=== PATIENT | male | born 1940 | race Hispanic/Latino ===

== ENCOUNTER 2017-09-08 22:05 | Observation (INO) | payer MEDICARE, MEDICAID ==
[2017-09-08 22:40] VITALS: BMI 33.6
--- NOTE | 2017-09-08 22:43 | ED PDOC ---
Arrival/HPI - General Time Seen by Provider: 09/08/17 22:06 Historian: Patient - History of Present Illness Narrative History of Present Illness (Text): 09/08/17 22:33 Octavio Caal is a 77 year old male, whose past medical history includes aortic abdominal aneurysm and cholelithiasis, complaining of right upper abdominal discomfort after eating a few hours ago. Patient describes his discomfort as sharp pain. At present, Patient's symptoms are currently relieved. Patient denies any associated nausea, vomiting, back pain, chest pain , shortness of breath, or any other complaints at this time. Time/Duration: 4-6 hours Symptom Onset: Gradual Symptom Course: Improving Severity Level: Mild Activities at Onset: Light Context: Home Past Medical History - Provider Review Nursing Documentation Reviewed: Yes - Infectious Disease Hx of Infectious Diseases: None - Tetanus Immunization Tetanus Immunization: Unknown - Pulmonary Hx Asthma: Yes Hx Chronic Obstructive Pulmonary Disease (COPD): Yes - Musculoskeletal/Rheumatological Hx Arthritis: Yes - Genitourinary/Gynecological Hx Prostate Problems: Yes - Psychiatric Hx Depression: No Hx Emotional Abuse: No Hx Physical Abuse: No Hx Substance Use: No - Past Surgical History Past Surgical History: No Previous - Anesthesia Hx Anesthesia: No - Suicidal Assessment Feels Threatened In Home Enviroment: No Family/Social History - Physician Review Nursing Documentation Reviewed: Yes Family/Social History: No Known Family HX Smoking Status: Light Smoker < 10 Cigarettes Daily Hx Alcohol Use: No Hx Substance Use: No Hx Substance Use Treatment: No Allergies/Home Meds Allergies/Adverse Reactions: Allergies No Known Allergies Allergy (Verified 11/25/16 15:50) Home Medications: Home Meds Medication Instructions Recorded Confirmed Celecoxib [Celebrex] 0 mg PO 04/01/14 04/01/14 Review of Systems - Physician Review All systems were reviewed & negative as marked: Yes - Review of Systems Constitutional: absent: Fevers Eyes: absent: Vision Changes ENT: absent: Hearing Changes Respiratory: absent: SOB Cardiovascular: absent: Chest Pain (right-sided upper abdominal pain) Gastrointestinal: Abdominal Pain Genitourinary Male: absent: Dysuria, Frequency Musculoskeletal: absent: Arthralgias, Back Pain Skin: absent: Rash, Pruritis Neurological: absent: Headache, Dizziness Endocrine: absent: Diaphoresis Physical Exam Vital Signs Temp Pulse Resp BP Pulse Ox 09/09/17 01:00 84 20 133/71 96 09/08/17 23:24 97.8 F 88 17 110/77 95 09/08/17 22:39 98.6 F 103 H 23 130/74 95 - Systems Exam Head: Present: Atraumatic, Normocephalic Pupils: Present: PERRL Extroacular Muscles: Present: EOMI Conjunctiva: Present: Normal Mouth: Present: Moist Mucous Membranes Neck: Present: Normal Range of Motion Respiratory/Chest: Present: Clear to Auscultation, Good Air Exchange. No: Respiratory Distress, Accessory Muscle Use Cardiovascular: Present: Regular Rate and Rhythm, Normal S1, S2. No: Murmurs Abdomen: Present: Normal Bowel Sounds. No: Tenderness, Distention, Peritoneal Signs Back: Present: Normal Inspection Upper Extremity: Present: Normal Inspection. No: Cyanosis, Edema Lower Extremity: Present: Normal Inspection. No: Edema Neurological: Present: GCS=15, CN II-XII Intact, Speech Normal Skin: Present: Warm, Dry, Normal Color. No: Rashes Psychiatric: Present: Alert, Oriented x 3, Normal Insight, Normal Concentration Medical Decision Making ED Course and Treatment: 09/08/17 22:47 Impression: 77 year old male complaining of right upper abdominal pain after eating a few hours ago. Differential Diagnosis included but are not limited to: Plan: -- EKG -- Chest X-ray -- Abdomen and Pelvis CT w/o contrast -- Abdomen Ultrasound -- Labs -- Reassess and disposition Prior Visits: Notes and results from previous visits were reviewed. Patient last seen in the ED on 11/25/16 for left shoulder pain status post injury. Patient was discharged home. Progress Notes: 09/09/17 00:44 CT Abdomen and Pelvis Without Intravenous Contrast Creator : FRIDA MG FINDINGS: Lower thorax: The bilateral lung bases are clear. ABDOMEN: Liver: No acute findings Gallbladder and bile ducts: The gallbladder is decompressed, with a single dependent with calcified stone. No intra-extrahepatic biliary ductal dilation. Pancreas: Limited evaluation secondary to the lack of intravenous contrast. Spleen: No acute findings. Adrenals: No acute findings. Kidneys and ureters: No obstructing stones. No hydronephrosis. Multiple areas of decreased attenuation are identified within the left kidney, statistically representing benign cysts, unchanged from prior study. PELVIS: Bladder: No acute findings. Reproductive: The prostate gland is enlarged, and demonstrates multiple bulky calcifications. Appendix: The appendix is of normal-caliber (series 2, image 129). ABDOMEN and PELVIS: Stomach and bowel: No acute findings. Peritoneum: No acute findings. Lymph nodes: Limited evaluation without intravenous contrast. Vasculature: Infrarenal abdominal aortic aneurysm measuring 4.5 cm in anteroposterior dimension, unchanged from previous study. Calcified atherosclerotic disease. Bones: No acute fracture. IMPRESSION: Cholelithiasis. Stable infrarenal abdominal aortic aneurysm. Left renal (most likely) benign cysts. 09/09/17 01:00 US Abdomen Complete: Creator : FRIDA MG FINDINGS: Liver: Increased in echogenicity and size measuring 19 cm in longitudinal dimension. No intrahepatic bile duct dilation. Gallbladder: No acute findings. The gallbladder is decompressed, and contains stones and sludge. Decreased echogenicity is identified surrounding the decompressed gallbladder the, possibly representing trace pericholecystic fluid. No gallbladder wall thickening is detected. Common bile duct: No stones. No dilation, measuring 4.4 mm. Pancreas: Visualization of the pancreas is limited by overlying bowel gas. Right kidney: Unremarkable echogenicity and size measuring 12 x 6 x 6 cm . No hydronephrosis. Left Kidney: Unremarkable in size measuring 11.5 x 5.6 x 5.9 cm. Simple cyst within the left kidney are noted. The largest within the mid to lower pole measuring 6 cm in greatest dimension. No hydronephrosis. Spleen: Unremarkable in echogenicity and size measuring 8.1 x 4.6 x 4.5 cm. Aorta: Unremarkable. Inferior vena cava: patent. IMPRESSION: Stones and sludge within the decompressed gallbladder with additional findings suggesting trace pericholecystic fluid. Fatty infiltration of an enlarged liver. Simple cysts within the left kidney. Limited evaluation of the pancreas, secondary to overlying bowel gas. Otherwise, unremarkable sonographic evaluation of the abdomen, as detailed above. 09/09/17 01:[address] Machuca, who accepts patient admission to his service. Dr. Brooke on consult. - Lab Interpretations Lab Results: 09/08/17 22:40 09/08/17 22:40 Lab Results 09/09/17 00:30: Urine Color Yellow, Urine Appearance Sl cloudy, Urine pH 5.5, Ur Specific [place] >= 1.030, Urine Protein Negative, Urine Glucose (UA) Negative, Urine Ketones Trace H, Urine Blood Small H, Urine Nitrate Negative, Urine Bilirubin Negative, Urine Urobilinogen 0.2, Ur Leukocyte Esterase Small H , Urine RBC 0 - 2, Urine WBC 10 - 15, Ur Epithelial Cells 1 - 3, Urine Bacteria Few 09/08/17 22:40: WBC 10.0, RBC 4.90, Hgb 14.9, Hct 44.2, MCV 90.2, MCH 30.4, MCHC 33.7, RDW 14.6 H, Plt Count 193, MPV 10.8 09/08/17 22:40: Sodium 144, Potassium 3.8, Chloride 108 H, Carbon Dioxide 27, Anion Gap 13, BUN 21, Creatinine 1.0, Est GFR ( Amer) > 60, Est GFR (Non- Af Amer) > 60, Random Glucose 148 H, Calcium 10.6 H, Total Bilirubin 0.4, AST 26 , ALT 29, Alkaline Phosphatase 71, Total Protein 6.8, Albumin 4.2, Globulin 2.6 , Albumin/Globulin Ratio 1.6, Lipase 74 09/08/17 22:40: PT 10.8, INR 0.99, APTT 31.0 I have reviewed the lab results: Yes - RAD Interpretation Narrative RAD Interpretations (Text): 09/08/17 23:45 CXR- No acute process Radiology Orders: 09/08/17 22:39 CHEST ONE VIEW [RAD] Stat ABDOMEN COMPLETE [US] Stat 09/08/17 22:43 ABD & PELVIS W/O PO OR IV CONT [CT] Stat Marine Mechanic: ED Physician - Scribe Statement The provider has reviewed the documentation as recorded by the Walker Painter Provider Scribe Attestation: All medical record entries made by the Walker were at my direction and personally dictated by me. I have reviewed the chart and agree that the record accurately reflects my personal performance of the history, physical exam, medical decision making, and the department course for this patient. I have also personally directed, reviewed, and agree with the discharge instructions and disposition. Disposition/Present on Arrival - Present on Arrival Any Indicators Present on Arrival: No History of DVT/PE: No History of Uncontrolled Diabetes: No Urinary Catheter: No History Surgical Site Infection Following: None - Disposition Have Diagnosis and Disposition been Completed?: Yes Diagnosis: Biliary colic, Cholelithiasis Disposition: HOSPITALIZED Disposition Time: :13 Patient Plan: Observation Patient Problems: Current Active Problems Problem Status Onset Biliary colic Acute Cholelithiasis Acute Condition: STABLE Referrals: Nick Gallegos MD [Primary Care Provider] - Follow up with primary
[2017-09-08 22:54] LABS: HEMATOCRIT 44.2 % (42.0-52.0); MEAN CELL VOLUME 90.2 fl (80.0-105.0); MEAN CORPUSCULAR HEMOGLOBIN 30.4 pg (25.0-35.0); MEAN CORPUSCULAR HGB CONC 33.7 g/dl (31.0-37.0); MEAN PLATELET VOLUME 10.8 fl (7.0-11.0); RED CELL DISTRIBUTION WIDTH 14.6 % (11.5-14.5)
[2017-09-08 23:02] LABS: ALB/GLOB RATIO 1.6 (1.1-1.8); ALKALINE PHOSPHATASE 71 U/L (38-126); ALT/SGPT 29 U/L (7-56); AST/SGOT 26 U/L (17-59); BILIRUBIN,TOTAL 0.4 mg/dL (0.2-1.3); BLOOD UREA NITROGEN 21 mg/dL (7-21); CALCIUM 10.6 mg/dL (8.4-10.5); CARBON DIOXIDE 27 mmol/L (21-33); CHLORIDE 108 mmol/L (98-107); GFR AFRICAN-AMERICAN > 60; GLUCOSE,RANDOM 148 mg/dL (70-110); LIPASE 74 U/L (23-300); POTASSIUM 3.8 mmol/L (3.6-5.0); SODIUM 144 mmol/L (132-148); TOTAL PROTEIN 6.8 g/dL (5.8-8.3)
[2017-09-08 23:09] LABS: INR 0.99 (0.93-1.08)
--- NOTE | 2017-09-09 00:13 | CT ---
EXAM: CT Abdomen and Pelvis Without Intravenous Contrast CLINICAL HISTORY: 77 years old, male; Pain; Abdominal pain; Additional info: Transient abdominal pain TECHNIQUE: Axial computed tomography images of the abdomen and pelvis without intravenous contrast. All CT scans at this facility use one or more dose reduction techniques, viz.: automated exposure control; ma/kV adjustment per patient size (including targeted exams where dose is matched to indication; i.e. head); or iterative reconstruction technique. Coronal and sagittal reformatted images were created and reviewed. COMPARISON: CT - ABD PELVIS W/O PO OR IV CONT 2017-03-12 08:48 FINDINGS: Lower thorax: The bilateral lung bases are clear. ABDOMEN: Liver: No acute findings Gallbladder and bile ducts: The gallbladder is decompressed, with a single dependent with calcified stone. No intra-extrahepatic biliary ductal dilation. Pancreas: Limited evaluation secondary to the lack of intravenous contrast. Spleen: No acute findings. Adrenals: No acute findings. Kidneys and ureters: No obstructing stones. No hydronephrosis. Multiple areas of decreased attenuation are identified within the left kidney, statistically representing benign cysts, unchanged from prior study. PELVIS: Bladder: No acute findings. Reproductive: The prostate gland is enlarged, and demonstrates multiple bulky calcifications. Appendix: The appendix is of normal-caliber (series 2, image 129). ABDOMEN and PELVIS: Stomach and bowel: No acute findings. Peritoneum: No acute findings. Lymph nodes: Limited evaluation without intravenous contrast. Vasculature: Infrarenal abdominal aortic aneurysm measuring 4.5 cm in anteroposterior dimension, unchanged from previous study. Calcified atherosclerotic disease. Bones: No acute fracture. IMPRESSION: Cholelithiasis. Stable infrarenal abdominal aortic aneurysm. Left renal (most likely) benign cysts.
[2017-09-09 00:43] LABS: PH,URINE 5.5 (4.7-8.0); URINE BILIRUBIN NEGATIVE (NEGATIVE); URINE BLOOD SMALL (NEGATIVE); URINE GLUCOSE (UA) NEGATIVE (NEGATIVE); URINE KETONE TRACE mg/dL (NEGATIVE); URINE LEUKOCYTE ESTERASE SMALL Leu/uL (NEGATIVE); URINE PROTEIN NEGATIVE mg/dL (<30 mg/dL); URINE UROBILINOGEN 0.2 E.U./dL (<1 E.U./dL)
[2017-09-09 00:44] LABS: URINE APPEARANCE SL CLOUDY (CLEAR); URINE COLOR YELLOW (YELLOW)
--- NOTE | 2017-09-09 00:46 | US ---
EXAM: US Abdomen Complete CLINICAL HISTORY: 77 years old, male; Pain; Abdominal pain; Epigastric; Additional info: Right upper abdominal pain TECHNIQUE: Real-time ultrasound of the abdomen (complete) with image documentation. COMPARISON: CT - ABD PELVIS W/O PO OR IV CONT 2017-09-08 22:56 FINDINGS: Liver: Increased in echogenicity and size measuring 19 cm in longitudinal dimension. No intrahepatic bile duct dilation. Gallbladder: No acute findings. The gallbladder is decompressed, and contains stones and sludge. Decreased echogenicity is identified surrounding the decompressed gallbladder the, possibly representing trace pericholecystic fluid. No gallbladder wall thickening is detected. Common bile duct: No stones. No dilation, measuring 4.4 mm. Pancreas: Visualization of the pancreas is limited by overlying bowel gas. Right kidney: Unremarkable echogenicity and size measuring 12 x 6 x 6 cm . No hydronephrosis. Left Kidney: Unremarkable in size measuring 11.5 x 5.6 x 5.9 cm. Simple cyst within the left kidney are noted. The largest within the mid to lower pole measuring 6 cm in greatest dimension. No hydronephrosis. Spleen: Unremarkable in echogenicity and size measuring 8.1 x 4.6 x 4.5 cm. Aorta: Unremarkable. Inferior vena cava: patent. IMPRESSION: Stones and sludge within the decompressed gallbladder with additional findings suggesting trace pericholecystic fluid. Fatty infiltration of an enlarged liver. Simple cysts within the left kidney. Limited evaluation of the pancreas, secondary to overlying bowel gas. Otherwise, unremarkable sonographic evaluation of the abdomen, as detailed above.
[2017-09-09 01:02] LABS: URINE BACTERIA FEW (NEG); URINE RBC 0 - 2 /hpf (0-2)
--- NOTE | 2017-09-09 06:54 | CP.PCM.CON ---
History of Present Illness - History of Present Illness History of Present Illness: General Surgery: Dr Brooke Patient is a 77M w/ PMH of only Abdominal Aortic Aneurysm. Pt presents with ~1 hour of RUQ abdominal pain following a fatty meal. Pt states after his dinner he developed intense RUQ pain (10/10) and nausea. States the pain radiated to his back. Pt presented to the ED and states after one dose of pain medication his pain has resolved and not returned. Currently his pain is 0/10. He denies any further nausea, vomiting, fevers, chills. Workup included US /CT showed cholelithiasis, no evidence of cholecystitis, and stable abdominal aneurysm. Review of Systems - Review of Systems All systems: reviewed and no additional remarkable complaints except (as per hpi ) Past Patient History - Infectious Disease Hx of Infectious Diseases: None - Tetanus Immunizations Tetanus Immunization: Unknown - Past Social History Smoking Status: Former Smoker - PULMONARY Hx Asthma: Yes Hx Chronic Obstructive Pulmonary Disease (COPD): Yes - MUSCULOSKELETAL/RHEUMATOLOGICAL Hx Arthritis: Yes Hx Falls: No - GENITOURINARY/GYNECOLOGICAL Hx Prostate Problems: Yes - PSYCHIATRIC Hx Depression: No Hx Emotional Abuse: No Hx Physical Abuse: No - SURGICAL HISTORY Hx Surgeries: No - ANESTHESIA Hx Anesthesia: No Meds Allergies/Adverse Reactions: Allergies Allergy/AdvReac Type Severity Reaction Status Date / Time No Known Allergies Allergy Verified 11/25/16 15:50 Physical Exam - Constitutional Appears: Non-toxic, No Acute Distress - ENT Exam ENT Exam: Mucous Membranes Moist - Respiratory Exam Respiratory Exam: absent: Accessory Muscle Use, Respiratory Distress - Cardiovascular Exam Cardiovascular Exam: REGULAR RHYTHM. absent: Tachycardia - GI/Abdominal Exam GI & Abdominal Exam: Soft. absent: Distended, Firm, Guarding, Tenderness - Neurological Exam Neurological exam: Alert, Oriented x3 - Psychiatric Exam Psychiatric exam: Normal Affect, Normal Mood - Skin Skin Exam: Normal Color, Warm Results - Vital Signs Recent Vital Signs: Last Vital Signs Temp 98.1 F 09/09/17 02:58 Pulse 80 09/09/17 02:58 Resp 15 09/09/17 02:58 BP 133/81 09/09/17 02:58 Pulse Ox 96 09/09/17 01:00 - Labs Result Diagrams: 09/08/17 22:40 09/08/17 22:40 Assessment & Plan - Assessment and Plan (Free Text) Assessment: 77M with single episode of biliary colic Plan: pt currently asymptomatic, no evidence of cholecystitis or infection OK to advance diet and subsequently discharge if tolerates no antibiotics needed pt can follow up in office with Dr Brooke for elective cholecystectomy will d/w Dr Edwardo Frazier, PGY3
[2017-09-09 08:17] VITALS: BP 136/76; PULSE 83; RESP 21; TEMP 98.2; O2SAT 94
--- NOTE | 2017-09-09 08:55 | RAD ---
PROCEDURE: CHEST RADIOGRAPH, 1 VIEW HISTORY: abdominal pain COMPARISON: 08/17/2013. FINDINGS: LUNGS: The lungs are well inflated. There is mild pulmonary venous congestion. No focal consolidation. PLEURA: No pneumothorax or pleural fluid seen. CARDIOVASCULAR: Normal. OSSEOUS STRUCTURES: No significant abnormalities. VISUALIZED UPPER ABDOMEN: Normal. OTHER FINDINGS: None. IMPRESSION: Mild pulmonary venous congestion. No lobar pneumonia.
--- NOTE | 2017-09-09 10:22 | CARD ---
APPROVED REPORT EKG Measurement Heart [id number] <Conclusion> Normal sinus rhythm Left axis deviation Incomplete right bundle branch block Abnormal ECG
--- NOTE | 2017-09-10 08:49 | HP ---
CHIEF COMPLAINT AND HISTORY OF PRESENT ILLNESS: This is a 77-year-old male who is coming to the hospital with complaints of abdominal pain. The patient states that he started having abdominal pain yesterday, it lasted about an hour. He has no nausea. He says that the pain was in his abdominal area. He does have a history of an abdominal aortic aneurysm and cholelithiasis. The patient says it was mostly in the right upper quadrant. It was sharp. It is nonradiating. Initially, he was complaining of 10/10 pain. REVIEW OF SYMPTOMS: All other review of symptoms are within normal limits, except I was mentioned. ALLERGIES: NO KNOWN DRUG ALLERGIES. HOME MEDICATIONS: Celebrex. SOCIAL HISTORY: He smokes less than 10 cigarettes a day. He denies alcohol or substance abuse. PAST MEDICAL HISTORY: As above. FAMILY HISTORY: Noncontributory. PHYSICAL EXAMINATION: VITAL SIGNS: Temperature is 98.6, pulse of 103, blood pressure 130/74, respirations are 23, O2 saturation 95%, height is 5 feet 4 inches, weight is 190 pounds, and BMI is 32.6. GENERAL: The patient lying in bed, uncomfortable, and in no acute distress. HEENT: Atraumatic and normocephalic. Anicteric sclerae. Moist mucosa. [place] conjunctivae. No oral lesions. NECK: No JVD, anterior and posterior adenopathy, thyromegaly, or bruits. CARDIOVASCULAR: S1 and S2 regular. No murmur, rubs, or gallop. LUNGS: Clear to auscultation bilaterally. No wheezes, rales, or rhonchi. ABDOMEN: Bowel sounds are positive. Soft, nontender and nondistended. No hepatosplenomegaly. No rebound and no guarding EXTREMITIES: No cyanosis, clubbing, or edema. NEUROLOGIC: No facial asymmetry. Tongue is midline. No uvula deviation. Power is 5/5 upper extremity and lower extremity. Sensation intact in upper extremity and lower extremity. PSYCHIATRIC: He is awake, alert and oriented x3. No anxiety or depression. She has normal affect. GENITOURINARY: No CVA tenderness. VASCULAR: 2+ pulses in the carotid pulses and pedal pulses. SKIN: No erythema or nodules SPINE: Shows normal curvature. EXTREMITIES: No Cyanosis and clubbing, no edema. LABORATORY DATA: White count is 10, hemoglobin is 14.9, platelet count is 193. INR is 0.99. Sodium is 144, creatinine is 1, alkaline phosphatase is 71, lipase is 74. Urine, shows bilirubin is negative and nitrites are negative. CT of the abdomen and pelvis shows cholelithiasis. There is a stable infrarenal abdominal aortic aneurysm. Chest x-ray shows no infiltrates. EKG done shows sinus rhythm at 88, no ST-T changes. ASSESSMENT: 1. Abdominal pain secondary to cholelithiasis. 2. Infrarenal abdominal aortic aneurysm 4.5 cm. 3. Obese with a body mass index of 32. PLAN: The patient is going to be admitted to the hospital. The patient is comfortable. He will have his diet advanced. Surgery had to assess and evaluate the patient. He can come to outpatient followup to be reevaluated for possible cholecystectomy. He is asking to be discharged home. He is going to follow up with his primary care doctor, Dr. Jasso. CONDITION: Stable. ACTIVITIES: Increase as tolerated. Gary Machuca MD
== END 2017-09-09 10:54 | disposition home or self-care (01) ==
LOC: ED 22:05 → ERH 09-09 01:15 → 3RNO 09-09 02:41
PROVIDERS: ADMIT Internal Medicine Nephrology; ATTEND Internal Medicine Nephrology
DX: K80.20 Calculus of gallbladder without cholecystitis without obstruction (principal); I71.4 Abdominal aortic aneurysm, without rupture; J44.9 Chronic obstructive pulmonary disease, unspecified; N28.1 Cyst of kidney, acquired; K76.0 Fatty (change of) liver, not elsewhere classified; F17.210 Nicotine dependence, cigarettes, uncomplicated; Z68.32 Body mass index [BMI] 32.0-32.9, adult; E66.9 Obesity, unspecified
CPT/HCPCS: 71010; 74176; 76700; 80053; 81001; 83690; 85027; 85610; 85730; 87086; 93005; 99285; G0378

== ENCOUNTER 2017-11-11 10:56 | Emergency (ER) | payer MEDICARE, MEDICAID ==
[2017-11-11 10:59] VITALS: BMI 32.4
[2017-11-11 11:15] VITALS: TEMP 98.7
[2017-11-11] MEDS ORDERED: Albuterol-Ipratrop 3 mg / 0.5 (3 ml) UD IH STA (11:15)
--- NOTE | 2017-11-11 11:20 | ED PDOC ---
Arrival/HPI - General Chief Complaint: Shortness Of Breath Time Seen by Provider: 11/11/17 11:09 Historian: Patient - History of Present Illness Narrative History of Present Illness (Text): 11/11/17 11:10 Wilfred Caal is a 77 year old male, whose past medical history includes aortic abdominal aneurysm, cholelithiasis, and COPD, who presents to the emergency department complaining of coughing, difficulty breathing, and lower back pain for the past 3 days. Patient's family states that his symptoms are worse than usual. Patient denies any fever, chills, chest pain, nausea, vomiting , diarrhea, urinary symptoms, neck pain, headache, dizziness, or any other complaints. Time/Duration: < week Symptom Onset: Gradual Symptom Course: Unchanged Activities at Onset: Light Context: Home Past Medical History - Provider Review Nursing Documentation Reviewed: Yes - Infectious Disease Hx of Infectious Diseases: None - Tetanus Immunization Tetanus Immunization: Unknown - Cardiac Hx Cardiac Disorders: No - Pulmonary Hx Respiratory Disorders: Yes Hx Asthma: Yes Hx Chronic Obstructive Pulmonary Disease (COPD): Yes - HEENT Hx HEENT Disorder: Yes ([place]) - Musculoskeletal/Rheumatological Hx Arthritis: Yes Hx Falls: No - Genitourinary/Gynecological Hx Prostate Problems: Yes - Psychiatric Hx Depression: No Hx Emotional Abuse: No Hx Physical Abuse: No Hx Substance Use: No - Past Surgical History Past Surgical History: No Previous - Anesthesia Hx Anesthesia: No - Suicidal Assessment Feels Threatened In Home Enviroment: No Family/Social History - Physician Review Nursing Documentation Reviewed: Yes Family/Social History: No Known Family HX Smoking Status: Former Smoker Hx Alcohol Use: No Hx Substance Use: No Hx Substance Use Treatment: No Allergies/Home Meds Allergies/Adverse Reactions: Allergies No Known Allergies Allergy (Verified 11/11/17 11:22) Home Medications: Home Meds Medication Instructions Recorded Confirmed Albuterol/Ipratropium [Duoneb 3 3 ml IH Q6 PRN 11/11/17 11/11/17 MG/3 Ml-0.5 MG/3 Ml 3 Ml] Tamsulosin [Flomax] 0.4 mg PO DAILY 11/11/17 11/11/17 Review of Systems - Physician Review All systems were reviewed & negative as marked: Yes - Review of Systems Constitutional: absent: Night Sweats Eyes: absent: Vision Changes ENT: absent: Hearing Changes Respiratory: SOB, Cough Cardiovascular: absent: Chest Pain Gastrointestinal: absent: Abdominal Pain Genitourinary Male: absent: Dysuria, Frequency Musculoskeletal: Back Pain. absent: Arthralgias Skin: absent: Rash, Pruritis Neurological: absent: Headache, Dizziness Endocrine: absent: Diaphoresis Hemo/Lymphatic: absent: Adenopathy Psychiatric: absent: Anxiety, Depression Physical Exam Vital Signs Reviewed: Yes Vital Signs Temp Pulse Resp BP Pulse Ox 11/11/17 13:03 99 H 17 125/73 99 11/11/17 11:14 20 95 11/11/17 11:03 98.7 F 114 H 22 136/84 93 L Temperature: Afebrile Blood Pressure: Normal Pulse: Tachycardic Respiratory Rate: Normal Appearance: Positive for: Other (mild shortness of breath at rest) Pain Distress: None Mental Status: Positive for: Alert and Oriented X 3 - Systems Exam Head: Present: Atraumatic, Normocephalic Pupils: Present: PERRL Extroacular Muscles: Present: EOMI Conjunctiva: Present: Normal Neck: Present: Normal Range of Motion Respiratory/Chest: Present: Wheezes (scattered expiratory wheezes) Cardiovascular: Present: Regular Rate and Rhythm, Normal S1, S2. No: Murmurs Abdomen: Present: Normal Bowel Sounds. No: Tenderness, Distention, Peritoneal Signs Back: Present: Normal Inspection Upper Extremity: Present: Normal Inspection. No: Cyanosis, Edema Lower Extremity: Present: Edema (mild peripheral edema) Neurological: Present: GCS=15, CN II-XII Intact, Speech Normal Skin: Present: Warm, Dry, Normal Color. No: Rashes Psychiatric: Present: Alert, Oriented x 3, Normal Insight, Normal Concentration Medical Decision Making ED Course and Treatment: 11/11/17 11:24 Impression: 77 year old male complaining of persistent coughs, difficulty breathing, and lower back pain for the past 3 days. Differential Diagnosis included but are not limited to: Plan: -- EKG -- Chest X-ray -- VBG -- Labs -- Reassess and disposition Prior Visits: Notes and results from previous visits were reviewed. Patient was last seen in the emergency department on 09/08/17 for right upper abdominal discomfort after eating. Patient was discharged home. Progress Notes: 11/11/17 12:16 Chest X-ray: Creator : Issac Hui MD FINDINGS: LUNGS:No active pulmonary disease. PLEURA:No significant pleural effusion identified, no pneumothorax apparent. CARDIOVASCULAR:Cardiomegaly. No evidence of acute, significant cardiovascular disease. OSSEOUS STRUCTURES:No significant abnormalities. VISUALIZED UPPER ABDOMEN:Normal. OTHER FINDINGS:None. IMPRESSION: No active disease. No significant interval change compared to the prior examination(s). - Lab Interpretations Lab Results: 11/11/17 11:00 11/11/17 11:00 Lab Results 11/11/17 11:00: Sodium 142, Chloride 105, Potassium 4.4, Carbon Dioxide 24, Anion Gap 17, BUN 16, Creatinine 1.0, Est GFR ( Amer) > 60, Est GFR (Non- Af Amer) > 60, Random Glucose 117 H, Calcium 10.7 H, Total Bilirubin 0.7, AST 24 , ALT 34, Alkaline Phosphatase 56, Total Protein 7.5, Albumin 4.5, Globulin 3.0 , Albumin/Globulin Ratio 1.5 11/11/17 11:00: pO2 65 H, VBG pH 7.44 H, VBG pCO2 40.0, VBG HCO3 27.2, VBG Total CO2 28.4 H, VBG O2 Sat (Calc) 96.5 H, VBG Base Excess 2.8 H, VBG Potassium 4.3, Sodium 139.0, Chloride 105.0, Glucose 123 H, Lactate 1.0, FiO2 21.0, Venous Blood Potassium 4.3 11/11/17 11:00: WBC 9.0, RBC 5.23, Hgb 16.1, Hct 47.9, MCV 91.6, MCH 30.8, MCHC 33.6, RDW 14.7 H, Plt Count 170, MPV 11.3 H, Gran % 71.9 H, Lymph % (Auto) 13.4 L, [place] % (Auto) 13.3 H, Eos % (Auto) 0.8 L, Baso % (Auto) 0.6, Gran # 6.46, Lymph # 1.2, [place] # 1.2 H, Eos # 0.1, Baso # 0.05 I have reviewed the lab results: Yes - RAD Interpretation Radiology Orders: 11/11/17 11:16 CHEST PORTABLE [RAD] Stat - Medication Orders Current Medication Orders: Discontinued Medications Albuterol Sulfate (Albuterol 0.083% Inhal Jazmyn (2.5 Mg/3 Ml) Ud) 2.5 mg INH STAT STA Stop: 11/11/17 12:16 Last Admin: 11/11/17 12:38 Dose: 2.5 mg Albuterol/Ipratropium (Duoneb 3 Mg/0.5 Mg (3 Ml) Ud) 3 ml IH STAT STA Stop: 11/11/17 11:16 Last Admin: 11/11/17 11:26 Dose: 3 ml Methylprednisolone (Solu-Medrol) 125 mg IVP STAT STA Stop: 11/11/17 11:16 Last Admin: 11/11/17 11:26 Dose: 125 mg IVP Administration Document 11/11/17 11:26 LM (Rec: 11/11/17 11:26 [facility] [id number]) Charges for Administration # of IVP Administrations 1 - Scribe Statement The provider has reviewed the documentation as recorded by the Tariqibdeneen Painter Provider Scribe Attestation: All medical record entries made by the Scribe were at my direction and personally dictated by me. I have reviewed the chart and agree that the record accurately reflects my personal performance of the history, physical exam, medical decision making, and the department course for this patient. I have also personally directed, reviewed, and agree with the discharge instructions and disposition. Disposition/Present on Arrival - Present on Arrival Any Indicators Present on Arrival: No History of DVT/PE: No History of Uncontrolled Diabetes: No Urinary Catheter: No History of Decub. Ulcer: No History Surgical Site Infection Following: None - Disposition Have Diagnosis and Disposition been Completed?: Yes Diagnosis: Bronchitis, Back pain Disposition: HOME/ ROUTINE Disposition Time: 12:30 Condition: STABLE Prescriptions: Hydrocodone/Chlorphen P-Stirex [Tussicaps 8 mg-10 mg] 1 cap PO BID PRN #14 cap PRN Reason: Cough Naproxen [Naprosyn] 500 mg PO BID PRN #14 tablet PRN Reason: Pain, Moderate (4-7) predniSONE [Prednisone] 40 mg PO DAILY #10 tab Forms: [employer] ([place])
[2017-11-11 11:38] LABS: BASO # 0.05 K/mm3 (0.0-2.0); BASO % 0.6 % (0.0-3.0); EOS # 0.1 (0.0-0.7); EOS % 0.8 % (1.5-5.0); GRAN # 6.46 (1.4-6.5); GRAN % 71.9 % (50.0-68.0); HEMOGLOBIN 16.1 g/dL (14.0-18.0); LYMPH # 1.2 (1.2-3.4); LYMPH % 13.4 % (22.0-35.0); MEAN CELL VOLUME 91.6 fl (80.0-105.0); MEAN CORPUSCULAR HEMOGLOBIN 30.8 pg (25.0-35.0); MEAN CORPUSCULAR HGB CONC 33.6 g/dl (31.0-37.0); MEAN PLATELET VOLUME 11.3 fl (7.0-11.0); MONO # 1.2 (0.1-0.6); MONO % 13.3 % (1.0-6.0); RBC 5.23 10^6/uL (3.5-6.1); RED CELL DISTRIBUTION WIDTH 14.7 % (11.5-14.5)
[2017-11-11 11:39] LABS: VENOUS BLOOD GAS BASE EXCESS 2.8 mmol/L (0.0-2.0); VENOUS BLOOD GAS PO2 65 mm/Hg (30-55); VENOUS BLOOD PH 7.44 (7.32-7.43)
[2017-11-11 11:43] LABS: ALB/GLOB RATIO 1.5 (1.1-1.8); ALBUMIN 4.5 g/dL (3.0-4.8); CALCIUM 10.7 mg/dL (8.4-10.5); GFR AFRICAN-AMERICAN > 60; GFR NON-AFRICAN AMERICAN > 60
[2017-11-11 11:48] LABS: ALT/SGPT 34 U/L (7-56); AST/SGOT 24 U/L (17-59); BLOOD UREA NITROGEN 16 mg/dL (7-21)
--- NOTE | 2017-11-11 11:49 | RAD ---
HISTORY: Cough. Portable study 11:27. COMPARISON: 09/08/2017 FINDINGS: LUNGS: No active pulmonary disease. PLEURA: No significant pleural effusion identified, no pneumothorax apparent. CARDIOVASCULAR: Cardiomegaly. No evidence of acute, significant cardiovascular disease. OSSEOUS STRUCTURES: No significant abnormalities. VISUALIZED UPPER ABDOMEN: Normal. OTHER FINDINGS: None. IMPRESSION: No active disease. No significant interval change compared to the prior examination(s).
[2017-11-11] MEDS ORDERED: Albuterol 0.083% Inhal Sol (2.5 mg/3 mL) UD INH STA (12:15)
[2017-11-11 13:04] VITALS: BP 125/73; PULSE 99; RESP 17; O2SAT 99
--- NOTE | 2017-11-12 17:31 | CARD ---
APPROVED REPORT EKG Measurement Heart [id number] <Conclusion> Sinus tachycardia Low voltage QRS Incomplete right bundle branch block Borderline ECG
== END 2017-11-11 13:04 | disposition home or self-care (01) ==
LOC: ED 10:56
DX: M54.9 Dorsalgia, unspecified (principal); J40 Bronchitis, not specified as acute or chronic; Z87.891 Personal history of nicotine dependence
CPT/HCPCS: 71010; 80053; 82803; 85025; 93005; 94640; 96374; 99283; J2930

== ENCOUNTER 2018-01-21 20:34 | Observation (INO) | payer MEDICARE, MEDICAID ==
[2018-01-21 20:34] VITALS: BMI 32.4
[2018-01-21] MEDS ORDERED: Sodium Chloride 0.9% 1,000 ML IV STA (21:08)
--- NOTE | 2018-01-21 21:12 | ED PDOC ---
Arrival/HPI - General Chief Complaint: Chest Pain Time Seen by Provider: 01/21/18 20:34 Historian: Patient - History of Present Illness Narrative History of Present Illness (Text): 01/21/18 21:08 A 77 year old male, whose past medical history includes COPD, abdominal aneurysm and cholelithiasis, presents to the emergency department complaining of right sided abdominal pain that began 2 hours prior to arrival. Patient notes radiating pain towards his epigastric region. He states his symptoms began shortly after eating. Patient denies any fever, chills, nausea, vomiting, diarrhea, constipation, urinary symptoms, hematochezia, chest pain, shortness of breath or any other complaints. PMD: Dr. Gallegos and Dr. 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) Symptom Course: Unchanged Quality: Other Context: Home Past Medical History - Provider Review Nursing Documentation Reviewed: Yes - Infectious Disease Hx of Infectious Diseases: None - Tetanus Immunization Tetanus Immunization: Unknown - Cardiac Hx Cardiac Disorders: No - Pulmonary Hx Respiratory Disorders: Yes Hx Asthma: Yes Hx Chronic Obstructive Pulmonary Disease (COPD): Yes - HEENT Hx HEENT Disorder: Yes ([id number]) - Musculoskeletal/Rheumatological Hx Arthritis: Yes Hx Back Pain: Yes Hx Falls: No - Genitourinary/Gynecological Hx Prostate Problems: Yes - Psychiatric Hx Depression: No Hx Emotional Abuse: No Hx Physical Abuse: No Hx Substance Use: No - Past Surgical History Past Surgical History: No Previous - Surgical History Other/Comment: gall stone - Anesthesia Hx Anesthesia: No - Suicidal Assessment Feels Threatened In Home Enviroment: No Family/Social History - Physician Review Nursing Documentation Reviewed: Yes Family/Social History: No Known Family HX Smoking Status: Former Smoker Hx Alcohol Use: No Hx Substance Use: No Hx Substance Use Treatment: No Allergies/Home Meds Allergies/Adverse Reactions: Allergies No Known Allergies Allergy (Verified 01/21/18 20:55) Home Medications: Home Meds Medication Instructions Recorded Confirmed Tamsulosin [Flomax] 0.4 mg PO DAILY 11/11/17 01/21/18 Review of Systems - Physician Review All systems were reviewed & negative as marked: Yes - Review of Systems Constitutional: absent: Fevers, Night Sweats Respiratory: absent: SOB Cardiovascular: absent: Chest Pain Gastrointestinal: Abdominal Pain (right sided abdominal pain radiating to epigastric region). absent: Constipation, Diarrhea, Nausea, Vomiting, Hematochezia Genitourinary Male: absent: Dysuria, Frequency, Hematuria, Urinary Output Changes Physical Exam Vital Signs Reviewed: Yes Vital Signs Temp Pulse Resp BP Pulse Ox 01/21/18 20:50 99 F 98 H 18 147/97 H 99 Temperature: Afebrile Blood Pressure: Hypertensive Pulse: Tachycardic Respiratory Rate: Normal Appearance: Positive for: Well-Appearing, Non-Toxic, Comfortable Pain Distress: None Mental Status: Positive for: Alert and Oriented X 3 - Systems Exam Head: Present: Atraumatic, Normocephalic Pupils: Present: PERRL Extroacular Muscles: Present: EOMI Conjunctiva: Present: Normal Mouth: Present: Moist Mucous Membranes Neck: Present: Normal Range of Motion Respiratory/Chest: Present: Clear to Auscultation, Good Air Exchange. No: Respiratory Distress, Accessory Muscle Use Cardiovascular: Present: Regular Rate and Rhythm, Normal S1, S2. No: Murmurs Abdomen: Present: Tenderness (RUQ and epigastric tenderness to palpation), Normal Bowel Sounds, McBurney's Point Tender. No: Distention, Peritoneal Signs , Rebound, Guarding Back: Present: Normal Inspection Upper Extremity: Present: Normal Inspection. No: Cyanosis, Edema Lower Extremity: Present: Normal Inspection. No: Edema Neurological: Present: GCS=15, CN II-XII Intact, Speech Normal Skin: Present: Warm, Dry, Normal Color. No: Rashes Psychiatric: Present: Alert, Oriented x 3, Normal Insight, Normal Concentration Medical Decision Making ED Course and Treatment: 01/21/18 21:07 Impression: A 77 year old male with right sided abdominal pain radiating to epigastric region Differential Diagnosis included but are not limited to: Cholecystitis vs. Biliary colic Plan: -- Abdomen ultrasound -- Labs -- Pepcid, Toradol and IV fluids -- Reassess and disposition Progress Notes: EKG shows NSR at 81 BPM with incomplete RBBB. Interpreted by me. 01/21/18 22:32 Case signed out to Dr. Dumont to f/u CXR, Ultrasound, reevaluate and disposition. - Lab Interpretations Lab Results: 01/21/18 21:10 01/21/18 21:10 Lab Results 01/21/18 21:10: Sodium 139, Potassium 4.6, Chloride 105, Carbon Dioxide 24, Anion Gap 14, BUN 23 H, Creatinine 1.0, Est GFR ( Amer) > 60, Est GFR ( Non-Af Amer) > 60, Random Glucose 123 H, Calcium 11.3 H, Total Bilirubin 0.5, AST 27, ALT 29, Alkaline Phosphatase 57, Total Protein 6.9, Albumin 4.0, Globulin 2.8, Albumin/Globulin Ratio 1.4, Lipase 74 01/21/18 21:10: PT 10.4, INR 0.91 L, APTT 31.9 01/21/18 21:10: WBC 9.0, RBC 4.98, Hgb 15.3, Hct 45.2, MCV 90.8, MCH 30.7, MCHC 33.8, RDW 15.0 H, Plt Count 176, MPV 11.3 H, Gran % 53.1, Lymph % (Auto) 32.7, [place] % (Auto) 8.9 H, Eos % (Auto) 4.5, Baso % (Auto) 0.8, Gran # 4.80, Lymph # ( Auto) 3.0, [place] # (Auto) 0.8 H, Eos # (Auto) 0.4, Baso # (Auto) 0.07 I have reviewed the lab results: Yes - RAD Interpretation Radiology Orders: 01/21/18 21:08 ABDOMEN COMPLETE [US] Stat 01/21/18 21:16 CXR [CHEST PORTABLE] [RAD] Stat - Medication Orders Current Medication Orders: Sodium Chloride (Sodium Chloride 0.9%) 1,000 mls @ 100 mls/hr IV .Q10H STA Stop: 01/22/18 07:07 Last Admin: 01/21/18 21:29 Dose: 100 mls/hr eMAR Start Stop Document 01/21/18 21:29 AD (Rec: 01/21/18 21:29 AD [id number]) Intravenous Solution Start Date 01/21/18 Start Time 21:29 Discontinued Medications Famotidine (Pepcid) 20 mg IVP STAT STA Stop: 01/21/18 21:09 Last Admin: 01/21/18 21:30 Dose: 20 mg IVP Administration Document 01/21/18 21:30 AD (Rec: 01/21/18 21:31 AD [id number]) Charges for Administration # of IVP Administrations 1 Ketorolac Tromethamine (Toradol) 30 mg IVP STAT STA Stop: 01/21/18 21:09 Last Admin: 01/21/18 21:29 Dose: 30 mg MAR Pain Assessment Document 01/21/18 21:29 AD (Rec: 01/21/18 21:29 AD [id number]) Pain Reassessment Is this a pain reassessment? No Presence of Pain Presence of Pain Yes Pain Scale Used Pain Scale Used Numeric Description Intensity of Pain at present 10 IVP Administration Document 01/21/18 21:29 AD (Rec: 01/21/18 21:29 AD [id number]) Charges for Administration # of IVP Administrations 1 - Scribe Statement The provider has reviewed the documentation as recorded by the Scribdeneen Milian Provider Scribe Attestation: All medical record entries made by the Scribe were at my direction and personally dictated by me. I have reviewed the chart and agree that the record accurately reflects my personal performance of the history, physical exam, medical decision making, and the department course for this patient. I have also personally directed, reviewed, and agree with the discharge instructions and disposition. Disposition/Present on Arrival - Present on Arrival Any Indicators Present on Arrival: No History of DVT/PE: No History of Uncontrolled Diabetes: No Urinary Catheter: No History of Decub. Ulcer: No History Surgical Site Infection Following: None - Disposition Have Diagnosis and Disposition been Completed?: No Diagnosis: Biliary colic Disposition Time: 22:33 Condition: FAIR Forms: [employer] (Citizen Of [place])
[2018-01-21 21:30] LABS: BASO # 0.07 K/mm3 (0.0-2.0); BASO % 0.8 % (0.0-3.0); EOS # 0.4 (0.0-0.7); EOS % 4.5 % (1.5-5.0); GRAN # 4.8 (1.4-6.5); GRAN % 53.1 % (50.0-68.0); HEMOGLOBIN 15.3 g/dL (14.0-18.0); LYMPH % 32.7 % (22.0-35.0); MEAN CELL VOLUME 90.8 fl (80.0-105.0); MEAN CORPUSCULAR HEMOGLOBIN 30.7 pg (25.0-35.0); MEAN CORPUSCULAR HGB CONC 33.8 g/dl (31.0-37.0); MEAN PLATELET VOLUME 11.3 fl (7.0-11.0); MONO # 0.8 (0.1-0.6); MONO % 8.9 % (1.0-6.0); RBC 4.98 10^6/uL (3.5-6.1)
[2018-01-21 21:35] LABS: INR 0.91 (0.93-1.08); PARTIAL THROMBOPLASTIN TIME 31.9 Seconds (25.1-36.5); PROTHROMBIN TIME 10.4 SECONDS (9.4-12.5)
[2018-01-21 21:36] LABS: ALB/GLOB RATIO 1.4 (1.1-1.8); CALCIUM 11.3 mg/dL (8.4-10.5); GFR AFRICAN-AMERICAN > 60; GFR NON-AFRICAN AMERICAN > 60; LIPASE 74 U/L (23-300)
[2018-01-21 21:38] LABS: ALT/SGPT 29 U/L (7-56); AST/SGOT 27 U/L (17-59); BLOOD UREA NITROGEN 23 mg/dL (7-21)
--- NOTE | 2018-01-21 23:35 | ED PDOC ---
Physical Exam Vital Signs Reviewed: Yes Vital Signs Temp Pulse Resp BP Pulse Ox 01/21/18 20:50 99 F 98 H 18 147/97 H 99 Temperature: Afebrile Blood Pressure: Hypertensive Pulse: Regular Respiratory Rate: Normal Appearance: Positive for: Well-Appearing, Non-Toxic, Comfortable Pain Distress: None Mental Status: Positive for: Alert and Oriented X 3 Medical Decision Making ED Course and Treatment: 01/21/18 23:00 Case endorsed to me by Dr. Ferrell, pending US, re-evaluation, and disposition. Pt, whose past medical history includes COPD, abdominal aneurysm and cholelithiasis, presented to the emergency department complaining of right sided abdominal pain radiating to epigastric region after eating tonight. 01/22/18 00:33 US Abdomen shows: Liver: There is increased echogenicity to the liver. Texture is heterogeneous.There is hepatopedal flow in the main portal vein. Gallbladder: Gallbladder is partially distended. There are multiple stones. There is minimal sludge. There is no wall thickening.There is pericholecystic fluid/edema. Common bile duct: Common bile duct measures 6 mm in diameter. Pancreas: Pancreas is almost completely obscured by bowel gas. Kidneys: Right kidney is unremarkable. There is an exophytic left lower pole renal cyst.Left kidney and ureter are otherwise unremarkable. Spleen: Spleen is unremarkable. Aorta: Aorta is obscured by bowel gas Inferior vena cava: Inferior vena cava is poorly visualized due to bowel gas and body habitus IMPRESSION: Distended gallbladder with multiple stones and minimal pericholecystic fluid/edema; enlarged fatty liver; left renal cyst Patient was not tender over the gallbladder 01/22/18 01:[address] Machuca, who is aware and agrees with plan. Accepts pt in to his service. Pt will go to [facility] observation for cholelithiasis and biliary colic. Pt requested Dr. Medina for surgery. - Lab Interpretations Lab Results: 01/21/18 21:10 01/21/18 21:10 Lab Results 01/21/18 21:10: Sodium 139, Potassium 4.6, Chloride 105, Carbon Dioxide 24, Anion Gap 14, BUN 23 H, Creatinine 1.0, Est GFR ( Amer) > 60, Est GFR ( Non-Af Amer) > 60, Random Glucose 123 H, Calcium 11.3 H, Total Bilirubin 0.5, AST 27, ALT 29, Alkaline Phosphatase 57, Total Protein 6.9, Albumin 4.0, Globulin 2.8, Albumin/Globulin Ratio 1.4, Lipase 74 01/21/18 21:10: PT 10.4, INR 0.91 L, APTT 31.9 01/21/18 21:10: WBC 9.0, RBC 4.98, Hgb 15.3, Hct 45.2, MCV 90.8, MCH 30.7, MCHC 33.8, RDW 15.0 H, Plt Count 176, MPV 11.3 H, Gran % 53.1, Lymph % (Auto) 32.7, [place] % (Auto) 8.9 H, Eos % (Auto) 4.5, Baso % (Auto) 0.8, Gran # 4.80, Lymph # ( Auto) 3.0, [place] # (Auto) 0.8 H, Eos # (Auto) 0.4, Baso # (Auto) 0.07 I have reviewed the lab results: Yes - RAD Interpretation Radiology Orders: 01/21/18 21:08 ABDOMEN COMPLETE [US] Stat 01/21/18 21:16 CXR [CHEST PORTABLE] [RAD] Stat Printing Sales Representative: Radiologist - Medication Orders Current Medication Orders: Sodium Chloride (Sodium Chloride 0.9%) 1,000 mls @ 100 mls/hr IV .Q10H STA Stop: 01/22/18 07:07 Last Admin: 01/21/18 21:29 Dose: 100 mls/hr eMAR Start Stop Document 01/21/18 21:29 AD (Rec: 01/21/18 21:29 AD [id number]) Intravenous Solution Start Date 01/21/18 Start Time 21:29 Sodium Chloride (Sodium Chloride 0.9%) 1,000 mls @ 100 mls/hr IV .Q10H STA Stop: 01/22/18 11:44 Discontinued Medications Famotidine (Pepcid) 20 mg IVP STAT STA Stop: 01/21/18 21:09 Last Admin: 01/21/18 21:30 Dose: 20 mg IVP Administration Document 01/21/18 21:30 AD (Rec: 01/21/18 21:31 AD [id number]) Charges for Administration # of IVP Administrations 1 Ketorolac Tromethamine (Toradol) 30 mg IVP STAT STA Stop: 01/21/18 21:09 Last Admin: 01/21/18 21:29 Dose: 30 mg MAR Pain Assessment Document 01/21/18 21:29 AD (Rec: 01/21/18 21:29 AD [id number]) Pain Reassessment Is this a pain reassessment? No Presence of Pain Presence of Pain Yes Pain Scale Used Pain Scale Used Numeric Description Intensity of Pain at present 10 IVP Administration Document 01/21/18 21:29 AD (Rec: 01/21/18 21:29 AD [id number]) Charges for Administration # of IVP Administrations 1 Disposition/Present on Arrival - Present on Arrival Any Indicators Present on Arrival: No History of DVT/PE: No History of Uncontrolled Diabetes: No Urinary Catheter: No History of Decub. Ulcer: No History Surgical Site Infection Following: None - Disposition Have Diagnosis and Disposition been Completed?: Yes Diagnosis: Biliary colic, Cholelithiasis Disposition: HOSPITALIZED Disposition Time: 01:44 Patient Plan: Observation Patient Problems: Current Active Problems Problem Status Onset Biliary colic Acute Cholelithiasis Acute Condition: FAIR
--- NOTE | 2018-01-22 00:32 | US ---
EXAM: US Abdomen Complete EXAM DATE/TIME: 01/21/2018 9:08 PM CLINICAL HISTORY: 77 years old, male; Pain; Abdominal pain; Generalized; Additional info: Ruq abd pain R/O cholecystitis TECHNIQUE: Real-time ultrasound of the abdomen (complete) with image documentation. COMPARISON: US - ABDOMEN COMPLETE 2017-09-09 00:05 FINDINGS: Liver: There is increased echogenicity to the liver. Texture is heterogeneous.There is hepatopedal flow in the main portal vein. Gallbladder: Gallbladder is partially distended. There are multiple stones. There is minimal sludge. There is no wall thickening.There is pericholecystic fluid/edema. Common bile duct: Common bile duct measures 6 mm in diameter. Pancreas: Pancreas is almost completely obscured by bowel gas. Kidneys: Right kidney is unremarkable. There is an exophytic left lower pole renal cyst.Left kidney and ureter are otherwise unremarkable. Spleen: Spleen is unremarkable. Aorta: Aorta is obscured by bowel gas Inferior vena cava: Inferior vena cava is poorly visualized due to bowel gas and body habitus IMPRESSION: Distended gallbladder with multiple stones and minimal pericholecystic fluid/edema; enlarged fatty liver; left renal cyst Patient was not tender over the gallbladder
[2018-01-22] MEDS ORDERED: Sodium Chloride 0.9% 1,000 ML IV STA (01:45)
[2018-01-22] MEDS ORDERED: Morphine 4 mg/ml ISec IVP PRN (03:17)
[2018-01-22] MEDS ORDERED: Oxycodone/Acetaminophen 5/325 mg Tab PO PRN (03:17)
[2018-01-22] MEDS ORDERED: Lactated Ringer's 1,000 ML IV SCH ×2 (03:30→07:57)
--- NOTE | 2018-01-22 03:58 | CP.PCM.CON ---
History of Present Illness - History of Present Illness History of Present Illness: General surgery consult for Dr. Medina Consulted for: symptomatic cholelithiasis vs cholecystitis Patient is a 77M with RUQ and epigastric abdominal pain since 6PM yesterday. Patient states that he ate soup with oil and pain started shortly afterwards. Patient came to [facility] in October for similar symptoms and had gallstones and was told that he could elect to have his gall bladder removed or wait to see if it was symptomatic again. Patient denies nausea, vomiting, diarrhea, constipation, fevers, chills, back pain, dysuria, heart burn, chest pain. Patient does admit to chronic SOB for which he has breathing treatments at home. Patient states that after medication administration in ER his pain is greatly improved and is uncertain if he wants surgery at this time. Pmh: COPD, HLD, arthritis, BPH PSH: denies ALL: NKDA Soc: former smoker--quit 5 months ago, denies alcohol or illicit drugs Review of Systems - Review of Systems All systems: reviewed and no additional remarkable complaints except (as per hpi ) Past Patient History - Infectious Disease Hx of Infectious Diseases: None - Tetanus Immunizations Tetanus Immunization: Unknown - Past Social History Smoking Status: Former Smoker Alcohol: None Drugs: Denies - CARDIAC Hx Cardiac Disorders: No Hx Hypercholesterolemia: Yes - PULMONARY Hx Respiratory Disorders: Yes Hx Asthma: Yes Hx Chronic Obstructive Pulmonary Disease (COPD): Yes - NEUROLOGICAL Hx Neurological Disorder: No - HEENT Hx HEENT Problems: Yes ([place]) - RENAL Hx Chronic Kidney Disease: No - ENDOCRINE/METABOLIC Hx Endocrine Disorders: No - HEMATOLOGICAL/ONCOLOGICAL Hx Blood Disorders: No - INTEGUMENTARY Hx Dermatological Problems: No - MUSCULOSKELETAL/RHEUMATOLOGICAL Hx Arthritis: Yes Hx Back Pain: Yes Hx Falls: No - GASTROINTESTINAL Hx Gall Bladder Disease: Yes - GENITOURINARY/GYNECOLOGICAL Hx Genitourinary Disorders: Yes Hx Prostate Problems: Yes - PSYCHIATRIC Hx Depression: No Hx Emotional Abuse: No Hx Physical Abuse: No Hx Substance Use: No - SURGICAL HISTORY Hx Surgeries: No Other/Comment: gall stone - ANESTHESIA Hx Anesthesia: No Meds Allergies/Adverse Reactions: Allergies Allergy/AdvReac Type Severity Reaction Status Date / Time No Known Allergies Allergy Verified 01/21/18 20:55 - Medications Medications: Current Medications Docusate Sodium (Colace) 100 mg PO DAILY EFFIE Sodium Chloride (Sodium Chloride 0.9%) 1,000 mls @ 100 mls/hr IV .Q10H STA Stop: 01/22/18 07:07 Last Admin: 01/21/18 21:29 Dose: 100 mls/hr Ciprofloxacin (Cipro 400mg/200ml Dsw) 400 mg in 200 mls @ 133.3 mls/hr IVPB Q12 EFFIE PRN Reason: Protocol Stop: 01/22/18 23:31 Metronidazole (Flagyl) 500 mg in 100 mls @ 100 mls/hr IVPB Q8 EFFIE PRN Reason: Protocol Lactated Ringer's (Lactated Ringer's) 1,000 mls @ 125 mls/hr IV .Q8H EFFIE Morphine Sulfate (Morphine) 4 mg IVP Q6H PRN PRN Reason: Pain, severe (8-10) Ondansetron HCl (Zofran Inj) 4 mg IVP Q6H PRN PRN Reason: Nausea/Vomiting Oxycodone/Acetaminophen (Percocet 5/325 Mg Tab) 1 tab PO Q4H PRN PRN Reason: Pain, moderate (4-7) Stop: 01/25/18 03:18 Physical Exam - Constitutional Appears: Well, Non-toxic, No Acute Distress - Head Exam Head Exam: ATRAUMATIC, NORMOCEPHALIC - Eye Exam Eye Exam: Normal appearance. absent: Conjunctival injection, Scleral icterus - ENT Exam ENT Exam: Mucous Membranes Moist, Normal Oropharynx - Respiratory Exam Respiratory Exam: Wheezes, NORMAL BREATHING PATTERN. absent: Accessory Muscle Use - Cardiovascular Exam Cardiovascular Exam: RRR - GI/Abdominal Exam GI & Abdominal Exam: Soft. absent: Distended, Rebound, Tenderness - Extremities Exam Extremities exam: Positive for: pedal pulses present. Negative for: calf tenderness, pedal edema - Back Exam Back exam: NORMAL INSPECTION. absent: CVA tenderness (L), CVA tenderness (R), rash noted - Neurological Exam Neurological exam: Alert, Oriented x3 Additional comments: decreased hearing in right ear - Psychiatric Exam Psychiatric exam: Normal Affect, Normal Mood - Skin Skin Exam: Dry, Intact, Normal Color, Warm Results - Vital Signs Recent Vital Signs: Last Vital Signs Temp 99 F 01/21/18 20:50 Pulse 82 01/22/18 02:07 Resp 20 01/22/18 03:12 BP 131/72 01/22/18 02:07 Pulse Ox 95 01/22/18 02:07 - Labs Result Diagrams: 01/21/18 21:10 01/21/18 21:10 - Imaging and Cardiology US - abdomen Status: Image reviewed by me, Report reviewed by me Assessment & Plan - Assessment and Plan (Free Text) Assessment: 77M with cholelithiasis and possible acute cholecystitis Plan: -NPO except meds -PRN pain and nausea medication -HIDA scan -CBC/CMP daily -IVF -No emergent surgical intervention indicated at this time--patient currently hemodynamically stable with no WBC elevation. Will continue to discuss possible surgical intervention with patient as clinical course progresses and lab/ imaging results come in -Patient will need cardiac and pulmonary risk assessment prior to procedure Will discuss with Dr. Medina, further recs per him Angella Mackay, PGY2 [phone]
[2018-01-22] MEDS: metroNIDAZOLE IV 500 mg/100 ml 500 MG/100 ML BAG IVPB SCH ×2 (05:18→14:50)
[2018-01-22 08:16] VITALS: O2SAT 96
[2018-01-22] MEDS: Albuterol-Ipratrop 3 mg / 0.5 (3 ml) UD IH SCH ×2 (08:30→13:34)
--- NOTE | 2018-01-22 08:48 | RAD ---
HISTORY: Abdominal pain, chest pain. COMPARISON: No prior. FINDINGS: LUNGS: No active pulmonary disease. PLEURA: No significant pleural effusion identified, no pneumothorax apparent. CARDIOVASCULAR: Cardiomegaly. No evidence of acute, significant cardiovascular disease. OSSEOUS STRUCTURES: No significant abnormalities. VISUALIZED UPPER ABDOMEN: Normal. OTHER FINDINGS: None. IMPRESSION: No active disease. No significant interval change compared to the prior examination(s).
[2018-01-22] MEDS ORDERED: Ciprofloxacin 400mg/200ml D5W 400 MG/200 ML BAG IVPB SCH (10:00)
--- NOTE | 2018-01-22 11:26 | NM ---
PROCEDURE: Nuclear Medicine Hepatobiliary Scan HISTORY: gallstones, wall thickening, pericholecystic fluid COMPARISON: January 21, 2018. Abdominal ultrasound. Summary of findings on the comparison examination: Distended gallbladder with multiple stones and minimal pericholecystic fluid/edema TECHNIQUE: 6.3 mCi of technetium 99m Mebrofenin was administered intravenously. Planar images of the abdomen were obtained at 5 min intervals to 60 mins. Delayed images were also obtained. FINDINGS: LIVER: Timely and homogenous uptake. COMMON BILE DUCT: identified at 15 mins. GALLBLADDER: identified at 15 mins. SMALL BOWEL: Identified at 30 mins. IMPRESSION: Normal Hepatobiliary Scan. The cystic duct is patent.
--- NOTE | 2018-01-22 12:28 | CP.PCM.PN ---
<Shaun Sliva - Last Filed: 01/22/18 12:35> Subjective - Date & Time of Evaluation Date of Evaluation: 01/22/18 Time of Evaluation: 12:25 - Subjective Subjective: General Surgery progress note: Dr. Medina Patient seen and examined at bedside. Patient still complaining of pain but is otherwise feeling well. Objective - Vital Signs/Intake and Output Vital Signs (last 24 hours): Temp Pulse Resp BP Pulse Ox 98.8 F 73 22 146/91 H 96 01/22/18 08:36 01/22/18 08:36 01/22/18 08:36 01/22/18 08:36 01/22/18 08:36 Intake and Output: 01/22/18 01/22/18 06:59 18:59 Output Total 150 Balance -150 - Medications Medications: Current Medications Albuterol/Ipratropium (Duoneb 3 Mg/0.5 Mg (3 Ml) Ud) 3 ml IH BIDRESP [facility] Last Admin: 01/22/18 08:30 Dose: Not Given Docusate Sodium (Colace) 100 mg PO DAILY [facility] Last Admin: 01/22/18 10:48 Dose: 100 mg Ciprofloxacin (Cipro 400mg/200ml Dsw) 400 mg in 200 mls @ 133.3 mls/hr IVPB Q12 EFFIE PRN Reason: Protocol Stop: 01/22/18 23:31 Last Admin: 01/22/18 10:48 Dose: 133.3 mls/hr Metronidazole (Flagyl) 500 mg in 100 mls @ 100 mls/hr IVPB Q8 EFFIE PRN Reason: Protocol Last Admin: 01/22/18 05:18 Dose: 100 mls/hr Lactated Ringer's (Lactated Ringer's) 1,000 mls @ 50 mls/hr IV .Q20H [facility] Last Admin: 01/22/18 08:05 Dose: 50 mls/hr Morphine Sulfate (Morphine) 4 mg IVP Q6H PRN PRN Reason: Pain, severe (8-10) Ondansetron HCl (Zofran Inj) 4 mg IVP Q6H PRN PRN Reason: Nausea/Vomiting Oxycodone/Acetaminophen (Percocet 5/325 Mg Tab) 1 tab PO Q4H PRN PRN Reason: Pain, moderate (4-7) Stop: 01/25/18 03:18 - Labs Labs: PT 10.4 SECONDS (9.4-12.5) 01/21/18 21:10 INR 0.91 (0.93-1.08) L 01/21/18 21:10 APTT 31.9 Seconds (25.1-36.5) 01/21/18 21:10 - Constitutional Appears: Well - Head Exam Head Exam: ATRAUMATIC, NORMAL INSPECTION, NORMOCEPHALIC - Eye Exam Eye Exam: EOMI, Normal appearance, PERRL Pupil Exam: NORMAL ACCOMODATION, PERRL - ENT Exam ENT Exam: Mucous Membranes Moist, Normal Exam - Neck Exam Neck Exam: Full ROM, Normal Inspection. absent: Lymphadenopathy - Respiratory Exam Respiratory Exam: Clear to Ausculation Bilateral, NORMAL BREATHING PATTERN - Cardiovascular Exam Cardiovascular Exam: REGULAR RHYTHM, +S1, +S2. absent: Murmur - GI/Abdominal Exam GI & Abdominal Exam: Soft, Normal Bowel Sounds. absent: Tenderness - Extremities Exam Extremities Exam: Full ROM, Normal Capillary Refill, Normal Inspection. absent : Joint Swelling, Pedal Edema - Back Exam Back Exam: NORMAL INSPECTION - Neurological Exam Neurological Exam: Alert, Awake, CN II-XII Intact, Normal Gait, Oriented x3 Additional comments: decreased hearing in right ear - Psychiatric Exam Psychiatric exam: Normal Affect, Normal Mood - Skin Skin Exam: Dry, Intact, Normal Color, Warm Assessment and Plan - Assessment and Plan (Free Text) Assessment: 77M with cholelithiasis and possible acute cholecystitis Plan: -NPO except meds -PRN pain and nausea medication -HIDA scan -CBC/CMP daily -IVF -No emergent surgical intervention indicated at this time--patient currently hemodynamically stable with no WBC elevation. Will continue to discuss possible surgical intervention with patient as clinical course progresses and lab/ imaging results come in -Patient will need cardiac and pulmonary risk assessment prior to procedure <Ross Medina - Last Filed: 01/24/18 11:45> Objective - Vital Signs/Intake and Output Vital Signs (last 24 hours): Temp Pulse Resp BP Pulse Ox 97.8 F 77 20 127/82 96 01/22/18 14:00 01/22/18 14:00 01/22/18 14:00 01/22/18 14:00 01/22/18 14:00 - Labs Labs: PT 10.4 SECONDS (9.4-12.5) 01/21/18 21:10 INR 0.91 (0.93-1.08) L 01/21/18 21:10 APTT 31.9 Seconds (25.1-36.5) 01/21/18 21:10 Assessment and Plan - Assessment and Plan (Free Text) Assessment: pT AGREEABLE TO SURGERY AFTER eASTER tHIS CONSULT DONE UNDER MY DIRECT SUPERvision Iesha Medina MD FACS
--- NOTE | 2018-01-22 14:25 | HP ---
CHIEF COMPLAINT AND HISTORY OF PRESENT ILLNESS: This is a 77-year-old male who is coming to the hospital complaining of epigastric and right-sided abdominal pain. He had a past medical history of COPD, AAA, and cholelithiasis. He had similar symptoms in 08/2017. The patient had seen Dr. Medina in the past. The patient has no nausea. He states he has no vomiting. He said the pain is better today after he received treatment in the ER. He has no complaints of any chest pain or shortness of breath. No nausea. No dysuria or frequency. No weakness in the arms or in the legs. No dysarthria. He has no back pain. He said initially the pain was about 7-8/10, mostly in the epigastric area. REVIEW OF SYSTEMS: All other review of symptoms within normal limits except what was mentioned. ALLERGIES: NO KNOWN DRUG ALLERGIES. HOME MEDICATIONS: Flomax. PAST MEDICAL HISTORY: 1. Cholelithiasis. 2. Infrarenal abdominal aortic aneurysm 4.5 cm. 3. Obese with a BMI of 33. SOCIAL HISTORY: He smokes about 10 cigarettes a day. He denies alcohol or substance abuse. FAMILY HISTORY: Noncontributory. PHYSICAL EXAMINATION: VITAL SIGNS: Temperature is 99, pulse of 82, blood pressure 131/72, respirations 18, O2 saturation 95%. Height is 5 feet 5 inches, weight is 200 pounds, BMI is 33. GENERAL: The patient lying in bed, uncomfortable, and in no acute distress. HEENT: Atraumatic and normocephalic. Anicteric sclerae. Moist mucosa. [place] conjunctivae. No oral lesions. NECK: No JVD, anterior and posterior adenopathy, thyromegaly, or bruits. CARDIOVASCULAR: S1 and S2 regular. No murmur, rubs, or gallop. LUNGS: Clear to auscultation bilaterally. No wheezes, rales, or rhonchi. ABDOMEN: Bowel sounds are positive. Soft, nontender and nondistended. No hepatosplenomegaly. No rebound and no guarding. EXTREMITIES: No cyanosis, clubbing, or edema. NEUROLOGIC: No facial asymmetry. Tongue is midline. No uvula deviation. Power is 5/5 upper extremity and lower extremity. Sensation intact in upper extremity and lower extremity. PSYCHIATRIC: He is awake, alert and oriented x3. No anxiety or depression. He has normal affect. GENITOURINARY: No CVA tenderness. VASCULAR: 2+ pulses in the carotid pulses and pedal pulses. SKIN: No erythema or nodules. SPINE: Shows normal curvature. Abdominal ultrasound done shows distended gallbladder with multiple stones and minimal pericholecystic fluid. Chest x-ray done shows possible left lung infiltrate and we will await for the final official x-ray results. ASSESSMENT: 1. Abdominal pain. 2. Cholelithiasis. 3. Infrarenal abdominal aortic aneurysm 4.5 cm. 4. Obesity with body mass index of 33. 5. Benign prostatic hypertrophy. PLAN: The patient is currently comfortable. He is admitted to the hospital. He is on Colace for constipation. The patient is on Lactated Ringer's. I will decrease his Lactated Ringer's. The patient is going to be on morphine for pain. He is on Percocet for pain as well. The patient did receive 1 L of fluid in the ER and Zofran as needed. We will continue to follow closely. We will await for further inputs from Dr. Medina. Patient has a HIDA scan that is ordered as well. He is n.p.o. Gary Machuca MD
[2018-01-22 14:55] VITALS: BP 127/82; PULSE 77; RESP 20; TEMP 97.8
--- NOTE | 2018-01-22 17:16 | CARD ---
APPROVED REPORT EKG Measurement Heart [id number] <Conclusion> Normal sinus rhythm Low voltage QRS Incomplete right bundle branch block Cannot rule out Anterior infarct, age undetermined Abnormal ECG
== END 2018-01-22 16:17 | disposition home or self-care (01) ==
LOC: ED 20:34 → ERH 01-22 01:42 → 5RSO 01-22 02:37
PROVIDERS: ADMIT Internal Medicine Nephrology; ATTEND Internal Medicine Nephrology
DX: K80.20 Calculus of gallbladder without cholecystitis without obstruction (principal); I71.4 Abdominal aortic aneurysm, without rupture; R10.13 Epigastric pain; J44.9 Chronic obstructive pulmonary disease, unspecified; E66.9 Obesity, unspecified; Z68.33 Body mass index [BMI] 33.0-33.9, adult; N40.0 Benign prostatic hyperplasia without lower urinary tract symptoms; E78.00 Pure hypercholesterolemia, unspecified; F17.210 Nicotine dependence, cigarettes, uncomplicated
CPT/HCPCS: 71045; 76700; 78227; 80053; 83690; 85025; 85610; 85730; 93005; 94640; 96374; 96375; 96376; 99285; A9537; G0378; J0744; J1885; J7040; J7120

== ENCOUNTER 2018-02-06 03:18 | Observation (INO) | payer MEDICARE, MEDICAID ==
[2018-02-06 03:29] VITALS: BMI 33.3
[2018-02-06] MEDS ORDERED: HYDROmorphone 0.5 mg/0.5 ml ISec IVP STA ×3 (03:36→05:50)
--- NOTE | 2018-02-06 03:36 | ED PDOC ---
Arrival/HPI - General Chief Complaint: Abdominal Pain Time Seen by Provider: 02/06/18 03:21 Historian: Patient - History of Present Illness Narrative History of Present Illness (Text): 02/06/18 03:36 Octavio Caal is a 77 year old male, whose past medical history includes aortic abdominal aneurysm and cholelithiasis, complaining of upper abdominal pain tonight. Patient reports associated nausea and multiple episodes of vomiting. Patient was seen in the Emergency department on 01/21/2018 and admitted to the hospital for further evaluation. Patient was scheduled for a cholecystectomy in February. Patient denies any fever, chills, chest pain, shortness of breath, diarrhea, urinary symptoms, neck pain, headache, dizziness , or any other complaints. Symptom Onset: Gradual Symptom Course: Unchanged Activities at Onset: Light Context: Home Past Medical History - Provider Review Nursing Documentation Reviewed: Yes - Infectious Disease Hx of Infectious Diseases: None - Tetanus Immunization Tetanus Immunization: Unknown - Cardiac Hx Cardiac Disorders: No - Pulmonary Hx Respiratory Disorders: Yes Hx Asthma: Yes Hx Chronic Obstructive Pulmonary Disease (COPD): Yes - Neurological Hx Neurological Disorder: No - HEENT Hx HEENT Disorder: Yes ([place]) Hx Deafness: Yes (rt ear) - Renal Hx Renal Disorder: No - Endocrine/Metabolic Hx Endocrine Disorders: No - Hematological/Oncological Hx Blood Disorders: No - Integumentary Hx Dermatological Disorder: No - Musculoskeletal/Rheumatological Hx Arthritis: Yes Hx Back Pain: Yes Hx Falls: No - Gastrointestinal Hx Gall Bladder Disease: Yes - Genitourinary/Gynecological Hx Genitourinary Disorders: Yes Hx Prostate Problems: Yes - Psychiatric Hx Psychophysiologic Disorder: No Hx Depression: No Hx Emotional Abuse: No Hx Physical Abuse: No Hx Substance Use: No - Past Surgical History Past Surgical History: No Previous - Surgical History Other/Comment: gall stone - Anesthesia Hx Anesthesia: No - Suicidal Assessment Feels Threatened In Home Enviroment: No Family/Social History - Physician Review Nursing Documentation Reviewed: Yes Family/Social History: Unknown Family HX Smoking Status: Former Smoker Hx Alcohol Use: No Hx Substance Use: No Hx Substance Use Treatment: No Allergies/Home Meds Allergies/Adverse Reactions: Allergies No Known Allergies Allergy (Verified 02/06/18 03:32) Home Medications: Home Meds Medication Instructions Recorded Confirmed Tamsulosin [Flomax] 0.4 mg PO DAILY 11/11/17 02/06/18 Albuterol/Ipratropium [Duoneb 3 1 ea IH QAM 02/06/18 02/06/18 MG/3 Ml-0.5 MG/3 Ml 3 Ml] Fluticasone/Salmeterol 100/50 1 dsk [id number] 02/06/18 02/06/18 [Advair Diskus 100/50] Review of Systems - Physician Review All systems were reviewed & negative as marked: Yes - Review of Systems Constitutional: Normal. absent: Fevers Eyes: Normal ENT: Normal Respiratory: Normal Cardiovascular: Normal Gastrointestinal: Abdominal Pain, Nausea, Vomiting. absent: Diarrhea Genitourinary Male: Normal. absent: Dysuria, Frequency, Hematuria, Urinary Output Changes Musculoskeletal: Normal. absent: Back Pain, Neck Pain Skin: Normal. absent: Rash Neurological: Normal. absent: Headache, Dizziness Endocrine: Normal Hemo/Lymphatic: Normal Psychiatric: Normal Physical Exam Vital Signs Reviewed: Yes Vital Signs Temp Pulse Resp BP Pulse Ox 02/06/18 04:53 81 18 92 L 02/06/18 03:29 98.1 F 88 20 165/113 H 96 Temperature: Afebrile Blood Pressure: Hypertensive Pulse: Regular Respiratory Rate: Normal Appearance: Positive for: Well-Appearing, Non-Toxic, Comfortable Pain Distress: None Mental Status: Positive for: Alert and Oriented X 3 - Systems Exam Head: Present: Atraumatic, Normocephalic Pupils: Present: PERRL Extroacular Muscles: Present: EOMI Conjunctiva: Present: Normal Mouth: Present: Moist Mucous Membranes Neck: Present: Normal Range of Motion. No: Meningeal Signs, MIDLINE TENDERNESS , Paraspinal Tenderness Respiratory/Chest: Present: Clear to Auscultation, Good Air Exchange. No: Respiratory Distress, Accessory Muscle Use Cardiovascular: Present: Regular Rate and Rhythm, Normal S1, S2. No: Murmurs Abdomen: Present: Tenderness (Upper abdominal tenderness), Normal Bowel Sounds. No: Distention, Peritoneal Signs Back: Present: Normal Inspection Upper Extremity: Present: Normal Inspection. No: Cyanosis, Edema Lower Extremity: Present: Normal Inspection. No: Edema Neurological: Present: GCS=15, CN II-XII Intact, Speech Normal Skin: Present: Warm, Dry, Normal Color. No: Rashes Psychiatric: Present: Alert, Oriented x 3, Normal Insight, Normal Concentration Medical Decision Making ED Course and Treatment: 02/06/18 03:36 Impression: 77 year old male complaining of upper abdominal pain with nausea and vomiting tonight. Plan: -- US Gallbladder and Pancreas -- EKG -- Chest X-ray -- Labs, cardiac enzymes, lipase -- IV fluids -- Pepcid -- Zofran -- Dilaudid -- Reassess and disposition Prior Visits: Notes and results from previous visits were reviewed. Progress Notes: Reviewed EKG, NSR at [address] PAC. Non-specific ST/T wave changes. 02/06/18 05:13 Chest X-ray reviewed, shows no acute processes. 02/06/18 05:21 US Gallbladder and Pancreas shows: Limitations: The study is limited by the patient's large body habitus. Liver: The liver is enlarged measuring 21 cm demonstrating increased echogenicity suggesting fatty infiltration. No mass. No intrahepatic bile duct dilation. Gallbladder: Multiple calcified gallstones are present. Comment tail sign identified suggesting adenomyomatosis. There is lobulated, echogenic mass in the gallbladder measuring 2.9 x 4.5 x 3.5 cm cm demonstrating vascularity with color Doppler raising suspicion for neoplasia. The gallbladder wall is top normal measuring 3 mm in thickness. Positive sonographic Donahue sign. Possible trace pericholecystic fluid. Common bile duct: Unremarkable as visualized measuring 5 mm. No stones. No dilation. Pancreas: The pancreas is poorly-visualized due to overlying bowel gas. Right kidney: Unremarkable measuring 11.3 cm. No stones. No solid mass. No hydronephrosis. IMPRESSION: Gallbladder mass suspicious for neoplasia. Positive Donahue's sign and possible trace pericholecystic fluid. Adenomyomatosis. Nonspecific hepatomegaly and fatty infiltration. 02/06/18 05:[address] Machuca, who is aware and agrees with plan. Accepts pt in to his service. Pt will be admitted to [facility] for cholecystitis, biliary colic, and galllbladder mass. Dr. Espinal, pt's surgeon, will consult. - Lab Interpretations Lab Results: 02/06/18 03:40 02/06/18 03:40 Lab Results 02/06/18 03:40: WBC 11.2 H D, RBC 5.33, Hgb 15.9, Hct 48.3, MCV 90.6, MCH 29.8, MCHC 32.9, RDW 15.2 H, Plt Count 212, MPV 11.1 H 02/06/18 03:40: Sodium 145, Potassium 4.1, Chloride 109 H, Carbon Dioxide 25, Anion Gap 15, BUN 23 H, Creatinine 1.1, Est GFR ( Amer) > 60, Est GFR ( Non-Af Amer) > 60, Random Glucose 123 H, Calcium 11.5 H, Total Bilirubin 0.4, AST 29, ALT 28, Alkaline Phosphatase 73, Lactate Dehydrogenase 437, Total Creatine Kinase 72, Troponin I < 0.01, Total Protein 7.6, Albumin 4.4, Globulin 3.2, Albumin/Globulin Ratio 1.4, Lipase 112 02/06/18 03:40: PT 10.6, INR 0.93, APTT 30.1 I have reviewed the lab results: Yes - RAD Interpretation Radiology Orders: 02/06/18 03:37 CHEST PORTABLE [RAD] Stat 02/06/18 03:38 GALLBLADDER & PANCREAS [US] Stat Loading Dock Hand: ED Physician - EKG Interpretation Interpreted by ED Physician: Yes Type: 12 lead EKG - Medication Orders Current Medication Orders: Sodium Chloride (Sodium Chloride 0.9%) 1,000 mls @ 100 mls/hr IV .Q10H EFFIE Last Admin: 02/06/18 03:43 Dose: 100 mls/hr eMAR Start Stop Document 02/06/18 03:43 IT (Rec: 02/06/18 03:43 IT [facility] [id number]) Intravenous Solution Start Date 02/06/18 Start Time 03:43 Discontinued Medications Famotidine (Pepcid) 20 mg IVP STAT STA Stop: 02/06/18 03:37 Last Admin: 02/06/18 03:43 Dose: 20 mg IVP Administration Document 02/06/18 03:43 IT (Rec: 02/06/18 03:43 IT [facility] [id number]) Charges for Administration # of IVP Administrations 1 Hydromorphone HCl (Dilaudid) 1 mg IVP STAT STA Stop: 02/06/18 03:37 Last Admin: 02/06/18 03:43 Dose: 1 mg MAR Pain Assessment Document 02/06/18 03:43 IT (Rec: 02/06/18 03:43 IT [facility] [id number]) Pain Reassessment Is this a pain reassessment? No Sleep Is patient sleeping during reassessment? No Presence of Pain Presence of Pain Yes Pain Scale Used Pain Scale Used Numeric Location Left, Right or Bilateral Bilateral IVP Administration Document 02/06/18 03:43 IT (Rec: 02/06/18 03:43 IT [facility] [id number]) Charges for Administration # of IVP Administrations 1 Hydromorphone HCl (Dilaudid) 1 mg IVP STAT STA Stop: 02/06/18 04:39 Last Admin: 02/06/18 04:46 Dose: 1 mg MAR Pain Assessment Document 02/06/18 04:46 IT (Rec: 02/06/18 04:46 IT [facility] [id number]) Pain Reassessment Is this a pain reassessment? No Sleep Is patient sleeping during reassessment? No Presence of Pain Presence of Pain Yes Pain Scale Used Pain Scale Used Numeric Location Left, Right or Bilateral Bilateral Pain Location Body Site Abdomen IVP Administration Document 02/06/18 04:46 IT (Rec: 02/06/18 04:46 IT [facility] [id number]) Charges for Administration # of IVP Administrations 1 Ceftriaxone Sodium (Rocephin 1 Gram Ivpb) 1 gm in 100 mls @ 200 mls/hr IV ONCE STA PRN Reason: Protocol Stop: 02/06/18 05:04 Last Admin: 02/06/18 04:46 Dose: 200 mls/hr eMAR Start Stop Document 02/06/18 04:46 IT (Rec: 02/06/18 04:46 IT [facility] [id number]) Intravenous Solution Start Date 02/06/18 Start Time 04:46 Metronidazole (Flagyl) 500 mg in 100 mls @ 100 mls/hr IVPB STAT STA PRN Reason: Protocol Stop: 02/06/18 05:36 Ondansetron HCl (Zofran Inj) 4 mg IVP ONCE ONE Stop: 02/06/18 03:37 Last Admin: 02/06/18 03:43 Dose: 4 mg IVP Administration Document 02/06/18 03:43 IT (Rec: 02/06/18 03:43 IT [facility] [id number]) Charges for Administration # of IVP Administrations 1 Ondansetron HCl (Zofran Inj) 4 mg IVP ONCE ONE Stop: 02/06/18 04:36 Last Admin: 02/06/18 04:39 Dose: 4 mg IVP Administration Document 02/06/18 04:39 RD (Rec: 02/06/18 04:39 RD [id number]) Charges for Administration # of IVP Administrations 1 - Scribe Statement The provider has reviewed the documentation as recorded by the Scribe Ingrid Clifton All medical record entries made by the Scribe were at my direction and personally dictated by me. I have reviewed the chart and agree that the record accurately reflects my personal performance of the history, physical exam, medical decision making, and the department course for this patient. I have also personally directed, reviewed, and agree with the discharge instructions and disposition. Disposition/Present on Arrival - Present on Arrival Any Indicators Present on Arrival: No History of DVT/PE: No History of Uncontrolled Diabetes: No Urinary Catheter: No History of Decub. Ulcer: No History Surgical Site Infection Following: None - Disposition Have Diagnosis and Disposition been Completed?: Yes Diagnosis: Biliary colic, Cholelithiasis, Cholecystitis, Gallbladder mass Disposition: HOSPITALIZED Disposition Time: 05:39 Patient Plan: Admission Patient Problems: Current Active Problems Problem Status Onset Biliary colic Acute Cholecystitis Acute Cholelithiasis Acute Gallbladder mass Acute Condition: STABLE Referrals: Gary Machuca MD [Primary Care Provider] - Follow up with primary Forms: [employer] ([place])
[2018-02-06] MEDS ORDERED: Sodium Chloride 0.9% 1,000 ML IV SCH (03:45)
[2018-02-06 04:15] LABS: HEMOGLOBIN 15.9 g/dL (14.0-18.0); MEAN CELL VOLUME 90.6 fl (80.0-105.0); MEAN CORPUSCULAR HEMOGLOBIN 29.8 pg (25.0-35.0); MEAN CORPUSCULAR HGB CONC 32.9 g/dl (31.0-37.0); MEAN PLATELET VOLUME 11.1 fl (7.0-11.0); RBC 5.33 10^6/uL (3.5-6.1); RED CELL DISTRIBUTION WIDTH 15.2 % (11.5-14.5); WHITE BLOOD COUNT 11.2 10^3/ul (4.5-11.0)
[2018-02-06 04:19] LABS: ALB/GLOB RATIO 1.4 (1.1-1.8); ALBUMIN 4.4 g/dL (3.0-4.8); ALT/SGPT 28 U/L (7-56); AST/SGOT 29 U/L (17-59); BLOOD UREA NITROGEN 23 mg/dL (7-21); CALCIUM 11.5 mg/dL (8.4-10.5); GFR AFRICAN-AMERICAN > 60; GFR NON-AFRICAN AMERICAN > 60; LIPASE 112 U/L (23-300)
[2018-02-06 04:21] LABS: INR 0.93 (0.93-1.08); PARTIAL THROMBOPLASTIN TIME 30.1 Seconds (25.1-36.5); PROTHROMBIN TIME 10.6 SECONDS (9.4-12.5)
[2018-02-06 04:27] LABS: TROPONIN I < 0.01 ng/mL
[2018-02-06] MEDS ORDERED: cefTRIAXone 1 gm 1 GM/100 ML BAG IV STA (04:35)
[2018-02-06] MEDS ORDERED: metroNIDAZOLE IV 500 mg/100 ml 500 MG/100 ML BAG IVPB STA (04:37)
--- NOTE | 2018-02-06 05:20 | US ---
EXAM: US Abdomen Limited, Right Upper Quadrant CLINICAL HISTORY: 77 years old, male; Pain; Abdominal pain; Epigastric; Additional info: Epigastric pain/hx. Gallstones/vomiting TECHNIQUE: Real-time ultrasound of the right upper quadrant with image documentation. COMPARISON: US - ABDOMEN COMPLETE 2018-01-21 22:46 FINDINGS: Limitations: The study is limited by the patient's large body habitus. Liver: The liver is enlarged measuring 21 cm demonstrating increased echogenicity suggesting fatty infiltration. No mass. No intrahepatic bile duct dilation. Gallbladder: Multiple calcified gallstones are present. Comment tail sign identified suggesting adenomyomatosis. There is lobulated, echogenic mass in the gallbladder measuring 2.9 x 4.5 x 3.5 cm cm demonstrating vascularity with color Doppler raising suspicion for neoplasia. The gallbladder wall is top normal measuring 3 mm in thickness. Positive sonographic Donahue sign. Possible trace pericholecystic fluid. Common bile duct: Unremarkable as visualized measuring 5 mm. No stones. No dilation. Pancreas: The pancreas is poorly-visualized due to overlying bowel gas. Right kidney: Unremarkable measuring 11.3 cm. No stones. No solid mass. No hydronephrosis. IMPRESSION: Gallbladder mass suspicious for neoplasia. Positive Donahue's sign and possible trace pericholecystic fluid. Adenomyomatosis. Nonspecific hepatomegaly and fatty infiltration.
[2018-02-06 07:07] VITALS: TEMP 98.2
--- NOTE | 2018-02-06 07:37 | CP.PCM.CON ---
History of Present Illness - History of Present Illness History of Present Illness: Surgery: Dr. Medina CC: Abd pain HPI: 77M w. pmh of COPD, BPH, and gallstones presents to ED w. Epigastric abd pain which radiates to the back. Pain occurred after eating dinner. Pain is constant. No alleviating aggravating factors. Pt reports nausea and several episodes of vomiting. He denies diarrhea. He denies F/C, but states that he feels warm. This is pts 3rd visit to ED since October for biliary colic. He states that he was scheduled for elective pascale w. Dr. Medina in February, but would like to get it done sooner. PMH: see above PSH: none NKDA Meds: MAR reviewed Social: Former smoker, no ETOH/drugs Fhx: Non-contributory Review of Systems - Review of Systems All systems: reviewed and no additional remarkable complaints except (HPI) Past Patient History - Infectious Disease Hx of Infectious Diseases: None - Tetanus Immunizations Tetanus Immunization: Unknown - Past Social History Smoking Status: Former Smoker - CARDIAC Hx Cardiac Disorders: No - PULMONARY Hx Respiratory Disorders: Yes Hx Asthma: Yes Hx Chronic Obstructive Pulmonary Disease (COPD): Yes - NEUROLOGICAL Hx Neurological Disorder: No - HEENT Hx HEENT Problems: Yes ([place]) Hx Deafness: Yes (rt ear) - RENAL Hx Chronic Kidney Disease: No - ENDOCRINE/METABOLIC Hx Endocrine Disorders: No - HEMATOLOGICAL/ONCOLOGICAL Hx Blood Disorders: No - INTEGUMENTARY Hx Dermatological Problems: No - MUSCULOSKELETAL/RHEUMATOLOGICAL Hx Arthritis: Yes Hx Back Pain: Yes Hx Falls: No - GASTROINTESTINAL Hx Gall Bladder Disease: Yes - GENITOURINARY/GYNECOLOGICAL Hx Genitourinary Disorders: Yes Hx Prostate Problems: Yes - PSYCHIATRIC Hx Psychophysiologic Disorder: No Hx Depression: No Hx Emotional Abuse: No Hx Physical Abuse: No Hx Substance Use: No - SURGICAL HISTORY Other/Comment: gall stone - ANESTHESIA Hx Anesthesia: No Meds Allergies/Adverse Reactions: Allergies Allergy/AdvReac Type Severity Reaction Status Date / Time No Known Allergies Allergy Verified 02/06/18 03:32 - Medications Medications: Current Medications Sodium Chloride (Sodium Chloride 0.9%) 1,000 mls @ 100 mls/hr IV .Q10H EFFIE Last Admin: 02/06/18 03:43 Dose: 100 mls/hr Ondansetron HCl (Zofran Inj) 4 mg IVP Q4H PRN PRN Reason: Nausea/Vomiting Stop: 02/06/18 12:00 Physical Exam - Constitutional Appears: Non-toxic, No Acute Distress - Head Exam Head Exam: ATRAUMATIC, NORMOCEPHALIC - Eye Exam Eye Exam: EOMI. absent: Scleral icterus - ENT Exam ENT Exam: Mucous Membranes Moist, Normal External Ear Exam - Neck Exam Neck exam: Positive for: Full Rom - Respiratory Exam Respiratory Exam: NORMAL BREATHING PATTERN. absent: Accessory Muscle Use, Respiratory Distress - GI/Abdominal Exam GI & Abdominal Exam: Soft, Tenderness (epigastric). absent: Distended, Firm, Guarding, Hernia, Rebound, Rigid - Extremities Exam Extremities exam: Negative for: calf tenderness, pedal edema - Neurological Exam Neurological exam: Alert, Oriented x3 - Psychiatric Exam Psychiatric exam: Normal Affect, Normal Mood - Skin Skin Exam: Dry, Normal Color, Warm Results - Vital Signs Recent Vital Signs: Last Vital Signs Temp 98.2 F 02/06/18 07:05 Pulse 83 02/06/18 07:05 Resp 18 02/06/18 07:05 BP 175/92 H 02/06/18 07:05 Pulse Ox 95 02/06/18 07:05 - Labs Result Diagrams: 02/06/18 03:40 02/06/18 03:40 - Imaging and Cardiology US - abdomen Status: Image reviewed by me, Report reviewed by me Assessment & Plan - Assessment and Plan (Free Text) Assessment: 77M w. biliary colic -NPO -IVF -pain management -zofran -will need OR -will d/w Dr. Medina regarding timing [employer] PGY3
[2018-02-06] MEDS ORDERED: HYDROmorphone 0.5 mg/0.5 ml ISec IVP PRN (07:41)
[2018-02-06] MEDS ORDERED: Budesonide 0.25 mg/2 ml Inhal Susp UD IH SCH (08:00)
[2018-02-06] MEDS ORDERED: Arformoterol 15 mcg/2 ml Inh Sol IH SCH (08:00)
--- NOTE | 2018-02-06 08:16 | RAD ---
HISTORY: pain COMPARISON: 01/21/2018 FINDINGS: LUNGS: No active pulmonary disease. PLEURA: No significant pleural effusion identified, no pneumothorax apparent. CARDIOVASCULAR: Moderate cardiomegaly OSSEOUS STRUCTURES: No significant abnormalities. VISUALIZED UPPER ABDOMEN: Normal. OTHER FINDINGS: None. IMPRESSION: No active disease.
[2018-02-06] MEDS: Albuterol-Ipratrop 3 mg / 0.5 (3 ml) UD IH SCH ×2 (08:31→11:29)
[2018-02-06 09:54] VITALS: BP 157/97; PULSE 85; O2SAT 98
[2018-02-06] MEDS ORDERED: Albuterol-Ipratrop 3 mg / 0.5 (3 ml) UD IH SCH (10:00)
--- NOTE | 2018-02-06 10:34 | CARD ---
APPROVED REPORT EKG Measurement Heart [id number] <Conclusion> Sinus rhythm with premature atrial complexes Low voltage QRS Cannot rule out Anterior infarct, age undetermined Abnormal ECG
[2018-02-06 13:52] VITALS: RESP 18
[2018-02-06] MEDS ORDERED: Fluticasone-Salmeterol 100-50mcg Diskus IH SCH (18:00)
--- NOTE | 2018-02-08 01:56 | HP ---
HISTORY OF PRESENT ILLNESS: Mr. Caal is a 77-year-old male, admitted to the hospital with abdominal pain, nausea, vomiting. Ultrasound of the abdomen showed gallbladder mass suspicious for neoplasia, positive Donahue sign and trace pericholecystic fluid. Nonspecific hepatomegaly and fatty infiltration. PAST MEDICAL HISTORY: Asthma, COPD, deafness, arthritis, BPH. PAST SURGICAL HISTORY: None. PERSONAL HISTORY: Former smoker. SOCIAL HISTORY: Lives with girlfriend at home. FAMILY HISTORY: Not contributory. ALLERGIES: NO KNOWN DRUG ALLERGIES. HOME MEDICATIONS: Flomax, albuterol, DuoNeb, fluticasone and salmeterol. REVIEW OF SYSTEMS: As per HPI. Rest of 12-point review of systems reviewed negative. PHYSICAL EXAMINATION: GENERAL: Comfortable in bed, in no acute distress. VITAL SIGNS: Temperature 98.1, heart rate is 81 per minute, respiratory rate 18 per minute, blood pressure 165/113, pulse ox is 96% on room air. HEENT: Normal. NECK: No lymphadenopathy. CHEST: Air entry present and equal bilateral. No added sounds. CARDIOVASCULAR: S1, S2 normal. No murmur. No gallop. ABDOMEN: Obese. Mild tenderness, right upper abdomen. SKIN: No petechiae. No rash. 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 No focal sensorimotor deficits. LABORATORY DATA: White count 11.2, hemoglobin 15.9, hematocrit 48.3, platelet count 212. Sodium 145, potassium 4.1, BUN 23, creatinine 1.1. ASSESSMENT AND PLAN: 1. Acute cholecystitis. 2. Leukocytosis. 3. Morbid obesity. 4. Gallbladder mass. Admitted to the hospital. N.p.o. IV fluids at 80 mL an hour. Protonix 40 mg IV daily. Surgical consultation, Dr. Medina requested. Pain control with Dilaudid 1 mg every 6 hours p.r.n. Pulmicort inhalation. Brovana inhalation. Radha Mejias MD
--- NOTE | 2018-02-08 02:09 | DS ---
DATE OF DISCHARGE: 02/06/2018 DISCHARGE DIAGNOSES: 1. Acute cholecystitis. 2. Gallbladder mass. HOSPITAL COURSE: Patient was admitted in the night with abdominal pain, nausea and vomiting. He was evaluated by surgery, was found to have acute cholecystitis. He was started on oral liquids. The patient is insisting that he wants to go home because surgery is planned for next week. Dr. Medina consulted. He agreed with the patient's wishes of going home and readmitting on Saturday for surgery. PHYSICAL EXAMINATION: On discharge, GENERAL: Comfortable in bed, in no acute distress. VITAL SIGNS: Temperature 98.7, heart rate 80 per minute, blood pressure 110/70, respiratory rate 18 per minute. HEENT: Normal. CHEST: Air entry present equal bilaterally. No added sounds. CARDIOVASCULAR: S1 and S2 normal. No murmur. No gallop. ABDOMEN: Soft, nontender, nondistended. EXTREMITIES: No edema. DISPOSITION: Discharged home. CONDITION ON DISCHARGE: Stable. PLAN: He was advised to get admitted under Dr. Medina on Saturday for possible cholecystectomy. Instruction given to the patient. Dr. Medina spoke to the patient directly. Staff nurse informed about the discharge. Radha Mejias MD
== END 2018-02-06 15:55 | disposition home or self-care (01) ==
LOC: ED 03:18 → ERH 05:39 → INTOOBSV 05:39 → ERH 06:21 → 3RNO 07:07
PROVIDERS: ADMIT Internal Medicine Nephrology; ATTEND Internal Medicine Nephrology
DX: K81.0 Acute cholecystitis (principal); E66.01 Morbid (severe) obesity due to excess calories; K82.9 Disease of gallbladder, unspecified; J44.9 Chronic obstructive pulmonary disease, unspecified; N40.0 Benign prostatic hyperplasia without lower urinary tract symptoms; Z87.891 Personal history of nicotine dependence
CPT/HCPCS: 71045; 76705; 80053; 82550; 83615; 83690; 84484; 85027; 85610; 85730; 87040; 93005; 94640; 94760; 96365; 96375; 96376; 99282; G0378; J0696; J1170; J1885; J2405; J7040

== ENCOUNTER 2018-02-08 09:39 | Inpatient (IN) | payer MEDICARE, MEDICAID ==
[2018-02-08 09:40] VITALS: BMI 33.3
[2018-02-08 10:46] LABS: BASO # 0.03 K/mm3 (0.0-2.0); BASO % 0.1 % (0.0-3.0); EOS # 0.1 (0.0-0.7); EOS % 0.7 % (1.5-5.0); GRAN # 15.76 (1.4-6.5); GRAN % 77.4 % (50.0-68.0); HEMOGLOBIN 16.4 g/dL (14.0-18.0); LYMPH # 2.5 (1.2-3.4); LYMPH % 12.4 % (22.0-35.0); MEAN CELL VOLUME 89.3 fl (80.0-105.0); MEAN CORPUSCULAR HEMOGLOBIN 30.7 pg (25.0-35.0); MEAN CORPUSCULAR HGB CONC 34.4 g/dl (31.0-37.0); MEAN PLATELET VOLUME 11.2 fl (7.0-11.0); MONO # 1.9 (0.1-0.6); MONO % 9.4 % (1.0-6.0); PH,URINE 5.5 (4.7-8.0); RBC 5.34 10^6/uL (3.5-6.1); URINE BILIRUBIN MODERATE (NEGATIVE); URINE BLOOD NEGATIVE (NEGATIVE); URINE GLUCOSE (UA) 100 mg/dL (NEGATIVE); URINE LEUKOCYTE ESTERASE TRACE Leu/uL (NEGATIVE); URINE PROTEIN 100 mg/dL (<30 mg/dL); WHITE BLOOD COUNT 20.4 10^3/ul (4.5-11.0)
[2018-02-08 10:52] LABS: URINE APPEARANCE SL CLOUDY (CLEAR); URINE COLOR LIGHT BROWN (YELLOW)
[2018-02-08 10:54] LABS: URINE RBC 0 - 2 /hpf (0-2)
[2018-02-08 10:55] LABS: URINE BACTERIA MANY (NEG); URINE EPITHELIAL CELLS 0 - 2 /hpf (0-5)
[2018-02-08 10:56] LABS: URINE AMORPHOUS SEDIMENT SMALL; URINE COARSE GRANULAR CAST SMALL /hpf (0-2)
[2018-02-08 11:03] LABS: INR 1.2 (0.93-1.08); PROTHROMBIN TIME 13.9 SECONDS (9.4-12.5)
[2018-02-08 11:04] LABS: PARTIAL THROMBOPLASTIN TIME 29.8 Seconds (25.1-36.5)
[2018-02-08 11:05] LABS: ALB/GLOB RATIO 1.2 (1.1-1.8); ALT/SGPT 50 U/L (7-56); AST/SGOT 38 U/L (17-59); BLOOD UREA NITROGEN 28 mg/dL (7-21); CALCIUM 10.6 mg/dL (8.4-10.5); GFR AFRICAN-AMERICAN > 60; GFR NON-AFRICAN AMERICAN 53; LIPASE 22 U/L (23-300)
[2018-02-08] MEDS ORDERED: Morphine 4 mg/ml ISec IVP STA (11:09)
[2018-02-08] MEDS ORDERED: Piperacillin/Tazobact 3.375 gm 100 ML IVPB STA (11:18)
[2018-02-08] MEDS ORDERED: metroNIDAZOLE IV 500 mg/100 ml 500 MG/100 ML BAG IVPB STA (11:19)
--- NOTE | 2018-02-08 13:17 | ED PDOC ---
Arrival/HPI - General Chief Complaint: Abdominal Pain Time Seen by Provider: 02/08/18 10:07 Historian: Patient - History of Present Illness Narrative History of Present Illness (Text): 02/08/18 13:14 Octavio Caal is a 77 year old female, whose past medical history includes AAA and cholelithiasis, who presents to the Emergency department complaining of RUQ pain. Patient was seen in the Emergency department a couple days ago and was diagnosed with Cholecystitis. Pt didn't want to stay since the surgery wasn' t for a few days. Patient denies any fevers, chills, chest pain, shortness of breath, nausea, vomiting, diarrhea, back pain, neck pain, headache, dizziness, or any other complaint. Time/Duration: < week Symptom Onset: Gradual Symptom Course: Unchanged Activities at Onset: Light Past Medical History - Provider Review Nursing Documentation Reviewed: Yes - Infectious Disease Hx of Infectious Diseases: None - Tetanus Immunization Tetanus Immunization: Unknown - Cardiac Hx Cardiac Disorders: No - Pulmonary Hx Respiratory Disorders: Yes Hx Asthma: Yes Hx Chronic Obstructive Pulmonary Disease (COPD): Yes - Neurological Hx Neurological Disorder: No - HEENT Hx HEENT Disorder: Yes ([place]) Hx Deafness: Yes (rt ear) - Renal Hx Renal Disorder: No - Endocrine/Metabolic Hx Endocrine Disorders: No - Hematological/Oncological Hx Blood Disorders: No - Integumentary Hx Dermatological Disorder: No - Musculoskeletal/Rheumatological Hx Arthritis: Yes Hx Back Pain: Yes Hx Falls: No - Gastrointestinal Hx Gastrointestinal Disorders: Yes (CHOLILITHIASIS) Hx Gall Bladder Disease: Yes - Genitourinary/Gynecological Hx Genitourinary Disorders: Yes Hx Prostate Problems: Yes - Psychiatric Hx Psychophysiologic Disorder: No Hx Depression: No Hx Emotional Abuse: No Hx Physical Abuse: No Hx Substance Use: No - Past Surgical History Past Surgical History: No Previous - Surgical History Other/Comment: gall stone - Anesthesia Hx Anesthesia: No - Suicidal Assessment Feels Threatened In Home Enviroment: No Family/Social History - Physician Review Nursing Documentation Reviewed: Yes Family/Social History: Unknown Family HX Smoking Status: Current Some Days Smoker Hx Alcohol Use: Yes (OCCATIONAL) Hx Substance Use: No Hx Substance Use Treatment: No Allergies/Home Meds Allergies/Adverse Reactions: Allergies No Known Allergies Allergy (Verified 02/08/18 10:00) Home Medications: Home Meds Medication Instructions Recorded Confirmed Tamsulosin [Flomax] 0.4 mg PO DAILY 11/11/17 02/08/18 Albuterol/Ipratropium [Duoneb 3 1 dose NEB BID 02/06/18 02/08/18 mg/0.5 mg (3 ml) UD] Fluticasone/Salmeterol 100/50 1 dsk IH Q12H 02/06/18 02/08/18 [Advair Diskus 100/50] Albuterol HFA [Ventolin HFA 90 1 puff IH DAILY PRN 02/07/18 02/08/18 mcg/actuation (8 g)] Review of Systems - Physician Review All systems were reviewed & negative as marked: Yes - Review of Systems Constitutional: Normal Eyes: Normal ENT: Normal Respiratory: Normal. absent: SOB, Cough Cardiovascular: Normal. absent: Chest Pain Gastrointestinal: Abdominal Pain (RUQ pain), Nausea. absent: Diarrhea, Vomiting Genitourinary Male: Other (Questionable Urine) Musculoskeletal: Normal. absent: Back Pain, Neck Pain Skin: Normal. absent: Rash Neurological: Normal. absent: Headache, Dizziness Endocrine: Normal Hemo/Lymphatic: Other (Questionable Blood) Psychiatric: Normal Physical Exam Vital Signs Reviewed: Yes Vital Signs Temp Pulse Resp BP Pulse Ox 02/08/18 12:00 101 H 18 117/76 96 02/08/18 10:00 97.9 F 109 H 20 112/65 95 Temperature: Afebrile Blood Pressure: Normal Pulse: Tachycardic Respiratory Rate: Normal Appearance: Positive for: Well-Appearing, Non-Toxic, Comfortable Pain Distress: None Mental Status: Positive for: Alert and Oriented X 3 - Systems Exam Head: Present: Atraumatic, Normocephalic Pupils: Present: PERRL Extroacular Muscles: Present: EOMI Conjunctiva: Present: Normal Mouth: Present: Moist Mucous Membranes Neck: Present: Normal Range of Motion Respiratory/Chest: Present: Clear to Auscultation, Good Air Exchange. No: Respiratory Distress, Accessory Muscle Use Cardiovascular: Present: Regular Rate and Rhythm, Normal S1, S2. No: Murmurs Abdomen: Present: Normal Bowel Sounds, Other (positive Murmphy's sign). No: Tenderness, Distention, Peritoneal Signs Back: Present: Normal Inspection Upper Extremity: Present: Normal Inspection. No: Cyanosis, Edema Lower Extremity: Present: Normal Inspection. No: Edema Neurological: Present: GCS=15, CN II-XII Intact, Speech Normal Skin: Present: Warm, Dry, Normal Color. No: Rashes Psychiatric: Present: Alert, Oriented x 3, Normal Insight, Normal Concentration Medical Decision Making ED Course and Treatment: 02/08/18 13:22 Impression: 77 year old male who presents to the Emergency department complaining of RUQ pain. Plan: -- metroNIZADONE -- Morphine -- Piperacillin/Tazobact -- Reassess and disposition Prior Visits: Notes and results from previous visits were reviewed. Patient was last seen in the emergency department on and was diagnosed with Cholecystitis. Patient left the Emergency department due to surgery being in a couple days. Progress Notes: Case discussed with Dr. Medina and Dr. Mohr Patient admitted for surgery by Dr. Medina. - Lab Interpretations Lab Results: 02/08/18 10:20 02/08/18 10:20 Lab Results 02/08/18 11:00: Blood Type Confirm O POSITIVE 02/08/18 10:20: Urine Color Light brown, Urine Appearance Sl cloudy, Urine pH 5.5, Ur Specific [place] >= 1.030, Urine Protein 100 H, Urine Glucose (UA) 100 H , Urine Ketones Trace H, Urine Blood Negative, Urine Nitrate Positive H, Urine Bilirubin Moderate H, Urine Urobilinogen 2.0 H, Ur Leukocyte Esterase Trace H, Urine RBC 0 - 2, Urine WBC 5 - 10, Ur Epithelial Cells 0 - 2, Amorphous Sediment Small, Urine Bacteria Many, Coarse Granular Casts Small H, Urine Other Uyeast 02/08/18 10:20: Blood Type O POSITIVE, Antibody Screen Negative, BBK History Checked No verified bt 02/08/18 10:20: Sodium 140, Potassium 3.5 L, Chloride 105, Carbon Dioxide 27, Anion Gap 12, BUN 28 H, Creatinine 1.3, Est GFR ( Amer) > 60, Est GFR ( Non-Af Amer) 53, Random Glucose 153 H, Calcium 10.6 H, Total Bilirubin 1.4 H, AST 38, ALT 50, Alkaline Phosphatase 67, Total Protein 7.3, Albumin 4.0, Globulin 3.3, Albumin/Globulin Ratio 1.2, Lipase 22 L 02/08/18 10:20: PT 13.9 H, INR 1.20 H, APTT 29.8 02/08/18 10:20: WBC 20.4 H D, RBC 5.34, Hgb 16.4, Hct 47.7, MCV 89.3, MCH 30.7, MCHC 34.4, RDW 15.0 H, Plt Count 180, MPV 11.2 H, Gran % 77.4 H, Lymph % (Auto) 12.4 L, Hendry % (Auto) 9.4 H, Eos % (Auto) 0.7 L, Baso % (Auto) 0.1, Gran # 15.76 H, Lymph # (Auto) 2.5, Hendry # (Auto) 1.9 H, Eos # (Auto) 0.1, Baso # (Auto ) 0.03 - Medication Orders Current Medication Orders: Dextrose/Sodium Chloride (Dextrose 5%/0.45% Ns 1000 Ml) 1,000 mls @ 200 mls/hr IV .Q5H EFFIE Last Admin: 02/08/18 14:56 Dose: 200 mls/hr eMAR Start Stop Document 02/08/18 14:56 (Rec: 02/08/18 14:56 [id number] Intravenous Solution Start Date 02/08/18 Start Time 14:56 Metronidazole (Flagyl) 500 mg in 100 mls @ 100 mls/hr IV Q8 EFFIE PRN Reason: Protocol Stop: 02/13/18 23:59 Last Admin: 02/08/18 14:56 Dose: 100 mls/hr eMAR Start Stop Document 02/08/18 14:56 (Rec: 02/08/18 14:56 [id number] Intravenous Solution Start Date 02/08/18 Start Time 14:56 Piperacillin Sod/Tazobactam Sod (Zosyn 3.375 In Ns 100ml) 100 mls @ 200 mls/hr IVPB Q6 EFFIE PRN Reason: Protocol Stop: 02/10/18 12:29 Last Admin: 02/08/18 17:14 Dose: 200 mls/hr eMAR Start Stop Document 02/08/18 17:14 GERMAN (Rec: 02/08/18 17:14 [id number] Intravenous Solution Start Date 02/08/18 Start Time 17:14 Morphine Sulfate (Morphine) 4 mg SC Q4H PRN PRN Reason: Pain, moderate (4-7) Last Admin: 02/08/18 17:14 Dose: 4 mg MAR Pain Assessment Document 02/08/18 17:14 GERMAN (Rec: 02/08/18 17:15 [id number] Pain Reassessment Is this a pain reassessment? Yes Sleep Is patient sleeping during reassessment? No Presence of Pain Presence of Pain Yes Pain Scale Used Pain Scale Used Numeric Location Left, Right or Bilateral Right Upper or Lower Lower Pain Location Body Site Back Description Description Intermittent Intensity of Pain at present 5 Pain Behavior Moaning Alleviating Factors/Management Medication Techniques Massage Subcutaneous Administrations Document 02/08/18 17:14 GERMAN (Rec: 02/08/18 17:15 [id number] Injection Site MAR Injection Site Right Arm Charges for Administration # of Subcutaneous Administrations 1 Discontinued Medications Metronidazole (Flagyl) 500 mg in 100 mls @ 100 mls/hr IVPB STAT STA PRN Reason: Protocol Stop: 02/08/18 12:18 Last Admin: 02/08/18 11:57 Dose: 100 mls/hr eMAR Start Stop Document 02/08/18 11:57 EWO (Rec: 02/08/18 11:57 EWO [id number]) Intravenous Solution Start Date 02/08/18 Start Time 11:57 End Date 02/08/18 End time 12:57 Total Infusion Time 60 Piperacillin Sod/Tazobactam Sod (Zosyn 3.375 In Ns 100ml) 100 mls @ 200 mls/hr IVPB STAT STA PRN Reason: Protocol Stop: 02/08/18 11:47 Last Admin: 02/08/18 11:36 Dose: 200 mls/hr eMAR Start Stop Document 02/08/18 11:36 EWO (Rec: 02/08/18 11:36 EWO [id number]) Intravenous Solution Start Date 02/08/18 Start Time 11:36 End Date 02/08/18 End time 12:06 Total Infusion Time 30 Morphine Sulfate (Morphine) 4 mg IVP STAT STA Stop: 02/08/18 11:10 Last Admin: 02/08/18 11:15 Dose: 4 mg MAR Pain Assessment Document 02/08/18 11:15 EWO (Rec: 02/08/18 11:15 EWO [id number]) Pain Reassessment Is this a pain reassessment? No Sleep Is patient sleeping during reassessment? Yes Pain Scale Used Pain Scale Used Numeric Location Pain Location Body Site Abdomen Description Description Constant Intensity of Pain at present 8 Pain Behavior Moaning Guarding Irritability IVP Administration Document 02/08/18 11:15 YARITZA (Rec: 02/08/18 11:15 YARITZA [id number]) Charges for Administration # of IVP Administrations 1 Pneumococcal Polyvalent Vaccine (Pneumovax 23 Vaccine) 0.5 ml IM .ONCE ONE Stop: 02/08/18 14:32 - Scribe Statement The provider has reviewed the documentation as recorded by the Scribdeneen Muhammad All medical record entries made by the Scribe were at my direction and personally dictated by me. I have reviewed the chart and agree that the record accurately reflects my personal performance of the history, physical exam, medical decision making, and the department course for this patient. I have also personally directed, reviewed, and agree with the discharge instructions and disposition. Disposition/Present on Arrival - Present on Arrival Any Indicators Present on Arrival: No History of DVT/PE: No History of Uncontrolled Diabetes: No Urinary Catheter: No History of Decub. Ulcer: No History Surgical Site Infection Following: None - Disposition Have Diagnosis and Disposition been Completed?: Yes Diagnosis: Cholecystitis, Gallbladder mass, Biliary colic Disposition: HOSPITALIZED Disposition Time: 10:50 Condition: STABLE
[2018-02-08] MEDS ORDERED: Pneumococcal 23-Valent Vaccine IM ONE (14:31)
[2018-02-08] MEDS ORDERED: Influenza Vaccine 60 mcg/0.5 mL SYR (4YR UP) IM ONE (14:31)
--- NOTE | 2018-02-08 14:52 | CP.PCM.PCO ---
Physician Communication Note - Physician Communication Note Physician Communication Note: Acute Cholecystitis-Needs IV/Ab/OR in am
[2018-02-08] MEDS: Dextrose 5%/0.45% NS 1,000 ML IV SCH (14:56)
[2018-02-08] MEDS: metroNIDAZOLE IV 500 mg/100 ml 500 MG/100 ML BAG IV SCH ×2 (14:56→21:00)
[2018-02-08] MEDS: Morphine 4 mg/ml ISec SC PRN ×2 (17:14→21:00)
[2018-02-08] MEDS: Piperacillin/Tazobact 3.375 gm 100 ML IVPB SCH ×2 (17:14→23:15)
--- NOTE | 2018-02-08 20:17 | CP.PCM.CON ---
History of Present Illness - History of Present Illness History of Present Illness: General surgery consult for Dr. Medina Consulted for:cholecystitis Patient is a 77M with RUQ,epigastric abdominal and R back pain since yesterday. Patient states that he ate ice cream and pain started shortly afterwards. Patient came to [facility] multiple times since October for similar symptoms and had gallstones and was told that he could elect to have his gall bladder removed or wait to see if it was symptomatic again. Pt was scheduled to have elective surgery this coming Saturday. Pain radiates to R back. Reports mild hematuria and dysuria. Patient denies nausea, vomiting, diarrhea, constipation, fevers, chills , back pain, heart burn, chest pain. Patient does admit to chronic SOB for which he has breathing treatments at home. Patient states that after medication administration in ER his pain is improved. Pt refused surgery in the past. Ultrasound showed large gallstone in the neck of the gallbladder. WBC is elevated and UA shows leukesterase and nitrate. Pmh: COPD, HLD, arthritis, BPH PSH: denies ALL: NKDA Soc: former smoker--quit 5 months ago, denies alcohol or illicit drugs Review of Systems - Review of Systems Review of Systems: See HPI Past Patient History - Infectious Disease Hx of Infectious Diseases: None - Tetanus Immunizations Tetanus Immunization: Unknown - Past Social History Smoking Status: Current Some Days Smoker - CARDIAC Hx Cardiac Disorders: No - PULMONARY Hx Respiratory Disorders: Yes Hx Asthma: Yes Hx Chronic Obstructive Pulmonary Disease (COPD): Yes - NEUROLOGICAL Hx Neurological Disorder: No - HEENT Hx HEENT Problems: Yes ([place]) Hx Deafness: Yes (rt ear) - RENAL Hx Chronic Kidney Disease: No - ENDOCRINE/METABOLIC Hx Endocrine Disorders: No - HEMATOLOGICAL/ONCOLOGICAL Hx Blood Disorders: No - INTEGUMENTARY Hx Dermatological Problems: No - MUSCULOSKELETAL/RHEUMATOLOGICAL Hx Arthritis: Yes Hx Back Pain: Yes Hx Falls: No - GASTROINTESTINAL Hx Gastrointestinal Disorders: Yes (CHOLILITHIASIS) Hx Gall Bladder Disease: Yes - GENITOURINARY/GYNECOLOGICAL Hx Genitourinary Disorders: Yes Hx Prostate Problems: Yes - PSYCHIATRIC Hx Psychophysiologic Disorder: No Hx Depression: No Hx Emotional Abuse: No Hx Physical Abuse: No Hx Substance Use: No - SURGICAL HISTORY Other/Comment: gall stone - ANESTHESIA Hx Anesthesia: No Meds Allergies/Adverse Reactions: Allergies Allergy/AdvReac Type Severity Reaction Status Date / Time No Known Allergies Allergy Verified 02/08/18 10:00 - Medications Medications: Current Medications Dextrose/Sodium Chloride (Dextrose 5%/0.45% Ns 1000 Ml) 1,000 mls @ 200 mls/hr IV .Q5H EFFIE Stop: 02/09/18 14:31 Last Admin: 02/08/18 14:56 Dose: 200 mls/hr Metronidazole (Flagyl) 500 mg in 100 mls @ 100 mls/hr IV Q8 EFFIE PRN Reason: Protocol Stop: 02/13/18 23:59 Last Admin: 02/08/18 14:56 Dose: 100 mls/hr Piperacillin Sod/Tazobactam Sod (Zosyn 3.375 In Ns 100ml) 100 mls @ 200 mls/hr IVPB Q6 EFFIE PRN Reason: Protocol Stop: 02/10/18 12:29 Last Admin: 02/08/18 17:14 Dose: 200 mls/hr Morphine Sulfate (Morphine) 4 mg SC Q4H PRN PRN Reason: Pain, moderate (4-7) Last Admin: 02/08/18 17:14 Dose: 4 mg Physical Exam - Constitutional Appears: In Acute Distress - Head Exam Head Exam: ATRAUMATIC, NORMAL INSPECTION, NORMOCEPHALIC - Eye Exam Eye Exam: EOMI, Normal appearance, PERRL Pupil Exam: NORMAL ACCOMODATION, PERRL - ENT Exam ENT Exam: Mucous Membranes Moist, Normal Exam - Neck Exam Neck exam: Positive for: Normal Inspection - Respiratory Exam Respiratory Exam: Clear to Auscultation Bilateral, NORMAL BREATHING PATTERN - Cardiovascular Exam Cardiovascular Exam: REGULAR RHYTHM - GI/Abdominal Exam GI & Abdominal Exam: Distended, Guarding, Normal Bowel Sounds, Soft, Tenderness. absent: Firm, Hernia, Mass, Pulsatile Mass, Rigid Additional comments: RUQ , R back TTP - Extremities Exam Extremities exam: Positive for: full ROM - Back Exam Back exam: NORMAL INSPECTION, tenderness - Neurological Exam Neurological exam: Alert, CN II-XII Intact, Normal Gait, Oriented x3, Reflexes Normal - Psychiatric Exam Psychiatric exam: Normal Affect, Normal Mood - Skin Skin Exam: Dry, Intact, Normal Color, Warm Results - Vital Signs Recent Vital Signs: Last Vital Signs Temp 98.7 F 02/08/18 14:12 Pulse 105 H 02/08/18 14:12 Resp 20 02/08/18 14:12 BP 133/74 02/08/18 14:12 Pulse Ox 100 02/08/18 14:00 - Labs Result Diagrams: 02/08/18 10:20 02/08/18 10:20 Assessment & Plan - Assessment and Plan (Free Text) Assessment: Cholecystitis -ABX -OR Sun 10AM -NPO -IVF -Pain/nausea control MAGALI Medina
[2018-02-08] MEDS ORDERED: Albuterol-Ipratrop 3 mg / 0.5 (3 ml) UD IH PRN (20:39)
[2018-02-09] MEDS: Morphine 4 mg/ml ISec SC PRN ×2 (00:39→05:04)
[2018-02-09] MEDS: Dextrose 5%/0.45% NS 1,000 ML IV SCH (01:00)
[2018-02-09] MEDS: Albuterol-Ipratrop 3 mg / 0.5 (3 ml) UD IH SCH ×4 (01:42→19:22)
[2018-02-09] MEDS: Piperacillin/Tazobact 3.375 gm 100 ML IVPB SCH ×4 (05:04→23:38)
--- NOTE | 2018-02-09 05:58 | HP ---
HISTORY OF PRESENT ILLNESS: The patient is 77 years old, who was just admitted on 02/07/2018 for abdominal discomfort. He was found to have cholelithiasis with acute cholecystitis. The patient was given IV antibiotics, but he wanted to go home and he was scheduled to have surgery done on Saturday by Dr. Medina. But when he was discharged, according to girlfriend, his pain got worse. The patient states that he has pain in the right upper quadrant area, radiating towards right mid back. The patient does admit to eating some ice cream when he was discharged yesterday; after that the pain started. The patient also complained of having blood in urine. He complained of feeling little nauseous, but no vomiting, no diarrhea, no constipation, did have chills, no fever, does complain of epigastric discomfort. PAST MEDICAL HISTORY: Significant for, 1. COPD. 2. Generalized osteoarthritis. 3. BPH. ALLERGIES: HE IS NOT ALLERGIC TO ANY MEDICATIONS. SOCIAL HISTORY: He lives with girlfriend. History of smoking, but he quit 5 months ago. No alcohol use, only socially drinks. MEDICATIONS: At home, he uses Flomax 0.4 daily, albuterol nebulizer treatment, and he also uses fluticasone-salmeterol. REVIEW OF SYSTEMS: Significant for right upper quadrant pain radiating towards back. PHYSICAL EXAMINATION: GENERAL: He looks in pain. VITAL SIGNS: He is afebrile, pulse 105, respirations 20, blood pressure 133/74. LUNGS: Bilateral fair airflow, diffusely decreased breath sounds. HEART: S1 and S2 audible. ABDOMEN: Soft, obese, right upper quadrant palpable discomfort with guarding. NEUROLOGIC: He is awake, alert, oriented, communicative. LABORATORY DATA: WBC is 20.4, hemoglobin 16.4, hematocrit 47.7, platelets of 180. PT 13.9, INR 1.20. Chemistry: Sodium 140, potassium 3.5, chloride 105, CO2 of 27, BUN 28, creatinine 1.3, blood sugar of 153, calcium 10.6, total bilirubin 1.4. Urinalysis shows moderate bilirubin, small coarse granular cast. He had a gallbladder ultrasound that shows gallbladder mass, suspicious for neoplasia, positive Donahue's sign and possible pericholecystic fluid with adenomyomatosis. No specific hepatomegaly and fatty infiltration of the liver. ASSESSMENT: 1. Acute cholecystitis. 2. Leukocytosis. 3. Chronic obstructive pulmonary disease. 4. Hypertension. 5. Hypokalemia. PLAN: The patient will be admitted on Med/Surg floor. We will start him on IV fluid, has been started on IV metronidazole. We will give him analgesic. He has been started on Zosyn. Surgical consult by Dr. Medina. Luther as needed. We will follow up CBC and CMP in a.m. Jose Luis Mohr MD
[2018-02-09] MEDS: metroNIDAZOLE IV 500 mg/100 ml 500 MG/100 ML BAG IV SCH ×3 (06:10→20:59)
[2018-02-09] MEDS ORDERED: Morphine 4 mg/ml ISec IVP PRN (07:10)
[2018-02-09 07:34] LABS: BASO # 0.02 K/mm3 (0.0-2.0); BASO % 0.1 % (0.0-3.0); EOS # 0.2 (0.0-0.7); EOS % 1.3 % (1.5-5.0); GRAN # 13.29 (1.4-6.5); GRAN % 79.3 % (50.0-68.0); HEMOGLOBIN 14.9 g/dL (14.0-18.0); LYMPH # 1.5 (1.2-3.4); LYMPH % 8.9 % (22.0-35.0); MEAN CELL VOLUME 89.8 fl (80.0-105.0); MEAN CORPUSCULAR HEMOGLOBIN 30.3 pg (25.0-35.0); MEAN CORPUSCULAR HGB CONC 33.7 g/dl (31.0-37.0); MEAN PLATELET VOLUME 11.5 fl (7.0-11.0); MONO # 1.7 (0.1-0.6); MONO % 10.4 % (1.0-6.0); RBC 4.92 10^6/uL (3.5-6.1); RED CELL DISTRIBUTION WIDTH 14.9 % (11.5-14.5); WHITE BLOOD COUNT 16.8 10^3/ul (4.5-11.0)
[2018-02-09 07:54] LABS: ALB/GLOB RATIO 1.1 (1.1-1.8); ALBUMIN 3.5 g/dL (3.0-4.8); ALT/SGPT 201 U/L (7-56); AST/SGOT 135 U/L (17-59); BLOOD UREA NITROGEN 25 mg/dL (7-21); CALCIUM 10.3 mg/dL (8.4-10.5); GFR AFRICAN-AMERICAN > 60; GFR NON-AFRICAN AMERICAN > 60
--- NOTE | 2018-02-09 09:07 | CP.PCM.PCO ---
Physician Communication Note - Physician Communication Note Physician Communication Note: LFT/WBC elevated/Very symptomatic?Needs Urgent OR Today(?GB Tumor)
[2018-02-09] MEDS ORDERED: Potassium Chloride 30 MEQ in Dextrose 5%/0.45% NS 1,000 ML IV SCH (09:15)
[2018-02-09] MEDS ORDERED: Aztreonam 1 Gm in NS 100mL 100 ML IVPB SCH (09:30)
[2018-02-09] MEDS ORDERED: ePHEDrine 50 mg/ml Inj ONE (12:01)
[2018-02-09] MEDS ORDERED: Phenylephrine 10 mg/ml Inj ONE (12:01)
[2018-02-09] MEDS ORDERED: Propofol 10 mg/ml Inj (20 ML) ONE ×2 (12:01→14:59)
[2018-02-09] MEDS ORDERED: Succinylcholine 200 mg/10 ml Inj IV ONE (12:02)
[2018-02-09] MEDS ORDERED: Rocuronium 10 mg/ml (5 ml) ONE ×2 (12:02→13:11)
[2018-02-09] MEDS ORDERED: Etomidate 20 mg/10ml Inj IV ONE (12:02)
[2018-02-09] MEDS ORDERED: Bupivacaine 0.5% Inj(30mL) ONE (12:06)
[2018-02-09] MEDS ORDERED: Iohexol 240 (50 ml) ONE (12:06)
[2018-02-09] MEDS ORDERED: Lidocaine 1% Inj (20ml) ONE (12:22)
[2018-02-09] MEDS ORDERED: Neostigmine Methylsulfate 3mg/3ml Syringe IV ONE (14:26)
[2018-02-09] MEDS ORDERED: Absorbable Gelatin Sponge Size 100 ONE (14:48)
[2018-02-09] MEDS ORDERED: Liquid Adhesive TOP ONE (15:14)
--- NOTE | 2018-02-09 15:50 | PCM.SURG1 ---
Surgeon's Initial Post Op Note - Surgeon's Notes Surgeon: Adam Meteorology Faculty Member: Valarie PGY3 Type of Anesthesia: General Endo, Local Anesthesia Administered By: Liliana Pre-Operative Diagnosis: Cholecysitis Operative Findings: Acute on chronic gangrenous cholecystitis Post-Operative Diagnosis: same Operation Performed: laparoscopic cholecystectomy w. IOC Specimen/Specimens Removed: gallbladder Estimated Blood Loss: EBL {In ML}: 150 Blood Products Given: N/A Drains Used: Fermin Post-Op Condition: Good Date of Surgery/Procedure: 02/09/18 Time of Surgery/Procedure: 15:50
[2018-02-09] MEDS ORDERED: Piperacillin/Tazobact 3.375 gm 100 ML IVPB STA (15:55)
[2018-02-09] MEDS ORDERED: HYDROmorphone 0.5 mg/0.5 ml ISec IVP PRN (15:57)
[2018-02-09] MEDS ORDERED: Lactated Ringer's 1,000 ML IV SCH ×3 (16:00→18:15)
[2018-02-09] MEDS ORDERED: HYDROmorphone 0.5 mg/0.5 ml ISec IVP ONE ×2 (16:04→16:25)
[2018-02-09] MEDS ORDERED: HYDROmorphone 0.5 mg/0.5 ml ISec ONE (16:20)
[2018-02-09 16:43] LABS: HEMOGLOBIN 14.1 g/dL (14.0-18.0); MEAN CELL VOLUME 90.3 fl (80.0-105.0); MEAN CORPUSCULAR HEMOGLOBIN 30.5 pg (25.0-35.0); MEAN CORPUSCULAR HGB CONC 33.7 g/dl (31.0-37.0); MEAN PLATELET VOLUME 11.2 fl (7.0-11.0); RBC 4.63 10^6/uL (3.5-6.1); RED CELL DISTRIBUTION WIDTH 14.9 % (11.5-14.5); WHITE BLOOD COUNT 15.1 10^3/ul (4.5-11.0)
--- NOTE | 2018-02-09 16:45 | PN ---
DATE: SUBJECTIVE: The patient is 77 years old seen and examined, lying in bed, complains of right upper quadrant pain and back pain. No nausea or vomiting. Patient is n.p.o. for cholecystectomy around 01:00 today. PHYSICAL EXAMINATION: VITAL SIGNS: He is afebrile, pulse 92, respirations 20, blood pressure 131/76. LUNGS: Bilateral good airflow. No rhonchi or crackles. HEART: S1, S2 audible. ABDOMEN: Soft, obese, nontender. No rebound, no guarding. NEUROLOGIC: Patient is awake and alert, able to communicate. LABORATORY DATA: WBC 16.8, hemoglobin 14.9, hematocrit 44.2, platelet 169. Chemistry: Sodium 140, potassium 3.3, chloride 105, CO2 of 28, BUN is 25, creatinine 1, blood sugar of 131, total bili 3.5, AST 135, ALT 201, alk phos is 165. Blood cultures are negative. ASSESSMENT: 1. Acute cholecystitis. 2. Acute cholelithiasis. 3. Gallbladder mass. 4. Morbid obesity. 5. Chronic obstructive pulmonary disease. PLAN: Cholecystectomy today, keep him n.p.o. We will continue on antibiotics, that is Azactam 1 g every 8 hours, he is on 150 mL IV fluid, he is on nebulizer treatment. Patient is on metronidazole and Zosyn. We will follow up CBC and CMP in a.m. Jose Luis Mohr MD
[2018-02-09] MEDS: oxyCODONE 5 mg Immediate Release Tab PO PRN ×2 (17:49→22:50)
[2018-02-09] MEDS: HYDROmorphone 0.5 mg/0.5 ml ISec IVP PRN (20:59)
[2018-02-09] MEDS: Aztreonam 1 Gm in NS 100mL 100 ML IVPB SCH (22:05)
[2018-02-10] MEDS: Albuterol-Ipratrop 3 mg / 0.5 (3 ml) UD IH SCH ×4 (01:19→20:25)
[2018-02-10] MEDS: HYDROmorphone 0.5 mg/0.5 ml ISec IVP PRN ×3 (03:19→22:03)
[2018-02-10] MEDS: Piperacillin/Tazobact 3.375 gm 100 ML IVPB SCH ×3 (05:14→23:22)
[2018-02-10] MEDS: metroNIDAZOLE IV 500 mg/100 ml 500 MG/100 ML BAG IV SCH ×3 (06:22→21:48)
[2018-02-10 07:09] LABS: BASO # 0.01 K/mm3 (0.0-2.0); BASO % 0.1 % (0.0-3.0); EOS # 0.1 (0.0-0.7); GRAN # 7.84 (1.4-6.5); GRAN % 71.8 % (50.0-68.0); HEMOGLOBIN 12.5 g/dL (14.0-18.0); LYMPH # 1.7 (1.2-3.4); LYMPH % 15.7 % (22.0-35.0); MEAN CELL VOLUME 90.8 fl (80.0-105.0); MEAN CORPUSCULAR HEMOGLOBIN 29.6 pg (25.0-35.0); MEAN CORPUSCULAR HGB CONC 32.6 g/dl (31.0-37.0); MEAN PLATELET VOLUME 11.3 fl (7.0-11.0); MONO # 1.3 (0.1-0.6); MONO % 11.4 % (1.0-6.0); RBC 4.22 10^6/uL (3.5-6.1); RED CELL DISTRIBUTION WIDTH 15.1 % (11.5-14.5); WHITE BLOOD COUNT 10.9 10^3/ul (4.5-11.0)
[2018-02-10 07:19] LABS: ALB/GLOB RATIO 1.1 (1.1-1.8); ALT/SGPT 130 U/L (7-56); AST/SGOT 59 U/L (17-59); BLOOD UREA NITROGEN 18 mg/dL (7-21); CALCIUM 9.8 mg/dL (8.4-10.5); GFR AFRICAN-AMERICAN > 60; GFR NON-AFRICAN AMERICAN > 60
[2018-02-10] MEDS: Aztreonam 1 Gm in NS 100mL 100 ML IVPB SCH (08:23)
[2018-02-10] MEDS ORDERED: Enoxaparin 40 mg Syringe SC SCH (10:00)
--- NOTE | 2018-02-10 10:05 | CP.PCM.PN ---
Subjective - Date & Time of Evaluation Date of Evaluation: 02/10/18 Time of Evaluation: 07:00 - Subjective Subjective: Patient seen and examined. No acute events over night. Tolerating liquid diet. 78cc/24hrs serosanguinous drainage from deanna drain. Objective - Vital Signs/Intake and Output Vital Signs (last 24 hours): Temp Pulse Resp BP Pulse Ox 98.1 F 90 20 119/77 97 02/10/18 07:30 02/10/18 07:30 02/10/18 07:30 02/10/18 07:30 02/10/18 07:30 Intake and Output: 02/10/18 02/10/18 06:59 18:59 Intake Total 480 Output Total 578 Balance -98 - Medications Medications: Current Medications Albuterol/Ipratropium (Duoneb 3 Mg/0.5 Mg (3 Ml) Ud) 3 ml IH [id number] Last Admin: 02/10/18 07:34 Dose: 3 ml Albuterol/Ipratropium (Duoneb 3 Mg/0.5 Mg (3 Ml) Ud) 3 ml IH Q2H PRN PRN Reason: Shortness of Breath Hydromorphone HCl (Dilaudid) 0.5 mg IVP Q4H PRN PRN Reason: Pain, severe (8-10) Last Admin: 02/10/18 08:48 Dose: 0.5 mg Metronidazole (Flagyl) 500 mg in 100 mls @ 100 mls/hr IV Q8 EFFIE PRN Reason: Protocol Stop: 02/13/18 23:59 Last Admin: 02/10/18 06:22 Dose: 100 mls/hr Piperacillin Sod/Tazobactam Sod (Zosyn 3.375 In Ns 100ml) 100 mls @ 200 mls/hr IVPB Q6 EFFIE PRN Reason: Protocol Stop: 02/10/18 12:29 Last Admin: 02/10/18 05:14 Dose: 200 mls/hr Ondansetron HCl (Zofran Inj) 4 mg IVP Q6H PRN PRN Reason: Nausea/Vomiting Oxycodone HCl (Oxycodone Immediate Release Tab) 5 mg PO Q4H PRN PRN Reason: Pain, moderate (4-7) Last Admin: 02/09/18 22:50 Dose: 5 mg - Labs Labs: 02/10/18 06:20 02/10/18 06:20 PT 13.9 SECONDS (9.4-12.5) H 02/08/18 10:20 INR 1.20 (0.93-1.08) H 02/08/18 10:20 APTT 29.8 Seconds (25.1-36.5) 02/08/18 10:20 - Constitutional Appears: No Acute Distress - Head Exam Head Exam: NORMOCEPHALIC - Eye Exam Eye Exam: Normal appearance - ENT Exam ENT Exam: Mucous Membranes Moist - Respiratory Exam Respiratory Exam: NORMAL BREATHING PATTERN - Cardiovascular Exam Cardiovascular Exam: +S1, +S2 - GI/Abdominal Exam GI & Abdominal Exam: Distended, Soft. absent: Firm, Guarding, Rigid Additional comments: mild distention - Neurological Exam Neurological Exam: Alert, Awake, Oriented x3 - Psychiatric Exam Psychiatric exam: Normal Mood - Skin Skin Exam: Dry, Intact, Warm Assessment and Plan - Assessment and Plan (Free Text) Assessment: 77M s/p laparoscopic cholecystectomy w. [facility] POD1 Plan: -C/w abx -Advance diet as tolerated -Monitor I&O's -Analgesic/Anti-emetics -Encourage IS use -OOB to chair -PT -DVT ppx -Further recs per Dr. Adam Randall PGY2
--- NOTE | 2018-02-10 10:40 | PN ---
DATE: 02/10/2018 SUBJECTIVE: The patient has no complaints of any chest pain. No shortness of breath. No headaches or dizziness. PHYSICAL EXAMINATION VITAL SIGNS: Temperature is 98.1, pulse of 88, blood pressure 115/68, respirations 20. GENERAL: The patient is lying in bed, flat, comfortable. HEENT: No oral lesion. Anicteric sclerae. Moist mucosa. NECK: No JVD, adenopathy, or thyromegaly. CARDIOVASCULAR: S1 and S2, regular. No murmurs, rubs, or gallops. LUNGS: Clear to auscultation bilaterally. No wheeze, rales, or rhonchi. ABDOMEN: Bowel sounds are positive, soft, nontender and nondistended. EXTREMITIES: No cyanosis, clubbing or edema. LABORATORY DATA: White count of 15.1, potassium was 3.3. ASSESSMENT: 1. Cholecystitis, status post laparoscopic cholecystectomy, postop day #1. 2. Chronic obstructive pulmonary disease. 3. Obesity with body mass index of 33.3. 4. Gallbladder mass, pathology pending. PLAN: The patient is currently comfortable. He is receiving antibiotics. The patient's blood cultures and urine cultures have been negative. The patient is on Dilaudid for pain. He was on Lactated Ringer's. The patient is on Zofran as needed. He is on a liquid diet. Gary Machuca MD
--- NOTE | 2018-02-10 13:14 | RAD ---
PROCEDURE: Operative cholangiogram HISTORY: ? CBD OBST COMPARISON: TECHNIQUE: Fluoroscopy was provided in the operating room. 26 seconds of fluoro time were used. 3 images were submitted FINDINGS: Contrast flows into the duodenum without obstruction. There are no filling defects. There is some reflux of contrast into the pancreatic duct IMPRESSION: As above
[2018-02-10] MEDS ORDERED: Alum-Mag Hydrox-Simethicone Susp (30 mL) PO ONE (13:20)
[2018-02-10] MEDS: oxyCODONE 5 mg Immediate Release Tab PO PRN (17:32)
[2018-02-10] MEDS ORDERED: HYDROmorphone 1 mg/ml ISec IVP PRN (17:41)
[2018-02-10] MEDS ORDERED: HYDROmorphone 0.5 mg/0.5 ml ISec IVP STA (17:47)
--- NOTE | 2018-02-10 20:04 | CP.PCM.PCO ---
Physician Communication Note - Physician Communication Note Physician Communication Note: PO1:Impr LFT/Rx Diet/NO GB TUMOR
[2018-02-10] MEDS ORDERED: cefTRIAXone 1 gm 1 GM/100 ML BAG IVPB SCH (20:11)
[2018-02-11] MEDS ORDERED: Magnesium Hydroxide Susp 30 ml UD PO STA (02:32)
--- NOTE | 2018-02-11 02:32 | CP.PCM.PN ---
Subjective - Date & Time of Evaluation Date of Evaluation: 02/11/18 Time of Evaluation: 02:31 - Subjective Subjective: Patient was seen at bedside. He is sitting in the bed. Requests something for bowel movement. States that he had no bowel movement for 2 days. When MOM was offered he refused and requested medication in the pill form. Has no other complaints. Medical record was reviewed. He is S/P laparoscopic cholecystectomy. This 77 year old male was admitted with abdominal discomfort, right upper quadrant , cholelithiasis, acute cholecystitis. Has PMH of COPD, osteoarthritis, BPH, obesity. 134/90,102/min,98*F. Objective - Vital Signs/Intake and Output Vital Signs (last 24 hours): Temp Pulse Resp BP Pulse Ox 98.1 F 102 H 20 134/90 92 L 02/10/18 14:00 02/10/18 14:00 02/10/18 14:00 02/10/18 14:00 02/10/18 14:00 Intake and Output: 02/10/18 02/11/18 18:59 06:59 Intake Total 360 480 Output Total 400 20 Balance -40 460 - Medications Medications: Current Medications Albuterol/Ipratropium (Duoneb 3 Mg/0.5 Mg (3 Ml) Ud) 3 ml IH [id number] EFFIE Last Admin: 02/10/18 20:25 Dose: 3 ml Albuterol/Ipratropium (Duoneb 3 Mg/0.5 Mg (3 Ml) Ud) 3 ml IH Q2H PRN PRN Reason: Shortness of Breath Heparin Sodium (Porcine) (Heparin) 5,000 units SC Q12 EFFIE PRN Reason: Protocol Last Admin: 02/10/18 21:49 Dose: 5,000 units Hydromorphone HCl (Dilaudid) 1 mg IVP Q4H PRN PRN Reason: Pain, severe (8-10) Last Admin: 02/10/18 22:03 Dose: 1 mg Metronidazole (Flagyl) 500 mg in 100 mls @ 100 mls/hr IV Q8 EFFIE PRN Reason: Protocol Stop: 02/13/18 23:59 Last Admin: 02/10/18 21:48 Dose: 100 mls/hr Piperacillin Sod/Tazobactam Sod (Zosyn 3.375 In Ns 100ml) 100 mls @ 200 mls/hr IVPB Q6 EFFIE PRN Reason: Protocol Stop: 02/16/18 00:01 Last Admin: 02/10/18 23:22 Dose: 200 mls/hr Ondansetron HCl (Zofran Inj) 4 mg IVP Q6H PRN PRN Reason: Nausea/Vomiting Oxycodone HCl (Oxycodone Immediate Release Tab) 5 mg PO Q4H PRN PRN Reason: Pain, moderate (4-7) Last Admin: 02/10/18 17:32 Dose: 5 mg - Labs Labs: 02/10/18 06:20 02/10/18 06:20 PT 13.9 SECONDS (9.4-12.5) H 02/08/18 10:20 INR 1.20 (0.93-1.08) H 02/08/18 10:20 APTT 29.8 Seconds (25.1-36.5) 02/08/18 10:20 Micro Results 02/10/18 08:40 Other: Please Indicate Gram Stain - Final 02/08/18 11:00 Blood Blood Culture - Preliminary NO GROWTH AFTER 48 HOURS 02/08/18 10:20 Blood Blood Culture - Preliminary NO GROWTH AFTER 48 HOURS 02/08/18 10:20 Urine Urine Culture - Final No Growth (<1,000 CFU/ML) Most Recent Lab Values WBC 10.9 10^3/ul (4.5-11.0) D 02/10/18 06:20 RBC 4.22 10^6/uL (3.5-6.1) 02/10/18 06:20 Hgb 12.5 g/dL (14.0-18.0) L 02/10/18 06:20 Hct 38.3 % (42.0-52.0) L 02/10/18 06:20 MCV 90.8 fl (80.0-105.0) 02/10/18 06:20 MCH 29.6 pg (25.0-35.0) 02/10/18 06:20 MCHC 32.6 g/dl (31.0-37.0) 02/10/18 06:20 RDW 15.1 % (11.5-14.5) H 02/10/18 06:20 Plt Count 176 10^3/uL (120.0-450.0) 02/10/18 06:20 MPV 11.3 fl (7.0-11.0) H 02/10/18 06:20 Gran % 71.8 % (50.0-68.0) H 02/10/18 06:20 Lymph % (Auto) 15.7 % (22.0-35.0) L 02/10/18 06:20 Medina % (Auto) 11.4 % (1.0-6.0) H 02/10/18 06:20 Eos % (Auto) 1.0 % (1.5-5.0) L 02/10/18 06:20 Baso % (Auto) 0.1 % (0.0-3.0) 02/10/18 06:20 Gran # 7.84 (1.4-6.5) H 02/10/18 06:20 Lymph # (Auto) 1.7 (1.2-3.4) 02/10/18 06:20 Medina # (Auto) 1.3 (0.1-0.6) H 02/10/18 06:20 Eos # (Auto) 0.1 (0.0-0.7) 02/10/18 06:20 Baso # (Auto) 0.01 K/mm3 (0.0-2.0) 02/10/18 06:20 PT 13.9 SECONDS (9.4-12.5) H 02/08/18 10:20 INR 1.20 (0.93-1.08) H 02/08/18 10:20 APTT 29.8 Seconds (25.1-36.5) 02/08/18 10:20 Sodium 143 mmol/L (132-148) 02/10/18 06:20 Potassium 3.7 mmol/L (3.6-5.0) 02/10/18 06:20 Chloride 106 mmol/L (98-107) 02/10/18 06:20 Carbon Dioxide 28 mmol/L (21-33) 02/10/18 06:20 Anion Gap 13 (10-20) 02/10/18 06:20 BUN 18 mg/dL (7-21) 02/10/18 06:20 Creatinine 0.9 mg/dl (0.8-1.5) 02/10/18 06:20 Est GFR ( Amer) > 60 02/10/18 06:20 Est GFR (Non-Af Amer) > 60 02/10/18 06:20 POC Glucose (mg/dL) 121 mg/dL (65-110) H 02/10/18 06:23 Random Glucose 113 mg/dL (70-110) H 02/10/18 06:20 Calcium 9.8 mg/dL (8.4-10.5) 02/10/18 06:20 Total Bilirubin 1.3 mg/dL (0.2-1.3) 02/10/18 06:20 AST 59 U/L (17-59) D 02/10/18 06:20 ALT 130 U/L (7-56) H 02/10/18 06:20 Alkaline Phosphatase 110 U/L (38-126) 02/10/18 06:20 Total Protein 5.8 g/dL (5.8-8.3) 02/10/18 06:20 Albumin 3.0 g/dL (3.0-4.8) 02/10/18 06:20 Globulin 2.8 gm/dL 02/10/18 06:20 Albumin/Globulin Ratio 1.1 (1.1-1.8) 02/10/18 06:20 Lipase 22 U/L (23-300) L 02/08/18 10:20 Urine Color Light brown (YELLOW) 02/08/18 10:20 Urine Appearance Sl cloudy (CLEAR) 02/08/18 10:20 Urine pH 5.5 (4.7-8.0) 02/08/18 10:20 Ur Specific [place] >= 1.030 (1.005-1.035) 02/08/18 10:20 Urine Protein 100 mg/dL (<30 mg/dL) H 02/08/18 10:20 Urine Glucose (UA) 100 mg/dL (NEGATIVE) H 02/08/18 10:20 Urine Ketones Trace mg/dL (NEGATIVE) H 02/08/18 10:20 Urine Blood Negative (NEGATIVE) 02/08/18 10:20 Urine Nitrate Positive (NEGATIVE) H 02/08/18 10:20 Urine Bilirubin Moderate (NEGATIVE) H 02/08/18 10:20 Urine Urobilinogen 2.0 E.U./dL (<1 E.U./dL) H 02/08/18 10:20 Ur Leukocyte Esterase Trace Jim/uL (NEGATIVE) H 02/08/18 10:20 Urine RBC 0 - 2 /hpf (0-2) 02/08/18 10:20 Urine WBC 5 - 10 /hpf (0-6) 02/08/18 10:20 Ur Epithelial Cells 0 - 2 /hpf (0-5) 02/08/18 10:20 Amorphous Sediment Small 02/08/18 10:20 Urine Bacteria Many (NEG) 02/08/18 10:20 Coarse Granular Casts Small /hpf (0-2) H 02/08/18 10:20 Urine Other Uyeast 02/08/18 10:20 Blood Type O POSITIVE 02/09/18 06:30 Blood Type Confirm O POSITIVE 02/08/18 11:00 Antibody Screen Negative 02/09/18 06:30 Crossmatch See Detail 02/09/18 06:30 BBK History Checked Patient has bt 02/09/18 06:30 - Constitutional Appears: Well, No Acute Distress - Head Exam Head Exam: ATRAUMATIC, NORMAL INSPECTION, NORMOCEPHALIC - Eye Exam Eye Exam: Normal appearance - ENT Exam ENT Exam: Normal External Ear Exam - Neck Exam Neck Exam: Normal Inspection - Respiratory Exam Respiratory Exam: NORMAL BREATHING PATTERN - Cardiovascular Exam Cardiovascular Exam: absent: JVD - GI/Abdominal Exam GI & Abdominal Exam: absent: Distended - Rectal Exam Rectal Exam: Deferred - Exam Additional comments: Deferred. - Extremities Exam Extremities Exam: Normal Inspection - Back Exam Back Exam: NORMAL INSPECTION - Neurological Exam Neurological Exam: Alert, Awake, Oriented x3 - Psychiatric Exam Psychiatric exam: Normal Affect, Normal Mood - Skin Skin Exam: Normal Color Assessment and Plan - Assessment and Plan (Free Text) Assessment: Constipation. S/P laparoscopic cholecystectomy. COPD. Obesity. OA. BPH. Plan: Colace 200 mg PO x 1. Continue present management.
[2018-02-11] MEDS: Albuterol-Ipratrop 3 mg / 0.5 (3 ml) UD IH SCH ×4 (02:47→22:31)
[2018-02-11] MEDS: Piperacillin/Tazobact 3.375 gm 100 ML IVPB SCH ×3 (05:06→17:29)
[2018-02-11] MEDS: metroNIDAZOLE IV 500 mg/100 ml 500 MG/100 ML BAG IV SCH ×3 (06:21→21:06)
[2018-02-11] MEDS: HYDROmorphone 0.5 mg/0.5 ml ISec IVP PRN (06:23)
[2018-02-11 08:12] LABS: BASO # 0.03 K/mm3 (0.0-2.0); BASO % 0.3 % (0.0-3.0); EOS # 0.1 (0.0-0.7); GRAN # 7.8 (1.4-6.5); GRAN % 74.3 % (50.0-68.0); HEMOGLOBIN 13.6 g/dL (14.0-18.0); LYMPH # 1.6 (1.2-3.4); LYMPH % 15.4 % (22.0-35.0); MEAN CELL VOLUME 90.4 fl (80.0-105.0); MEAN CORPUSCULAR HEMOGLOBIN 29.8 pg (25.0-35.0); MEAN CORPUSCULAR HGB CONC 32.9 g/dl (31.0-37.0); MEAN PLATELET VOLUME 11.6 fl (7.0-11.0); MONO # 0.9 (0.1-0.6); RBC 4.57 10^6/uL (3.5-6.1); RED CELL DISTRIBUTION WIDTH 14.8 % (11.5-14.5); WHITE BLOOD COUNT 10.5 10^3/ul (4.5-11.0)
--- NOTE | 2018-02-11 08:21 | OP ---
PROCEDURE DATE: 02/09/2018 LOCATION: Room 562, bed 2. SURGEON: Ross Medina MD. LENS GRINDER APPRENTICE: Etienne Sheppard DO, PGY-3. ENDOCRINOLOGY SPECIALIST: Jordon Ford MD ANESTHESIA: General endotracheal, Marcaine 0.5, 25 mL. PREOPERATIVE DIAGNOSES: Cholecystitis - cholelithiasis - possible cholangitis - possible gallbladder tumor. POSTOPERATIVE DIAGNOSES: 1. Acute gangrenous cholecystitis (no evidence of gallbladder tumor). 2. Cholelithiasis. PROCEDURE: Emergency laparoscopic cholecystectomy with intraoperative cholangiogram. OPERATIVE INDICATIONS: Patient is a 77-year-old male who has had recurrent biliary attacks for a number of years, several times in the past 12 months, he has been admitted, but had refused surgery. On his last admission just before this weekend, he agreed to come back on 02/10/2018 for elective surgery and will be taking clear liquids and antibiotic. Unfortunately on the night before his admission, he became somewhat febrile with shaking chills and started passing urine with a pinkish color that may have been bile or blood. He was admitted via the emergency room, seen again by this physician and recommended for extensive hydration and antibiotic loading. He was hydrated at 200 mL per hour for the 11 to 12 hours preoperatively and brought on an urgent basis on 02/09/2018, to the operating room. Risks, benefits and alternatives with their anticipated outcomes were discussed with the patient, his significant common-law and daughter, and extensive discussion explaining the need to remove the gallbladder as it is rotted and infected and cannot be saved. The thought that there might be a tumor in the gallbladder was raised by the radiologist; however, this skin care consultant and the present chief cloth finishing range operator Dr. Brody Gómez could not confirm that diagnosis and significantly do not think this is the case. On CAT scanning, which has been repeated multiple times over the past year and a half, the patient has no evidence of a tumor or anything other than stones in the gallbladder with calcification. OPERATIVE NOTE: Patient was brought to the operating room, underwent time-out procedures, identified by his wristband and was placed on the table in a supine manner. Following the induction of general anesthesia and the insertion of an endotracheal tube, sequential compression devices were placed in his lower extremities. A Seay catheter was inserted into his bladder and an orogastric tube was placed decompressing the stomach. The abdomen is electrically clipped at this time, prepped with Hibiclens chlorhexidine preparation, and patient is aseptically draped. The umbilicus is elevated on towel clips, infiltrated with bupivacaine port sites and the incision made and a Veress needle inserted into the peritoneal cavity and the abdomen insufflated with carbon dioxide gas to 14 mmHg pressure. The needle was now removed, replaced with a 11-mm port, with the Storz operating laparoscope inserted into same demonstrating blunt entry into the peritoneal cavity. The port was now positioned properly and the scope allows visualization of the entire abdomen demonstrating marked inflammation in the right upper quadrant. Under direct vision, a second 11 mm port is placed in the right upper quadrant alongside the xiphoid and two 5 mm ports were placed in the right upper quadrant at the level of the umbilicus. The patient is rotated to a left lateral Chavez position and the head is elevated to a reverse Trendelenburg position. Adhesions of the omentum to the gallbladder are gently and carefully bluntly removed, and extensive oozing of blood is noted from the acute inflammatory reaction. Once the gallbladder is beginning to be visualized, aspiration of approximately 30 mL of bile was encountered at this point with a long laparoscopic needle and syringe, and the content is sent for aerobic and anaerobic culture. The bile had a blackish green, thick, purulent appearance to it. clamp was placed on the puncture site and further dissection is employed removing more of the omentum with a blunt surgical technique. Due to the patient's extremely protuberant body habitus and large omentum, a fifth port had to be placed below the lateral port site and a 5 mm fan retractor is inserted assisting the exposure to the gallbladder and allowing further dissection. The adhesions to the gallbladder are carefully and bluntly removed and the cystic artery and cyst duct are identified and the critical view of safety identified as well. The cystic duct is proximally clipped with a 5 mm Hemoclip. Incision made and intraoperative cholangiography performed. Initially, the material coming from the cystic duct was the same color and appearance of the gallbladder; however, within a few minutes, the color changed to a meadows yellow presumptively from reflux back up from the common duct. The cholangiogram demonstrated free flow of contrast into the duodenum. There is no evidence of the stone anywhere in the common duct as was suspected by the marked elevation of liver functions and alkaline phosphatase. The catheter is removed and the cystic duct is now multiply hemoclipped and transected, as is the cystic artery likewise hemoclipped and transected. The gallbladder is now carefully elevated and with meticulous dissection, removed from the liver bed using electrocoagulating cautery. While doing this, there is a significant absence of anything that would appear to be an infiltrating tumor or anything to suggest there is a tumor in the gallbladder other than the extremely thickened and enlarged gallbladder itself. Once the gallbladder has been removed, the gallbladder was placed in an EndoCatch, brought up through the subxiphoid port, which had to be enlarged to allow the gallbladder to be pulled through and the gallbladder was removed off the operative field and under sterile technique, opened, multiple stones predominantly small with one large one were encountered and the gallbladder was then very, very carefully examined without evidence of any intravesical polyp or tumor. Gallbladder wall was markedly thickened, but did not demonstrate anywhere by palpation or by incision, a tumor that was preoperatively suggested by the radiologist. The patient is now placed level slightly reverse Trendelenburg and 5 liters of saline have been infused into the abdominal cavity and the return has been cleared of all bleeding material and spilled bile. At this point, it is elected to place a Gelfoam and Avitene package against the liver bed to assist in the hemostasis of the liver surface. A 15-Hungarian Fermin drain is inserted into the lateral port and has been advanced along the right gutter and up into the hepatorenal space of Alvarez. At this point, bleeding appears to have slowed down significantly. The catheter was now secured with 2-0 Surgidac polyester suture, and using the endoscopic suturing device, the two midline ports were closed with interrupted 2-0 PDS sutures. The upper incision, which had been enlarged to allow the gallbladder to remove, has placement of two additional 2-0 PDS sutures, and the skin is closed with 3-0 Monocryl sutures and Steri-Strips. Dry dressings were placed over the same. The patient is slowly awakened, extubated and transported to the recovery room in a satisfactory condition. Sponge, instrument and suture count were verified as correct at the end of the procedure. Estimated blood loss during the procedure was less than 150 mL of blood. This dictation will be electronically signed without being read. The assistant activities director was present throughout the procedure from beginning to end, and was extremely important in the dissection and exposure required in this extremely difficult anatomic, acutely inflamed gallbladder. Due to the fact that there is normal appearing cholangiogram and absence of any further tumor, no further suggestions were recommended at this point pending pathologic examination of the gallbladder. Ross Medina MD
[2018-02-11 08:26] LABS: ALB/GLOB RATIO 1.1 (1.1-1.8); ALBUMIN 3.4 g/dL (3.0-4.8); ALT/SGPT 91 U/L (7-56); AST/SGOT 44 U/L (17-59); BLOOD UREA NITROGEN 16 mg/dL (7-21); CALCIUM 10.1 mg/dL (8.4-10.5); GFR AFRICAN-AMERICAN > 60; GFR NON-AFRICAN AMERICAN > 60
--- NOTE | 2018-02-11 08:38 | PN ---
DATE: 02/11/2018 SUBJECTIVE: The patient has no complaints of any chest pain. No shortness of breath. No headaches. His pain is controlled. PHYSICAL EXAMINATION: VITAL SIGNS: Temperature is 98.1, pulse of 102, blood pressure 124/90, respirations 20. GENERAL: The patient is lying in bed, flat, comfortable. HEENT: No oral lesion. Anicteric sclerae. Moist mucosa. NECK: No JVD, adenopathy, or thyromegaly. CARDIOVASCULAR: S1 and S2, regular. No murmurs, rubs, or gallops. LUNGS: Clear to auscultation bilaterally. No wheeze, rales, or rhonchi. ABDOMEN: Bowel sounds are positive, soft, nontender and nondistended. EXTREMITIES: No cyanosis, clubbing or edema. LABORATORY DATA: White count of 10.9, hemoglobin is 12.5, creatinine 0.6. ASSESSMENT: 1. Cholecystitis, status post laparoscopic cholecystectomy, postoperative day #2. 2. Chronic obstructive pulmonary disease. 3. Obesity with a body mass index of 33. PLAN: The patient initially looked he had a mass on ultrasound. I spoke with Dr. Gómez who assisted Dr. Medina. There was no mass that was visible. We will wait for surgical pathology report. Dr. Medina also states that the patient has no gallbladder tumor. The patient is tolerating his diet. His pain is controlled. The patient is complaining of no bowel movements, but he has not had a full meal for the past 5 to 6 days. The patient is on Dilaudid for pain. He is on Flagyl. He is going to be on heparin for DVT prophylaxis. The patient is on oxycodone for pain. He is on antibiotic with Zosyn. His blood cultures have been negative. He is on a regular diet. Gary Machuca MD
--- NOTE | 2018-02-11 10:08 | RAD ---
HISTORY: abd distention COMPARISON: No prior. FINDINGS: BOWEL: Normal bowel gas pattern. No evidence of bowel obstruction. Surgical clips in right upper quadrant status post cholecystectomy. No masses or abnormal intra-abdominal calcifications. BONES: Normal. OTHER FINDINGS: None. IMPRESSION: No active disease.
--- NOTE | 2018-02-11 10:08 | CP.PCM.PN ---
Subjective - Date & Time of Evaluation Date of Evaluation: 02/11/18 Time of Evaluation: 10:05 - Subjective Subjective: Surgery: Dr. Medina Pt seen and examined. Pt is complaining of abd pain and difficulty urinating. He denies N/V. +Flatus, no BM. Objective - Vital Signs/Intake and Output Vital Signs (last 24 hours): Temp Pulse Resp BP Pulse Ox 98.0 F 95 H 20 110/56 L 92 L 02/11/18 07:30 02/11/18 07:30 02/11/18 07:30 02/11/18 07:30 02/11/18 07:30 Intake and Output: 02/11/18 02/11/18 06:59 18:59 Intake Total 660 Output Total 20 Balance 640 - Medications Medications: Current Medications Albuterol/Ipratropium (Duoneb 3 Mg/0.5 Mg (3 Ml) Ud) 3 ml IH [id number] EFFIE Last Admin: 02/11/18 07:24 Dose: Not Given Albuterol/Ipratropium (Duoneb 3 Mg/0.5 Mg (3 Ml) Ud) 3 ml IH Q2H PRN PRN Reason: Shortness of Breath Heparin Sodium (Porcine) (Heparin) 5,000 units SC Q12 EFFIE PRN Reason: Protocol Last Admin: 02/10/18 21:49 Dose: 5,000 units Hydromorphone HCl (Dilaudid) 1 mg IVP Q4H PRN PRN Reason: Pain, severe (8-10) Last Admin: 02/11/18 06:23 Dose: 1 mg Metronidazole (Flagyl) 500 mg in 100 mls @ 100 mls/hr IV Q8 EFFIE PRN Reason: Protocol Stop: 02/13/18 23:59 Last Admin: 02/11/18 06:21 Dose: 100 mls/hr Piperacillin Sod/Tazobactam Sod (Zosyn 3.375 In Ns 100ml) 100 mls @ 200 mls/hr IVPB Q6 EFFIE PRN Reason: Protocol Stop: 02/16/18 00:01 Last Admin: 02/11/18 05:06 Dose: 200 mls/hr Potassium Chloride (Potassium Chloride 10 Meq/100 Ml) 10 meq in 100 mls @ 50 mls/hr IVPB ONCE ONE Stop: 02/11/18 10:33 Ondansetron HCl (Zofran Inj) 4 mg IVP Q6H PRN PRN Reason: Nausea/Vomiting Oxycodone HCl (Oxycodone Immediate Release Tab) 5 mg PO Q4H PRN PRN Reason: Pain, moderate (4-7) Last Admin: 02/10/18 17:32 Dose: 5 mg Tamsulosin HCl (Flomax) 0.4 mg PO DAILY EFFIE - Labs Labs: 02/11/18 08:00 02/11/18 08:00 PT 13.9 SECONDS (9.4-12.5) H 02/08/18 10:20 INR 1.20 (0.93-1.08) H 02/08/18 10:20 APTT 29.8 Seconds (25.1-36.5) 02/08/18 10:20 - Constitutional Appears: Non-toxic, No Acute Distress - Head Exam Head Exam: ATRAUMATIC, NORMOCEPHALIC - Eye Exam Eye Exam: EOMI - ENT Exam ENT Exam: Mucous Membranes Moist - Neck Exam Neck Exam: Full ROM - Respiratory Exam Respiratory Exam: NORMAL BREATHING PATTERN. absent: Accessory Muscle Use, Respiratory Distress - GI/Abdominal Exam GI & Abdominal Exam: Distended, Soft, Tenderness. absent: Guarding, Rigid, Rebound - Extremities Exam Extremities Exam: absent: Calf Tenderness, Pedal Edema - Neurological Exam Neurological Exam: Alert, Awake, Oriented x3 Assessment and Plan - Assessment and Plan (Free Text) Assessment: 77M w. cholecystitis s/p lap pascale POD#2, now w. ileus -limit narcotics, d/s dilaudid, will start toradol -CLD, will make NPO if N/V develops -Flomax for urinary retention -encourage OOB to chair/IS use -PT/OT as tolerated -d/w attending Zemaitis PGY3
--- NOTE | 2018-02-11 15:03 | CP.PCM.PCO ---
Physician Communication Note - Physician Communication Note Physician Communication Note: BPH Rx Seay back/No SBO-Rx Relistor/Liquids/PT
[2018-02-11] MEDS: oxyCODONE 5 mg Immediate Release Tab PO PRN ×2 (17:29→21:06)
--- NOTE | 2018-02-11 22:13 | PN ---
DATE: 02/11/2018 FOLLOWUP NOTE SUBJECTIVE: He is more comfortable today, in no acute distress. Pain is well controlled with current medication regimen. Pathology of surgical specimen showed no malignancy, only cholecystitis and cholelithiasis. CA 19-9 is elevated at 251. Liver enzymes are declining now. REVIEW OF SYSTEMS: As per HPI. Rest of the 12-point review of systems reviewed and negative. MEDICATIONS: Albuterol p.r.n., heparin 5000 every 12, Toradol 15 mg IV every 6 p.r.n., Flagyl and Zosyn IV, oxycodone 5 mg every 4 hours p.r.n., Toradol 15 mg IV every 6 hours p.r.n., Flomax 0.4 mg daily. LABORATORY DATA: White count 10.5, hemoglobin 13.6, hematocrit 41.3 and platelet 209. Sodium 142, potassium 3.3, BUN 16, creatinine 0.8, alkaline phosphatase 109, CA 19-9 251, INR 1.2. UA, trace leukocyte esterase. ASSESSMENT: 1. Acute cholecystitis, status post cholecystectomy. 2. Leukocytosis. 3. Abdominal pain. 4. Benign prostatic hypertrophy. 5. Elevated CA 19-9 PLAN: He is currently comfortable with pain. Pathology negative for gallbladder malignancy. Slightly elevated CA 19-9 can be related to recent gallbladder surgery. We will repeat CA 19-9 in 4 weeks upon recovery from the surgery. If needed, he might need MRI of the pancreas to rule out pancreatic malignancy. Leukocytosis resolved now. White count is 10.5, previously elevated to 20.4 likely due to cholecystitis. He is currently on IV antibiotics. Coags within normal limits. Discussed with Dr. Medina. Thank you Dr. Luz for allowing us to participate in Mr. Caal's care. Radha Mejias MD
[2018-02-12] MEDS: Piperacillin/Tazobact 3.375 gm 100 ML IVPB SCH ×5 (00:03→23:00)
[2018-02-12] MEDS: oxyCODONE 5 mg Immediate Release Tab PO PRN ×4 (00:53→22:52)
[2018-02-12] MEDS: Albuterol-Ipratrop 3 mg / 0.5 (3 ml) UD IH SCH ×4 (03:18→19:45)
[2018-02-12] MEDS: metroNIDAZOLE IV 500 mg/100 ml 500 MG/100 ML BAG IV SCH ×2 (06:01→16:13)
[2018-02-12 08:18] LABS: HEMOGLOBIN 12.6 g/dL (14.0-18.0); MEAN CELL VOLUME 90.1 fl (80.0-105.0); MEAN CORPUSCULAR HEMOGLOBIN 29.7 pg (25.0-35.0); RBC 4.24 10^6/uL (3.5-6.1); RED CELL DISTRIBUTION WIDTH 14.6 % (11.5-14.5); WHITE BLOOD COUNT 9.5 10^3/ul (4.5-11.0)
--- NOTE | 2018-02-12 08:23 | CON ---
DATE: 02/11/2018 LOCATION: The patient was seen in 2, bed 2 early this morning. CHIEF COMPLAINT: Weakness times several days. HISTORY OF PRESENT ILLNESS: This is a 77-year-old male with past medical history significant for high cholesterol, deafness, arthritis, BPH, chronic obstructive lung disease, asthma, who was admitted with diagnosis of gallstones on 02/08/2018. Infectious Disease consultation requested for all culture results. REVIEW OF SYSTEMS: Reveals the patient has no fevers today and no chills. No chest pain. No abdominal pain. No diarrhea. No constipation. No dysuria. PAST MEDICAL HISTORY: Significant for chronic obstructive lung disease, asthma, high cholesterol, deafness, arthritis and benign BPH. PAST SURGICAL HISTORY: Noncontributory. ALLERGIES: THE PATIENT HAS NO KNOWN ALLERGIES. MEDICATIONS AT HOME: Include Flomax, fluticasone, albuterol, inhaler. PHYSICAL EXAMINATION: VITAL SIGNS: The patient's temperature is 98, heart rate of 102, respiratory rate of 22, blood pressure is 130/90 with 92% saturation on nasal cannula. HEENT: Unremarkable. NECK: Supple. LUNGS: Have decreased breath sounds. HEART: Normal S1 and S2. ABDOMEN: Soft, nontender. LABORATORY DATA: Reveals the patient's white count to be 10, it was 20,000, hemoglobin of 13, platelets of 209. Chemistries are noted, BUN of 16, creatinine of 0.8. Urinalysis is noted. 0352, small yeast. Blood cultures, no growth. Urine cultures, no growth. Anaerobic cultures on bio is no growth. No organism seen. Review of reports; Dr. Medina report is reviewed. BPH treatment and Dr. Medina' progress report is noted. The patient had abdominal films, no active disease. Dr. Luz's progress note is reviewed. He states that the patient had cholecystitis. Operative note is reviewed from the . The patient had laparoscopic cholecystectomy and an intraoperative cholangiogram. Pathology report is also reviewed, gallbladder, acute necrotizing cholecystitis with cholelithiasis. ASSESSMENT AND PLAN: A 77-year-old male with chronic obstructive lung disease, asthma, high cholesterol, deafness, benign prostatic hypertrophy, arthritis, now with sepsis secondary to cholecystitis, status post laparoscopic cholecystectomy, postop day #2 with negative cultures at this point, white count is normal. We will discontinue the Zosyn in the next 24 hours if patient continues to do well. We will follow closely with you. Stephen Spicer MD
[2018-02-12 08:30] LABS: BLOOD UREA NITROGEN 13 mg/dL (7-21); CALCIUM 9.8 mg/dL (8.4-10.5); GFR AFRICAN-AMERICAN > 60; GFR NON-AFRICAN AMERICAN > 60
[2018-02-12] MEDS: Potassium Chloride 10 mEq ER Tab PO SCH (08:36)
[2018-02-12] MEDS: Pantoprazole 40 mg EC Tab PO SCH (08:36)
--- NOTE | 2018-02-12 08:38 | CON ---
DATE: 02/10/2018 HISTORY OF PRESENT ILLNESS: Mr. Caal is a 77-year-old male, recently admitted to the hospital with a diagnosis of acute cholecystitis and cholelithiasis. He was started on IV antibiotics, but then he insisted on going home to come a few days later for elective cholecystectomy by Dr. Medina. The patient returned a day later with increasing abdominal pain, shortness of breath, and elevated white count. An ultrasound of the upper abdomen showed possible mass in the gallbladder area. He underwent laparoscopic cholecystectomy on Saturday, complaining of severe abdominal pain now. Family is at bedside. He received 0.5 mg of Dilaudid a few minutes ago with no response in pain. He also received 5 mg of oxycodone. PAST MEDICAL HISTORY: COPD, osteoarthritis, and BPH. ALLERGIES: NO KNOWN DRUG ALLERGIES. SOCIAL HISTORY: He lives with girlfriend. PERSONAL HISTORY: History of smoking, quit a few months ago. No history of alcohol abuse. HOME MEDICATIONS: Flomax and albuterol. REVIEW OF SYSTEMS: As per HPI. Rest of 12-point review of systems reviewed and negative. PHYSICAL EXAMINATION: GENERAL: In mild distress due to abdominal pain postoperatively. VITAL SIGNS: Temperature 98.7, heart rate 100 per minute, respiratory rate 20 per minute, and blood pressure 133/80. HEENT: Normal. LUNGS: Air entry present and equal bilaterally. No added sounds. ABDOMEN: Obese. Drain in place. Abdominal drain draining serosanguineous fluid, 5 mL in the bag. EXTREMITIES: No edema. SPINE: Nontender. SKIN: No petechia. No rash. CENTRAL NERVOUS SYSTEM: Alert and oriented x3. No focal sensory or motor deficit. LABORATORY DATA: White count 20,000, hemoglobin 16.4, hematocrit 47.5, and platelets 180. INR 1.2, sodium 140, potassium 3.5, CO2 of 27, BUN 28, and creatinine 1.3. Ultrasound of gallbladder as per HPI. ASSESSMENT: 1. Acute cholecystitis, status post cholecystectomy. 2. Possible gallbladder mass. 3. Leukocytosis. 4. Chronic obstructive pulmonary disease. 5. Hypertension. PLAN: Cholecystectomy was done yesterday. Pathology is still pending. He is in severe pain. We will increase Dilaudid to 1 mg every 4 hours p.r.n., asked the nurse to give another dose of 0.5 mg of Dilaudid stat. Leukocytosis is likely due to acute cholecystitis. We will continue to monitor the blood count. He also has benign prostatic hypertrophy, currently on Flomax. I will also send CA19-9 tumor marker for biliary and pancreatic tract. Electrolytes are normal. Hemoglobin and hematocrit are stable. Thank you Dr. Machuca for allowing us to participate in Mr. care. Radha Mejias MD
[2018-02-12] MEDS ORDERED: Potassium Chloride 20 mEq ER Tab PO ONE ×2 (08:54→20:00)
--- NOTE | 2018-02-12 09:26 | PN ---
DATE: 02/12/2018 SUBJECTIVE: The patient has no complaints of any chest pain. No shortness of breath. He is frustrated at he is not improved enough to be able to go home. PHYSICAL EXAMINATION: VITAL SIGNS: Temperature is 98.5, pulse of 89, blood pressure 147/90, respirations 22. GENERAL: The patient is lying in bed, flat, comfortable. HEENT: No oral lesion. Anicteric sclerae. Moist mucosa. NECK: No JVD, adenopathy, or thyromegaly. CARDIOVASCULAR: S1 and S2, regular. No murmurs, rubs, or gallops. LUNGS: Clear to auscultation bilaterally. No wheeze, rales, or rhonchi. ABDOMEN: Bowel sounds are positive, soft, nontender and nondistended. EXTREMITIES: No cyanosis, clubbing or edema. LABORATORY DATA: White count of 9.5, hemoglobin 12.6, potassium is 3.1, creatinine is 0.9. Abdominal x-ray done shows no active disease. ASSESSMENT: 1. Cholecystitis, status post laparoscopic cholecystectomy, postoperative day #3. 2. Chronic obstructive pulmonary disease. 3. Obesity with a body mass index of 33. 4. Urinary retention with Seay placement. PLAN: The patient is currently comfortable. He was mentioning that he is having fevers, though he has had no fevers in the temperatures that have been taken. The patient did have urinary retention and had a Seay placed. The patient has been started on Flomax for his urinary retention. He is on heparin for DVT prophylaxis. Te patient is going to continue with the Percocet. He is on Protonix daily. The patient is also on a liquid diet. We will see if he qualifies for the Transitional Care Unit. The patient has low potassium. I will give him an extra dose of potassium. The patient may benefit from Transitional Care Unit. I will see if he qualifies. Gary Machuca MD
[2018-02-12] MEDS: POLYETHYLENE GLYCOL 3350 17 GM/Dose PACKET PO SCH (11:00)
[2018-02-12] MEDS: Hydrocortisone 2.5% Rectal Cream(30 gm) PR SCH ×3 (11:01→20:32)
[2018-02-12] MEDS ORDERED: Dibucaine 1% Oint(1 oz) TOP PRN (11:04)
--- NOTE | 2018-02-12 11:08 | CP.PCM.PCO ---
Physician Communication Note - Physician Communication Note Physician Communication Note: +BM/RxDiet:Miralax:KCl/[place] CA19-9/Await HERO c/s
--- NOTE | 2018-02-12 12:21 | CP.PCM.PN ---
Subjective - Date & Time of Evaluation Date of Evaluation: 02/12/18 Time of Evaluation: 12:19 - Subjective Subjective: surgery: Dr. Medina Patient complaining of RUQ pain, amendable to medication. Reports flatus. Reports being OOB. Denies n/v. Tolerating diet. Objective - Vital Signs/Intake and Output Vital Signs (last 24 hours): Temp Pulse Resp BP Pulse Ox 98.5 F 89 22 147/90 95 02/12/18 07:30 02/12/18 07:30 02/12/18 07:30 02/12/18 07:30 02/12/18 07:30 Intake and Output: 02/12/18 02/12/18 06:59 18:59 Intake Total 1120 Output Total 1105 Balance 15 - Medications Medications: Current Medications Albuterol/Ipratropium (Duoneb 3 Mg/0.5 Mg (3 Ml) Ud) 3 ml IH [id number] EFFIE Last Admin: 02/12/18 07:24 Dose: 3 ml Albuterol/Ipratropium (Duoneb 3 Mg/0.5 Mg (3 Ml) Ud) 3 ml IH Q2H PRN PRN Reason: Shortness of Breath Dibucaine (Nupercainal 1%) 0 oz TOP Q4 PRN PRN Reason: Pain, moderate (4-7) Heparin Sodium (Porcine) (Heparin) 5,000 units SC Q12 EFFIE PRN Reason: Protocol Last Admin: 02/11/18 21:06 Dose: 5,000 units Hydrocortisone (Anusol-Hc) 1 gm [place] BID EFFIE Last Admin: 02/12/18 11:01 Dose: 1 applic Metronidazole (Flagyl) 500 mg in 100 mls @ 100 mls/hr IV Q8 EFFIE PRN Reason: Protocol Stop: 02/13/18 23:59 Last Admin: 02/12/18 06:01 Dose: 100 mls/hr Piperacillin Sod/Tazobactam Sod (Zosyn 3.375 In Ns 100ml) 100 mls @ 200 mls/hr IVPB Q6 EFFIE PRN Reason: Protocol Stop: 02/16/18 00:01 Last Admin: 02/12/18 05:28 Dose: 200 mls/hr Ketorolac Tromethamine (Toradol) 15 mg IVP Q6H PRN PRN Reason: Pain, Mild (1-3) Last Admin: 02/11/18 11:07 Dose: 15 mg Ondansetron HCl (Zofran Inj) 4 mg IVP Q6H PRN PRN Reason: Nausea/Vomiting Oxycodone HCl (Oxycodone Immediate Release Tab) 5 mg PO Q4H PRN PRN Reason: Pain, moderate (4-7) Last Admin: 02/12/18 00:53 Dose: 5 mg Pantoprazole Sodium (Protonix Ec Tab) 40 mg PO 0600 [facility] Last Admin: 02/12/18 08:36 Dose: 40 mg Polyethylene Glycol (Miralax) 17 gm PO DAILY [facility] Last Admin: 02/12/18 11:00 Dose: 17 gm Potassium Chloride (Klor-Con 10) 10 meq PO BRK [facility] Last Admin: 02/12/18 08:36 Dose: 10 meq Potassium Chloride (K-Dur 20 Meq Er Tab) 40 meq PO ONCE ONE Stop: 02/12/18 20:01 Tamsulosin HCl (Flomax) 0.4 mg PO DAILY [facility] Last Admin: 02/12/18 11:00 Dose: 0.4 mg - Labs Labs: 02/12/18 08:00 02/12/18 08:00 PT 13.9 SECONDS (9.4-12.5) H 02/08/18 10:20 INR 1.20 (0.93-1.08) H 02/08/18 10:20 APTT 29.8 Seconds (25.1-36.5) 02/08/18 10:20 - Constitutional Appears: Non-toxic, No Acute Distress - Head Exam Head Exam: ATRAUMATIC, NORMOCEPHALIC - Eye Exam Eye Exam: EOMI, Normal appearance - ENT Exam ENT Exam: Mucous Membranes Moist - Respiratory Exam Respiratory Exam: NORMAL BREATHING PATTERN. absent: Respiratory Distress - Cardiovascular Exam Cardiovascular Exam: REGULAR RHYTHM. absent: Tachycardia - GI/Abdominal Exam GI & Abdominal Exam: Distended, Soft, Tenderness (RUQ appropriate ). absent: Guarding, Mass Additional comments: Deanna in RUQ with SA fluid output Assessment and Plan - Assessment and Plan (Free Text) Assessment: 77 y/o male s/p lap pascale POD3 Plan: -reg diet -OOB -GB culture so far negative -cont abx -cont IS use -cont to monitor deanna output -further recs per Dr. Mdeina [facility] [place] PGY3
--- NOTE | 2018-02-12 12:32 | CP.PCM.CON ---
<Violet Azevedo - Last Filed: 02/12/18 12:57> History of Present Illness - History of Present Illness History of Present Illness: Seen and examined at the bedside earlier this afternoon, chart reviewed. Request for GI consult is for rectal bleeding. HPI: This is a 77-year-old male was evaluated at the bedside with his girlfriend present, he is hard of hearing, with a past medical history of BPH, COPD and osteoarthritis came to the emergency room with complaints of abdominal discomfort. Patient was found to have cholelithiasis with acute cholecystitis. Initially the patient did not want to stay in the hospital to wait for surgery and was sent home. 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 The pain became worse upon discharge and returned to the hospital. He had a laparoscopic cholecystectomy on 02/09/2018 with an operative cholangiogram which did not show any filling defects in the duodenum or obstruction. Positive contrasted pancreatic duct. This patient has chronic history of hemorrhoids with bleeding as per patient. He endorses that he is followed up with Dr. Medina in the past. But no history of hemorrhoidal surgery. He reported having bowel movement and noticing blood in the toilet. His last episode at home was 2 months ago. Here in the hospital he was constipated and reported to have a very large bowel movement yesterday and noted blood in the toilet, the patient flushed and so nursing staff was not able to visualize. As per patient and nurse he did have episode again today, patient denies hematemesis or dark stools. No reports of unintentional weight loss, or anorexia. He does have abdominal pain but postop pain. Denies ever having colonoscopy or endoscopy, he does however express he does not want a colonoscopy. Past medical history: hemorrhoids, COPD, osteoarthritis, BPH Past surgical history: denies Family history: Denies Allergies: No known drug allergies Medications: Reviewed as per MAR Social history: History of tobacco, quit 5 months ago, denies EtOH, drinks socially, denies illicit drug use ROS: Systems review is positive for the HPI Past Patient History - Infectious Disease Hx of Infectious Diseases: None - Tetanus Immunizations Tetanus Immunization: Unknown - Past Social History Smoking Status: Current Some Days Smoker - CARDIAC Hx Cardiac Disorders: No - PULMONARY Hx Chronic Obstructive Pulmonary Disease (COPD): Yes - NEUROLOGICAL Hx Neurological Disorder: No - HEENT Hx HEENT Problems: Yes ([place]) Hx Deafness: Yes (rt ear) - RENAL Hx Chronic Kidney Disease: No - ENDOCRINE/METABOLIC Hx Endocrine Disorders: No - HEMATOLOGICAL/ONCOLOGICAL Hx Blood Transfusions: No Hx Blood Transfusion Reaction: No - INTEGUMENTARY Hx Dermatological Problems: No - MUSCULOSKELETAL/RHEUMATOLOGICAL Hx Arthritis: Yes - GASTROINTESTINAL Hx Gastrointestinal Disorders: Yes (CHOLILITHIASIS) Hx Gall Bladder Disease: Yes - GENITOURINARY/GYNECOLOGICAL Hx Genitourinary Disorders: Yes Hx Prostate Problems: Yes - PSYCHIATRIC Hx Psychophysiologic Disorder: No Hx Depression: No Hx Emotional Abuse: No Hx Physical Abuse: No Hx Substance Use: No - SURGICAL HISTORY Hx Surgeries: No - ANESTHESIA Hx Anesthesia Reactions: No Hx Malignant Hyperthermia: No Meds Allergies/Adverse Reactions: Allergies Allergy/AdvReac Type Severity Reaction Status Date / Time No Known Allergies Allergy Verified 02/08/18 10:00 - Medications Medications: Current Medications Albuterol/Ipratropium (Duoneb 3 Mg/0.5 Mg (3 Ml) Ud) 3 ml IH [id number] ON [facility] OF [facility] Last Admin: 02/12/18 07:24 Dose: 3 ml Albuterol/Ipratropium (Duoneb 3 Mg/0.5 Mg (3 Ml) Ud) 3 ml IH Q2H PRN PRN Reason: Shortness of Breath Dibucaine (Nupercainal 1%) 0 oz TOP Q4 PRN PRN Reason: Pain, moderate (4-7) Heparin Sodium (Porcine) (Heparin) 5,000 units SC Q12 EFFIE PRN Reason: Protocol Last Admin: 02/11/18 21:06 Dose: 5,000 units Hydrocortisone (Anusol-Hc) 1 gm [place] BID EFFIE Last Admin: 02/12/18 11:01 Dose: 1 applic Metronidazole (Flagyl) 500 mg in 100 mls @ 100 mls/hr IV Q8 EFFIE PRN Reason: Protocol Stop: 02/13/18 23:59 Last Admin: 02/12/18 06:01 Dose: 100 mls/hr Piperacillin Sod/Tazobactam Sod (Zosyn 3.375 In Ns 100ml) 100 mls @ 200 mls/hr IVPB Q6 EFFIE PRN Reason: Protocol Stop: 02/16/18 00:01 Last Admin: 02/12/18 05:28 Dose: 200 mls/hr Ketorolac Tromethamine (Toradol) 15 mg IVP Q6H PRN PRN Reason: Pain, Mild (1-3) Last Admin: 02/11/18 11:07 Dose: 15 mg Ondansetron HCl (Zofran Inj) 4 mg IVP Q6H PRN PRN Reason: Nausea/Vomiting Oxycodone HCl (Oxycodone Immediate Release Tab) 5 mg PO Q4H PRN PRN Reason: Pain, moderate (4-7) Last Admin: 02/12/18 00:53 Dose: 5 mg Pantoprazole Sodium (Protonix Ec Tab) 40 mg PO 0600 [facility] Last Admin: 02/12/18 08:36 Dose: 40 mg Polyethylene Glycol (Miralax) 17 gm PO DAILY [facility] Last Admin: 02/12/18 11:00 Dose: 17 gm Potassium Chloride (Klor-Con 10) 10 meq PO BRK [facility] Last Admin: 02/12/18 08:36 Dose: 10 meq Potassium Chloride (K-Dur 20 Meq Er Tab) 40 meq PO ONCE ONE Stop: 02/12/18 20:01 Tamsulosin HCl (Flomax) 0.4 mg PO DAILY [facility] Last Admin: 02/12/18 11:00 Dose: 0.4 mg Physical Exam - Constitutional Appears: No Acute Distress - Head Exam Head Exam: NORMOCEPHALIC - Eye Exam Eye Exam: Normal appearance. absent: Scleral icterus Pupil Exam: NORMAL ACCOMODATION - ENT Exam ENT Exam: Mucous Membranes Moist - Neck Exam Neck exam: Positive for: Normal Inspection - Respiratory Exam Respiratory Exam: Clear to Auscultation Bilateral, NORMAL BREATHING PATTERN. absent: Respiratory Distress - Cardiovascular Exam Cardiovascular Exam: +S1, +S2 - GI/Abdominal Exam GI & Abdominal Exam: Normal Bowel Sounds, Soft. absent: Guarding, Rebound, Tenderness Additional comments: NICOLE drain with small amount of serous sanguinous fluid Pressure dressing on lap sites in place no blood noted - Rectal Exam Additional comments: currently patient refusing rectal exam, explained would check internally, stated he was checked earlier today, spoke to Sandra CARE DIRECTOR who only visualized the external part of the anus. Did visualized external large hemorrhoids. - Extremities Exam Extremities exam: Positive for: pedal pulses present. Negative for: calf tenderness, pedal edema - Neurological Exam Neurological exam: Alert, Oriented x3 - Skin Skin Exam: Dry, Warm Results - Vital Signs Recent Vital Signs: Last Vital Signs Temp 98.5 F 02/12/18 07:30 Pulse 89 02/12/18 07:30 Resp 22 02/12/18 07:30 BP 147/90 02/12/18 07:30 Pulse Ox 95 02/12/18 07:30 - Labs Result Diagrams: 02/12/18 08:00 02/12/18 08:00 Labs: Laboratory Results - last 24 hr 02/09/18 02/11/18 02/11/18 06:30 06:20 08:00 WBC RBC Hgb Hct MCV MCH MCHC RDW Plt Count MPV Sodium Potassium Chloride Carbon Dioxide Anion Gap BUN Creatinine Est GFR ( Amer) Est GFR (Non-Af Amer) Random Glucose Calcium Lipase 32 CA 19-9 Antigen 251 H Crossmatch See Detail 02/12/18 02/12/18 08:00 08:00 WBC 9.5 RBC 4.24 Hgb 12.6 L Hct 38.2 L MCV 90.1 MCH 29.7 MCHC 33.0 RDW 14.6 H Plt Count 202 MPV 11.0 Sodium 143 Potassium 3.1 L Chloride 107 Carbon Dioxide 27 Anion Gap 12 BUN 13 Creatinine 0.9 Est GFR ( Amer) > 60 Est GFR (Non-Af Amer) > 60 Random Glucose 114 H Calcium 9.8 Lipase CA 19-9 Antigen Crossmatch Assessment & Plan - Assessment and Plan (Free Text) Assessment: ASSESSMENT: Cholelithiasis with acute cholecystitis Status post laparoscopic cholecystectomy with IOC Obesity Rectal bleed differentials to consider likely from hemorrhoids COPD Hypertension Plan: Hold heparin for now for DVT prophylaxis, put on SCDs or TEDS, the nursing staff Monitor H&H On IV antibiotics continue MiraLAX diet as per surgery Patient may benefit from colonoscopy which can be done electively unless otherwise indicated, the patient does not want colonoscopy Thank you for this consult and for lactose of fructose patient's care, further recommendations based upon clinical course. Seen and discussed with Dr. Yao. <Ashly Yao V - Last Filed: 02/13/18 22:07> Meds - Medications Medications: Current Medications Albuterol/Ipratropium (Duoneb 3 Mg/0.5 Mg (3 Ml) Ud) 3 ml IH [id number] ON [facility] Last Admin: 02/12/18 19:45 Dose: 3 ml Albuterol/Ipratropium (Duoneb 3 Mg/0.5 Mg (3 Ml) Ud) 3 ml IH Q2H PRN PRN Reason: Shortness of Breath Dibucaine (Nupercainal 1%) 0 oz TOP Q4 PRN PRN Reason: Pain, moderate (4-7) Guaifenesin (Robitussin) 100 mg PO Q4H PRN PRN Reason: Cough Heparin Sodium (Porcine) (Heparin) 5,000 units SC Q12 EFFIE PRN Reason: Protocol Last Admin: 02/12/18 16:44 Dose: Not Given Hydrocortisone (Anusol-Hc) 1 gm [place] BID ON [facility] Last Admin: 02/12/18 20:32 Dose: Not Given Piperacillin Sod/Tazobactam Sod (Zosyn 3.375 In Ns 100ml) 100 mls @ 200 mls/hr IVPB Q6 EFFIE PRN Reason: Protocol Stop: 02/16/18 00:01 Last Admin: 02/12/18 23:00 Dose: 200 mls/hr Ketorolac Tromethamine (Toradol) 15 mg IVP Q6H PRN PRN Reason: Pain, Mild (1-3) Last Admin: 02/11/18 11:07 Dose: 15 mg Ondansetron HCl (Zofran Inj) 4 mg IVP Q6H PRN PRN Reason: Nausea/Vomiting Oxycodone HCl (Oxycodone Immediate Release Tab) 5 mg PO Q4H PRN PRN Reason: Pain, moderate (4-7) Last Admin: 02/12/18 22:52 Dose: 5 mg Pantoprazole Sodium (Protonix Ec Tab) 40 mg PO 0600 [facility] Last Admin: 02/12/18 08:36 Dose: 40 mg Polyethylene Glycol (Miralax) 17 gm PO DAILY [facility] Last Admin: 02/12/18 11:00 Dose: 17 gm Potassium Chloride (Klor-Con 10) 10 meq PO BRK ON [facility] Last Admin: 02/12/18 08:36 Dose: 10 meq Tamsulosin HCl (Flomax) 0.4 mg PO DAILY [facility] Last Admin: 02/12/18 11:00 Dose: 0.4 mg Results - Vital Signs Recent Vital Signs: Last Vital Signs Temp 98.5 F 02/12/18 07:30 Pulse 89 02/12/18 07:30 Resp 22 02/12/18 07:30 BP 147/90 02/12/18 07:30 Pulse Ox 95 02/12/18 07:30 - Labs Result Diagrams: 02/13/18 06:20 02/13/18 06:20 Labs: Laboratory Results - last 24 hr 02/09/18 02/12/18 02/12/18 06:30 08:00 08:00 WBC 9.5 RBC 4.24 Hgb 12.6 L Hct 38.2 L MCV 90.1 MCH 29.7 MCHC 33.0 RDW 14.6 H Plt Count 202 MPV 11.0 Sodium 143 Potassium 3.1 L Chloride 107 Carbon Dioxide 27 Anion Gap 12 BUN 13 Creatinine 0.9 Est GFR ( Amer) > 60 Est GFR (Non-Af Amer) > 60 Random Glucose 114 H Calcium 9.8 CA 19-9 Antigen Crossmatch See Detail 02/12/18 08:30 WBC RBC Hgb Hct MCV MCH MCHC RDW Plt Count MPV Sodium Potassium Chloride Carbon Dioxide Anion Gap BUN Creatinine Est GFR ( Amer) Est GFR (Non-Af Amer) Random Glucose Calcium CA 19-9 Antigen 248 H Crossmatch Attending/Attestation - Attestation I have personally seen and examined this patient.: Yes I have fully participated in the care of the patient.: Yes I have reviewed all pertinent clinical information: Yes Notes (Text): This is an addendum to GI consult report dictated by Violet Azevedo APN.The patient was seen and examined earlier. Medical records, lab studies, imagings were reviewed. Last 24 hours events reviewed. Agreed with the above treatment plan as outlined in Violet Azeevdo APN's notes the with the addition of the following Patient had episodes of bright red blood per rectum Complaint of constipation before Abdomen distended Would consider CT of the abdomen and pelvis We will discussed with the surgical team 02/13/18 22:06
--- NOTE | 2018-02-12 23:03 | PN ---
DATE: SUBJECTIVE: The patient is in bed, in no acute distress, was seen earlier this morning in room 562, bed 2. No fevers or chills. PHYSICAL EXAMINATION: VITAL SIGNS: Temperature is 98, blood pressure is 140/70, respiratory rate of 22, heart rate of 89. HEENT: Unremarkable. NECK: Supple. LUNGS: Have decreased breath sounds. HEART: Normal S1 and S2. ABDOMEN: Soft. LABORATORY DATA: Reveals a white count of 9.5, hemoglobin of 12, platelets of 202. BUN of 13, creatinine of 0.9. Urinalysis is noted. ASSESSMENT AND PLAN: He is a 77-year-old male with chronic obstructive lung disease, asthma, high cholesterol, deafness, benign prostatic hypertrophy, arthritis, with sepsis secondary to cholecystitis, status post laparoscopic cholecystectomy, postop day #3, with negative cultures, and patient has overall improved, and has negative cultures thus far, normal white count. We will discontinue the Flagyl, and follow with you. Stephen Spicer MD
[2018-02-13] MEDS: Albuterol-Ipratrop 3 mg / 0.5 (3 ml) UD IH SCH ×4 (02:45→21:30)
[2018-02-13] MEDS: Pantoprazole 40 mg EC Tab PO SCH (06:12)
[2018-02-13] MEDS: Piperacillin/Tazobact 3.375 gm 100 ML IVPB SCH ×3 (06:13→18:48)
[2018-02-13 06:43] LABS: MEAN CELL VOLUME 89.3 fl (80.0-105.0); MEAN CORPUSCULAR HEMOGLOBIN 29.2 pg (25.0-35.0); MEAN CORPUSCULAR HGB CONC 32.7 g/dl (31.0-37.0); MEAN PLATELET VOLUME 10.8 fl (7.0-11.0); RBC 4.11 10^6/uL (3.5-6.1); RED CELL DISTRIBUTION WIDTH 14.9 % (11.5-14.5); WHITE BLOOD COUNT 9.6 10^3/ul (4.5-11.0)
[2018-02-13 07:09] LABS: ALB/GLOB RATIO 1.1 (1.1-1.8); ALBUMIN 2.9 g/dL (3.0-4.8); ALT/SGPT 85 U/L (7-56); AST/SGOT 71 U/L (17-59); BLOOD UREA NITROGEN 14 mg/dL (7-21); CALCIUM 9.9 mg/dL (8.4-10.5); GFR AFRICAN-AMERICAN > 60; GFR NON-AFRICAN AMERICAN > 60
--- NOTE | 2018-02-13 10:23 | CP.PCM.PN ---
<Violet Azevedo - Last Filed: 02/13/18 15:38> Subjective - Date & Time of Evaluation Date of Evaluation: 02/13/18 Time of Evaluation: 10:18 - Subjective Subjective: S&E at bedside, chart reviewed. No BM since yesterday, no bleeding per rectum last night or this am. Denies N/V, occasional abdominal pain, s/p lap pascale. Tolerating oral intake. WASHOE. No acute overnight events. Objective - Vital Signs/Intake and Output Vital Signs (last 24 hours): Temp Pulse Resp BP Pulse Ox 98.2 F 84 20 135/78 97 02/13/18 07:30 02/13/18 07:30 02/13/18 07:30 02/13/18 07:30 02/13/18 07:30 Intake and Output: 02/13/18 02/13/18 06:59 18:59 Intake Total 1120 Output Total 855 Balance 265 - Medications Medications: Current Medications Albuterol/Ipratropium (Duoneb 3 Mg/0.5 Mg (3 Ml) Ud) 3 ml IH [id number] [facility] Last Admin: 02/13/18 07:12 Dose: 3 ml Albuterol/Ipratropium (Duoneb 3 Mg/0.5 Mg (3 Ml) Ud) 3 ml IH Q2H PRN PRN Reason: Shortness of Breath Dibucaine (Nupercainal 1%) 0 oz TOP Q4 PRN PRN Reason: Pain, moderate (4-7) Guaifenesin (Robitussin) 100 mg PO Q4H PRN PRN Reason: Cough Heparin Sodium (Porcine) (Heparin) 5,000 units SC Q12 EFFIE PRN Reason: Protocol Last Admin: 02/12/18 16:44 Dose: Not Given Hydrocortisone (Anusol-Hc) 1 gm [place] BID [facility] Last Admin: 02/12/18 20:32 Dose: Not Given Piperacillin Sod/Tazobactam Sod (Zosyn 3.375 In Ns 100ml) 100 mls @ 200 mls/hr IVPB Q6 EFFIE PRN Reason: Protocol Stop: 02/16/18 00:01 Last Admin: 02/13/18 06:13 Dose: 200 mls/hr Ketorolac Tromethamine (Toradol) 15 mg IVP Q6H PRN PRN Reason: Pain, Mild (1-3) Last Admin: 02/13/18 03:07 Dose: 15 mg Ondansetron HCl (Zofran Inj) 4 mg IVP Q6H PRN PRN Reason: Nausea/Vomiting Oxycodone HCl (Oxycodone Immediate Release Tab) 5 mg PO Q4H PRN PRN Reason: Pain, moderate (4-7) Last Admin: 02/12/18 22:52 Dose: 5 mg Pantoprazole Sodium (Protonix Ec Tab) 40 mg PO 0600 [facility] Last Admin: 02/13/18 06:12 Dose: 40 mg Polyethylene Glycol (Miralax) 17 gm PO DAILY [facility] Last Admin: 02/12/18 11:00 Dose: 17 gm Potassium Chloride (Klor-Con 10) 10 meq PO BRK [facility] Last Admin: 02/12/18 08:36 Dose: 10 meq Simethicone (Mylicon Chew Tab) 80 mg PO QID [facility] Tamsulosin HCl (Flomax) 0.4 mg PO DAILY [facility] Last Admin: 02/12/18 11:00 Dose: 0.4 mg - Labs Labs: 02/13/18 06:20 02/13/18 06:20 PT 13.9 SECONDS (9.4-12.5) H 02/08/18 10:20 INR 1.20 (0.93-1.08) H 02/08/18 10:20 APTT 29.8 Seconds (25.1-36.5) 02/08/18 10:20 - Constitutional Appears: No Acute Distress - Head Exam Head Exam: NORMOCEPHALIC - Eye Exam Eye Exam: Normal appearance. absent: Scleral icterus - ENT Exam ENT Exam: Mucous Membranes Moist - Neck Exam Neck Exam: Normal Inspection - Respiratory Exam Respiratory Exam: NORMAL BREATHING PATTERN. absent: Rales, Wheezes, Respiratory Distress - Cardiovascular Exam Cardiovascular Exam: +S1, +S2 - GI/Abdominal Exam GI & Abdominal Exam: Distended (soft, pt says chronic distention, its better), Soft, Tenderness (some tenderness on papation), Normal Bowel Sounds. absent: Guarding, Rebound Additional comments: (+) NICOLE drain, dsg dry and intact, mild tenderness, no rebound or guarding. - Extremities Exam Extremities Exam: absent: Calf Tenderness, Pedal Edema - Neurological Exam Neurological Exam: Alert, Awake, Oriented x3 Assessment and Plan - Assessment and Plan (Free Text) Assessment: ASSESSMENT: Cholelithiasis with acute cholecystitis Status post laparoscopic cholecystectomy with IOC Obesity Rectal bleed differentials to consider likely from hemorrhoids, hbg stable COPD Hypertension Plan: heparin on hold for now for DVT prophylaxis, continue SCD Monitor H&H, overt GI bleeding On IV antibiotics continue MiraLAX, on anusol ct scan abdomen and pelvis w/ oral contrast only, discussed w/ Dr. Medina diet as per surgery Patient may benefit from colonoscopy which can be done electively unless otherwise indicated, the patient does not want colonoscopy Seen and discussed with Dr. Yao. <Ashly Yao V - Last Filed: 02/13/18 22:05> Objective - Vital Signs/Intake and Output Vital Signs (last 24 hours): Temp Pulse Resp BP Pulse Ox 98.4 F 84 20 133/74 100 02/13/18 14:00 02/13/18 14:00 02/13/18 14:00 02/13/18 14:00 02/13/18 14:00 Intake and Output: 02/13/18 02/14/18 18:59 06:59 Output Total 250 Balance -250 - Medications Medications: Current Medications Albuterol/Ipratropium (Duoneb 3 Mg/0.5 Mg (3 Ml) Ud) 3 ml IH [id number] [facility] Last Admin: 02/13/18 21:30 Dose: 3 ml Albuterol/Ipratropium (Duoneb 3 Mg/0.5 Mg (3 Ml) Ud) 3 ml IH Q2H PRN PRN Reason: Shortness of Breath Dibucaine (Nupercainal 1%) 0 oz TOP Q4 PRN PRN Reason: Pain, moderate (4-7) Guaifenesin (Robitussin) 100 mg PO Q4H PRN PRN Reason: Cough Last Admin: 02/13/18 21:43 Dose: 100 mg Heparin Sodium (Porcine) (Heparin) 5,000 units SC Q12 EFFIE PRN Reason: Protocol Last Admin: 02/12/18 16:44 Dose: Not Given Hydrocortisone (Anusol-Hc) 1 gm [place] BID [facility] Last Admin: 02/13/18 18:54 Dose: 1 applic Ketorolac Tromethamine (Toradol) 15 mg IVP Q6H PRN PRN Reason: Pain, Mild (1-3) Last Admin: 02/13/18 21:43 Dose: 15 mg Ondansetron HCl (Zofran Inj) 4 mg IVP Q6H PRN PRN Reason: Nausea/Vomiting Oxycodone HCl (Oxycodone Immediate Release Tab) 5 mg PO Q4H PRN PRN Reason: Pain, moderate (4-7) Last Admin: 02/13/18 10:25 Dose: 5 mg Pantoprazole Sodium (Protonix Ec Tab) 40 mg PO 0600 [facility] Last Admin: 02/13/18 06:12 Dose: 40 mg Polyethylene Glycol (Miralax) 17 gm PO DAILY [facility] Last Admin: 02/13/18 10:25 Dose: 17 gm Potassium Chloride (Klor-Con 10) 10 meq PO BRK [facility] Last Admin: 02/13/18 10:25 Dose: 10 meq Simethicone (Mylicon Chew Tab) 80 mg PO QID [facility] Last Admin: 02/13/18 21:43 Dose: 80 mg Tamsulosin HCl (Flomax) 0.4 mg PO DAILY [facility] Last Admin: 02/13/18 10:25 Dose: 0.4 mg - Labs Labs: 02/13/18 06:20 02/13/18 06:20 PT 13.9 SECONDS (9.4-12.5) H 02/08/18 10:20 INR 1.20 (0.93-1.08) H 02/08/18 10:20 APTT 29.8 Seconds (25.1-36.5) 02/08/18 10:20 Attending/Attestation - Attestation I have personally seen and examined this patient.: Yes I have fully participated in the care of the patient.: Yes I have reviewed all pertinent clinical information, including history, physical exam and plan: Yes Notes (Text): This is an addendum to GI progress report dictated by Violet Azevedo APN.The patient was seen and examined earlier. Medical records, lab studies, imagings were reviewed. Last 24 hours events reviewed. Agreed with the above treatment plan as outlined in Violet Azevedo APN's notes the with the addition of the following On examination abdomen distended No further episodes of bleeding Patient refused to rectal examination Discussed with the Dr. Medina and Dr. Luz Requested for CT Abdomen and pelvis to further evaluate 02/13/18 22:03A
[2018-02-13] MEDS: POLYETHYLENE GLYCOL 3350 17 GM/Dose PACKET PO SCH (10:25)
[2018-02-13] MEDS: guaiFENesin 100 mg/5 ml Syrup UD PO PRN ×2 (10:25→21:43)
[2018-02-13] MEDS: oxyCODONE 5 mg Immediate Release Tab PO PRN (10:25)
[2018-02-13] MEDS: Simethicone 80 mg Chewtab PO SCH ×4 (10:25→21:43)
[2018-02-13] MEDS: Potassium Chloride 10 mEq ER Tab PO SCH (10:25)
[2018-02-13] MEDS: Hydrocortisone 2.5% Rectal Cream(30 gm) PR SCH ×2 (10:27→18:54)
[2018-02-13] MEDS ORDERED: Barium Sulfate Susp 2.1% w/v, 2.0% w/w 450 mL Bottle PO ONE ×2 (10:40→10:44)
--- NOTE | 2018-02-13 10:42 | CP.PCM.PN ---
Subjective - Date & Time of Evaluation Date of Evaluation: 02/13/18 Time of Evaluation: 10:36 - Subjective Subjective: Surgery: Dr. Medina Pt seen and examined. Resting comfortably in bed. Pain controlled. Tolerating diet. No N/V. Passing flatus and having BM. States that he has been ambulating. Objective - Vital Signs/Intake and Output Vital Signs (last 24 hours): Temp Pulse Resp BP Pulse Ox 98.2 F 84 20 135/78 97 02/13/18 07:30 02/13/18 07:30 02/13/18 07:30 02/13/18 07:30 02/13/18 07:30 Intake and Output: 02/13/18 02/13/18 06:59 18:59 Intake Total 1120 Output Total 855 Balance 265 - Medications Medications: Current Medications Albuterol/Ipratropium (Duoneb 3 Mg/0.5 Mg (3 Ml) Ud) 3 ml IH [id number] [facility] Last Admin: 02/13/18 07:12 Dose: 3 ml Albuterol/Ipratropium (Duoneb 3 Mg/0.5 Mg (3 Ml) Ud) 3 ml IH Q2H PRN PRN Reason: Shortness of Breath Dibucaine (Nupercainal 1%) 0 oz TOP Q4 PRN PRN Reason: Pain, moderate (4-7) Guaifenesin (Robitussin) 100 mg PO Q4H PRN PRN Reason: Cough Heparin Sodium (Porcine) (Heparin) 5,000 units SC Q12 EFFIE PRN Reason: Protocol Last Admin: 02/12/18 16:44 Dose: Not Given Hydrocortisone (Anusol-Hc) 1 gm [place] BID [facility] Last Admin: 02/12/18 20:32 Dose: Not Given Piperacillin Sod/Tazobactam Sod (Zosyn 3.375 In Ns 100ml) 100 mls @ 200 mls/hr IVPB Q6 EFFIE PRN Reason: Protocol Stop: 02/16/18 00:01 Last Admin: 02/13/18 06:13 Dose: 200 mls/hr Ketorolac Tromethamine (Toradol) 15 mg IVP Q6H PRN PRN Reason: Pain, Mild (1-3) Last Admin: 02/13/18 03:07 Dose: 15 mg Ondansetron HCl (Zofran Inj) 4 mg IVP Q6H PRN PRN Reason: Nausea/Vomiting Oxycodone HCl (Oxycodone Immediate Release Tab) 5 mg PO Q4H PRN PRN Reason: Pain, moderate (4-7) Last Admin: 02/12/18 22:52 Dose: 5 mg Pantoprazole Sodium (Protonix Ec Tab) 40 mg PO 0600 [facility] Last Admin: 02/13/18 06:12 Dose: 40 mg Polyethylene Glycol (Miralax) 17 gm PO DAILY [facility] Last Admin: 02/12/18 11:00 Dose: 17 gm Potassium Chloride (Klor-Con 10) 10 meq PO BRK [facility] Last Admin: 02/12/18 08:36 Dose: 10 meq Simethicone (Mylicon Chew Tab) 80 mg PO QID [facility] Tamsulosin HCl (Flomax) 0.4 mg PO DAILY [facility] Last Admin: 02/12/18 11:00 Dose: 0.4 mg - Labs Labs: 02/13/18 06:20 02/13/18 06:20 PT 13.9 SECONDS (9.4-12.5) H 02/08/18 10:20 INR 1.20 (0.93-1.08) H 02/08/18 10:20 APTT 29.8 Seconds (25.1-36.5) 02/08/18 10:20 - Constitutional Appears: Non-toxic, No Acute Distress - Head Exam Head Exam: ATRAUMATIC, NORMOCEPHALIC - Eye Exam Eye Exam: EOMI - ENT Exam ENT Exam: Mucous Membranes Moist - Neck Exam Neck Exam: Full ROM - Respiratory Exam Respiratory Exam: NORMAL BREATHING PATTERN. absent: Accessory Muscle Use, Respiratory Distress - GI/Abdominal Exam GI & Abdominal Exam: Distended (mild), Soft, Tenderness (edward-incisional ). absent: Firm, Guarding, Rigid, Rebound - Extremities Exam Extremities Exam: absent: Calf Tenderness, Pedal Edema - Neurological Exam Neurological Exam: Alert, Oriented x3 Assessment and Plan - Assessment and Plan (Free Text) Assessment: 77M w. cholecystitis, s/p lap pascale POD#3 Plan: -c/w pain management -c/w HHD -will d/c ruiz, c/w flomax -encourage OOB to chair/ambulation -PT/OT as tolerated -d/w attending Zemaitis PGY3
[2018-02-13] MEDS ORDERED: Iohexol 240 (50 ml) ONE (10:49)
[2018-02-13 12:13] VITALS: RESP 20
--- NOTE | 2018-02-13 14:07 | CT ---
PROCEDURE: CT Abdomen and Pelvis with contrast HISTORY: abd pain COMPARISON: Abdomen and pelvis CT examinations without contrast 09/08/2017 and 03/12/2017. TECHNIQUE: Helical CT of the abdomen and pelvis was performed without oral or intravenous contrast as per referring physician request. Contrast dose: None Radiation dose: Total exam DLP = 1317.91 mGy-cm. This CT exam was performed using one or more of the following dose reduction techniques: Automated exposure control, adjustment of the mA and/or kV according to patient size, and/or use of iterative reconstruction technique. FINDINGS: LOWER THORAX: Stable 4 mm nodule is noncalcified and subpleural at the right lower lobe base in the costophrenic sulcus best seen image 13 series 5, stable compared prior CT 03/12/2017. A small bulla seen most more posteriorly and inferiorly at the right lower lobe as well. Trace right pleural effusion noted with dependent atelectasis in the right lower lobe. LIVER: Unremarkable. No gross lesion or ductal dilatation. GALLBLADDER AND BILE DUCTS: Patient has undergone interval cholecystectomy with postoperative changes noted in the gallbladder fossa and a solitary wide air or drainage device the core old at the gallbladder fossa and extending the abdomen at the right flank anterior inferiorly. Trace emphysematous changes are associated with the postoperative site which are presumed postoperative. Clinically correlate further as an early infectious process is not completely excluded. Lack images contrast limits interpretation significantly here. PANCREAS: Unremarkable. No gross lesion or ductal dilatation. SPLEEN: Unremarkable. ADRENALS: Unremarkable. No mass. KIDNEYS AND URETERS: Nonspecific bilateral perinephric streaky changes are reiterated as well as the cyst exophytic off the lower pole left kidney. VASCULATURE: Stable infrarenal abdominal aortic aneurysm remains small measuring 4.3 cm greatest dimension. It is again seen terminating proximal to the bifurcation. BOWEL: Unremarkable. No obstruction. No gross mural thickening. APPENDIX: Normal appendix. PERITONEUM: Unremarkable. No free fluid. No free air. LYMPH NODES: Unremarkable. No enlarged lymph nodes. BLADDER: Seay catheterization identified in the interval with mild residual dark urine volume remaining in the lumen. Trace gas seen in the nondependent bladder. REPRODUCTIVE: Enlarged prostate gland again evident. BONES: No acute fracture. OTHER FINDINGS: None. IMPRESSION: 1. Status post cholecystectomy postop changes identified in the gallbladder fossa. Lack venous contrast limits interpretation. Clinically correlate further ise trace emphysema is a related with postoperative change. A surgical drain are wires identified in the gallbladder fossa extending inferiorly to exit the peritoneal space and abdominal wall at the right flank/lower quadrant anterolaterally. 2. 4.3 cm infrarenal abdominal aortic aneurysm without overt CT sign of extrinsic leakage though mildly increased in size. Prior maximal measurement 3.9 cm. 3. Stable cyst left kidney. 4. Seay catheterized cyst urinary bladder. 5. Stable subpleural 4 mm nodule right lower lobe. Findings discussed with Dr. Machuca 02/13/2018 1:48 p.m..
--- NOTE | 2018-02-14 00:07 | PN ---
DATE: 02/13/2018 SUBJECTIVE: Patient was seen earlier this morning. No fevers and chills. He is feeling better. PHYSICAL EXAMINATION: VITAL SIGNS: Temperature is 98, blood pressure is 130/70, respiratory rate of 16. HEENT: Unremarkable. NECK: Supple. LUNGS: Have decreased breath sounds. HEART: Normal S1, S2. ABDOMEN: Soft, nontender. LABORATORY DATA: White count is 9.6, hemoglobin of 12, platelets are 222. Chemistries reveal a BUN of 14, creatinine of 1.0. Microbiology reveals cultures to be negative. Patient had a CAT scan of the abdomen and pelvis. Dr. Medina' progress note is reviewed and the patient is on Zosyn. ASSESSMENT AND PLAN: Is a 77-year-old male with chronic obstructive lung disease, asthma, high cholesterol, deafness, benign prostatic hypertrophy, arthritis, sepsis secondary to cholecystitis status post laparoscopic cholecystectomy postop day number 4 with negative cultures, normal white count, overall improved. We will discontinue the Zosyn. Stephen Spicer MD
--- NOTE | 2018-02-14 00:12 | PN ---
DATE: 02/13/2018 SUBJECTIVE: The patient has no complaints of any chest pain. No shortness of breath. No headaches. No dizziness. PHYSICAL EXAMINATION: VITAL SIGNS: Temperature is 98.4, pulse of 84, blood pressure is 132/74, respirations 20. GENERAL: The patient is lying in bed, flat, comfortable. HEENT: No oral lesion. Anicteric sclerae. Moist mucosa. NECK: No JVD, adenopathy, or thyromegaly. CARDIOVASCULAR: S1 and S2, regular. No murmurs, rubs, or gallops. LUNGS: Clear to auscultation bilaterally. No wheeze, rales, or rhonchi. ABDOMEN: Bowel sounds are positive, soft, nontender and nondistended. EXTREMITIES: No cyanosis, clubbing or edema. LABORATORY DATA: White count 9.6, hemoglobin 12. Creatinine 1. CT of the abdomen has been reviewed. There is a 4.3 cm infrarenal abdominal aortic aneurysm. The patient is status post cholecystectomy with surgical drain that is identified. There is a stable 4 mm nodule in right lower lobe. ASSESSMENT AND PLAN: 1. Cholecystitis, status post laparoscopic cholecystectomy, postoperative day #4. 2. Chronic obstructive pulmonary disease. 3. Obesity with a body mass index of 33. 4. Urinary retention with Seay. 5. A 4.3 cm infrarenal abdominal aortic aneurysm. 6. A 4 mm nodule in the right lobe. PLAN: The patient is currently comfortable. We will try to take the Seay out today. The patient is on Flomax. The patient is going to continue with potassium replacement. The patient is on MiraLax for constipation. The patient is on Zosyn for antibiotics. I did speak to Dr. Yao and Dr. Medina today about the case. The patient states he is feeling better. He refused to go to the Transitional Care Unit yesterday. Gary Machuca MD
[2018-02-14] MEDS: oxyCODONE 5 mg Immediate Release Tab PO PRN ×2 (00:40→05:19)
[2018-02-14] MEDS: Albuterol-Ipratrop 3 mg / 0.5 (3 ml) UD IH SCH ×2 (01:32→07:51)
[2018-02-14] MEDS: Pantoprazole 40 mg EC Tab PO SCH (05:20)
[2018-02-14 07:04] LABS: HEMOGLOBIN 12.1 g/dL (14.0-18.0); MEAN CELL VOLUME 89.6 fl (80.0-105.0); MEAN CORPUSCULAR HGB CONC 33.4 g/dl (31.0-37.0); MEAN PLATELET VOLUME 10.7 fl (7.0-11.0); RBC 4.04 10^6/uL (3.5-6.1); RED CELL DISTRIBUTION WIDTH 15.1 % (11.5-14.5)
[2018-02-14 07:48] LABS: ALB/GLOB RATIO 1.1 (1.1-1.8); ALT/SGPT 91 U/L (7-56); AST/SGOT 76 U/L (17-59); BLOOD UREA NITROGEN 16 mg/dL (7-21); CALCIUM 10.1 mg/dL (8.4-10.5); GFR AFRICAN-AMERICAN > 60; GFR NON-AFRICAN AMERICAN > 60
[2018-02-14] MEDS: Potassium Chloride 10 mEq ER Tab PO SCH (08:04)
[2018-02-14 08:19] VITALS: BP 147/78; PULSE 73; TEMP 97.7; O2SAT 96
[2018-02-14] MEDS: Simethicone 80 mg Chewtab PO SCH (09:19)
[2018-02-14] MEDS: POLYETHYLENE GLYCOL 3350 17 GM/Dose PACKET PO SCH (09:19)
--- NOTE | 2018-02-14 09:31 | CP.PCM.PN ---
Subjective - Date & Time of Evaluation Date of Evaluation: 02/14/18 Time of Evaluation: 09:28 - Subjective Subjective: Surgery: Dr. Medina Pt seen and examined. He states that he is feeling much better. Pain is controlled. He is tolerating Diet. +BM. He was able to void following removal of ruiz. Objective - Vital Signs/Intake and Output Vital Signs (last 24 hours): Temp Pulse Resp BP Pulse Ox 97.7 F 73 20 147/78 96 02/14/18 08:18 02/14/18 08:18 02/14/18 08:18 02/14/18 08:18 02/14/18 08:18 Intake and Output: 02/14/18 02/14/18 06:59 18:59 Intake Total 640 Balance 640 - Medications Medications: Current Medications Albuterol/Ipratropium (Duoneb 3 Mg/0.5 Mg (3 Ml) Ud) 3 ml IH [id number] [facility] Last Admin: 02/14/18 07:51 Dose: 3 ml Albuterol/Ipratropium (Duoneb 3 Mg/0.5 Mg (3 Ml) Ud) 3 ml IH Q2H PRN PRN Reason: Shortness of Breath Dibucaine (Nupercainal 1%) 0 oz TOP Q4 PRN PRN Reason: Pain, moderate (4-7) Guaifenesin (Robitussin) 100 mg PO Q4H PRN PRN Reason: Cough Last Admin: 02/13/18 21:43 Dose: 100 mg Heparin Sodium (Porcine) (Heparin) 5,000 units SC Q12 EFFIE PRN Reason: Protocol Last Admin: 02/12/18 16:44 Dose: Not Given Hydrocortisone (Anusol-Hc) 1 gm [place] BID [facility] Last Admin: 02/13/18 18:54 Dose: 1 applic Oxycodone HCl (Oxycodone Immediate Release Tab) 5 mg PO Q4H PRN PRN Reason: Pain, moderate (4-7) Last Admin: 02/14/18 05:19 Dose: 5 mg Pantoprazole Sodium (Protonix Ec Tab) 40 mg PO 0600 [facility] Last Admin: 02/14/18 05:20 Dose: 40 mg Polyethylene Glycol (Miralax) 17 gm PO DAILY [facility] Last Admin: 02/14/18 09:19 Dose: 17 gm Potassium Chloride (Klor-Con 10) 10 meq PO BRK [facility] Last Admin: 02/14/18 08:04 Dose: 10 meq Simethicone (Mylicon Chew Tab) 80 mg PO QID [facility] Last Admin: 02/14/18 09:19 Dose: 80 mg Tamsulosin HCl (Flomax) 0.4 mg PO DAILY [facility] Last Admin: 02/14/18 09:19 Dose: 0.4 mg - Labs Labs: 02/14/18 06:30 02/14/18 06:30 PT 13.9 SECONDS (9.4-12.5) H 02/08/18 10:20 INR 1.20 (0.93-1.08) H 02/08/18 10:20 APTT 29.8 Seconds (25.1-36.5) 02/08/18 10:20 - Constitutional Appears: Non-toxic, No Acute Distress - Head Exam Head Exam: ATRAUMATIC, NORMOCEPHALIC - Eye Exam Eye Exam: EOMI. absent: Scleral icterus - ENT Exam ENT Exam: Mucous Membranes Moist, Normal External Ear Exam - Neck Exam Neck Exam: Full ROM - Respiratory Exam Respiratory Exam: NORMAL BREATHING PATTERN. absent: Accessory Muscle Use, Respiratory Distress - GI/Abdominal Exam GI & Abdominal Exam: Soft, Tenderness (edward-incisional ). absent: Distended, Firm, Guarding, Rigid, Rebound - Neurological Exam Neurological Exam: Alert, Awake, Oriented x3 - Psychiatric Exam Psychiatric exam: Normal Affect, Normal Mood - Skin Skin Exam: Dry, Normal Color, Warm Assessment and Plan - Assessment and Plan (Free Text) Assessment: 77M w. cholecystits, s/p lap pascale, POD#5 Plan: -Clear for D/C from surgical standpoint -will D/C drain 50cc/24hr serosang -Pt to follow up wBasilio Medina in 1-2 weeks -Diet/Activity as tolerated, do not lift more than 15-20lbs for 4 weeks -If concerns arise, return to ED -d/w attending Priscillaitis PGY3
--- NOTE | 2018-02-14 15:33 | CON ---
DATE: 02/14/2018 PULMONARY CONSULTATION REASON FOR CONSULTATION: Solitary pulmonary nodule. REFERRING PHYSICIAN: Gary Machuca MD HISTORY OF PRESENT ILLNESS: The patient is a 77-year-old male, with past medical history significant for chronic obstructive pulmonary disease, abdominal aortic aneurysm, cholelithiasis, who presented to [facility] - originally on 02/08/2018 - with worsening right upper quadrant pain. Subsequent evaluation revealed acute cholecystitis. The patient was thus admitted for additional evaluation. The patient did undergo a laparoscopic cholecystectomy on 02/10/2018. Surgical inputs are noted. The patient's clinical status has certainly improved during this admission - with resolution of his fevers, as well as resolution of his abdominal pain. The patient is not short of breath at rest. He denies dyspnea on exertion. He does state to a chronic cough with occasional sputum. There is no history of chest pain, coughing up of blood, or chest pain - made worse with deep respirations. As above, the temperatures have resolved. No history of chills or infectious exposure. No history of night sweats, weight loss or appetite change prior to the above events. No history of leg or calf pains. No history of syncope or diaphoresis. No history of recent travel or trauma. REVIEW OF SYSTEMS: The patient does complain of urinary hesitancy at times. No dysuria. No new musculoskeletal or neurologic complaints. Rest of the review of systems is negative. ALLERGIES: No known allergies. SOCIAL HISTORY: Positive for tobacco. Negative for alcohol. FAMILY HISTORY: No inheritable diseases. HOME MEDICATIONS: Include Flomax, Advair and DuoNebs. PHYSICAL EXAMINATION GENERAL: The patient appears comfortable this morning. He is not short of breath at rest. He is not using accessory muscles for breathing. VITAL SIGNS: (Last noted in the computer): Temperature is 98.4, pulse is 84, respirations 18, blood pressure 133/74. Oxygen saturation on nasal cannula is 100%. HEENT: Normocephalic, atraumatic. No JVD. CARDIOVASCULAR: Systolic ejection murmur at the lower left sternal border. No S3 gallop. LUNGS: Clear bilaterally. EXTREMITIES: Mild edema. No cyanosis, no clubbing. Calves are nontender to palpation. GI: Abdomen is soft, nontender and nondistended. The abdomen is postoperative. There is an intra-abdominal drain in place. SKIN: No acute rash. NEUROLOGIC: Limited at the present time. PERTINENT LABORATORY DATA: Abdominal and pelvic CAT scan was done on 02/13/2018. There is a tiny 4-mm nodule noted at the right lower lobe. This nodule was seen on previous CAT scans. There is also a very tiny right pleural effusion. There is no enlarged lymph nodes. CBC: White count 9.0, hemoglobin 12.1, hematocrit 36.2, platelets of 253,000. IMPRESSION: 1. Acute cholecystitis. 2. Status post laparoscopic cholecystectomy. 3. Chronic obstructive pulmonary disease. 4. Tiny pulmonary nodule - right lower lobe. 5. Mild anemia. PLAN: I did discuss the case with the nurse at length. I have also reviewed the chart at length, and discussed the case with the patient at length. The patient presented to [facility] - originally on 02/08/2018 - with acute cholecystitis. As above, he then underwent a laparoscopic cholecystectomy on 02/10/2018. He has done very well in the hospital - with resolution of his abdominal pain. He has also had resolution of the fevers, as well as the resolution of the leukocytosis. I did review the CAT scan of the abdomen. A tiny 4-mm nodule is noted at the right lower lobe. Again, this nodule was seen on previous CAT scans. I would like to proceed with a dedicated CAT scan of the chest, but the patient is now refusing. He states, "I do not want any other tests." I did give him my card/information for a followup appointment. He did state that he will see me in the office, and then get a CAT scan of his chest. At this point in time, he offers no new or significant pulmonary symptoms. His lungs are clear on physical exam. Oxygen saturation on nasal cannula is 99%. I will continue with the current nebulizer treatments for now. The patient is for discharge in the near future. Again, I did give him my card/information for a followup appointment. I will be happy to follow the patient's pulmonary nodule-- as an outpatient. I also discussed the above with Dr. Machuca earlier this morning. Thank you very much for this pulmonary consultation. Ronan Bradford MD MTDD
--- NOTE | 2018-02-14 16:54 | CP.PCM.PN ---
Subjective - Date & Time of Evaluation Date of Evaluation: 02/14/18 Time of Evaluation: 09:45 - Subjective Subjective: Seen and examined at the bedside earlier today, chart review. Patient denies nausea, vomiting, or abdominal pain. He did report having a bowel movement last night and did notice some blood, patient denies rectal pain, shortness of breath or chest pain. Patient states that he usually goes on a cycle of 3 days of noticing blood in his stool and it goes away. Patient was sent for a CT scan of abdomen and pelvis which showed a stable 4 mm abdominal aortic aneurysm , no acute findings noted. No acute overnight events per patient our nursing. Objective - Vital Signs/Intake and Output Vital Signs (last 24 hours): Temp Pulse Resp BP Pulse Ox 97.7 F 73 20 147/78 96 02/14/18 08:18 02/14/18 08:18 02/14/18 08:18 02/14/18 08:18 02/14/18 08:18 Intake and Output: 02/14/18 02/14/18 06:59 18:59 Intake Total 640 Balance 640 - Labs Labs: 02/14/18 06:30 02/14/18 06:30 PT 13.9 SECONDS (9.4-12.5) H 02/08/18 10:20 INR 1.20 (0.93-1.08) H 02/08/18 10:20 APTT 29.8 Seconds (25.1-36.5) 02/08/18 10:20 - Constitutional Appears: No Acute Distress - Head Exam Head Exam: NORMOCEPHALIC - Eye Exam Eye Exam: Normal appearance. absent: Scleral icterus - ENT Exam ENT Exam: Mucous Membranes Moist - Neck Exam Neck Exam: Normal Inspection - Respiratory Exam Respiratory Exam: NORMAL BREATHING PATTERN. absent: Respiratory Distress - Cardiovascular Exam Cardiovascular Exam: +S1, +S2 - GI/Abdominal Exam GI & Abdominal Exam: Soft, Normal Bowel Sounds. absent: Guarding, Tenderness, Rebound Additional comments: (+) NICOLE drain serosanguneous - Extremities Exam Extremities Exam: absent: Calf Tenderness, Pedal Edema - Neurological Exam Neurological Exam: Alert, Awake, Oriented x3 Assessment and Plan - Assessment and Plan (Free Text) Assessment: ASSESSMENT: Cholelithiasis with acute cholecystitis, pathology shows necrotizing cholecystitisand cholelithiasis Status post laparoscopic cholecystectomy with IOC Obesity Rectal bleed differentials to consider likely from hemorrhoids, hbg stable COPD Hypertension Plan: Monitor H&H, overt GI bleeding On IV antibiotics continue MiraLAX, on anusol SCDs Discussed with patient that he would benefit from colonoscopy if he continues to have bleeding per rectum, he originally stated he did not want a colonoscopy but if continued to have bleeding may reconsider. Seen and discussed with Dr. Yao.
--- NOTE | 2018-02-15 00:05 | DS ---
HISTORY OF PRESENT ILLNESS: This is a 77-year-old male, who had come into the hospital, was found to have cholecystitis. The patient had laparoscopic cholecystectomy and had improvement of his symptoms. The patient was having urinary retention and the Seay catheter was placed. The patient is going to have his Seay catheter taken out. The patient has been afebrile. Cultures have been negative. The patient is tolerating his diet. He is currently on a heart-healthy diet. The pathology report was reviewed and it showed that the patient had acute necrotizing cholecystitis and cholelithiasis. If the patient is able to urinate, we will discharge the patient home today. PHYSICAL EXAMINATION: VITAL SIGNS: Temperature is 98.4, pulse of 84, blood pressure 133/74, respirations 20. GENERAL: The patient is lying in bed, flat, comfortable. HEENT: No oral lesion. Anicteric sclerae. Moist mucosa. NECK: No JVD, adenopathy, or thyromegaly. CARDIOVASCULAR: S1 and S2, regular. No murmurs, rubs, or gallops. LUNGS: Clear to auscultation bilaterally. No wheeze, rales, or rhonchi. ABDOMEN: Bowel sounds are positive, soft, nontender, and nondistended. EXTREMITIES: No cyanosis, clubbing, or edema. ASSESSMENT: 1. Acute cholecystitis status post cholecystectomy. 2. Chronic obstructive pulmonary disease. 3. Obesity with a body mass index of 33. 4. Urinary retention with Seay. 5. A 4.3-cm infrarenal abdominal aortic aneurysm. 6. A 4-mm nodule of the right lobe. PLAN: The patient is currently comfortable. He is going to be seen by Pulmonary for his nodule and followed up as an outpatient. The patient is on Flomax. He is going to continue with MiraLax for constipation. The patient is on Percocet for pain. He is going to continue with his heart-healthy diet. The patient was also seen by Dr. Yao for bleeding rectally that he had. CONDITION: Stable. ACTIVITIES: Increase as tolerated. Patient to follow up as an outpatient with Dr. Machuca in 1 to 2 weeks and follow up with Dr. Medina in 1 to 2 weeks. Gary Machuca MD [facility] # [id number]
== END 2018-02-14 11:55 | disposition home or self-care (01) | DRG 418 ==
LOC: ED 09:39 → ERH 11:53 → 5RNO 13:32 → OBSVTOIN 14:46
PROVIDERS: ADMIT Internal Medicine Nephrology; ATTEND Internal Medicine Nephrology
PROC: 0FT44ZZ Resection of Gallbladder, Percutaneous Endoscopic Approach (ICD-10-PCS; principal; 2018-02-10)
PROC: BF131ZZ Fluoroscopy of Gallbladder and Bile Ducts using Low Osmolar Contrast (ICD-10-PCS; 2018-02-10)
PROC: 0T9B70Z Drainage of Bladder with Drainage Device, Via Natural or Artificial Opening (ICD-10-PCS; 2018-02-10)
DX: K80.00 Calculus of gallbladder with acute cholecystitis without obstruction (principal); K56.7 Ileus, unspecified; K62.5 Hemorrhage of anus and rectum; I71.4 Abdominal aortic aneurysm, without rupture; J44.9 Chronic obstructive pulmonary disease, unspecified; I10 Essential (primary) hypertension; M15.9 Polyosteoarthritis, unspecified; N40.1 Benign prostatic hyperplasia with lower urinary tract symptoms; R33.8 Other retention of urine; E87.6 Hypokalemia; R91.1 Solitary pulmonary nodule; R97.0 Elevated carcinoembryonic antigen [CEA]; E78.00 Pure hypercholesterolemia, unspecified; K64.9 Unspecified hemorrhoids; H91.91 Unspecified hearing loss, right ear; E66.01 Morbid (severe) obesity due to excess calories; Z68.33 Body mass index [BMI] 33.0-33.9, adult; Z87.891 Personal history of nicotine dependence

== ENCOUNTER 2018-03-05 13:26 | Inpatient (IN) | payer MEDICARE, MEDICAID ==
[2018-03-05] MEDS ORDERED: Morphine 4 mg/ml ISec IVP STA (14:00)
[2018-03-05] MEDS ORDERED: Sodium Chloride 0.9% 1,000 ML IV STA (14:00)
--- NOTE | 2018-03-05 14:04 | ED PDOC ---
Arrival/HPI - General Chief Complaint: Abdominal Pain Time Seen by Provider: 03/05/18 13:49 Historian: Patient - History of Present Illness Narrative History of Present Illness (Text): 03/05/18 14:00 A 77 year old male, whose past medical history includes recent cholecystectomy on 02/03/18, presents to the emergency department complaining of abdominal pain for 2 days. Patient reports last normal bowel movement was this morning, states he is passing gas regularly. Patient was seen by surgeon Dr. Medina today, who instructed him to come in for further evaluation. Patient notes mild shortness of breath but denies any fever, chills, appetite changes, nausea, vomiting, diarrhea, constipation, chest pain or any other complaints. PMD: Dr. Machuca Surgeon: Dr. Medina Time/Duration: Other (2 days) Symptom Course: Unchanged Context: Home Past Medical History - Provider Review Nursing Documentation Reviewed: Yes - Infectious Disease Hx of Infectious Diseases: None - Tetanus Immunization Tetanus Immunization: Unknown - Cardiac Hx Cardiac Disorders: No - Pulmonary Hx Chronic Obstructive Pulmonary Disease (COPD): Yes - Neurological Hx Neurological Disorder: No - HEENT Hx HEENT Disorder: Yes ([place]) Hx Deafness: Yes (rt ear) - Renal Hx Renal Disorder: No - Endocrine/Metabolic Hx Endocrine Disorders: No - Hematological/Oncological Hx Blood Transfusions: No Hx Blood Transfusion Reaction: No - Integumentary Hx Dermatological Disorder: No - Musculoskeletal/Rheumatological Hx Arthritis: Yes - Gastrointestinal Hx Gastrointestinal Disorders: Yes (CHOLILITHIASIS) Hx Gall Bladder Disease: Yes - Genitourinary/Gynecological Hx Genitourinary Disorders: Yes Hx Prostate Problems: Yes - Psychiatric Hx Psychophysiologic Disorder: No Hx Depression: No Hx Emotional Abuse: No Hx Physical Abuse: No Hx Substance Use: No - Past Surgical History Past Surgical History: No Previous - Surgical History Other/Comment: gall stone - Anesthesia Hx Anesthesia Reactions: No Hx Malignant Hyperthermia: No - Suicidal Assessment Feels Threatened In Home Enviroment: No Family/Social History - Physician Review Nursing Documentation Reviewed: Yes Family/Social History: No Known Family HX Smoking Status: Current Some Days Smoker Hx Alcohol Use: Yes (OCCATIONAL) Hx Substance Use: No Hx Substance Use Treatment: No Allergies/Home Meds Allergies/Adverse Reactions: Allergies No Known Allergies Allergy (Verified 02/08/18 10:00) Home Medications: Home Meds Medication Instructions Recorded Confirmed Tamsulosin [Flomax] 0.4 mg PO DAILY 11/11/17 03/05/18 Albuterol/Ipratropium [Duoneb 3 1 dose NEB BID 02/06/18 03/05/18 mg/0.5 mg (3 ml) UD] Naproxen [Anaprox] 500 mg PO PRN PRN 03/05/18 03/05/18 Review of Systems - Physician Review All systems were reviewed & negative as marked: Yes - Review of Systems Constitutional: absent: Fevers, Night Sweats Respiratory: SOB Cardiovascular: absent: Chest Pain Gastrointestinal: Abdominal Pain. absent: Constipation, Diarrhea, Nausea, Vomiting Physical Exam Vital Signs Temp Pulse Resp BP Pulse Ox 03/05/18 17:10 73 18 135/71 97 03/05/18 15:25 75 18 138/79 97 03/05/18 14:48 79 140/87 97 03/05/18 13:26 98.4 F 80 17 142/91 H 97 Appearance: Positive for: Well-Appearing, Non-Toxic, Comfortable Pain Distress: None Mental Status: Positive for: Alert and Oriented X 3 - Systems Exam Head: Present: Atraumatic, Normocephalic Pupils: Present: PERRL Extroacular Muscles: Present: EOMI Conjunctiva: Present: Normal Mouth: Present: Moist Mucous Membranes Neck: Present: Normal Range of Motion Respiratory/Chest: Present: Clear to Auscultation, Good Air Exchange. No: Respiratory Distress, Accessory Muscle Use Cardiovascular: Present: Regular Rate and Rhythm, Normal S1, S2. No: Murmurs Abdomen: Present: Distention, Scars (well healed surgical scar). No: Tenderness , Normal Bowel Sounds (tympanitic bowel sounds), Peritoneal Signs Back: Present: Normal Inspection Upper Extremity: Present: Normal Inspection. No: Cyanosis, Edema Lower Extremity: Present: Normal Inspection. No: Edema Neurological: Present: GCS=15, CN II-XII Intact, Speech Normal Skin: Present: Warm, Dry, Normal Color. No: Rashes Psychiatric: Present: Alert, Oriented x 3, Normal Insight, Normal Concentration Medical Decision Making ED Course and Treatment: 03/05/18 14:00 Impression: A 77 year old male with abdominal pain. Hx of recent cholecystectomy. Plan: -- Abdomen and pelvis CT -- Labs -- Blood and Urine culture -- Urinalysis -- Morphine, Zofran and IV fluids -- Reassess and disposition Progress Notes: Report Date : 03/05/2018 17:29:57 PROCEDURE: CT Abdomen and Pelvis with contrast Dictator : Pau Luo MD IMPRESSION: 1. No evidence of bowel obstruction. Left colonic diverticulosis without CT evidence for acute diverticulitis. 2. 3.4 x 2.3 x 3.7 cm complex fluid collection in the gallbladder fossa, nonspecific. The differential considerations include complex fluid collection, evolving hematoma or biliary leak. 3. Stable infrarenal aortic aneurysm. 03/05/18 18:[address] Machuca, who agrees with ED management and accepts admission to his service. Agrees with Dr. Medina on consult. - Lab Interpretations Lab Results: 03/05/18 15:00 03/05/18 15:00 Lab Results 03/05/18 15:30: pO2 214 H, VBG pH 7.39, VBG pCO2 46.0, VBG HCO3 27.8, VBG Total CO2 29.2 H, VBG O2 Sat (Calc) 100.4 H, VBG Base Excess 2.2 H, VBG Potassium 3.7 , Glucose 99, Lactate 0.7, FiO2 21.0, Sodium 138.0, Chloride 108.0 H, Venous Blood Potassium 3.7 03/05/18 15:00: Sodium 140, Potassium 3.9, Chloride 104, Carbon Dioxide 26, Anion Gap 14, BUN 17, Creatinine 0.8, Est GFR ( Amer) > 60, Est GFR (Non- Af Amer) > 60, Random Glucose 97, Calcium 10.7 H, Total Bilirubin 0.4, AST 16 L D, ALT 32, Alkaline Phosphatase 83, Total Protein 7.1, Albumin 4.3, Globulin 2.8 , Albumin/Globulin Ratio 1.5, Lipase 37 03/05/18 15:00: Urine Color Yellow, Urine Appearance Clear, Urine pH 5.5, Ur Specific [place] >= 1.030, Urine Protein Trace H, Urine Glucose (UA) Negative, Urine Ketones Trace H, Urine Blood Negative, Urine Nitrate Negative, Urine Bilirubin Negative, Urine Urobilinogen 0.2, Ur Leukocyte Esterase Negative, Urine RBC Negative, Urine WBC 1 - 3, Ur Epithelial Cells 3 - 4, Urine Other Mucus 03/05/18 15:00: PT 12.0, INR 1.05 03/05/18 15:00: WBC 9.3, RBC 4.65, Hgb 14.0, Hct 42.3, MCV 91.0, MCH 30.1, MCHC 33.1, RDW 14.9 H, Plt Count 195, MPV 11.0, Gran % 54.1, Lymph % (Auto) 29.8, [place] % (Auto) 8.7 H, Eos % (Auto) 7.3 H, Baso % (Auto) 0.1, Gran # 5.03, Lymph # (Auto) 2.8, [place] # (Auto) 0.8 H, Eos # (Auto) 0.7, Baso # (Auto) 0.01 I have reviewed the lab results: Yes - RAD Interpretation Radiology Orders: 03/05/18 14:00 ABD PELVIS PO & IV CONTRAST [CT] Stat - Medication Orders Current Medication Orders: Discontinued Medications Sodium Chloride (Sodium Chloride 0.9%) 1,000 mls @ 999 mls/hr IV .Q1H1M STA Stop: 03/05/18 15:00 Last Admin: 03/05/18 14:52 Dose: 999 mls/hr eMAR Start Stop Document 03/05/18 14:52 SF (Rec: 03/05/18 14:52 SF [id number]) Intravenous Solution Start Date 03/05/18 Start Time 14:52 End Date 03/05/18 End time 15:53 Total Infusion Time 61 Morphine Sulfate (Morphine) 4 mg IVP STAT STA Stop: 03/05/18 14:01 Last Admin: 03/05/18 14:49 Dose: 4 mg MAR Pain Assessment Document 03/05/18 14:49 SF (Rec: 03/05/18 14:50 SF [id number] Pain Reassessment Is this a pain reassessment? Yes Sleep Is patient sleeping during reassessment? No Presence of Pain Presence of Pain Yes IVP Administration Document 03/05/18 14:49 SF (Rec: 03/05/18 14:50 SF [email or web address]) Charges for Administration # of IVP Administrations 1 Ondansetron HCl (Zofran Inj) 8 mg IVP STAT STA Stop: 03/05/18 14:01 Last Admin: 03/05/18 14:49 Dose: 8 mg IVP Administration Document 03/05/18 14:49 SF (Rec: 03/05/18 14:49 SF [id number]) Charges for Administration # of IVP Administrations 1 - Scribe Statement The provider has reviewed the documentation as recorded by the Scribe Gem Milian Provider Scribe Attestation: All medical record entries made by the Scribe were at my direction and personally dictated by me. I have reviewed the chart and agree that the record accurately reflects my personal performance of the history, physical exam, medical decision making, and the department course for this patient. I have also personally directed, reviewed, and agree with the discharge instructions and disposition. Disposition/Present on Arrival - Present on Arrival Any Indicators Present on Arrival: No History of DVT/PE: No History of Uncontrolled Diabetes: No Urinary Catheter: No History of Decub. Ulcer: No History Surgical Site Infection Following: None - Disposition Have Diagnosis and Disposition been Completed?: Yes Diagnosis: Abdominal pain, S/P cholecystectomy Disposition: HOSPITALIZED Disposition Time: 18:20 Patient Plan: Discharge Condition: GOOD Referrals: Gary Machuca MD [Primary Care Provider] - Follow up with primary Forms: [employer] (Greek)
[2018-03-05] MEDS ORDERED: Iohexol 240 (50 ml) ONE (14:06)
[2018-03-05 15:35] LABS: BASO # 0.01 K/mm3 (0.0-2.0); BASO % 0.1 % (0.0-3.0); EOS # 0.7 (0.0-0.7); EOS % 7.3 % (1.5-5.0); GRAN # 5.03 (1.4-6.5); GRAN % 54.1 % (50.0-68.0); LYMPH # 2.8 (1.2-3.4); LYMPH % 29.8 % (22.0-35.0); MEAN CORPUSCULAR HEMOGLOBIN 30.1 pg (25.0-35.0); MEAN CORPUSCULAR HGB CONC 33.1 g/dl (31.0-37.0); MONO # 0.8 (0.1-0.6); MONO % 8.7 % (1.0-6.0); RBC 4.65 10^6/uL (3.5-6.1); RED CELL DISTRIBUTION WIDTH 14.9 % (11.5-14.5); WHITE BLOOD COUNT 9.3 10^3/ul (4.5-11.0)
[2018-03-05 15:36] LABS: PH,URINE 5.5 (4.7-8.0); URINE APPEARANCE CLEAR (CLEAR); URINE BILIRUBIN NEGATIVE (NEGATIVE); URINE BLOOD NEGATIVE (NEGATIVE); URINE COLOR YELLOW (YELLOW); URINE GLUCOSE (UA) NEGATIVE (NEGATIVE); URINE LEUKOCYTE ESTERASE NEGATIVE Leu/uL (NEGATIVE); URINE PROTEIN TRACE mg/dL (<30 mg/dL); URINE UROBILINOGEN 0.2 E.U./dL (<1 E.U./dL)
[2018-03-05 15:42] LABS: URINE RBC NEGATIVE /hpf (0-2)
[2018-03-05 15:44] LABS: INR 1.05 (0.93-1.08)
[2018-03-05 15:51] LABS: VENOUS BLOOD GAS BASE EXCESS 2.2 mmol/L (0.0-2.0); VENOUS BLOOD GAS PO2 214 mm/Hg (30-55); VENOUS BLOOD PH 7.39 (7.32-7.43)
[2018-03-05 16:13] LABS: ALB/GLOB RATIO 1.5 (1.1-1.8); ALBUMIN 4.3 g/dL (3.0-4.8); ALT/SGPT 32 U/L (7-56); AST/SGOT 16 U/L (17-59); BLOOD UREA NITROGEN 17 mg/dL (7-21); CALCIUM 10.7 mg/dL (8.4-10.5); GFR AFRICAN-AMERICAN > 60; GFR NON-AFRICAN AMERICAN > 60; LIPASE 37 U/L (23-300)
[2018-03-05] MEDS ORDERED: Iohexol 350 MG/100 ML VIAL ONE (16:23)
--- NOTE | 2018-03-05 17:31 | CT ---
PROCEDURE: CT Abdomen and Pelvis with contrast HISTORY: Possible Small Bowel Obstruction COMPARISON: 02/13/2018. TECHNIQUE: CT scan of the abdomen and pelvis was performed after administration of intravenous contrast. Oral contrast was administered. Coronal and sagittal reformatted images were obtained. Contrast dose: Radiation dose: Total exam DLP = 924.95 mGy-cm. This CT exam was performed using one or more of the following dose reduction techniques: Automated exposure control, adjustment of the mA and/or kV according to patient size, and/or use of iterative reconstruction technique. FINDINGS: LOWER THORAX: The visualized lungs are clear. LIVER: Mild hepatomegaly and fatty infiltration in the liver. No gross lesion or ductal dilatation. GALLBLADDER AND BILE DUCTS: Status post cholecystectomy. There is a 3.5 x 2.3 x 3.7 cm loculated fluid in the gallbladder fossa. The fluid density measures 34 HU corresponding to complex fluid. There is mild dilatation of the common bile duct in keeping with postcholecystectomy status. PANCREAS: Normal in size with homogeneous enhancement. No gross lesion or ductal dilatation. SPLEEN: Normal in size and appearance. ADRENALS: The right adrenal gland is normal in appearance. There is mild thickening of the left adrenal gland. No discrete nodule. KIDNEYS AND URETERS: Both kidneys are normal in size and there is homogeneous enhancement. There are simple cysts in both kidneys, the largest in the left interpolar region exophytic cyst measures 5.4 cm. No hydronephrosis. No solid mass. VASCULATURE: There is redemonstration of a 4.2 x 4.3 cm infrarenal fusiform aneurysm with right lateral and posterior intramural thrombus. No luminal narrowing. BOWEL: The small bowel loops are normal in caliber. There is left colonic diverticulosis without CT evidence for acute diverticulitis. APPENDIX: Normal appendix. PERITONEUM: No free fluid. No free air. LYMPH NODES: No enlarged lymph nodes. BLADDER: Grossly normal in appearance. REPRODUCTIVE: There is severe enlargement of the prostate gland with right posterolateral calcifications. BONES: No acute fracture. OTHER FINDINGS: None. IMPRESSION: 1. No evidence of bowel obstruction. Left colonic diverticulosis without CT evidence for acute diverticulitis. 2. 3.4 x 2.3 x 3.7 cm complex fluid collection in the gallbladder fossa, nonspecific. The differential considerations include complex fluid collection, evolving hematoma or biliary leak. 3. Stable infrarenal aortic aneurysm.
[2018-03-05] MEDS ORDERED: Alum-Mag Hydrox-Simethicone Susp (30 mL) PO PRN ×2 (18:45→18:47)
[2018-03-05] MEDS: Oxycodone/Acetaminophen 5/325 mg Tab PO PRN (18:46)
--- NOTE | 2018-03-05 19:09 | CP.PCM.CON ---
<David Marin - Last Filed: 03/06/18 07:12> History of Present Illness - History of Present Illness History of Present Illness: Surgery HPI: This is a 77-year-old male was evaluated at the bedside with his girlfriend present, he is hard of hearing, with a past medical history of BPH, COPD and osteoarthritis came to the emergency room with complaints of abdominal discomfort, N/V. Patient was found to have cholelithiasis with acute cholecystitis. Initially the patient did not want to stay in the hospital to wait for surgery and was sent home. 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 The pain became worse upon discharge and returned to the hospital. He had a laparoscopic cholecystectomy on 02/09/2018 with an operative cholangiogram which did not show any filling defects in the duodenum or obstruction. Positive contrasted pancreatic duct. Pain is located on RUQ. Reports non bilious non bloody vomiting and constipation. This patient has chronic history of hemorrhoids with bleeding as per patient. patient denies hematemesis or dark stools. No reports of unintentional weight loss, or anorexia, diarrhea, fever, chills. He does have abdominal pain but postop pain. Denies ever having colonoscopy or endoscopy, he does however express he does not want a colonoscopy. Past medical history: hemorrhoids, COPD, osteoarthritis, BPH Past surgical history: denies Family history: Denies Allergies: No known drug allergies Medications: Reviewed as per MAR Social history: History of tobacco, quit 5 months ago, denies EtOH, drinks socially, denies illicit drug use Review of Systems - Constitutional Constitutional: As Per HPI Past Patient History - Infectious Disease Hx of Infectious Diseases: None - Tetanus Immunizations Tetanus Immunization: Unknown - Past Social History Smoking Status: Current Some Days Smoker - CARDIAC Hx Cardiac Disorders: No - PULMONARY Hx Chronic Obstructive Pulmonary Disease (COPD): Yes - NEUROLOGICAL Hx Neurological Disorder: No - HEENT Hx HEENT Problems: Yes ([place]) Hx Deafness: Yes (rt ear) - RENAL Hx Chronic Kidney Disease: No - ENDOCRINE/METABOLIC Hx Endocrine Disorders: No - HEMATOLOGICAL/ONCOLOGICAL Hx Blood Transfusions: No Hx Blood Transfusion Reaction: No - INTEGUMENTARY Hx Dermatological Problems: No - MUSCULOSKELETAL/RHEUMATOLOGICAL Hx Arthritis: Yes - GASTROINTESTINAL Hx Gastrointestinal Disorders: Yes (CHOLILITHIASIS) Hx Gall Bladder Disease: Yes - GENITOURINARY/GYNECOLOGICAL Hx Genitourinary Disorders: Yes Hx Prostate Problems: Yes - PSYCHIATRIC Hx Psychophysiologic Disorder: No Hx Depression: No Hx Emotional Abuse: No Hx Physical Abuse: No Hx Substance Use: No - SURGICAL HISTORY Other/Comment: gall stone - ANESTHESIA Hx Anesthesia Reactions: No Hx Malignant Hyperthermia: No Meds Allergies/Adverse Reactions: Allergies Allergy/AdvReac Type Severity Reaction Status Date / Time No Known Allergies Allergy Verified 02/08/18 10:00 - Medications Medications: Current Medications Al Hydrox/Mg Hydrox/Simethicone (Maalox Plus 30 Ml) 30 ml PO DAILY PRN PRN Reason: GI distress Ketorolac Tromethamine (Toradol) 15 mg IVP Q4 PRN PRN Reason: Pain, severe (8-10) Ondansetron HCl (Zofran Inj) 4 mg IVP Q4 PRN PRN Reason: Nausea/Vomiting Oxycodone/Acetaminophen (Percocet 5/325 Mg Tab) 2 tab PO Q6 PRN PRN Reason: Pain, moderate (4-7) Stop: 03/09/18 00:01 Last Admin: 03/05/18 18:46 Dose: 2 tab Physical Exam - Constitutional Appears: Non-toxic, No Acute Distress - Head Exam Head Exam: ATRAUMATIC, NORMAL INSPECTION, NORMOCEPHALIC - Eye Exam Eye Exam: EOMI, Normal appearance, PERRL Pupil Exam: NORMAL ACCOMODATION, PERRL - ENT Exam ENT Exam: Mucous Membranes Moist, Normal Exam - Neck Exam Neck exam: Positive for: Normal Inspection - Respiratory Exam Respiratory Exam: Clear to Auscultation Bilateral, NORMAL BREATHING PATTERN - Cardiovascular Exam Cardiovascular Exam: REGULAR RHYTHM - GI/Abdominal Exam GI & Abdominal Exam: Distended, Firm, Normal Bowel Sounds, Soft. absent: Guarding, Hernia, Pulsatile Mass, Rebound, Rigid, Tenderness Additional comments: Incision C/D/I - Exam Exam: NORMAL INSPECTION - Extremities Exam Extremities exam: Positive for: normal inspection - Back Exam Back exam: NORMAL INSPECTION - Neurological Exam Neurological exam: Alert, CN II-XII Intact, Normal Gait, Oriented x3, Reflexes Normal - Psychiatric Exam Psychiatric exam: Normal Affect, Normal Mood - Skin Skin Exam: Dry, Intact, Normal Color, Warm Results - Vital Signs Recent Vital Signs: Last Vital Signs Temp 98.4 F 03/05/18 13:26 Pulse 73 03/05/18 17:10 Resp 18 03/05/18 17:10 BP 135/71 03/05/18 17:10 Pulse Ox 97 03/05/18 17:10 - Labs Result Diagrams: 03/05/18 15:00 03/05/18 15:00 Labs: Laboratory Results - last 24 hr 03/05/18 03/05/18 03/05/18 15:00 15:00 15:00 WBC 9.3 RBC 4.65 Hgb 14.0 Hct 42.3 MCV 91.0 MCH 30.1 MCHC 33.1 RDW 14.9 H Plt Count 195 MPV 11.0 Gran % 54.1 Lymph % (Auto) 29.8 [place] % (Auto) 8.7 H Eos % (Auto) 7.3 H Baso % (Auto) 0.1 Gran # 5.03 Lymph # (Auto) 2.8 [place] # (Auto) 0.8 H Eos # (Auto) 0.7 Baso # (Auto) 0.01 PT 12.0 INR 1.05 pO2 VBG pH VBG pCO2 VBG HCO3 VBG Total CO2 VBG O2 Sat (Calc) VBG Base Excess VBG Potassium Glucose Lactate FiO2 Sodium Potassium Chloride Carbon Dioxide Anion Gap BUN Creatinine Est GFR ( Amer) Est GFR (Non-Af Amer) Random Glucose Calcium Total Bilirubin AST ALT Alkaline Phosphatase Total Protein Albumin Globulin Albumin/Globulin Ratio Lipase Venous Blood Potassium Urine Color Yellow Urine Appearance Clear Urine pH 5.[address] [place] >= 1.030 Urine Protein Trace H Urine Glucose (UA) Negative Urine Ketones Trace H Urine Blood Negative Urine Nitrate Negative Urine Bilirubin Negative Urine Urobilinogen 0.2 Ur Leukocyte Esterase Negative Urine RBC Negative Urine WBC 1 - 3 Ur Epithelial Cells 3 - 4 Urine Other Mucus 03/05/18 03/05/18 15:00 15:30 WBC RBC Hgb Hct MCV MCH MCHC RDW Plt Count MPV Gran % Lymph % (Auto) [place] % (Auto) Eos % (Auto) Baso % (Auto) Gran # Lymph # (Auto) [place] # (Auto) Eos # (Auto) Baso # (Auto) PT INR pO2 214 H VBG pH 7.39 VBG pCO2 46.0 VBG HCO3 27.8 VBG Total CO2 29.2 H VBG O2 Sat (Calc) 100.4 H VBG Base Excess 2.2 H VBG Potassium 3.7 Glucose 99 Lactate 0.7 FiO2 21.0 Sodium 140 138.0 Potassium 3.9 Chloride 104 108.0 H Carbon Dioxide 26 Anion Gap 14 BUN 17 Creatinine 0.8 Est GFR ( Amer) > 60 Est GFR (Non-Af Amer) > 60 Random Glucose 97 Calcium 10.7 H Total Bilirubin 0.4 AST 16 L D ALT 32 Alkaline Phosphatase 83 Total Protein 7.1 Albumin 4.3 Globulin 2.8 Albumin/Globulin Ratio 1.5 Lipase 37 Venous Blood Potassium 3.7 Urine Color Urine Appearance Urine pH Ur Specific [place] Urine Protein Urine Glucose (UA) Urine Ketones Urine Blood Urine Nitrate Urine Bilirubin Urine Urobilinogen Ur Leukocyte Esterase Urine RBC Urine WBC Ur Epithelial Cells Urine Other Assessment & Plan - Assessment and Plan (Free Text) Assessment: Abd pain s/p lap pascale CT : fluids in GB fossa labs unremarkable -NPO for HIDA -f/u HIDA -ABX -IVF -NAusea/pain control WIll DW Dr. Medina <Ross Medina - Last Filed: 03/07/18 20:31> Meds - Medications Medications: Current Medications Al Hydrox/Mg Hydrox/Simethicone (Maalox Plus 30 Ml) 30 ml PO Q4H PRN PRN Reason: Pain, moderate (4-7) Last Admin: 03/07/18 10:54 Dose: 30 ml Piperacillin Sod/Tazobactam Sod (Zosyn 3.375 In Ns 100ml) 100 mls @ 200 mls/hr IVPB Q6 EFFIE PRN Reason: Protocol Stop: 03/15/18 12:01 Last Admin: 03/07/18 17:55 Dose: 200 mls/hr Ketorolac Tromethamine (Toradol) 15 mg IVP Q4 PRN PRN Reason: Pain, severe (8-10) Ondansetron HCl (Zofran Inj) 4 mg IVP Q4 PRN PRN Reason: Nausea/Vomiting Oxycodone/Acetaminophen (Percocet 5/325 Mg Tab) 2 tab PO Q6 PRN PRN Reason: Pain, moderate (4-7) Stop: 03/09/18 00:01 Last Admin: 03/06/18 05:56 Dose: 2 tab Pantoprazole Sodium (Protonix Inj) 40 mg IVP DAILY [facility] Last Admin: 03/07/18 09:59 Dose: 40 mg Simethicone (Mylicon Liq) 40 mg PO QID [facility] Last Admin: 03/07/18 17:56 Dose: 40 mg Results - Vital Signs Recent Vital Signs: Last Vital Signs Temp 97.8 F 03/07/18 14:00 Pulse 83 03/07/18 14:00 Resp 18 03/07/18 14:00 BP 137/72 03/07/18 14:00 Pulse Ox 96 03/07/18 14:00 - Labs Result Diagrams: 03/05/18 15:00 03/05/18 15:00 Assessment & Plan - Assessment and Plan (Free Text) Assessment: Dx Abd Pain post pharyngitis-laryngitis Rx Augmentin 875 [id number] Suspect gastritis not Bile leak Await HIDA NB CT fluid is too small to aspirate This consult done under my direct supervision Iesha Medina MD FACS
[2018-03-06 02:09] VITALS: BMI 33.4
[2018-03-06] MEDS: Oxycodone/Acetaminophen 5/325 mg Tab PO PRN (05:56)
[2018-03-06] MEDS: metroNIDAZOLE IV 250mg/50 ml 250 MG/50 ML BAG IVPB SCH ×2 (07:17→15:29)
[2018-03-06] MEDS ORDERED: Sodium Chloride 0.9% 1,000 ML IV SCH (07:30)
[2018-03-06] MEDS ORDERED: Sodium Chloride 0.9% 100 ML IV SCH (07:30)
[2018-03-06] MEDS ORDERED: Meropenem IV 1 gm in NS 50 ML IVPB SCH (09:15)
--- NOTE | 2018-03-06 09:41 | RAD ---
HISTORY: COMPARISON: 02/06/2018. TECHNIQUE: Chest PA and lateral FINDINGS: LINES AND TUBES: None. LUNG AND PLEURA: The lungs are well inflated. There is bibasilar atelectasis. No focal consolidation. HEART AND MEDIASTINUM: The heart is not enlarged. The hilar and mediastinal contours are within normal limits. SKELETAL STRUCTURES: The bony structures are within normal limits for the patient's age. VISUALIZED UPPER ABDOMEN: Normal. OTHER FINDINGS: None. IMPRESSION: No active pulmonary disease.
[2018-03-06] MEDS ORDERED: cefTRIAXone 1 gm 1 GM/100 ML BAG IVPB SCH (10:00)
--- NOTE | 2018-03-06 10:17 | CP.PCM.PN ---
Subjective - Date & Time of Evaluation Date of Evaluation: 03/06/18 Time of Evaluation: 06:35 - Subjective Subjective: General Surgery: Dr Medina Pt S&E. NAEO. Continues to complain of abdominal distension and RUQ pain. Unchanged. Denies any n/v, f/c, sob or chest pain. Has been NPO for HIDA scan today. Objective - Vital Signs/Intake and Output Vital Signs (last 24 hours): Temp Pulse Resp BP Pulse Ox 97.6 F 73 20 150/82 99 03/06/18 06:00 03/06/18 06:00 03/06/18 06:00 03/06/18 06:00 03/06/18 06:00 Intake and Output: 03/06/18 03/06/18 06:59 18:59 Intake Total 0 Balance 0 - Medications Medications: Current Medications Al Hydrox/Mg Hydrox/Simethicone (Maalox Plus 30 Ml) 30 ml PO DAILY PRN PRN Reason: GI distress Metronidazole (Flagyl) 250 mg in 50 mls @ 100 mls/hr IVPB Q8 EFFIE PRN Reason: Protocol Stop: 03/11/18 06:31 Last Admin: 03/06/18 07:17 Dose: 100 mls/hr Sodium Chloride (Sodium Chloride 0.9%) 1,000 mls @ 125 mls/hr IV .Q8H EFFIE Piperacillin Sod/Tazobactam Sod (Zosyn 3.375 In Ns 100ml) 100 mls @ 200 mls/hr IVPB Q6 EFFIE PRN Reason: Protocol Stop: 03/15/18 12:01 Ketorolac Tromethamine (Toradol) 15 mg IVP Q4 PRN PRN Reason: Pain, severe (8-10) Ondansetron HCl (Zofran Inj) 4 mg IVP Q4 PRN PRN Reason: Nausea/Vomiting Oxycodone/Acetaminophen (Percocet 5/325 Mg Tab) 2 tab PO Q6 PRN PRN Reason: Pain, moderate (4-7) Stop: 03/09/18 00:01 Last Admin: 03/06/18 05:56 Dose: 2 tab - Labs Labs: PT 12.0 SECONDS (9.4-12.5) 03/05/18 15:00 INR 1.05 (0.93-1.08) 03/05/18 15:00 - Constitutional Appears: Non-toxic, No Acute Distress - ENT Exam ENT Exam: Mucous Membranes Moist - Respiratory Exam Respiratory Exam: NORMAL BREATHING PATTERN. absent: Accessory Muscle Use, Respiratory Distress - Cardiovascular Exam Cardiovascular Exam: REGULAR RHYTHM. absent: Tachycardia - GI/Abdominal Exam GI & Abdominal Exam: Distended (pts normal habitus), Soft, Tenderness (RUQ). absent: Firm, Guarding, Rigid, Hernia, Mass - Back Exam Back Exam: absent: CVA tenderness (L), CVA tenderness (R) - Neurological Exam Neurological Exam: Alert, Awake, Oriented x3 - Psychiatric Exam Psychiatric exam: Normal Affect, Normal Mood - Skin Skin Exam: Normal Color, Warm Assessment and Plan - Assessment and Plan (Free Text) Assessment: 77M with CC of abdominal pain, found to have small subhepatic fluid collection Plan: HIDA scan today to r/o biliary leak will resume CLD following further recs to follow d/w Dr Adma Frazier, PGY3
--- NOTE | 2018-03-06 13:30 | NM ---
PROCEDURE: Nuclear Medicine Hepatobiliary Scan HISTORY: r/o biliary leak COMPARISON: 01/22/2018 preoperative hepatobiliary scan. March 05, 2018. CT abdomen and pelvis. TECHNIQUE: 5.2 mCi of technetium 99m Mebrofenin was administered intravenously. Planar images of the abdomen were obtained at 5 min intervals to 60 mins. Delayed images were also obtained. FINDINGS: LIVER: Timely and homogenous uptake. COMMON BILE DUCT: identified at 22 mins. GALLBLADDER: Status post cholecystectomy common no abnormalities in the gallbladder fossa. No scintigraphic evidence of biliary leak. . SMALL BOWEL: Identified at 30.0 mins. IMPRESSION: Status post cholecystectomy with no evidence of biliary leak. Prompt visualization of the common bile duct and small bowel noted.
[2018-03-06] MEDS: Piperacillin/Tazobact 3.375 gm 100 ML IVPB SCH ×3 (13:56→23:59)
--- NOTE | 2018-03-06 17:37 | HP ---
DATE: 03/06/2018. CHIEF COMPLAINT AND HISTORY OF PRESENT ILLNESS: This is a 77-year-old male who is coming into the hospital, who had a cholecystectomy done about one month ago. The patient states he has been having abdominal pain for the past two days. He was recently in the office about one week ago and had an upper respiratory tract infection. He was given a Z-Mike and had improvement of his symptoms. He states his cough and congestion have improved. He states that he started having pain over the last two days and so he came in for further evaluation. The patient was seen by Dr. Medina in his office and was advised to come into the ER. The patient has no complaints of any fever or chills. No nausea, no vomiting, no dysuria or frequency, no nocturia, no weakness in the arms or in the legs. REVIEW OF SYSTEMS: All other review of symptoms are within normal limits except what was mentioned. He states the pain was about 4-5/10. PAST MEDICAL HISTORY: 1. COPD. 2. Obesity. 3. A 4.3 cm infrarenal abdominal aortic aneurysm. 4. A 4 mm lung nodule in the right lung. HOME MEDICATIONS: Flomax. SOCIAL HISTORY: The patient smokes about 10 cigarettes a day. He denies alcohol or drugs. FAMILY HISTORY: Noncontributory. PHYSICAL EXAMINATION: VITAL SIGNS: Temperature is 97.9, pulse of 87, blood pressure is 133/85, respirations 22, O2 saturation 98%. Height 5 feet 5 inches, weight is 201 pounds, BMI is 33.4. GENERAL: The patient lying in bed, uncomfortable, and in no acute distress. HEENT: Atraumatic and normocephalic. Anicteric sclerae. Moist mucosa. [place] conjunctivae. No oral lesions. NECK: No JVD, anterior and posterior adenopathy, thyromegaly, or bruits. CARDIOVASCULAR: S1 and S2 regular. No murmur, rubs, or gallop. LUNGS: Clear to auscultation bilaterally. No wheezes, rales, or rhonchi. ABDOMEN: Bowel sounds are positive. Soft. There is some mild right upper quadrant tenderness on palpation. No rebound, no guarding. EXTREMITIES: No cyanosis, clubbing, or edema. NEUROLOGIC: No facial asymmetry. Tongue is midline. No uvula deviation. Power is 5/5 upper extremity and lower extremity. Sensation intact in upper extremity and lower extremity. PSYCHIATRIC: He is awake, alert and oriented x3. No anxiety or depression. He has normal affect. GENITOURINARY: No CVA tenderness. VASCULAR: 2+ pulses in the carotid pulses and pedal pulses. SKIN: No erythema or nodules. SPINE: Shows normal curvature. LABORATORY DATA: White count of 9.3, hemoglobin 14, platelet count is 195. INR is 1.05. Chemistry shows a sodium 140, potassium 3.9, lipase is 37, AST and ALT 16 and 32, calcium is 10.7. Urine shows blood negative, nitrites negative, bilirubin negative. CT of the abdomen and pelvis shows a 3.4 x 2.3 x 3.7 cm complex fluid collection in the gallbladder fossa. ASSESSMENT: 1. Fluid collection in the gallbladder fossa, 3.4 x 2.3 x 3.7 cm. 2. Chronic obstructive pulmonary disease. 3. Benign prostatic hypertrophy. 4. A 4 mm right lung nodule. 5. Status post cholecystectomy x1 month. PLAN: The patient is currently on Flagyl. He is on Percocet for pain. The patient is on Zofran as needed. The patient had a biliary scan that is pending. The patient is currently n.p.o. Dr. Medina is going to be following the patient. Blood cultures and urine cultures have been ordered. I will also get ID to evaluate the patient as well as GI. Gary Machuca MD
[2018-03-07] MEDS: Piperacillin/Tazobact 3.375 gm 100 ML IVPB SCH ×4 (05:54→23:37)
--- NOTE | 2018-03-07 07:37 | CP.PCM.PN ---
Subjective - Date & Time of Evaluation Date of Evaluation: 03/07/18 Time of Evaluation: 07:34 - Subjective Subjective: Surgery Patient seen and examined. AMbulating. VOiding. Pain controlled. REports appetite. Denies Fever, chills, nbausea , vomiting, diarrhea. Objective - Vital Signs/Intake and Output Vital Signs (last 24 hours): Temp Pulse Resp BP Pulse Ox 98.2 F 77 18 120/76 98 03/06/18 22:23 03/06/18 22:23 03/06/18 22:23 03/06/18 22:23 03/06/18 22:23 Intake and Output: 03/07/18 03/07/18 06:59 18:59 Intake Total 600 Balance 600 - Medications Medications: Current Medications Al Hydrox/Mg Hydrox/Simethicone (Maalox Plus 30 Ml) 30 ml PO DAILY PRN PRN Reason: GI distress Piperacillin Sod/Tazobactam Sod (Zosyn 3.375 In Ns 100ml) 100 mls @ 200 mls/hr IVPB Q6 EFFIE PRN Reason: Protocol Stop: 03/15/18 12:01 Last Admin: 03/07/18 05:54 Dose: 200 mls/hr Ketorolac Tromethamine (Toradol) 15 mg IVP Q4 PRN PRN Reason: Pain, severe (8-10) Ondansetron HCl (Zofran Inj) 4 mg IVP Q4 PRN PRN Reason: Nausea/Vomiting Oxycodone/Acetaminophen (Percocet 5/325 Mg Tab) 2 tab PO Q6 PRN PRN Reason: Pain, moderate (4-7) Stop: 03/09/18 00:01 Last Admin: 03/06/18 05:56 Dose: 2 tab Pantoprazole Sodium (Protonix Inj) 40 mg IVP DAILY EFFIE - Labs Labs: PT 12.0 SECONDS (9.4-12.5) 03/05/18 15:00 INR 1.05 (0.93-1.08) 03/05/18 15:00 - Constitutional Appears: No Acute Distress - Head Exam Head Exam: ATRAUMATIC, NORMAL INSPECTION, NORMOCEPHALIC - Eye Exam Eye Exam: EOMI, Normal appearance, PERRL Pupil Exam: NORMAL ACCOMODATION, PERRL - ENT Exam ENT Exam: Mucous Membranes Moist, Normal Exam - Neck Exam Neck Exam: Full ROM, Normal Inspection. absent: Lymphadenopathy - Respiratory Exam Respiratory Exam: Clear to Ausculation Bilateral, NORMAL BREATHING PATTERN - Cardiovascular Exam Cardiovascular Exam: REGULAR RHYTHM, +S1, +S2. absent: Murmur - GI/Abdominal Exam GI & Abdominal Exam: Soft, Tenderness, Normal Bowel Sounds. absent: Distended, Firm, Guarding, Rigid Additional comments: incision C/D/I - Extremities Exam Extremities Exam: Full ROM, Normal Capillary Refill, Normal Inspection. absent : Joint Swelling, Pedal Edema - Back Exam Back Exam: NORMAL INSPECTION - Neurological Exam Neurological Exam: Alert, Awake, CN II-XII Intact, Normal Gait, Oriented x3 - Psychiatric Exam Psychiatric exam: Normal Affect, Normal Mood - Skin Skin Exam: Dry, Intact, Normal Color, Warm Assessment and Plan - Assessment and Plan (Free Text) Assessment: Abd pain s/p lap pascale CT: GB fossa fluids collection 3x3x2 LFT wnl -Advance diet -Pain/nausea control -Medical management -No surgical intervention at this time Will DW Dr. Medina
--- NOTE | 2018-03-07 09:16 | HP ---
ID CONSULT LOCATION: The patient is seen earlier this morning on 574, bed 2. CHIEF COMPLAINT: Abdominal pain and nausea times several days. HISTORY OF PRESENT ILLNESS: This is a 77-year-old male with high cholesterol, deafness, BPH, COPD, asthma who had a status post cholecystectomy approximately four weeks ago and now is admitted with abdominal pain, had a CAT scan which showed a small collection. The patient does not have any fevers and chills. No nausea. No vomiting now. He states that he did have some nausea earlier on. He had normal bowel movements. He is passing gas and he is with no chest pain, shortness of breath or cough and no vomiting. No diarrhea, constipation or dysuria. REVIEW OF SYSTEMS: A 12-point review of systems has been performed. PAST MEDICAL HISTORY: Significant for high cholesterol, deafness, BPH, COPD and asthma. PAST SURGICAL HISTORY: Noncontributory. ALLERGIES: THE PATIENT HAS NO KNOWN ALLERGIES. MEDICATIONS: Are reviewed. PHYSICAL EXAMINATION: VITAL SIGNS: Temperature is 98, blood pressure is 133/80, respiratory rate of 22 and heart rate of 80. HEENT: Examination is unremarkable. NECK: Supple. LUNGS: Have decreased breath sounds. HEART: Normal S1 and S2. ABDOMEN: Soft, nontender. No rebound. No guarding. It is a benign exam on the abdomen. LABORATORY DATA: Reveals a white count of 9.3, hemoglobin of 14, platelets of 195. Coagulation reveals the BUN of 17, creatinine of 0.8. Calcium is 10.7, AST is 16 and lipase is normal. Urinalysis is normal. Microbiology reveals the blood cultures have no growth. Urine cultures, no growth. The patient had a CAT scan of the abdomen and pelvis, which shows small collection and nonspecific. Chest x-ray was negative. ASSESSMENT AND PLAN: This is a 77-year-old male with high cholesterol, deafness, benign prostatic hypertrophy, chronic obstructive pulmonary disease, asthma with a small collection, status post laparoscopic cholecystectomy 4 weeks ago. I reviewed the CAT scan with Dr. Cody Gallegos who feels that this is a very small collection and was not significant and unable to access it and the patient has not had any fevers, have any white count, certainly not behaving like an abscess; currently, started on Zosyn; however, the patient's abdominal pain still must be explained. We will review with Gastroenterology and Surgery. Stephen Spicer MD [facility]
--- NOTE | 2018-03-07 10:33 | CP.PCM.PCO ---
Physician Communication Note - Physician Communication Note Physician Communication Note: GB Fossa-tiny/doubt infected/Rx Mylanta for PUD p Augmentin [id number]
--- NOTE | 2018-03-07 10:34 | PN ---
DATE: SUBJECTIVE: The patient has no complaints of any chest pain. No shortness of breath. No headaches. No dizziness. Patient's abdominal pain is controlled. PHYSICAL EXAMINATION VITAL SIGNS: Temperature is 98.2, pulse is 77, blood pressure is 120/76, respirations 18. GENERAL: The patient is lying in bed, flat, comfortable. HEENT: No oral lesion. Anicteric sclerae. Moist mucosa. NECK: No JVD, adenopathy, or thyromegaly. CARDIOVASCULAR: S1 and S2, regular. No murmurs, rubs, or gallops. LUNGS: Clear to auscultation bilaterally. No wheeze, rales, or rhonchi. ABDOMEN: Bowel sounds are positive. Soft, nontender and nondistended. EXTREMITIES: No cyanosis, clubbing or edema. LABORATORY DATA: Bone scan is normal. ASSESSMENT: 1. Fluid collection in the gallbladder fossa. 2. Chronic obstructive pulmonary disease. 3. Benign prostatic hypertrophy. 4. A 4 mm right lung nodule. 5. Status post cholecystectomy x1 month. PLAN: The patient is currently comfortable. At this point, to be on Percocet for pain. The patient is on IV fluids. I will decrease the patient's IV fluids. The patient is on liquid diet and Zofran as needed. The patient had been on antibiotics as mentioned recently. The patient's blood cultures and urine cultures have been negative. I will get Dr. Cody Gallegos to evaluate fluid collection. Gary Machuca MD
--- NOTE | 2018-03-07 10:46 | PN ---
DATE: SUBJECTIVE: Mr. Caal is a 77-year-old gentleman who had a recent cholecystectomy. He was admitted with abdominal pain. I reviewed his recent CT scan. There is a small amount of fluid around the liver and some minimal inflammatory changes in the gallbladder fossa. No large biloma is seen. His biliary scan is negative for leak. The CT fluid is not amenable to drainage at this time. I spoke briefly with Dr. Spicer. He should be treated conservatively at this point. If his pain increases or he shows signs of infection, a CT scan can be repeated. No drainage or aspiration will be performed at this time. Cody Gallegos MD MTDD
[2018-03-07] MEDS: Alum-Mag Hydrox-Simethicone Susp (30 mL) PO PRN (10:54)
--- NOTE | 2018-03-07 13:19 | CON ---
DATE:03/06/2018 REASON FOR CONSULTATION: Abdominal pain, status post cholecystectomy. HISTORY OF PRESENT ILLNESS: This is a 77-year-old patient with a past medical history of COPD, osteoarthritis. The patient has a history of chronic constipation, chronic abdominal distention. He has elevated CA19-9 of 248. The patient did have cholecystectomy done on 02/09/2018, found to have acute necrotizing cholecystitis with cholelithiasis. The patient was admitted with complaints of more abdominal discomfort, nausea, and vomiting. PAST MEDICAL HISTORY: Other past medical history is as above. REVIEW OF SYSTEMS: The patient is hard of hearing. Other systems are reviewed. History of chronic constipation. SOCIAL HISTORY: He is ex-smoker, quit about five months ago. Denies alcohol use. ALLERGIES: NO KNOWN DRUG ALLERGIES. FAMILY HISTORY: Noncontributory. PHYSICAL EXAMINATION: GENERAL: The patient is lying on the bed, not in acute distress. VITAL SIGNS: Temperature is 98.2, pulse 77, blood pressure 120/76, respirations 18, O2 saturation is 98%. HEENT: Atraumatic and anicteric. NECK: Supple. HEART: S1 and S2 heard. LUNGS: Bilateral air entry present. ABDOMEN: Soft. There is no mass palpable. Softly distended. He has mild discomfort on the right upper quadrant area. There is no rebound or guarding. EXTREMITIES: No cyanosis. No clubbing. LABORATORY DATA: Hemoglobin 14, hematocrit 42.3, WBC 9.3, and platelets 195. Chemistry is essentially unremarkable. Total bilirubin is 0.4. LFTs are, otherwise, unremarkable. The CT scan of the abdomen and pelvis done was reviewed and showed there is a large prostate gland with calcification. The patient was also found to have about 3.5 x 3.7 cm collection noticed in the gallbladder fossa. IMPRESSION: This 77-year-old patient was admitted with abdominal discomfort, status post cholecystectomy on 02/09/2018, for necrotic gallbladder. The patient has abdominal discomfort since he went home and has abdominal discomfort also. CT scan showed some fluid collection in the gallbladder fossa. Rule out biliary leak. PLAN: We would recommend: 1. HIDA scan of the abdomen. 2. Clear liquid diet. 3. We will discuss with the surgical team. The HIDA scan showed no biliary leak. We will continue to closely follow up with care and suggest further management based on the clinical course. Ashly Yao MD [facility] # [id number] NENA
[2018-03-07] MEDS: Simethicone 40 mg/0.6 ml Liquid (30 ml) PO SCH ×3 (14:26→23:37)
--- NOTE | 2018-03-07 21:58 | CP.PCM.PN ---
Subjective - Date & Time of Evaluation Date of Evaluation: 03/07/18 Time of Evaluation: 12:50 - Subjective Subjective: Comfortable, no abdominal pain, no fevers. Objective - Vital Signs/Intake and Output Vital Signs (last 24 hours): Temp Pulse Resp BP Pulse Ox 98.3 F 82 20 124/70 96 03/07/18 06:00 03/07/18 06:00 03/07/18 06:00 03/07/18 06:00 03/07/18 06:00 Intake and Output: 03/07/18 03/07/18 06:59 18:59 Intake Total 2100 Balance 2100 - Medications Medications: Current Medications Al Hydrox/Mg Hydrox/Simethicone (Maalox Plus 30 Ml) 30 ml PO DAILY PRN PRN Reason: GI distress Piperacillin Sod/Tazobactam Sod (Zosyn 3.375 In Ns 100ml) 100 mls @ 200 mls/hr IVPB Q6 EFFIE PRN Reason: Protocol Stop: 03/15/18 12:01 Last Admin: 03/07/18 05:54 Dose: 200 mls/hr Ketorolac Tromethamine (Toradol) 15 mg IVP Q4 PRN PRN Reason: Pain, severe (8-10) Ondansetron HCl (Zofran Inj) 4 mg IVP Q4 PRN PRN Reason: Nausea/Vomiting Oxycodone/Acetaminophen (Percocet 5/325 Mg Tab) 2 tab PO Q6 PRN PRN Reason: Pain, moderate (4-7) Stop: 03/09/18 00:01 Last Admin: 03/06/18 05:56 Dose: 2 tab Pantoprazole Sodium (Protonix Inj) 40 mg IVP DAILY [facility] Last Admin: 03/07/18 09:59 Dose: 40 mg - Labs Labs: PT 12.0 SECONDS (9.4-12.5) 03/05/18 15:00 INR 1.05 (0.93-1.08) 03/05/18 15:00 - Constitutional Appears: Non-toxic, Chronically Ill - Head Exam Head Exam: NORMAL INSPECTION - Respiratory Exam Respiratory Exam: Decreased Breath Sounds - Cardiovascular Exam Cardiovascular Exam: +S1, +S2 - GI/Abdominal Exam GI & Abdominal Exam: Soft. absent: Tenderness Assessment and Plan - Assessment and Plan (Free Text) Plan: Assessment post-op fluid collection after cholecystectomy R/O abscess COPD BPH hemorrhoids Plan Continue Zosyn and will continue to monitor clinically; will treat patient conservatively and if patient develops abdominal pain or fever, may need drainage of fluid collection will monitor clinically
[2018-03-08] MEDS: Piperacillin/Tazobact 3.375 gm 100 ML IVPB SCH ×4 (06:24→23:11)
[2018-03-08] MEDS: Pantoprazole 40 mg EC Tab PO SCH (06:26)
[2018-03-08 08:07] VITALS: RESP 20
--- NOTE | 2018-03-08 08:54 | CP.PCM.PN ---
Subjective - Date & Time of Evaluation Date of Evaluation: 03/08/18 Time of Evaluation: 08:51 - Subjective Subjective: General Surgery: Dr Medina Pt S&E. Reports he is feeling much better. Pain is now minimal. Pt reports his abdominal distension is resolving. He is in good spirits. Tolerating regular diet. Denies n/v, f/c, sob or chest pain Objective - Vital Signs/Intake and Output Vital Signs (last 24 hours): Temp Pulse Resp BP Pulse Ox 98.2 F 71 20 144/88 98 03/08/18 08:06 03/08/18 08:06 03/08/18 08:06 03/08/18 08:06 03/08/18 08:06 Intake and Output: 03/08/18 03/08/18 06:59 18:59 Intake Total 540 Balance 540 - Medications Medications: Current Medications Al Hydrox/Mg Hydrox/Simethicone (Maalox Plus 30 Ml) 30 ml PO Q4H PRN PRN Reason: Pain, moderate (4-7) Last Admin: 03/07/18 10:54 Dose: 30 ml Piperacillin Sod/Tazobactam Sod (Zosyn 3.375 In Ns 100ml) 100 mls @ 200 mls/hr IVPB Q6 EFFIE PRN Reason: Protocol Stop: 03/15/18 12:01 Last Admin: 03/08/18 06:24 Dose: 200 mls/hr Ketorolac Tromethamine (Toradol) 15 mg IVP Q4 PRN PRN Reason: Pain, severe (8-10) Ondansetron HCl (Zofran Inj) 4 mg IVP Q4 PRN PRN Reason: Nausea/Vomiting Oxycodone/Acetaminophen (Percocet 5/325 Mg Tab) 2 tab PO Q6 PRN PRN Reason: Pain, moderate (4-7) Stop: 03/09/18 00:01 Last Admin: 03/06/18 05:56 Dose: 2 tab Pantoprazole Sodium (Protonix Ec Tab) 40 mg PO 0600 [facility] Last Admin: 03/08/18 06:26 Dose: 40 mg Simethicone (Mylicon Liq) 40 mg PO QID [facility] Last Admin: 03/07/18 23:37 Dose: 40 mg - Labs Labs: PT 12.0 SECONDS (9.4-12.5) 03/05/18 15:00 INR 1.05 (0.93-1.08) 03/05/18 15:00 - Constitutional Appears: Non-toxic, No Acute Distress - ENT Exam ENT Exam: Mucous Membranes Moist - Respiratory Exam Respiratory Exam: absent: Accessory Muscle Use, Respiratory Distress - Cardiovascular Exam Cardiovascular Exam: absent: Tachycardia - GI/Abdominal Exam GI & Abdominal Exam: Soft. absent: Distended, Firm, Rigid, Hernia, Mass - Extremities Exam Extremities Exam: absent: Pedal Edema - Neurological Exam Neurological Exam: Alert, Awake, Oriented x3 - Psychiatric Exam Psychiatric exam: Normal Affect, Normal Mood - Skin Skin Exam: Normal Color, Warm Assessment and Plan - Assessment and Plan (Free Text) Assessment: 77M with abdominal pain, likely secondary to PUD 2/2 Augmentin Plan: cont protonix - pt should cont alternating protonix and H2 blockers as outpatient cont mylanta PRN no evidence of infection fluid collection not amenable to drainage and unlikely the cause of pain clear for discharge from surgery d/w Dr Adam Frazier, PGY3
[2018-03-08] MEDS: Simethicone 80 mg Chewtab PO SCH ×4 (11:21→21:06)
--- NOTE | 2018-03-08 22:21 | PN ---
DATE: SUBJECTIVE: Patient is in bed, in room 574, bed 2. Patient is seen earlier this morning. Patient is feeling much better. He has tolerated diet. He is having bowel movements. His abdominal discomfort is resolved. PHYSICAL EXAMINATION: VITAL SIGNS: Temperature is 98, blood pressure is 120/70, respiratory rate is 16. HEENT: Unremarkable. NECK: Supple. LUNGS: Have decreased breath sounds. HEART: Normal S1 and S2. ABDOMEN: Soft, nontender. LABORATORY EXAMINATION: Reveals a white count of 9.3, hemoglobin of 14, platelets of 195. Chemistries reveal a BUN of 17, creatinine of 0.8. Urinalysis is noted. Microbiology reveals the blood cultures are negative. Urine cultures are negative. . note is reviewed. ASSESSMENT AND PLAN: A 77-year-old male with postoperative fluid collection after an open laparoscopic cholecystectomy. I discussed the case with Dr. Cody Gallegos, not enough fluid to do anything. He recommends to repeating a CAT scan in a few days. We will continue the antibiotics and repeat a CAT scan on early next week. Currently on Zosyn. Stephen Spicer MD
--- NOTE | 2018-03-09 01:33 | PN ---
DATE: 03/08/2018 FOLLOWUP NOTE SUBJECTIVE: He is comfortable in bed, in no acute distress. He has fluid collection around the gallbladder. Status post cholecystectomy 4 weeks ago. Currently on IV antibiotic Zosyn. No nausea. No vomiting. Surgery following. No indication for surgical drainage. Fluid collection is very small. No fever overnight. REVIEW OF SYSTEMS: As per HPI. Rest of 12-point review of systems reviewed negative. PHYSICAL EXAMINATION: GENERAL: Comfortable in bed, in no acute distress. VITAL SIGNS: Temperature 98.7, heart rate 80 per minute, blood pressure 110/70, respiratory rate 18 per minute, oxygen saturation 98% on room air. HEENT: Pallor positive. NECK: No lymphadenopathy. CHEST: Air entry present and equal bilateral. No added sounds. CARDIOVASCULAR: S1, S2 normal. No murmur. No gallop. ABDOMEN: Soft, nontender. No hepatosplenomegaly. EXTREMITIES: No edema. LABORATORY DATA: White count 9.3, hemoglobin 13, platelet count 195, BUN 17, creatinine 0.8. MEDICATIONS: Reviewed. ASSESSMENT: 1. Status post cholecystectomy. 2. Fluid collection around the gallbladder. 3. Chronic obstructive pulmonary disease. 4. Abdominal pain. PLAN: Currently on IV antibiotic Zosyn. Dr. Spicer following. Plan is to repeat CAT scan early next week. There is not enough fluid to be drained. No abdominal pain. Continue Zofran 4 mg p.r.n. Percocet p.r.n. for pain. Radha Mejias MD
[2018-03-09] MEDS: Piperacillin/Tazobact 3.375 gm 100 ML IVPB SCH ×5 (05:12→23:59)
[2018-03-09] MEDS: Pantoprazole 40 mg EC Tab PO SCH (05:12)
[2018-03-09] MEDS: Oxycodone/Acetaminophen 5/325 mg Tab PO PRN (05:22)
[2018-03-09] MEDS: Simethicone 80 mg Chewtab PO SCH ×4 (09:35→23:22)
--- NOTE | 2018-03-09 10:26 | PN ---
DATE: 03/09/2018 SUBJECTIVE: He is comfortable in bed, in no acute distress, ambulating in the room. He has fluid collection around the gallbladder. CAT scan will be planned for tomorrow. Currently on IV antibiotics as per Dr. Spicer. REVIEW OF SYSTEMS As per HPI. Rest of 12 point systems reviewed, negative. PHYSICAL EXAMINATION: GENERAL: Comfortable in bed, in no acute distress. VITAL SIGNS: Stable. Temperature 98.2, heart rate 70 per minute, blood pressure 149/81, respiratory rate 20 per minute, oxygen saturation 95% on room air. HEENT: Normal. Pallor positive. NECK: No lymphadenopathy. CHEST: Air entry present, equal bilaterally. No added sounds. CARDIOVASCULAR: S1, S2 normal. No murmur. No gallops. ABDOMEN: Soft, nontender. No hepatosplenomegaly. EXTREMITIES: No edema. KEG HEADER: Alert and oriented x3. No focal sensory motor deficit. LABORATORY DATA: White count 9.3, hemoglobin 14, hematocrit 42.3, platelet count 195. Sodium 140, potassium 3.9, creatinine 0.8, AST 16, ALT 32. ASSESSMENT AND PLAN: 1. Fluid collection around the gallbladder; abdominal pain, resolved. 2. Chronic obstructive pulmonary disease. 3. Abdominal pain. He is currently on IV antibiotic, Dr. Spicer following. CT scan is planned for next week. There is not enough fluid to be drained. Dr. Cody aGllegos evaluated for CT-guided drainage. We will continue current medications. Pain control with current medications, IV Zofran. To continue Protonix 40 mg daily; Maalox. to continue. Radha Mejias MD
[2018-03-09] MEDS: Alum-Mag Hydrox-Simethicone Susp (30 mL) PO PRN (14:23)
[2018-03-09] MEDS ORDERED: Magnesium Citrate Oral SOL (300 ml) PO ONE (16:19)
[2018-03-10] MEDS: Oxycodone/Acetaminophen 5/325 mg Tab PO PRN (01:26)
--- NOTE | 2018-03-10 03:11 | PN ---
DATE: 03/09/2018 SUBJECTIVE: Patient is in bed, in no acute distress, nontoxic. No fevers and no chills. PHYSICAL EXAMINATION: VITAL SIGNS: Temperature is 98, blood pressure is 149/80, respiratory rate of 20, heart rate of 70. HEENT: Unremarkable. NECK: Supple. LUNGS: Have decreased breath sounds. HEART: Normal S1 and S2. ABDOMEN: Soft, nontender. LABORATORY EXAMINATION: Reveals a white count of 9.3, hemoglobin of 14, platelets of 195. BUN is 17, creatinine is 0.8. Microbiology reveals the blood cultures are negative. Urine cultures are negative. ASSESSMENT AND PLAN: A 77-year-old male with postoperative fluid collection after an open laparoscopic cholecystectomy and I discussed the case with Dr. Cody Gallegos, not enough for fluid aspirations by CT. Recommends conservative therapy. We will continue the Zosyn. Consider repeating CAT scan of the abdomen in next few days. Clinically, patient is much improved. The patient's abdominal pain has resolved. Review of medications confirms the Zosyn to be active. Stephen Spicer MD
[2018-03-10] MEDS: Piperacillin/Tazobact 3.375 gm 100 ML IVPB SCH (05:55)
[2018-03-10] MEDS: Pantoprazole 40 mg EC Tab PO SCH (05:55)
--- NOTE | 2018-03-10 06:26 | CP.PCM.PN ---
Subjective - Date & Time of Evaluation Date of Evaluation: 03/10/18 Time of Evaluation: 06:25 - Subjective Subjective: # 22 angiocath was inserted in left hand dorsum. Dx: Poor venous access. Objective - Vital Signs/Intake and Output Vital Signs (last 24 hours): Temp Pulse Resp BP Pulse Ox 98.2 F 70 20 149/81 95 03/09/18 08:11 03/09/18 08:11 03/09/18 08:11 03/09/18 08:11 03/09/18 08:11 Intake and Output: 03/09/18 03/10/18 18:59 06:59 Intake Total 640 1000 Output Total 960 Balance -320 1000 - Medications Medications: Current Medications Al Hydrox/Mg Hydrox/Simethicone (Maalox Plus 30 Ml) 30 ml PO Q4H PRN PRN Reason: Pain, moderate (4-7) Last Admin: 03/09/18 14:23 Dose: 30 ml Piperacillin Sod/Tazobactam Sod (Zosyn 3.375 In Ns 100ml) 100 mls @ 200 mls/hr IVPB Q6 EFFIE PRN Reason: Protocol Stop: 03/15/18 12:01 Last Admin: 03/10/18 05:55 Dose: 200 mls/hr Ketorolac Tromethamine (Toradol) 15 mg IVP Q4 PRN PRN Reason: Pain, severe (8-10) Ondansetron HCl (Zofran Inj) 4 mg IVP Q4 PRN PRN Reason: Nausea/Vomiting Oxycodone/Acetaminophen (Percocet 5/325 Mg Tab) 1 tab PO Q6H PRN PRN Reason: Pain, severe (8-10) Stop: 03/11/18 18:46 Last Admin: 03/10/18 01:26 Dose: 1 tab Pantoprazole Sodium (Protonix Ec Tab) 40 mg PO 0600 [facility] Last Admin: 03/10/18 05:55 Dose: 40 mg Simethicone (Mylicon Chew Tab) 40 mg PO QID [facility] Last Admin: 03/09/18 23:22 Dose: 40 mg - Labs Labs: PT 12.0 SECONDS (9.4-12.5) 03/05/18 15:00 INR 1.05 (0.93-1.08) 03/05/18 15:00
[2018-03-10 08:01] VITALS: BP 138/95; PULSE 60; TEMP 97.8; O2SAT 98
[2018-03-10] MEDS: Simethicone 80 mg Chewtab PO SCH (09:36)
--- NOTE | 2018-03-10 12:13 | PN ---
DATE: SUBJECTIVE: The patient has no complaints of any chest pain or shortness of breath. No headaches. Abdominal pain is improved. PHYSICAL EXAMINATION: VITAL SIGNS: Temperature 98.2, pulse is 90, blood pressure 149/84, respirations 20. GENERAL: The patient is lying in bed, flat, comfortable. HEENT: No oral lesion. Anicteric sclerae. Moist mucosa. NECK: No JVD, adenopathy, or thyromegaly. CARDIOVASCULAR: S1 and S2, regular. No murmurs, rubs, or gallops. LUNGS: Clear to auscultation bilaterally. No wheeze, rales, or rhonchi. ABDOMEN: Bowel sounds are positive. Soft, nontender and nondistended. EXTREMITIES: No cyanosis, clubbing or edema. ASSESSMENT: 1. Fluid collection in the gallbladder fossa. 2. Chronic obstructive pulmonary disease. 3. Benign prostatic hypertrophy. 4. A 1-mm right lung nodule. 5. Status post cholecystectomy x1 month. PLAN: The patient is currently comfortable. The patient does not have enough fluid to be drained according to IR. The patient's blood culture and urine culture have been negative. The patient has been cleared to be discharged by Surgery. The patient will be discharged home to follow up as an outpatient. Gary Machuca MD
== END 2018-03-10 12:32 | disposition home or self-care (01) | DRG 948 ==
LOC: ED 13:26 → ERH 18:16 → 5RSO 20:53
PROVIDERS: ADMIT Internal Medicine Nephrology; ATTEND Internal Medicine Nephrology
DX: G89.18 Other acute postprocedural pain (principal); R18.8 Other ascites; J04.0 Acute laryngitis; J44.9 Chronic obstructive pulmonary disease, unspecified; N40.0 Benign prostatic hyperplasia without lower urinary tract symptoms; R91.1 Solitary pulmonary nodule; Z90.49 Acquired absence of other specified parts of digestive tract; E78.00 Pure hypercholesterolemia, unspecified; F17.210 Nicotine dependence, cigarettes, uncomplicated; H91.91 Unspecified hearing loss, right ear; I71.9 Aortic aneurysm of unspecified site, without rupture; K27.9 Peptic ulcer, site unspecified, unspecified as acute or chronic, without hemorrhage or perforation; K57.30 Diverticulosis of large intestine without perforation or abscess without bleeding; K59.00 Constipation, unspecified; K64.9 Unspecified hemorrhoids

== ENCOUNTER 2018-03-26 10:24 | Emergency (ER) | payer MEDICARE, MEDICAID ==
[2018-03-26 10:24] VITALS: BMI 33.4
[2018-03-26] MEDS: Albuterol-Ipratrop 3 mg / 0.5 (3 ml) UD IH SCH ×3 (11:10→11:38)
--- NOTE | 2018-03-26 11:18 | ED PDOC ---
Arrival/HPI - General Chief Complaint: Cough, Cold, Congestion Time Seen by Provider: 03/26/18 11:00 - History of Present Illness Narrative History of Present Illness (Text): 03/26/18 11:15 Patient is a 77 y/o M with hx of COPD, presenting with productive cough. Patient reports 3 week history of chronic cough, that has worsened in the last 4 days, now productive with yellow sputum. He reports that he feels like he has mucus stuck in his chest. Reports some relief with coughing and home nebulizers. Denies chest pain or shortness of breath. Denies fever. PMD: [place]. Past Medical History - Infectious Disease Hx of Infectious Diseases: None - Tetanus Immunization Tetanus Immunization: Unknown - Cardiac Hx Cardiac Disorders: No - Pulmonary Hx Chronic Obstructive Pulmonary Disease (COPD): Yes - Neurological Hx Neurological Disorder: No - HEENT Hx HEENT Disorder: Yes ([facility]) Hx Deafness: Yes (rt ear) - Renal Hx Renal Disorder: No - Endocrine/Metabolic Hx Endocrine Disorders: No - Hematological/Oncological Hx Blood Transfusions: No Hx Blood Transfusion Reaction: No - Integumentary Hx Dermatological Disorder: No - Musculoskeletal/Rheumatological Hx Arthritis: Yes - Gastrointestinal Hx Gastrointestinal Disorders: Yes (CHOLILITHIASIS) Hx Gall Bladder Disease: Yes - Genitourinary/Gynecological Hx Genitourinary Disorders: Yes Hx Prostate Problems: Yes - Psychiatric Hx Psychophysiologic Disorder: No Hx Depression: No Hx Emotional Abuse: No Hx Physical Abuse: No Hx Substance Use: No - Past Surgical History Past Surgical History: No Previous - Surgical History Hx Cholecystectomy: Yes Other/Comment: gall stone - Anesthesia Hx Anesthesia Reactions: No Hx Malignant Hyperthermia: No - Suicidal Assessment Feels Threatened In Home Enviroment: No Family/Social History Family/Social History: No Known Family HX Smoking Status: Current Some Days Smoker Hx Alcohol Use: No Hx Substance Use: No Hx Substance Use Treatment: No Allergies/Home Meds Allergies/Adverse Reactions: Allergies No Known Allergies Allergy (Verified 03/26/18 10:28) Home Medications: Home Meds Medication Instructions Recorded Confirmed Tamsulosin [Flomax] 0.4 mg PO DAILY 11/11/17 03/26/18 Albuterol/Ipratropium [Duoneb 3 1 dose NEB BID 02/06/18 03/26/18 mg/0.5 mg (3 ml) UD] Review of Systems - Review of Systems Constitutional: absent: Fatigue, Weight Change, Fevers Respiratory: Cough, Sputum, Wheezing. absent: SOB Cardiovascular: absent: Chest Pain, Palpitations, Edema, Calf Pain, DORAN, Orthopnea, Syncope Gastrointestinal: absent: Abdominal Pain, Constipation, Diarrhea, Nausea, Vomiting Genitourinary Male: absent: Dysuria Skin: absent: Rash Neurological: absent: Headache, Dizziness, Focal Weakness, Gait Changes, Speech Changes, Facial Droop, Disequilibrium Psychiatric: absent: Anxiety Physical Exam Vital Signs Temp Pulse Resp BP Pulse Ox 03/26/18 14:22 78 18 112/71 95 03/26/18 14:12 98.2 F 77 20 111/56 L 96 03/26/18 10:31 97.5 F L 86 18 122/51 L 95 Temperature: Afebrile Blood Pressure: Normal Pulse: Regular Respiratory Rate: Normal Appearance: Positive for: Well-Appearing, Non-Toxic, Comfortable Pain Distress: None Mental Status: Positive for: Alert and Oriented X 3 - Systems Exam Head: Present: Atraumatic, Normocephalic Pupils: Present: PERRL Extroacular Muscles: Present: EOMI Conjunctiva: Present: Normal Mouth: Present: Moist Mucous Membranes Neck: Present: Normal Range of Motion. No: Meningeal Signs Respiratory/Chest: Present: Good Air Exchange, Wheezes. No: Respiratory Distress, Accessory Muscle Use, Rales, Retracting, Rhonchi Cardiovascular: Present: Regular Rate and Rhythm, Normal S1, S2. No: Murmurs Abdomen: No: Tenderness, Distention Upper Extremity: Present: Normal Inspection Lower Extremity: Present: Normal Inspection. No: Edema Neurological: Present: GCS=15, CN II-XII Intact, Speech Normal Skin: Present: Warm Psychiatric: Present: Alert, Oriented x 3, Normal Insight, Normal Concentration Medical Decision Making ED Course and Treatment: 03/26/18 11:17 -cxray to r/o pna -nebs/steroids 03/26/18 12:50 EKG shows NSR at 78bpm with non-specific st changes, unchanged from prior EKG from 01/2018. Cxray negative for infiltrate as read by me. 03/26/18 16:24 On reevaluation after 4 duonebs and steroids, patient is reporting improvement of symptoms. Given first dose of zpack in ED for copd exacerbation. On reevaluation, wheezing is resolved and patient feels better and wants to go home. - Lab Interpretations Lab Results: 03/26/18 11:35 03/26/18 12:15 Lab Results 03/26/18 12:15: Sodium 146, Potassium 4.3, Chloride 108 H, Carbon Dioxide 27, Anion Gap 16, BUN 20, Creatinine 0.9, Est GFR ( Amer) > 60, Est GFR (Non- Af Amer) > 60, Random Glucose 111 H, Calcium 10.5, Total Bilirubin 0.3, AST 17, ALT 26, Alkaline Phosphatase 71, Troponin I < 0.01, NT-Pro-B Natriuret Pep 27.2 , Total Protein 6.7, Albumin 4.0, Globulin 2.8, Albumin/Globulin Ratio 1.4 03/26/18 11:35: WBC 7.4 D, RBC 4.80, Hgb 14.4, Hct 43.6, MCV 90.8, MCH 30.0, MCHC 33.0, RDW 14.8 H, Plt Count 234, MPV 10.6, Gran % 50.5, Lymph % (Auto) 32.1 , Reynolds % (Auto) 5.4, Eos % (Auto) 11.0 H, Baso % (Auto) 1.0, Gran # 3.71, Lymph # (Auto) 2.4, Reynolds # (Auto) 0.4, Eos # (Auto) 0.8 H, Baso # (Auto) 0.07 - RAD Interpretation Radiology Orders: 03/26/18 11:08 CHEST TWO VIEWS (PA/LAT) [RAD] Stat - Medication Orders Current Medication Orders: Discontinued Medications Albuterol/Ipratropium (Duoneb 3 Mg/0.5 Mg (3 Ml) Ud) 3 ml IH Q15M EFFIE Stop: 03/26/18 11:46 Last Admin: 03/26/18 11:38 Dose: 3 ml Albuterol/Ipratropium (Duoneb 3 Mg/0.5 Mg (3 Ml) Ud) 3 ml IH STAT STA Stop: 03/26/18 13:00 Last Admin: 03/26/18 13:09 Dose: 3 ml Azithromycin (Zithromax) 500 mg PO STAT STA PRN Reason: Protocol Stop: 03/26/18 12:53 Last Admin: 03/26/18 13:09 Dose: 500 mg Benzonatate (Tessalon Perles) 100 mg PO STAT STA Stop: 03/26/18 12:52 Last Admin: 03/26/18 13:09 Dose: 100 mg Prednisone (Prednisone Tab) 60 mg PO STAT ONE Stop: 03/26/18 11:09 Last Admin: 03/26/18 11:38 Dose: 60 mg Disposition/Present on Arrival - Present on Arrival Any Indicators Present on Arrival: No History of DVT/PE: No History of Uncontrolled Diabetes: No Urinary Catheter: No History of Decub. Ulcer: No History Surgical Site Infection Following: None - Disposition Have Diagnosis and Disposition been Completed?: Yes Diagnosis: Cough, COPD (chronic obstructive pulmonary disease) Disposition: HOME/ ROUTINE Disposition Time: 12:52 Patient Plan: Discharge Condition: GOOD Discharge Instructions (ExitCare): Chronic Obstructive Pulmonary Disease (COPD) , Including Emphysema, Cough in Adults, Risk Factors for COPD Additional Instructions: Take steroids and azithromycin starting tomorrow. Use tessalon perles as needed for cough. Use nebulizer at home. Return to ED if condition worsens. Follow-up with your PMD within 2 days. Prescriptions: Azithromycin 250 mg PO DAILY #4 tablet Benzonatate [Tessalon Perles] 100 mg PO Q6 PRN #20 sgl PRN Reason: Cough Prednisone 50 mg PO DAILY #3 tablet Referrals: Gary Machuca MD [Primary Care Provider] - Follow up with primary Forms: [employer] (Austrian)
[2018-03-26 11:54] LABS: BASO # 0.07 K/mm3 (0.0-2.0); EOS # 0.8 (0.0-0.7); GRAN # 3.71 (1.4-6.5); GRAN % 50.5 % (50.0-68.0); HEMOGLOBIN 14.4 g/dL (14.0-18.0); LYMPH # 2.4 (1.2-3.4); LYMPH % 32.1 % (22.0-35.0); MEAN CELL VOLUME 90.8 fl (80.0-105.0); MEAN PLATELET VOLUME 10.6 fl (7.0-11.0); MONO # 0.4 (0.1-0.6); MONO % 5.4 % (1.0-6.0); RBC 4.8 10^6/uL (3.5-6.1); RED CELL DISTRIBUTION WIDTH 14.8 % (11.5-14.5); WHITE BLOOD COUNT 7.4 10^3/ul (4.5-11.0)
[2018-03-26 12:34] LABS: ALB/GLOB RATIO 1.4 (1.1-1.8); ALT/SGPT 26 U/L (7-56); AST/SGOT 17 U/L (17-59); BLOOD UREA NITROGEN 20 mg/dL (7-21); CALCIUM 10.5 mg/dL (8.4-10.5); GFR AFRICAN-AMERICAN > 60; GFR NON-AFRICAN AMERICAN > 60
[2018-03-26 12:44] LABS: B-TYPE NATRIURETIC PEPTIDE 27.2 pg/mL (0-450); TROPONIN I < 0.01 ng/mL
[2018-03-26] MEDS ORDERED: Albuterol-Ipratrop 3 mg / 0.5 (3 ml) UD IH STA (12:59)
--- NOTE | 2018-03-26 13:11 | RAD ---
HISTORY: productive cough COMPARISON: 03/06/2018 TECHNIQUE: Chest PA and lateral FINDINGS: LUNGS: No active pulmonary disease. PLEURA: No significant pleural effusion identified. No pneumothorax apparent. CARDIOVASCULAR: Normal. OSSEOUS STRUCTURES: No significant abnormalities. VISUALIZED UPPER ABDOMEN: Normal. OTHER FINDINGS: None. IMPRESSION: No active disease.
[2018-03-26 14:22] VITALS: BP 112/71; PULSE 78; RESP 18; TEMP 98.2; O2SAT 95
--- NOTE | 2018-03-26 15:38 | CARD ---
APPROVED REPORT EKG Measurement Heart [id number] <Conclusion> Normal sinus rhythm LAD Possible septal AK, old NSSTW changes
== END 2018-03-26 14:23 | disposition home or self-care (01) ==
LOC: ED 10:24
DX: J44.9 Chronic obstructive pulmonary disease, unspecified (principal); R05 Cough; F17.210 Nicotine dependence, cigarettes, uncomplicated

== ENCOUNTER 2018-04-23 06:23 | Inpatient (IN) | payer MEDICARE, MEDICAID ==
[2018-04-23] MEDS: Albuterol-Ipratrop 3 mg / 0.5 (3 ml) UD IH SCH ×6 (06:40→21:37)
--- NOTE | 2018-04-23 07:04 | ED PDOC ---
Arrival/HPI - General Chief Complaint: Shortness Of Breath Time Seen by Provider: 04/23/18 06:31 Historian: Patient - History of Present Illness Narrative History of Present Illness (Text): 04/23/18 07:00 Patient is a 77 year old male whose a former smoker, and who presents to the Emergency department by EMS complaining of a productive cough with yellow sputum for the past 3 days and today woke up with dyspnea. Patient reports that he has been having upper respiratory issues since February. Patient denies headache, dizziness, chest pain, abdominal pain, diarrhea, back pain, neck pain , or any other complaint. 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) - Renal Hx Renal Disorder: No - Endocrine/Metabolic Hx Endocrine Disorders: No - Hematological/Oncological Hx Blood Transfusions: No Hx Blood Transfusion Reaction: No - Integumentary Hx Dermatological Disorder: No - Musculoskeletal/Rheumatological Hx Arthritis: Yes - Gastrointestinal Hx Gastrointestinal Disorders: Yes (CHOLILITHIASIS) Hx Gall Bladder Disease: Yes - Genitourinary/Gynecological Hx Genitourinary Disorders: Yes Hx Prostate Problems: Yes - Psychiatric Hx Psychophysiologic Disorder: No Hx Depression: No Hx Emotional Abuse: No Hx Physical Abuse: No Hx Substance Use: No - Past Surgical History Past Surgical History: No Previous - Surgical History Hx Cholecystectomy: Yes Other/Comment: gall stone - Anesthesia Hx Anesthesia Reactions: No Hx Malignant Hyperthermia: No - Suicidal Assessment Feels Threatened In Home Enviroment: No Family/Social History - Physician Review Nursing Documentation Reviewed: Yes Family/Social History: No Known Family HX Smoking Status: Current Some Days Smoker Hx Alcohol Use: No Hx Substance Use: No Hx Substance Use Treatment: No Allergies/Home Meds Allergies/Adverse Reactions: Allergies No Known Allergies Allergy (Verified 03/26/18 10:28) Home Medications: Home Meds Medication Instructions Recorded Confirmed Tamsulosin [Flomax] 0.4 mg PO DAILY 11/11/17 04/23/18 Albuterol/Ipratropium [Duoneb 3 1 dose NEB BID 02/06/18 04/23/18 mg/0.5 mg (3 ml) UD] Albuterol Sulfate [Ventolin Hfa] 1 puff IH PRN PRN 04/23/18 04/23/18 Review of Systems - Physician Review All systems were reviewed & negative as marked: Yes - Review of Systems Respiratory: SOB, Cough, Sputum Cardiovascular: absent: Chest Pain Gastrointestinal: absent: Abdominal Pain Neurological: absent: Headache, Dizziness Physical Exam Vital Signs Reviewed: Yes Vital Signs Temp Pulse Resp BP Pulse Ox 04/23/18 09:58 89 18 112/72 99 04/23/18 08:28 97.3 F L 85 20 128/82 97 04/23/18 06:47 25 H 98 Temperature: Afebrile Blood Pressure: Normal Pulse: Regular Respiratory Rate: Normal Appearance: Positive for: Well-Appearing Mental Status: Positive for: Alert and Oriented X 3 - Systems Exam Head: Present: Atraumatic, Normocephalic Pupils: Present: PERRL Extroacular Muscles: Present: EOMI Conjunctiva: Present: Normal Mouth: Present: Moist Mucous Membranes Neck: Present: Normal Range of Motion Respiratory/Chest: Present: Clear to Auscultation, Good Air Exchange, Wheezes ( diffuse wheezing), Rhonchi. No: Respiratory Distress, Accessory Muscle Use Cardiovascular: Present: Regular Rate and Rhythm, Normal S1, S2. No: Murmurs Abdomen: No: Tenderness, Distention, Peritoneal Signs Back: Present: Normal Inspection Upper Extremity: Present: Normal Inspection. No: Cyanosis, Edema Lower Extremity: Present: Normal Inspection. No: Edema Neurological: Present: GCS=15, CN II-XII Intact, Speech Normal Skin: Present: Warm, Dry, Normal Color. No: Rashes Psychiatric: Present: Alert, Oriented x 3, Normal Insight, Normal Concentration Medical Decision Making ED Course and Treatment: 04/23/18 07:06 Impression: Patient is a 77 year old male who presents to Emergency department complaining of a productive cough with yellow sputum for the past 3 days and woke up today with dyspnea. Plan: --EKG --labs --Chest X-ray --Duoneb --Solu-Medrol -- Reassess and disposition Prior Visits: Notes and results from previous visits were reviewed. Progress Notes: EKG shows NSR at [address]/T wave changes. Interpreted by me. Chest X-ray shows no cardiomegaly or infiltrate, and shows evidence of COPD. 04/23/18 08:52 Discussed case with , who is aware and agrees to admit patient to his service. recommends that patient start Rocephin and Zithromax - Lab Interpretations Lab Results: 04/23/18 06:50 04/23/18 06:50 Lab Results 04/23/18 06:50: Sodium 142, Potassium 3.9, Chloride 105, Carbon Dioxide 28, Anion Gap 13, BUN 20, Creatinine 0.8, Est GFR ( Amer) > 60, Est GFR (Non- Af Amer) > 60, Random Glucose 120 H, Calcium 10.4, Magnesium 2.3 H, Total Bilirubin 0.2, AST 19, ALT 26, Alkaline Phosphatase 78, Lactate Dehydrogenase 365, Total Creatine Kinase 85, Troponin I < 0.01, NT-Pro-B Natriuret Pep < 11.1 , Total Protein 6.8, Albumin 4.1, Globulin 2.8, Albumin/Globulin Ratio 1.5 04/23/18 06:50: PT 10.9, INR 0.95, APTT 29.3 04/23/18 06:50: WBC 7.7, RBC 4.96, Hgb 14.8, Hct 44.2, MCV 89.1, MCH 29.8, MCHC 33.5, RDW 14.5, Plt Count 217, MPV 10.3, Gran % 43.0 L, Lymph % (Auto) 42.5 H, Richardson % (Auto) 7.9 H, Eos % (Auto) 5.8 H, Baso % (Auto) 0.8, Gran # 3.32, Lymph # (Auto) 3.3, Richardson # (Auto) 0.6, Eos # (Auto) 0.5, Baso # (Auto) 0.06 I have reviewed the lab results: Yes - RAD Interpretation Radiology Orders: 04/23/18 06:32 CHEST PORTABLE [RAD] Stat [facility] Department Supervisor: ED Physician - EKG Interpretation Interpreted by ED Physician: Yes Type: 12 lead EKG - Medication Orders Current Medication Orders: Acetylcysteine (Acetylcysteine 20%) 4 ml IH [id number] [facility] Last Admin: 04/25/18 07:21 Dose: 4 ml Albuterol/Ipratropium (Duoneb 3 Mg/0.5 Mg (3 Ml) Ud) 3 ml IH [id number] [facility] Last Admin: 04/25/18 08:00 Dose: Benzonatate (Tessalon Perles) 100 mg PO TID [facility] Last Admin: 04/25/18 10:22 Dose: 100 mg Budesonide (Pulmicort Respules) 0.5 mg IH [id number] [facility] Last Admin: 04/25/18 07:21 Dose: 0.5 mg Vancomycin HCl 1.5 gm/ Sodium (Chloride) 500 mls @ 167 mls/hr IVPB Q12H [facility] PRN Reason: Protocol Last Admin: 04/25/18 08:55 Dose: 167 mls/hr eMAR Start Stop Document 04/25/18 08:55 SES (Rec: 04/25/18 08:56 SES [id number]) Intravenous Solution Start Date 04/25/18 Start Time 08:55 End Date 04/25/18 End time 11:55 Total Infusion Time 180 Levofloxacin (Levaquin) 500 mg PO DAILY [facility] PRN Reason: Protocol Last Admin: 04/25/18 10:22 Dose: 500 mg Methylprednisolone (Solu-Medrol) 40 mg IVP Q12 [facility] Last Admin: 04/25/18 10:22 Dose: Tamsulosin HCl (Flomax) 0.4 mg PO DAILY [facility] Last Admin: 04/25/18 10:22 Dose: 0.4 mg Discontinued Medications Albuterol/Ipratropium (Duoneb 3 Mg/0.5 Mg (3 Ml) Ud) 3 ml IH Q15M [facility] Stop: 04/23/18 07:16 Last Admin: 04/23/18 10:41 Dose: 3 ml Albuterol/Ipratropium (Duoneb 3 Mg/0.5 Mg (3 Ml) Ud) 3 ml IH [id number] [facility] Last Admin: 04/25/18 07:21 Dose: 3 ml Benzonatate (Tessalon Perles) 100 mg PO ONCE ONE Stop: 04/24/18 00:03 Last Admin: 04/24/18 00:13 Dose: 100 mg Ceftriaxone Sodium (Rocephin 1 Gram Ivpb) 1 gm in 100 mls @ 200 mls/hr IVPB STAT STA PRN Reason: Protocol Stop: 04/23/18 09:30 Last Admin: 04/23/18 09:51 Dose: 200 mls/hr eMAR Start Stop Document 04/23/18 09:51 EQ (Rec: 04/23/18 09:51 EQ [id number]) Intravenous Solution Start Date 04/23/18 Start Time 09:51 Azithromycin (Zithromax 500mg In Ns) 500 mg in 250 mls @ 167 mls/hr IVPB STAT STA PRN Reason: Protocol Stop: 04/23/18 10:30 Last Admin: 04/23/18 10:41 Dose: 167 mls/hr eMAR Start Stop Document 04/23/18 10:41 EQ (Rec: 04/23/18 10:41 EQ [id number]) Intravenous Solution Start Date 04/23/18 Start Time 10:41 Lorazepam (Ativan) 2 mg IVP ONCE ONE PRN Reason: Protocol Stop: 04/23/18 08:51 Last Admin: 04/23/18 09:51 Dose: 2 mg IVP Administration Document 04/23/18 09:51 EQ (Rec: 04/23/18 09:51 EQ [id number]) Charges for Administration # of IVP Administrations 1 Methylprednisolone (Solu-Medrol) 125 mg IVP STAT STA Stop: 04/23/18 06:33 Last Admin: 04/23/18 06:47 Dose: 125 mg IVP Administration Document 04/23/18 06:47 RD (Rec: 04/23/18 06:54 RD [id number]) Charges for Administration # of IVP Administrations 1 Methylprednisolone (Solu-Medrol) 40 mg IVP Q8H [facility] Last Admin: 04/25/18 05:39 Dose: 40 mg IVP Administration Document 04/25/18 05:39 BN (Rec: 04/25/18 05:46 BN [id number]) Charges for Administration # of IVP Administrations 1 Pneumococcal Polyvalent Vaccine (Pneumovax 23 Vaccine) 0.5 ml IM .ONCE ONE Stop: 04/23/18 14:32 Tamsulosin HCl (Flomax) 0.4 mg PO DAILY [facility]FFIE - Scribe Statement The provider has reviewed the documentation as recorded by the Scribe Deuce Lotfalla Provider Scribe Attestation: All medical record entries made by the Walker were at my direction and personally dictated by me. I have reviewed the chart and agree that the record accurately reflects my personal performance of the history, physical exam, medical decision making, and the department course for this patient. I have also personally directed, reviewed, and agree with the discharge instructions and disposition. Disposition/Present on Arrival - Present on Arrival Any Indicators Present on Arrival: No History of DVT/PE: No History of Uncontrolled Diabetes: No Urinary Catheter: No History of Decub. Ulcer: No History Surgical Site Infection Following: None - Disposition Have Diagnosis and Disposition been Completed?: Yes Diagnosis: COPD exacerbation, Acute bronchitis Disposition: HOSPITALIZED Disposition Time: 08:58 Patient Plan: Admission Patient Problems: Current Active Problems Problem Status Onset Acute bronchitis Acute COPD exacerbation Acute Condition: GOOD
[2018-04-23 07:05] LABS: BASO # 0.06 K/mm3 (0.0-2.0); BASO % 0.8 % (0.0-3.0); EOS # 0.5 (0.0-0.7); EOS % 5.8 % (1.5-5.0); GRAN # 3.32 (1.4-6.5); HEMOGLOBIN 14.8 g/dL (14.0-18.0); LYMPH # 3.3 (1.2-3.4); LYMPH % 42.5 % (22.0-35.0); MEAN CELL VOLUME 89.1 fl (80.0-105.0); MEAN CORPUSCULAR HEMOGLOBIN 29.8 pg (25.0-35.0); MEAN CORPUSCULAR HGB CONC 33.5 g/dl (31.0-37.0); MEAN PLATELET VOLUME 10.3 fl (7.0-11.0); MONO # 0.6 (0.1-0.6); MONO % 7.9 % (1.0-6.0); RBC 4.96 10^6/uL (3.5-6.1); RED CELL DISTRIBUTION WIDTH 14.5 % (11.5-14.5); WHITE BLOOD COUNT 7.7 10^3/ul (4.5-11.0)
[2018-04-23 07:12] LABS: ALB/GLOB RATIO 1.5 (1.1-1.8); ALBUMIN 4.1 g/dL (3.0-4.8); ALT/SGPT 26 U/L (7-56); AST/SGOT 19 U/L (17-59); BLOOD UREA NITROGEN 20 mg/dL (7-21); CALCIUM 10.4 mg/dL (8.4-10.5); GFR AFRICAN-AMERICAN > 60; GFR NON-AFRICAN AMERICAN > 60
[2018-04-23 07:13] LABS: INR 0.95 (0.93-1.08); PARTIAL THROMBOPLASTIN TIME 29.3 Seconds (25.1-36.5); PROTHROMBIN TIME 10.9 SECONDS (9.4-12.5)
[2018-04-23 07:23] LABS: TROPONIN I < 0.01 ng/mL
[2018-04-23 07:34] LABS: B-TYPE NATRIURETIC PEPTIDE < 11.1 pg/mL (0-450)
[2018-04-23] MEDS ORDERED: Azithromycin 500MG/NS 250ml 500 MG/250 ML BAG IVPB STA (09:01)
[2018-04-23] MEDS ORDERED: cefTRIAXone 1 gm 1 GM/100 ML BAG IVPB STA (09:01)
--- NOTE | 2018-04-23 10:24 | RAD ---
HISTORY: sob COMPARISON: 03/26/2018 FINDINGS: LUNGS: No active pulmonary disease. PLEURA: No significant pleural effusion identified, no pneumothorax apparent. CARDIOVASCULAR: Normal. OSSEOUS STRUCTURES: No significant abnormalities. VISUALIZED UPPER ABDOMEN: Normal. OTHER FINDINGS: None. IMPRESSION: No active disease.
[2018-04-23 14:31] VITALS: BMI 33.9
[2018-04-23] MEDS ORDERED: Pneumococcal 23-Valent Vaccine IM ONE (14:31)
--- NOTE | 2018-04-23 14:52 | CARD ---
APPROVED REPORT EKG Measurement Heart [id number] [id number] <Conclusion> Normal sinus rhythm Septal infarct, old STTW changes c/w ischemia.
[2018-04-24] MEDS: Albuterol-Ipratrop 3 mg / 0.5 (3 ml) UD IH SCH ×7 (00:30→23:35)
--- NOTE | 2018-04-24 00:30 | CP.PCM.PN ---
<Liat Castañeda - Last Filed: 04/24/18 01:22> Subjective - Date & Time of Evaluation Date of Evaluation: 04/23/18 Time of Evaluation: 23:05 - Subjective Subjective: Patient if a 77 y/o tobacco abuse, admitted with copd exacerbation, c/o of inability to clear mucous inthe throat, states he almost chocked. Vitals: 98 % on 2 litters, the rest of vital wnl. On exam: diffuse wheezing and congestion, patient appears comfortable - Will give tessalon perles - Will add mucomyst. Will reevaluate Objective - Vital Signs/Intake and Output Vital Signs (last 24 hours): Temp Pulse Resp BP Pulse Ox 97.8 F 101 H 24 148/90 95 04/23/18 21:28 04/23/18 23:45 04/23/18 23:45 04/23/18 23:45 04/23/18 23:45 Intake and Output: 04/23/18 04/24/18 18:59 06:59 Intake Total 660 Output Total 450 Balance 210 - Medications Medications: Current Medications Albuterol/Ipratropium (Duoneb 3 Mg/0.5 Mg (3 Ml) Ud) 3 ml IH [id number] [facility] Last Admin: 04/23/18 21:37 Dose: 3 ml Benzonatate (Tessalon Perles) 100 mg PO TID [facility] Tamsulosin HCl (Flomax) 0.4 mg PO DAILY [facility] Last Admin: 04/23/18 18:01 Dose: 0.4 mg - Labs Labs: PT 10.9 SECONDS (9.4-12.5) 04/23/18 06:50 INR 0.95 (0.93-1.08) 04/23/18 06:50 APTT 29.3 Seconds (25.1-36.5) 04/23/18 06:50 <Toya Egan - Last Filed: 04/24/18 03:49> Objective - Vital Signs/Intake and Output Vital Signs (last 24 hours): Temp Pulse Resp BP Pulse Ox 97.8 F 101 H 24 148/90 95 04/23/18 21:28 04/23/18 23:45 04/23/18 23:45 04/23/18 23:45 04/23/18 23:45 Intake and Output: 04/23/18 04/24/18 18:59 06:59 Intake Total 660 Output Total 450 Balance 210 - Medications Medications: Current Medications Acetylcysteine (Acetylcysteine 20%) 4 ml IH [id number] [facility] Last Admin: 04/24/18 03:34 Dose: 4 ml Albuterol/Ipratropium (Duoneb 3 Mg/0.5 Mg (3 Ml) Ud) 3 ml IH [id number] [facility] Last Admin: 04/24/18 03:34 Dose: 3 ml Benzonatate (Tessalon Perles) 100 mg PO TID [facility] Tamsulosin HCl (Flomax) 0.4 mg PO DAILY [facility] Last Admin: 04/23/18 18:01 Dose: 0.4 mg - Labs Labs: PT 10.9 SECONDS (9.4-12.5) 04/23/18 06:50 INR 0.95 (0.93-1.08) 04/23/18 06:50 APTT 29.3 Seconds (25.1-36.5) 04/23/18 06:50 Attending/Attestation - Attestation I have personally seen and examined this patient.: No I have fully participated in the care of the patient.: Yes I have reviewed all pertinent clinical information, including history, physical exam and plan: Yes
[2018-04-24] MEDS: Acetylcysteine 20% Inhal Soln (4ml) IH SCH ×4 (03:34→20:32)
[2018-04-24] MEDS: Budesonide 0.5 mg/2 ml Inhal Susp UD IH SCH ×2 (07:33→20:32)
[2018-04-24] MEDS: MethylPREDNISolone 40 mg Vial IVP SCH ×3 (07:45→21:53)
--- NOTE | 2018-04-24 09:14 | CON ---
DATE: 04/24/2018 PULMONARY CONSULTATION REASON FOR CONSULTATION: Chronic obstructive pulmonary disease. REFERRING PHYSICIAN: Gary Machuca MD HISTORY OF PRESENT ILLNESS: The patient is a 77-year-old male, with past medical history significant for chronic obstructive pulmonary disease, positive extensive smoking history, tiny pulmonary nodule right lower lobe, abdominal aortic aneurysm, status post recent laparoscopic cholecystectomy, who presents to [facility] with a 4-day history of worsening shortness of breath at rest, dyspnea on exertion, cough, and sputum production. There is no history of chest pain, coughing up of blood, or chest pain - made worse with deep respirations. There is no history of temperatures, chills or infectious exposure. There is no history of night sweats, weight loss or appetite change prior to the above events. No history of leg or calf pains. No history of syncope or diaphoresis. No history of recent travel or trauma. REVIEW OF SYSTEMS: No history of nausea, vomiting, or diarrhea. No acute urinary symptoms. No new neurologic or musculoskeletal complaints. Rest of the review of systems is negative. ALLERGIES: NO KNOWN ALLERGIES. SOCIAL HISTORY: Positive for tobacco (extensive), no alcohol. FAMILY HISTORY: No inheritable diseases. HOME MEDICATIONS: Include Flomax, DuoNeb and Ventolin. PHYSICAL EXAMINATION GENERAL: The patient is not short of breath at the present time. He is not using accessory muscles for breathing. VITAL SIGNS: Last temperature recorded is 97.8, pulse this morning is approximately 90, respiratory rate 20, blood pressure 148/90. Oxygen saturation on nasal cannula is 95%-98%. HEENT: Normocephalic, atraumatic. No JVD. CARDIOVASCULAR: Systolic ejection murmur at the lower left sternal border. No S3 gallop. LUNGS: Mild to moderate rhonchi and wheezing bilaterally are appreciated. EXTREMITIES: Mild edema. No cyanosis or clubbing. Calves are nontender to palpation. GI: Abdomen is soft, nontender and nondistended. Bowel sounds are positive. SKIN: No acute rash. NEUROLOGIC: Limited at the present time. PERTINENT LABORATORY DATA: Chest x-ray was done yesterday and reviewed. There is no active pulmonary disease noted. CBC: White count 7.7K, hemoglobin 14.8, hematocrit 44.2, platelets of 217,000. Complete metabolic profile: Glucose 120, magnesium 2.3. Rest of the metabolic profile is within normal limits. IMPRESSION: 1. Acute bronchitis. 2. Acute bronchospasm. 3. Chronic obstructive pulmonary disease. 4. Tiny pulmonary nodule - right lower lobe. PLAN: The patient presents to [facility] with a 4-day history of worsening pulmonary symptoms. As above, I did review the chest x-ray which was done. It shows no acute disease. On physical exam, the patient is in moderate bronchospasm this morning. I will continue with the current nebulizer treatments for now. I will also add inhaled Pulmicort this morning. I will also add moderate dose intravenous steroids this morning - to treat the acute bronchospasm. Lastly, given his above history and age, I will also start oral antibiotic therapy. There is no history of temperatures. There is no leukocytosis. The patient does feel better, and is clinically improved this morning. Additional pulmonary intervention will be based on the clinical status of the patient. I did discuss the patient's pulmonary nodule with him again this morning. He was supposed to see me in the office, but never did. Hopefully, he will be more compliant. I will discuss the above with Dr. Machuca. Thank you for this consultation. Ronan Bradford MD MTDD
[2018-04-24] MEDS: levoFLOXacin 500 MG TAB PO SCH (09:21)
--- NOTE | 2018-04-24 18:31 | HP ---
CHIEF COMPLAINT AND HISTORY OF PRESENT ILLNESS: This is a 77-year-old male who is coming to the hospital complaining of cough, congestion with sputum production for the past 3 days. He says the wheezing started about 1 week ago. He said he was going to follow with me if his symptoms did not improve. Yesterday, his symptoms became significantly worse. He was having choking. He says he was having difficulty in bringing up his sputum. He denies any chest pain. No abdominal pain, no back pain, no dysuria. He says because of the cough, he does have some pain in the right chest area. He has no headaches. He says he does feel a bit better than when he came into the ER, but still has significant shortness of breath. REVIEW OF SYSTEMS: All other review of symptoms are within normal limits except what was mentioned. ALLERGIES: NO KNOWN DRUG ALLERGIES. PAST MEDICAL HISTORY: COPD, obesity, 4.3 cm infrarenal abdominal aortic aneurysm, 4 mm lung nodule in the right lung. PAST SURGICAL HISTORY: Status post cholecystectomy in 01/2018. SOCIAL HISTORY: The patient was an active smoker, smoked about 10 cigarettes a day, but he says he quit a few weeks ago. He denies alcohol or drugs. FAMILY HISTORY: Noncontributory. PHYSICAL EXAMINATION VITAL SIGNS: Temperature is 97.6, pulse of 102, blood pressure is 118/81, respirations 22, O2 saturation 94%. Height is 5 feet 6 inches, weight is 210 pounds, BMI is 33.9. GENERAL: The patient lying in bed, uncomfortable, and in no acute distress. HEENT: Atraumatic and normocephalic. Anicteric sclerae. Moist mucosa. Bernice conjunctivae. No oral lesions. NECK: No JVD, anterior and posterior adenopathy, thyromegaly, or bruits. CARDIOVASCULAR: S1 and S2 regular. No murmur, rubs, or gallop. LUNGS: There is bilateral wheezing, there is bilateral rhonchi. ABDOMEN: Bowel sounds are positive. Soft, nontender and nondistended. No hepatosplenomegaly. No rebound and no guarding EXTREMITIES: No cyanosis, clubbing, or edema. NEUROLOGIC: No facial asymmetry. Tongue is midline. No uvula deviation. Power is 5/5 upper extremity and lower extremity. Sensation intact in upper extremity and lower extremity. PSYCHIATRIC: He is awake, alert and oriented x3. No anxiety or depression. He has normal affect. GENITOURINARY: No CVA tenderness. VASCULAR: 2+ pulses in the carotid pulses and pedal pulses. SKIN: No erythema or nodules SPINE: Shows normal curvature. LABORATORY DATA: White count of 7.7, hemoglobin 14.8. INR is 0.95. Chemistry shows a sodium 142, potassium 3.9, creatinine 0.8, alkaline phosphatase is 78, albumin is 4.1. Chest x-ray done shows no active disease. EKG done shows sinus rhythm at 89 with a QTc of 447. ASSESSMENT: 1. Acute chronic obstructive pulmonary disease exacerbation. 2. Benign prostatic hypertrophy. 3. A 4 mm right lung nodule. 4. Obesity with a body mass index of 34. 5. Bronchitis. PLAN: The patient is admitted to the hospital because of an acute COPD exacerbation. He was given steroids and nebulizer treatments without much improvement. He is going to be continued with nebulizer treatments in the hospital. I will get Pulmonary evaluation with Dr. Bradford. The patient has been started on IV antibiotics. He has bronchitis as well. The patient is going to be on Solu-Medrol IV. He is going to be given cough medications. The patient is on a heart-healthy diet. We will continue to follow closely. Gary Machuca MD
[2018-04-25] MEDS: Albuterol-Ipratrop 3 mg / 0.5 (3 ml) UD IH SCH ×5 (04:50→19:33)
[2018-04-25] MEDS: Acetylcysteine 20% Inhal Soln (4ml) IH SCH ×4 (04:50→19:33)
[2018-04-25] MEDS: MethylPREDNISolone 40 mg Vial IVP SCH ×3 (05:39→21:37)
[2018-04-25] MEDS ORDERED: Vancomycin 1.5 GM in Sodium Chloride 0.9% 500 ML IVPB SCH (06:45)
[2018-04-25] MEDS: Budesonide 0.5 mg/2 ml Inhal Susp UD IH SCH ×2 (07:21→19:37)
--- NOTE | 2018-04-25 08:02 | PN ---
DATE: 04/25/2018 PULMONARY NOTE SUBJECTIVE: The patient appears comfortable this morning. He is not short of breath at rest. PHYSICAL EXAMINATION: VITAL SIGNS: (last noted in the computer): Temperature is 97.9, pulse 94, respirations 18/20, blood pressure 123/62. Oxygen saturation on nasal cannula is 94-95%. HEENT: Normocephalic, atraumatic. No JVD. CARDIOVASCULAR: Systolic ejection murmur at the lower left sternal border. No S3 gallop. LUNGS: Less rhonchi. Less wheezing. EXTREMITIES: Mild edema. No cyanosis. No clubbing. Calves are nontender to palpation. GI: Abdomen is soft, nontender and nondistended. Bowel sounds are positive. SKIN: No acute rash. NEUROLOGIC: Limited at the present time. IMPRESSION: 1. Acute bronchitis. 2. Acute bronchospasm. 3. Chronic obstructive pulmonary disease. 4. Tiny pulmonary nodule - right lower lobe. PLAN: The patient appears comfortable this morning. He is not short of breath at rest. He does state to feeling much better overall. I did discuss the case with the night nurse at length. The night nurse stated that the patient had a very good night. On physical exam, there is certainly less bronchospasm noted. In addition, the alveolar-arterial gradient is also less. I will continue with the current nebulizer treatments and decrease the intravenous steroids this morning. The patient also remains on oral antibiotic therapy. There are no temperatures noted. There is no leukocytosis. Lastly, I did discuss the patient's pulmonary nodule with him again this morning. Remembering, the right lower lobe nodule was seen on abdominal CAT scan. However, the patient never followed up in the office with me. I will proceed with a dedicated CAT scan of the chest. Clinical status of the patient is significantly improved overall. I will discuss the above with Dr. Machuca. Ronan Bradford MD MTDBobby
--- NOTE | 2018-04-25 09:27 | PN ---
DATE: 04/25/2018 SUBJECTIVE: The patient says his breathing is much better. He is much more comfortable. He is not tachypneic like he was yesterday. He has no headaches or dizziness, no chest pain. PHYSICAL EXAMINATION VITAL SIGNS: Temperature is 97.6, pulse of 87, blood pressure is 121/82, respirations 20. GENERAL: The patient is lying in bed, flat, comfortable. HEENT: No oral lesion. Anicteric sclerae. Moist mucosa. NECK: No JVD, adenopathy, or thyromegaly. CARDIOVASCULAR: S1 and S2, regular. No murmurs, rubs, or gallops. LUNGS: Clear to auscultation bilaterally. No wheeze, rales, or rhonchi. ABDOMEN: Bowel sounds are positive, soft, nontender and nondistended. EXTREMITIES: No cyanosis, clubbing or edema. ASSESSMENT: 1. Acute chronic obstructive pulmonary disease exacerbation. 2. Benign prostatic hypertrophy. 3. A 4-mm right lung nodule. 4. Obesity with a body mass index of 34. 5. Bronchitis. PLAN: The patient is feeling much better. He is on nebulizer treatments. The patient is on Flomax. This will be continued for his BPH. I will decrease his nebulizers to every 6 hours. He is on steroids. This is being tapered by Dr. Bradford. I appreciate his input. The patient is on antibiotics with vancomycin. He has had a chest CT that has been ordered. He is on oxygen. He is going to continue with his heart-healthy diet. If he is doing better, he should be able to go home in next 1-2 days with outpatient followup. Gary Machuca MD
--- NOTE | 2018-04-25 09:30 | CT ---
PROCEDURE: CT Chest without contrast HISTORY: RLL nodule seen on CT ABD COMPARISON: None. TECHNIQUE: Contiguous axial images were obtained through the chest without intravenous contrast enhancement. Sagittal and coronal reconstructions were performed. Radiation dose (DLP): 625 mGy-cm. This CT exam was performed using one or more of the following dose reduction techniques: Automated exposure control, adjustment of the mA and/or kV according to patient size, and/or use of iterative reconstruction technique. FINDINGS: LUNGS: There is a focal area of scarring at the right lung base. There is no evidence of a discrete nodule. MEDIASTINUM: Unremarkable thoracic aorta. No aneurysm. Normal sized heart. Main pulmonary artery unremarkable. No vascular congestion. No lymphadenopathy. PLEURA: No pleural fluid. No pneumothorax. BONES: No fracture. No destructive lesion. UPPER ABDOMEN: Gallbladder removed OTHER FINDINGS: None. IMPRESSION: Unremarkable non-contrast enhanced CT of the chest.
[2018-04-25] MEDS: levoFLOXacin 500 MG TAB PO SCH (10:22)
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
[2018-04-25] MEDS: Vancomycin 1.5 GM in Sodium Chloride 0.9% 500 ML IVPB SCH (21:54)
[2018-04-26] MEDS: Acetylcysteine 20% Inhal Soln (4ml) IH SCH ×6 (01:06→19:02)
[2018-04-26] MEDS: Albuterol-Ipratrop 3 mg / 0.5 (3 ml) UD IH SCH ×6 (01:07→19:02)
[2018-04-26] MEDS: levoFLOXacin 500 MG TAB PO SCH (09:10)
[2018-04-26] MEDS: Vancomycin 1.5 GM in Sodium Chloride 0.9% 500 ML IVPB SCH (09:11)
[2018-04-26] MEDS: MethylPREDNISolone 40 mg Vial IVP SCH ×2 (09:21→21:05)
[2018-04-26] MEDS: Budesonide 0.5 mg/2 ml Inhal Susp UD IH SCH ×2 (12:16→19:02)
--- NOTE | 2018-04-26 13:47 | PN ---
DATE: 04/26/2018 PULMONARY PROGRESS NOTE SUBJECTIVE: The patient was seen and examined at bedside. He is complaining of shortness of breath, cough and wheezing, but he does not appear to be in respiratory distress. PHYSICAL EXAMINATION: VITAL SIGNS: His temperature is 98.4, pulse 88, respirations 20, blood pressure is 120/75, oxygen saturation is not recorded. HEENT: Head: Normocephalic and atraumatic. NECK: Supple with no jugular vein distentions. CARDIOVASCULAR: S1 and S2. No S3. Regular. PULMONARY: Diminished breath sounds at both bases with few expiratory wheezes. GI: Soft, nontender. No organomegaly. EXTREMITIES: No pedal edema. SKIN: Clear with no skin rashes. No cyanosis. NEUROLOGIC: No focal deficits. ASSESSMENT: 1. Acute bronchitis. 2. Resolving bronchospasm. 3. Chronic obstructive pulmonary disease. 4. Right lower lobe nodule. PLAN: The patient is continuing with administration of nebulizer treatment as well as steroids. CT chest was reviewed by me. It did not reveal any significant findings compared to prior CT. He was known to have a tiny nodule, which is difficult to see or non-existing on the current CT scan. We will continue his current therapy. Jun Grigsby MD
--- NOTE | 2018-04-26 15:13 | CP.PCM.PN ---
Subjective - Date & Time of Evaluation Date of Evaluation: 04/26/18 Time of Evaluation: 13:05 - Subjective Subjective: No fevers, cough and breathing are getting better. Objective - Vital Signs/Intake and Output Vital Signs (last 24 hours): Temp Pulse Resp BP Pulse Ox 98.4 F 88 20 121/75 95 04/26/18 06:00 04/26/18 06:00 04/26/18 06:00 04/26/18 06:00 04/26/18 06:00 Intake and Output: 04/26/18 04/26/18 06:59 18:59 Intake Total 660 Balance 660 - Medications Medications: Current Medications Acetylcysteine (Acetylcysteine 20%) 4 ml IH [id number] [facility] Last Admin: 04/26/18 12:16 Dose: 4 ml Albuterol/Ipratropium (Duoneb 3 Mg/0.5 Mg (3 Ml) Ud) 3 ml IH [id number] [facility] Last Admin: 04/26/18 12:28 Dose: Not Given Benzonatate (Tessalon Perles) 100 mg PO TID [facility] Last Admin: 04/26/18 09:10 Dose: 100 mg Budesonide (Pulmicort Respules) 0.5 mg IH [id number] [facility] Last Admin: 04/26/18 12:16 Dose: 0.5 mg Vancomycin HCl 1.5 gm/ Sodium (Chloride) 500 mls @ 167 mls/hr IVPB 0900,2100 [facility] PRN Reason: Protocol Last Admin: 04/26/18 09:11 Dose: 167 mls/hr Levofloxacin (Levaquin) 500 mg PO DAILY [facility] PRN Reason: Protocol Last Admin: 04/26/18 09:10 Dose: 500 mg Methylprednisolone (Solu-Medrol) 40 mg IVP Q12 [facility] Last Admin: 04/26/18 09:21 Dose: 40 mg Tamsulosin HCl (Flomax) 0.4 mg PO DAILY [facility] Last Admin: 04/26/18 09:10 Dose: 0.4 mg - Labs Labs: PT 10.9 SECONDS (9.4-12.5) 04/23/18 06:50 INR 0.95 (0.93-1.08) 04/23/18 06:50 APTT 29.3 Seconds (25.1-36.5) 04/23/18 06:50 - Constitutional Appears: Non-toxic, Chronically Ill - Head Exam Head Exam: NORMAL INSPECTION - Neck Exam Neck Exam: absent: Meningismus - Respiratory Exam Respiratory Exam: Decreased Breath Sounds - Cardiovascular Exam Cardiovascular Exam: +S1, +S2 - GI/Abdominal Exam GI & Abdominal Exam: Soft. absent: Tenderness Assessment and Plan - Assessment and Plan (Free Text) Plan: Assessment coagulase negative staph in 2 of 4 bottles of blood cx, probably contamination in a patient without indwelling vascular devices, catheters, hardware, no prosthetic devices or joints acute bronchitis S/P cholecystectomy COPD BPH hemorrhoids obesity with BMI 34 Plan complete 3-5 days of Levaquin (day 3 today) repeat blood cx are negative; will d/c IV Vancomycin and observe will continue monitor clinically
--- NOTE | 2018-04-26 20:15 | PN ---
DATE: 04/26/2018 SUBJECTIVE: The patient is 77 years old, seen and examined, complain of cough, congestion, productive cough, thick yellow phlegm and get short of breath when he try to bring up phlegm. PHYSICAL EXAMINATION: VITAL SIGNS: He is afebrile, pulse 92, respirations 21, blood pressure 133/65. LUNGS: Harsh crackles bilaterally, diffuse. HEART: S1, S2 audible. ABDOMEN: Soft, obese, nontender. No rebound, no guarding. NEUROLOGIC: Patient is awake, alert, oriented, communicative. ASSESSMENT: 1. Chronic obstructive pulmonary disease exacerbation. 2. Asthmatic bronchitis. 3. Morbid obesity. 4. Status post recent cholecystectomy. 5. History of benign prostatic hyperplasia. 6. History of lung nodule. PLAN: Currently, the patient is on Mucomyst. He is getting nebulizer treatment. He is on Flomax. He is on Levaquin and he is on IV steroids. Continue current treatment and encourage ambulation. We will start him on incentive spirometry. Jose Luis Mohr MD
[2018-04-27] MEDS: Acetylcysteine 20% Inhal Soln (4ml) IH SCH ×3 (07:12→19:29)
[2018-04-27] MEDS: Budesonide 0.5 mg/2 ml Inhal Susp UD IH SCH ×2 (07:12→19:30)
[2018-04-27] MEDS: Albuterol-Ipratrop 3 mg / 0.5 (3 ml) UD IH SCH ×3 (07:12→19:30)
[2018-04-27] MEDS: MethylPREDNISolone 40 mg Vial IVP SCH ×2 (09:08→22:24)
[2018-04-27] MEDS: levoFLOXacin 500 MG TAB PO SCH (09:08)
--- NOTE | 2018-04-27 11:09 | PN ---
DATE: 04/27/2018 PULMONARY PROGRESS NOTE SUBJECTIVE: The patient was seen and examined sitting on the edge of a bed. He is still complaining of very tight chest and occasional inability to breathe. He had one episode this morning where he felt scared that he could not catch his breath. The respiratory therapy was given with DuoNeb and added budesonide as well as Mucomyst that improved his condition temporarily. PHYSICAL EXAMINATION VITAL SIGNS: His temperature is 97.8, pulse 82, respirations 18, pulse oximetry is 95% on nasal cannula, blood pressure is 150/70. HEAD: Normocephalic and atraumatic. NECK: Supple with no jugular vein distentions. CARDIOVASCULAR: S1 and S2. No S3. Regular. PULMONARY: Diminished breath sounds bilaterally with diffuse expiratory wheezes, although less than yesterday. GASTROINTESTINAL: Soft, nontender. No organomegaly. : Within normal limits EXTREMITIES: No pedal edema. SKIN: No acute skin rash. NEUROLOGIC: No focal deficits. ASSESSMENT: 1. Acute bronchitis. 2. Resolving bronchospasm. 3. Exacerbation of severe chronic obstructive pulmonary disease. 4. Right lower lobe nodule. PLAN: I have examined the CT scan yesterday. The nodule is no longer seen on the current CT scan. His COPD still requires maximum inhalation therapy, I would keep him on current doses of intravenous steroids. Jun Grigsby MD [facility]
--- NOTE | 2018-04-27 13:30 | CP.PCM.PN ---
Subjective - Date & Time of Evaluation Date of Evaluation: 04/27/18 Time of Evaluation: 11:35 - Subjective Subjective: No fevers, breathing a little better, not in distress. Objective - Vital Signs/Intake and Output Vital Signs (last 24 hours): Temp Pulse Resp BP Pulse Ox 97.8 F 82 18 150/97 H 95 04/27/18 06:00 04/27/18 06:00 04/27/18 06:00 04/27/18 06:00 04/27/18 06:00 Intake and Output: 04/27/18 04/27/18 06:59 18:59 Intake Total 780 Balance 780 - Medications Medications: Current Medications Acetylcysteine (Acetylcysteine 20%) 4 ml IH [id number] [facility] Last Admin: 04/27/18 07:12 Dose: 4 ml Albuterol/Ipratropium (Duoneb 3 Mg/0.5 Mg (3 Ml) Ud) 3 ml IH [id number] [facility] Last Admin: 04/27/18 07:12 Dose: 3 ml Benzonatate (Tessalon Perles) 100 mg PO TID [facility] Last Admin: 04/26/18 17:10 Dose: 100 mg Budesonide (Pulmicort Respules) 0.5 mg IH [id number] [facility] Last Admin: 04/27/18 07:12 Dose: 0.5 mg Levofloxacin (Levaquin) 500 mg PO DAILY [facility] PRN Reason: Protocol Last Admin: 04/26/18 09:10 Dose: 500 mg Methylprednisolone (Solu-Medrol) 40 mg IVP Q12 [facility] Last Admin: 04/26/18 21:05 Dose: 40 mg Tamsulosin HCl (Flomax) 0.4 mg PO DAILY [facility] Last Admin: 04/26/18 09:10 Dose: 0.4 mg - Labs Labs: PT 10.9 SECONDS (9.4-12.5) 04/23/18 06:50 INR 0.95 (0.93-1.08) 04/23/18 06:50 APTT 29.3 Seconds (25.1-36.5) 04/23/18 06:50 - Constitutional Appears: Chronically Ill - Head Exam Head Exam: NORMAL INSPECTION - Respiratory Exam Respiratory Exam: Decreased Breath Sounds - Cardiovascular Exam Cardiovascular Exam: +S1, +S2 - GI/Abdominal Exam GI & Abdominal Exam: Soft. absent: Tenderness Assessment and Plan - Assessment and Plan (Free Text) Plan: Assessment coagulase negative staph in 2 of 4 bottles of blood cx, probably contamination in a patient without indwelling vascular devices, catheters, hardware, no prosthetic devices or joints acute bronchitis S/P cholecystectomy COPD BPH hemorrhoids obesity with BMI 34 Plan complete 3-5 days of Levaquin (day 4 today) repeat blood cx are negative; continue to monitor
--- NOTE | 2018-04-27 18:48 | PN ---
DATE: 04/27/2018 SUBJECTIVE: Patient is 77 years old, still complaining of cough, congestion, lot of mucus production. No chest pain, but shortness of breath. OBJECTIVE: VITAL SIGNS: He is afebrile, pulse 82, respirations 18, and blood pressure 150/97. LUNGS: Bilateral soft crackles throughout the lungs. HEART: S1, S2 audible. ABDOMEN: Soft, nontender. No rebound. Obese. No hepatosplenomegaly. NEUROLOGIC: He is awake, alert, oriented, and communicative. ASSESSMENT: 1. Chronic obstructive pulmonary disease exacerbation. 2. Asthmatic bronchitis. 3. History of hypertension. 4. Recent cholecystectomy. 5. Morbid obesity. 6. Obstructive sleep apnea. 7. Benign prostatic hypertrophy. PLAN: MAR reviewed, seems to be appropriate. Patient is on Mucomyst, nebulizer treatment. He is on Flomax. He is getting Levaquin. He is on Pulmicort and 40 mg of prednisone, continue that. He is pretty ambulatory. Encourage ambulation. He was told he has to ambulate, otherwise can get blood clot. He understands. He states he does walk around and walks to the bathroom . Jose Luis Mohr MD
[2018-04-28] MEDS: Acetylcysteine 20% Inhal Soln (4ml) IH SCH ×3 (03:41→13:01)
[2018-04-28] MEDS: Albuterol-Ipratrop 3 mg / 0.5 (3 ml) UD IH SCH ×3 (03:42→13:02)
[2018-04-28 06:35] VITALS: PULSE 80
[2018-04-28] MEDS: Budesonide 0.5 mg/2 ml Inhal Susp UD IH SCH (07:38)
[2018-04-28 07:40] VITALS: RESP 21; TEMP 98.2; O2SAT 95
[2018-04-28 07:42] VITALS: BP 140/79
--- NOTE | 2018-04-28 08:22 | PN ---
DATE: 04/28/2018 PULMONARY NOTE SUBJECTIVE: The patient appears comfortable this morning. He is not short of breath at rest. PHYSICAL EXAMINATION: VITAL SIGNS: Temperature is 98.2, pulse 80, respirations 18-20, blood pressure 140/79. Oxygen saturation on nasal cannula is 95%. HEENT: Normocephalic, atraumatic. No JVD. CARDIOVASCULAR: Systolic ejection murmur at the lower left sternal border. No S3 gallop. LUNGS: Minimal/less rhonchi. No wheezing. EXTREMITIES: Mild edema. No cyanosis, no clubbing. Calves are nontender to palpation. GASTROINTESTINAL: Abdomen is soft, nontender, and nondistended. Bowel sounds are positive. SKIN: No acute rash. NEUROLOGIC: Limited at the present time. IMPRESSION: 1. Acute bronchitis. 2. Acute bronchospasm. 3. Chronic obstructive pulmonary disease. 4. Tiny pulmonary nodule - right lower lobe. PLAN: The patient appears comfortable this morning. He is not short of breath at rest. He does state to feeling much better overall. I did discuss the case with the night nurse at length. The night nurse stated that the patient had a good night. On physical exam, his bronchospasm continues to resolve. In addition, the alveolar-arterial gradient also continues to resolve. I will continue with the current nebulizer treatments and decrease the intravenous steroids this morning. The patient remains on antibiotic therapy. There are no temperatures noted. There is no leukocytosis. The patient did have a CAT scan of the chest on 04/25/2018. I did review the CAT scan with Dr. Mcneill (Radiology). Dr. Mcneill could not identify a definitive nodule. There is focal scarring at the right lung base. There is no lymphadenopathy. I did discuss the CAT scan findings with the patient at length. Clinical status of the patient has significantly improved overall. The patient is advised to be out of bed as much as possible. I will discuss the above with the attending physician. Ronan Bradford MD [facility]
[2018-04-28] MEDS ORDERED: MethylPREDNISolone 40 mg Vial IVP SCH (10:00)
[2018-04-28] MEDS: levoFLOXacin 500 MG TAB PO SCH (10:25)
--- NOTE | 2018-04-28 11:49 | DS ---
HISTORY OF PRESENT ILLNESS: The patient has no complaints of any chest pain. No shortness of breath. No headaches or dizziness. He initially was admitted to the hospital because of an acute COPD exacerbation. He has improvement of his symptoms. The patient had blood cultures that were done that showed coag-negative Staph. Repeat blood cultures were done and it was negative. The patient is being followed by ID and Pulmonary. I will get a cardiology consultation prior to the patient being discharged home. The patient has had day #5 of antibiotics. PHYSICAL EXAMINATION: VITAL SIGNS: Temperature is 98.2, pulse of 80, blood pressure 140/79, respirations 21, O2 saturation 95%. GENERAL: The patient is lying in bed, flat, comfortable. HEENT: No oral lesion. Anicteric sclerae. Moist mucosa. NECK: No JVD, adenopathy, or thyromegaly. CARDIOVASCULAR: S1 and S2, regular. No murmurs, rubs, or gallops. LUNGS: Clear to auscultation bilaterally. No wheeze, rales, or rhonchi. ABDOMEN: Bowel sounds are positive, soft, nontender and nondistended. EXTREMITIES: No cyanosis, clubbing or edema. ASSESSMENT: 1. Acute chronic obstructive pulmonary disease exacerbation. 2. Benign prostatic hypertrophy. 3. A 4 mm nodule in the right lung. 4. Obesity with a body mass index of 34. 5. Bronchitis. PLAN: The patient is currently comfortable. He is ambulating. He is walking down the [place]. I did speak to Dr. Redmond, who will see the patient prior to discharge. The patient is going to get tapering dose of steroids. He is going to be on albuterol. He is going to be on a heart healthy diet. Gary Machuca MD
--- NOTE | 2018-04-28 20:22 | CON ---
DATE: REASON FOR CONSULTATION: Cardiac evaluation, admitted with shortness of breath, history of COPD and history of tobacco abuse in the past. BRIEF CLINICAL HISTORY: This is a 77-year-old male with past medical history significant for COPD, obesity, 4.3 cm infrarenal abdominal aortic aneurysm, 4 mm lung nodule in the right lung who came in with complain of congestion three times since that walking with shortness of breath and feel congested. Denies any chest pain, denies any shortness of breath at rest. Denied any palpitations. PAST MEDICAL HISTORY: Significant for COPD, obesity, infrarenal abdominal aortic aneurysm 4.3 cm and history of 4 mm lung nodule in the right lung. PAST SURGICAL HISTORY: Significant status post cholecystectomy in 01/2018. SOCIAL HISTORY: The patient was an active smoker, used to a pack to half a day, quit claims that last month. He denies any history of alcohol abuse. FAMILY HISTORY: Noncontributory. No history of coronary artery disease. REVIEW OF SYSTEMS: As per HPI. CURRENT MEDICATIONS: The patient at home was taking Flomax 0.4 mg, albuterol inhaler, and Ventolin inhaler. PHYSICAL EXAMINATION: GENERAL: Examination as follows: Height of the patient is 5 feet 6 inches, weight of the patient is 110 pounds, body mass index 33.9 kg/m2. VITAL SIGNS: Temperature afebrile, heart rate is 80, blood pressure 140/79. HEENT: PERRLA. Extraocular muscles intact. NECK: Supple. No carotid bruits or thyromegaly. CHEST: Clear to auscultation. HEART: S1 and S2 regular. ABDOMEN: Soft. EXTREMITIES: Clubbing, cyanosis negative. LABORATORY DATA: Blood workup as follows; WBC 7.7, hemoglobin 14.4, hematocrit 44.2 and platelet count 217. Chemistry shows sodium 142, potassium 3.9, chloride of 105, carbon dioxide of 29,anion gap of , BUN 20, creatinine 0.8, troponin 0.01 dated 04/23/2018. EKG showed abnormal sinus, poor RR progression, low voltage EKG. IMPRESSION: Acute exacerbation of chronic obstructive pulmonary disease, hypertension, hyperlipidemia, diabetes, blood sugar 120, obesity, smoker, multiple history of coronary artery disease, suggest echocardiogram and stress test since the patient is being discharged today. We will get echo and stress test in one to two weeks as outpatient. Paper has been given to Cardiology to schedule a stress test and Lexiscan in one week. Follow up visit in two weeks. Thank you Dr. Machuca for providing us the opportunity in taking care of Octavio Caal. Angi Redmond MD
== END 2018-04-28 14:12 | disposition home or self-care (01) | DRG 192 ==
LOC: ED 06:23 → ERH 09:03 → 5RNO 11:00
PROVIDERS: ADMIT Internal Medicine Nephrology; ATTEND Internal Medicine Nephrology
PROC: 3E0F7GC Introduction of Other Therapeutic Substance into Respiratory Tract, Via Natural or Artificial Opening (ICD-10-PCS; principal; 2018-04-23)
DX: J44.1 Chronic obstructive pulmonary disease with (acute) exacerbation (principal); J20.9 Acute bronchitis, unspecified; I71.4 Abdominal aortic aneurysm, without rupture; N40.0 Benign prostatic hyperplasia without lower urinary tract symptoms; E78.00 Pure hypercholesterolemia, unspecified; J44.0 Chronic obstructive pulmonary disease with (acute) lower respiratory infection; I25.10 Atherosclerotic heart disease of native coronary artery without angina pectoris; I10 Essential (primary) hypertension; R91.1 Solitary pulmonary nodule; F17.210 Nicotine dependence, cigarettes, uncomplicated; E66.01 Morbid (severe) obesity due to excess calories; Z68.34 Body mass index [BMI] 34.0-34.9, adult; G47.33 Obstructive sleep apnea (adult) (pediatric); H91.91 Unspecified hearing loss, right ear; K64.9 Unspecified hemorrhoids; Z90.49 Acquired absence of other specified parts of digestive tract

== ENCOUNTER 2018-06-05 07:25 | Day surgery (SDC) | payer MEDICARE, MEDICAID ==
[2018-06-04 09:21] VITALS: BMI 34.6
--- NOTE | 2018-06-05 05:05 | HP ---
REASON FOR ADMISSION: Left heart cath, possible angioplasty, abnormal stress test. BRIEF CLINICAL HISTORY: This is a 77-year-old male COPD, obesity, infrarenal abdominal aortic aneurysm of 4.3 cm, recently admitted to [facility] with complaint of shortness of breath and exacerbation of COPD. Because of multiple risk factors, patient was scheduled for elective stress test as outpatient which was abnormal, so patient is scheduled for elective cardiac cath and possible angioplasty. PAST MEDICAL HISTORY: Significant for abdominal aortic aneurysm of 4.3 cm, no change from last 2 years; COPD; pulmonary nodule; benign prostatic hypertrophy. SOCIAL HISTORY: Quit smoking, did not smoke since the age of 59, no history of alcohol abuse. In the past patient used to drink alcohol as well. No history of substance abuse. CURRENT MEDICATIONS: Patient is taking Ventolin inhaler, albuterol, Flomax. ALLERGIES: NO KNOW DRUG ALLERGY. RECENT CARDIAC WORKUP: As follows: Patient had echocardiography done on 05/07/2018 in [facility] that shows normal chamber size, ejection fraction 55% to 60%, trace aortic regurgitation, trace mitral regurgitation, trace tricuspid regurgitation, RV systolic pressure 21, dated 05/12/2018. Patient had a stress test done that is a Lexiscan dated 05/12/2018, that myocardial perfusion study, partially reversible apical and inferior defect suspicious for ischemia, normal gated wall motion, ejection fraction 60%. REVIEW OF SYSTEMS: As per HPI. PHYSICAL EXAMINATION: As follows: VITAL SIGNS: Height of the patient 5 feet 5 inches, weight of the patient is 209 pounds, body mass index 35 kg/m2. Rest of the vitals, temperature afebrile, heart rate 68, blood pressure 135/86. HEENT: PERRLA. Extraocular muscles intact. NECK: Supple. No carotid bruits or thyromegaly. CHEST: Clear to auscultation. HEART: S1 and S2 regular. ABDOMEN: Soft. EXTREMITIES: Clubbing and cyanosis, negative. LABORATORY DATA: Blood workup pending. IMPRESSION: Abnormal stress test, suspicious for ischemia, apical and inferior ischemia, ejection fraction 60%, trace aortic regurgitation, trace mitral regurgitation, trace tricuspid regurgitation by echo. Ex-smoker, chronic obstructive pulmonary disease, and benign prostatic hypertrophy. Multiple risk factors for coronary artery disease, suggest cardiac catheterization, patient agreed. We will proceed with cardiac catheterization. We will give load with aspirin and Plavix. Further recommendations depending up on after cardiac catheterization. We will follow with you. Thank you, Dr. Machuca for providing us the opportunity in taking care of the patient, Wilfred Caal. Further recommendation will be made after the after catheterization. Angi Redmond MD
[2018-06-05 08:04] LABS: BASO # 0.03 K/mm3 (0.0-2.0); BASO % 0.4 % (0.0-3.0); EOS # 0.2 (0.0-0.7); EOS % 2.2 % (1.5-5.0); GRAN # 4.15 (1.4-6.5); GRAN % 51.1 % (50.0-68.0); HEMOGLOBIN 14.6 g/dL (14.0-18.0); LYMPH # 3.1 (1.2-3.4); LYMPH % 38.5 % (22.0-35.0); MEAN CELL VOLUME 86.7 fl (80.0-105.0); MEAN CORPUSCULAR HGB CONC 33.5 g/dl (31.0-37.0); MEAN PLATELET VOLUME 10.3 fl (7.0-11.0); MONO # 0.6 (0.1-0.6); MONO % 7.8 % (1.0-6.0); RBC 5.03 10^6/uL (3.5-6.1); RED CELL DISTRIBUTION WIDTH 14.4 % (11.5-14.5); WHITE BLOOD COUNT 8.1 10^3/ul (4.5-11.0)
[2018-06-05 08:11] LABS: BLOOD UREA NITROGEN 18 mg/dL (7-21); CALCIUM 10.3 mg/dL (8.4-10.5); GFR AFRICAN-AMERICAN > 60; GFR NON-AFRICAN AMERICAN > 60; HDL CHOLESTEROL 52 mg/dL (29-60)
[2018-06-05 08:20] LABS: INR 0.96 (0.93-1.08); PARTIAL THROMBOPLASTIN TIME 30.5 Seconds (25.1-36.5)
[2018-06-05 08:22] LABS: LDL CHOLESTEROL 120 mg/dL (0-129)
[2018-06-05] MEDS ORDERED: Verapamil 2 ML ONE (09:01)
[2018-06-05] MEDS ORDERED: Lidocaine 2 GM Vial 2 GM/50 ML VIAL IV ONE (09:01)
[2018-06-05] MEDS ORDERED: Phenylephrine 10 mg/ml Inj ONE (09:02)
[2018-06-05] MEDS ORDERED: Iohexol 350mgl/ml 50 ML ONE (09:02)
[2018-06-05] MEDS ORDERED: Iodixanol 320 MG/ML 200 ML BOTTLE IV ONE (09:02)
[2018-06-05] MEDS ORDERED: Nitroglycerin 50mg in D5W 50 MG/250 ML BOTTLE IV ONE (09:02)
[2018-06-05] MEDS ORDERED: Midazolam 2 MG/2 ML VIAL ONE (09:47)
[2018-06-05] MEDS ORDERED: Bacitracin 500 Units/gm Oint Foilpak UD TOP ONE (10:29)
[2018-06-05] MEDS ORDERED: Sodium Chloride 0.9% 1,000 ML IV SCH (10:30)
[2018-06-05 10:48] VITALS: TEMP 97.6
[2018-06-05 12:39] VITALS: RESP 18
[2018-06-05] MEDS ORDERED: Bacitracin 500 Units/gm Oint Foilpak UD ONE (13:28)
[2018-06-05] MEDS ORDERED: Oxycodone/Acetaminophen 5/325 mg Tab PO STA (13:52)
[2018-06-05] MEDS ORDERED: Oxycodone/Acetaminophen 5/325 mg Tab PO ONE (13:52)
[2018-06-05] MEDS ORDERED: Oxycodone/Acetaminophen 5/325 mg Tab ONE (13:55)
--- NOTE | 2018-06-05 15:22 | CPOSTOP ---
DATE: 06/05/2018 CARDIOVASCULAR LAB POST PROCEDURE NOTE DICTATING PHYSICIAN: Angi Redmond MD. MATCHER: Gabriela oven technician. TYPE OF ANESTHESIA: Moderate conscious sedation. Total 2 mg of Versed, 100 of fentanyl was given. Periodically started 1 mg of Versed, 50 of fentanyl. PRE-PROCEDURE DIAGNOSES: Unstable angina, chest pain, abnormal stress test. PROCEDURE PERFORMED: Left heart catheterization. FINDINGS: Nonobstructive coronary artery disease. FINAL DIAGNOSIS: Single-vessel nonobstructive coronary artery disease. VASCULAR ACCESS: Left radial. CLOSURE DEVICE: TR Band. TOTAL RADIATION DOSE: 6560.44 milligray unit. FLUORO TIME: 2.6 minutes. Angi Redmond MD
[2018-06-05 15:25] VITALS: BP 141/88; PULSE 76; O2SAT 95
--- NOTE | 2018-06-05 16:38 | CARD ---
APPROVED REPORT Date of service: 06/05/2018 EKG Measurement Heart [id number] <Conclusion> Sinus rhythm with occasional premature ventricular complexes and premature atrial complexes Low voltage QRS Incomplete right bundle branch block Septal infarct, age undetermined Abnormal ECG
--- NOTE | 2018-06-05 18:57 | CARD ---
APPROVED REPORT Date of service: 06/05/2018 Procedure(s) performed: Left Heart Catheterization HISTORY The patient is a 77 year-old male with a history of : peripheral vascular disease, chronic lung disease, tobacco history() : The patient is a former smoker , hypertension , Was C/o Chest pain and abnormal stress test C/w ischemia in infero-lateral wall. INDICATION The indication(s) include : positive stress test, chest pain, dyspnea. CASE TECHNIQUE The patient was brought electively to the Cardiac Catheterization Laboratory in a fasting state and was prepped and draped in a sterile manner. The left wrist was infiltrated with 2% Lidocaine subcutaneous anesthesia. A 6FR GLIDESHEATH ACCESS KIT sheath was inserted into the left radial artery without difficulty. Coronary angiography was performed using coronary diagnostic catheters. The left coronary system was accessed and visualized with a Diagnostic ,5F JL 4 CATH DXT 100 CM catheter. The right coronary system was accessed and visualized with a Diagnostic ,5F JR 4 CATH DXT 100 CM catheter. The left ventricle was accessed and visualized with a 5F PIGTAIL 145 CATH DXT 110 CM catheter. Left ventricular/Aortic Valve gradient assessed on pullback. Left ventriculogram was performed in GARVEY projection. Closure device was deployed with a Fr TR Band (Large) without any complications. The patient tolerated the procedure well and there were no complications associated with the procedure. Vessel Analysis The patient's coronary anatomy is right dominant. The left main coronary artery is a large size vessel with diffuse calcification noted throughout this vessel and without significant stenosis. The left main trifurcates to the left anterior descending, circumflex, and ramus. The left anterior descending artery is a large size vessel with diffuse calcification noted throughout this vessel and without significant stenosis. The first diagonal branch is a medium size vessel with diffuse calcification noted throughout this vessel and without significant stenosis. The circumflex artery is a medium size vessel with diffuse calcification noted throughout this vessel and without significant stenosis. The first obtuse marginal branch is a large size vessel with diffuse calcification noted throughout this vessel and without significant stenosis. The ramus intermedius artery is a medium size vessel with diffuse calcification noted throughout this vessel and with significant stenosis. There is a 55-60% stenosis in the very distal segment diffusely diseased.. The right coronary artery is a large size vessel with diffuse calcification noted throughout this vessel and without significant stenosis. Mid RCA is Ectatic There is a 30-40% stenosis in the mid segment. The right posterior descending artery is a large size vessel with diffuse calcification noted throughout this vessel and without significant stenosis. The right posterolateral branch is a medium size vessel with diffuse calcification noted throughout this vessel and without significant stenosis. Left Ventricle The left ventricle is normal in size with normal contractility. There was no cardiomyopathy. The left ventricular ejection fraction is estimated to be 55-60%. The left ventricular end diastolic pressure is 15-18 mmHg. There was no gradient across the aortic valve upon pullback. Conclusion Non Obstructive CAD limited to very Distal Ramus Intermedius diffusely diseased 55-60%. Preserved Lv Fx.EF-55-60%, EDP-15-18 mm of Hg. Recommendations Aggressive Medical TherapyCardiac Risk Reduction Program Weight Loss Reduction Program CC; ,Juancarlos Machuca Md.
== END 2018-06-05 15:30 | disposition home or self-care (01) ==
LOC: CATH 07:25
PROVIDERS: ATTEND Internal Medicine Cardiovascular Disease
DX: I25.110 Atherosclerotic heart disease of native coronary artery with unstable angina pectoris (principal); I10 Essential (primary) hypertension; I49.3 Ventricular premature depolarization; I71.4 Abdominal aortic aneurysm, without rupture; J44.1 Chronic obstructive pulmonary disease with (acute) exacerbation; I73.9 Peripheral vascular disease, unspecified; N40.0 Benign prostatic hyperplasia without lower urinary tract symptoms; E66.9 Obesity, unspecified; Z87.891 Personal history of nicotine dependence; R94.39 Abnormal result of other cardiovascular function study; Z68.34 Body mass index [BMI] 34.0-34.9, adult
CPT/HCPCS: 36415; 80048; 80061; 85025; 85610; 85730; 86850; 86900; 93005; 93458; 99152; 99153; C1769; J1644 ×2; J2250; J3010; J7030; J7040; Q9966

== ENCOUNTER 2018-06-24 09:19 | Inpatient (IN) | payer MEDICARE, MEDICAID ==
[2018-06-24 09:33] VITALS: BMI 33.3
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
[2018-06-24] MEDS: Albuterol-Ipratrop 3 mg / 0.5 (3 ml) UD IH SCH ×5 (10:15→23:31)
[2018-06-24 10:19] LABS: BASO # 0.06 K/mm3 (0.0-2.0); BASO % 0.7 % (0.0-3.0); EOS # 0.5 (0.0-0.7); EOS % 6.4 % (1.5-5.0); GRAN # 4.76 (1.4-6.5); GRAN % 58.2 % (50.0-68.0); HEMOGLOBIN 14.6 g/dL (14.0-18.0); LYMPH # 2.2 (1.2-3.4); LYMPH % 26.8 % (22.0-35.0); MEAN CELL VOLUME 87.3 fl (80.0-105.0); MEAN CORPUSCULAR HEMOGLOBIN 29.5 pg (25.0-35.0); MEAN CORPUSCULAR HGB CONC 33.8 g/dl (31.0-37.0); MEAN PLATELET VOLUME 10.4 fl (7.0-11.0); MONO # 0.7 (0.1-0.6); MONO % 7.9 % (1.0-6.0); RBC 4.95 10^6/uL (3.5-6.1); RED CELL DISTRIBUTION WIDTH 14.7 % (11.5-14.5); WHITE BLOOD COUNT 8.2 10^3/ul (4.5-11.0)
[2018-06-24 10:25] LABS: ARTERIAL BLOOD GAS HCO3 21.3 mmol/L (21-28); ARTERIAL BLOOD GAS O2 SAT 99.8 % (95-98); ARTERIAL BLOOD GAS PCO2 36 mm/Hg (35-45); ARTERIAL BLOOD GAS PH 7.38 (7.35-7.45); ARTERIAL BLOOD GAS TCO2 22.4 mmol.L (22-28)
[2018-06-24 10:39] LABS: ALB/GLOB RATIO 1.5 (1.1-1.8); ALBUMIN 4.1 g/dL (3.0-4.8); CALCIUM 10.6 mg/dL (8.4-10.5); GFR AFRICAN-AMERICAN > 60; GFR NON-AFRICAN AMERICAN > 60
[2018-06-24 10:41] LABS: ALT/SGPT 24 U/L (7-56); AST/SGOT 20 U/L (17-59); BLOOD UREA NITROGEN 20 mg/dL (7-21)
[2018-06-24 10:50] LABS: B-TYPE NATRIURETIC PEPTIDE 17.7 pg/mL (0-450); TROPONIN I < 0.01 ng/mL
[2018-06-24 11:14] LABS: INR 0.95; PROTHROMBIN TIME 10.9 SECONDS (9.4-12.5)
[2018-06-24 11:17] LABS: PARTIAL THROMBOPLASTIN TIME 31.3 Seconds (25.1-36.5)
--- NOTE | 2018-06-24 11:53 | RAD ---
Date of service: 06/24/2018 HISTORY: sob COMPARISON: 04/23/2018 FINDINGS: LUNGS: No active pulmonary disease. PLEURA: No significant pleural effusion identified, no pneumothorax apparent. CARDIOVASCULAR: Normal. OSSEOUS STRUCTURES: No significant abnormalities. VISUALIZED UPPER ABDOMEN: Normal. OTHER FINDINGS: None. IMPRESSION: No active disease.
[2018-06-24 14:04] LABS: PH,URINE 5.5 (4.7-8.0); URINE BILIRUBIN NEGATIVE (NEGATIVE); URINE BLOOD MODERATE (NEGATIVE); URINE GLUCOSE (UA) 250 mg/dL (NEGATIVE); URINE LEUKOCYTE ESTERASE TRACE Leu/uL (NEGATIVE); URINE PROTEIN NEGATIVE mg/dL (<30 mg/dL); URINE UROBILINOGEN 0.2 E.U./dL (<1 E.U./dL)
[2018-06-24 14:05] LABS: URINE APPEARANCE CLEAR (CLEAR); URINE COLOR YELLOW (YELLOW)
[2018-06-24] MEDS ORDERED: Albuterol-Ipratrop 3 mg / 0.5 (3 ml) UD IH PRN (14:09)
[2018-06-24 14:11] LABS: URINE BACTERIA FEW (NEG)
--- NOTE | 2018-06-24 15:33 | CARD ---
APPROVED REPORT Date of service: 06/24/2018 EKG Measurement Heart [id number] <Conclusion> Normal sinus rhythm Low voltage QRS Borderline ECG
[2018-06-24] MEDS ORDERED: Pneumococcal 23-Valent Vaccine IM ONE (18:35)
[2018-06-24] MEDS ORDERED: Albuterol 0.083% Inhal Sol (2.5 mg/3 mL) UD INH STA (23:31)
[2018-06-25] MEDS ORDERED: Albuterol-Ipratrop 3 mg / 0.5 (3 ml) UD IH PRN (07:03)
[2018-06-25] MEDS: Albuterol-Ipratrop 3 mg / 0.5 (3 ml) UD IH SCH ×3 (07:57→20:18)
--- NOTE | 2018-06-25 08:33 | CON ---
Copied To: Ronan Bradford MD Attending MD: Ronan Bradford MD DATE: 06/25/2018 PULMONARY CONSULTATION REASON FOR CONSULTATION: Chronic obstructive pulmonary disease. REFERRING PHYSICIAN: Gary Machuca MD. HISTORY OF PRESENT ILLNESS: The patient is a 77-year-old male, with past medical history significant for chronic obstructive pulmonary disease, positive extensive smoking history, focal area of scarring in the right lower lobe (seen on recent CAT scan), abdominal aortic aneurysm, laparoscopic cholecystectomy in the past, who presents to [facility] with a two-day history of worsening shortness of breath at rest, dyspnea on exertion, cough and sputum production. There is no history of chest pain, coughing up of blood, or chest pain - made worse with deep respirations. There is no history of temperatures, chills or infectious exposure. There is no history of night sweats, weight loss or appetite change prior to the above events. No history of leg or calf pains. No history of syncope or diaphoresis. No history of recent travel or trauma. REVIEW OF SYSTEMS: No history of nausea, vomiting or diarrhea. No acute urinary symptoms. No new neurologic or musculoskeletal complaints. Rest of the review of systems negative. ALLERGIES NO KNOWN ALLERGIES. SOCIAL HISTORY: Positive for extensive tobacco usage. No alcohol. FAMILY HISTORY: No inheritable diseases. HOME MEDICATIONS: Include Flomax, albuterol nebulizer treatments. PHYSICAL EXAMINATION: GENERAL: The patient appears comfortable at rest. He is not short of breath. VITAL SIGNS: Temperature is 97.5, pulse 84, respirations 18, blood pressure 123/77. Oxygen saturation on nasal cannula is 95-97%. HEENT: Normocephalic, atraumatic. No JVD. CARDIOVASCULAR: Systolic ejection murmur at the lower left sternal border. No S3 gallop. LUNGS: Decreased breath sounds at the bases. Scattered mild bilateral rhonchi and wheezing are appreciated. EXTREMITIES: Mild edema. No cyanosis, no clubbing. Calves are nontender to palpation. GI: Abdomen is soft, nontender and nondistended. Bowel sounds are positive. SKIN: No acute rash. NEUROLOGIC: Exam limited at the present time. PERTINENT LABORATORY DATA: Chest x-ray was done yesterday and reviewed. There is no active pulmonary disease noted. CBC: White count 8.2K, hemoglobin 14.6, hematocrit 43.2, platelets of 235,000. Arterial blood gas was done on nasal cannula. Results are: The pH 7.38, pCO2 of 36, pO2 of 140. Complete metabolic profile: Glucose 186, calcium 10.6. Rest of the metabolic profile is within normal limits. IMPRESSION: 1. Acute bronchitis. 2. Acute bronchospasm. 3. Chronic obstructive pulmonary disease. 4. Obesity. PLAN: The patient presents to [facility] with a two-day history of worsening pulmonary symptoms. I did review the chest x-ray as above. It shows no active pulmonary disease. As noted above, the patient did have a recent CAT scan of the chest - which showed a focal area of scarring in the right lower lobe. There were no other abnormalities noted. On physical exam, the patient is in [id number]-iekyertf bronchospasm. I will increase the nebulizer treatments, as well as increase the intravenous steroids(slightly) this morning. I will also add inhaled Pulmicort. Lastly, due to the patient's age and above diagnoses, I will also add oral antibiotic therapy (Levaquin). Keep in mind, there are no temperatures by history. There is no leukocytosis. The patient does feel much better this morning - compared to yesterday. He is clinically improved. Additional pulmonary intervention will be based on the clinical status of the patient. I will discuss the above with Dr. Machuca. Thank you very much for this pulmonary consultation. Ronan Bradford MD NENA
[2018-06-25] MEDS ORDERED: MethylPREDNISolone 40 mg Vial IVP SCH (10:00)
[2018-06-25] MEDS: levoFLOXacin 500 MG TAB PO SCH (10:19)
[2018-06-25] MEDS: MethylPREDNISolone 40 mg Vial IVP SCH ×2 (10:25→21:19)
--- NOTE | 2018-06-25 12:53 | CP.PCM.HP ---
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 He had chronic cough with yellow sputum, but the past two night SOB suddenly get worse at night which prevented him from sleeping. He had to stood up and face the air conditioning for air, and he cough with choking sensation that his vision was dark momentarily b/l. ROS: (+) SOB, dizzy from coughing, brief vision loss Denies CP, N/V/D/C, dysuria. f/c. Denies recent sickness Pmh: non-obstructing CAD, COPD, HLD, arthritis, BPH. R hard of hearing focal scarring in RLL (CT scan 04/2018) AAA, infrarenal, 4.3cm PSH: [place]ar[place], 01/2018, [place] [facility] [place] cardiac catheterization, May 2018, non-obstructing CAD FH: NS ALL: NKDA Soc: former smoker--quit 1 year ago, denies alcohol or illicit drugs Med: Duoneb, ventolin, flomax PMD: Dr Machuca Cardiology: Dr Redmond Present on Admission - Present on Admission Any Indicators Present on Admission: No Past Patient History - Infectious Disease Hx of Infectious Diseases: None - Tetanus Immunizations Tetanus Immunization: Unknown - Past Social History Smoking Status: Former Smoker - CARDIAC Hx Cardiac Disorders: Yes (cad,aaa, cp) Hx Angina: Yes Hx Hypercholesterolemia: Yes Hx Pacemaker: No Hx Peripheral Edema: Yes (ble +1) Other/Comment: abnormal stress test, pt and family deny hx of blood clot - PULMONARY Hx Respiratory Disorders: Yes Hx Asthma: Yes Hx Bronchitis: Yes Hx Chronic Obstructive Pulmonary Disease (COPD): Yes (has home nebulizer machine ) - NEUROLOGICAL Hx Neurological Disorder: No - HEENT Hx HEENT Problems: Yes (CIRCLE, does not use hearing aid) Hx Deafness: Yes (rt ear) - RENAL Hx Chronic Kidney Disease: No - ENDOCRINE/METABOLIC Hx Endocrine Disorders: No - HEMATOLOGICAL/ONCOLOGICAL Hx Blood Disorders: No - INTEGUMENTARY Hx Dermatological Problems: Yes Other/Comment: healed surgical scar and small wounds to abd, hard thick toenails - MUSCULOSKELETAL/RHEUMATOLOGICAL Hx Falls: No - GASTROINTESTINAL Hx Gastrointestinal Disorders: Yes (CHOLILITHIASIS, obese) Hx Gall Bladder Disease: Yes Other/Comment: biliary colic,pascale lap 02/10 18, fluid collection in gallbladder fossa tx with abx and d/c's from [facility] [place] 03/19/18, biliary colic - GENITOURINARY/GYNECOLOGICAL Hx Genitourinary Disorders: Yes Hx Prostate Problems: Yes (frequency on flomax, bph) - PSYCHIATRIC Hx Substance Use: No - SURGICAL HISTORY Hx Cardiac Catheterization: Yes (06/05/18 dr redmond) Hx Cholecystectomy: Yes (lap pascale 02/10/18) Other/Comment: gall stone - ANESTHESIA Hx Anesthesia Reactions: No Hx Malignant Hyperthermia: No Meds Allergies/Adverse Reactions: Allergies Allergy/AdvReac Type Severity Reaction Status Date / Time No Known Allergies Allergy Verified 06/24/18 09:58 Physical Exam - Constitutional Appears: No Acute Distress - Head Exam Head Exam: ATRAUMATIC, NORMAL INSPECTION, NORMOCEPHALIC Additional comments: No jaw pain b/l. No temporal tenderness - Eye Exam Eye Exam: EOMI, Normal appearance, PERRL. absent: Scleral icterus - ENT Exam ENT Exam: Mucous Membranes Moist - Neck Exam Additional comments: supple - Respiratory Exam Respiratory Exam: Decreased Breath Sounds, Rhonchi, Wheezes Additional comments: shallow breathing - Cardiovascular Exam Cardiovascular Exam: REGULAR RHYTHM, +S1, +S2 - GI/Abdominal Exam GI & Abdominal Exam: Normal Bowel Sounds, Soft. absent: Distended, Rigid, Tenderness - Extremities Exam Extremities exam: Positive for: pedal pulses present. Negative for: calf tenderness, pedal edema - Neurological Exam Neurological exam: Alert, Oriented x3 - Psychiatric Exam Psychiatric exam: Anxious, Normal Mood - Skin Skin Exam: Dry, Warm Results - Vital Signs Recent Vital Signs: Last Vital Signs Temp 98.5 F 06/25/18 12:00 Pulse 84 06/25/18 05:59 Resp 17 06/25/18 12:00 BP 135/78 06/25/18 12:00 Pulse Ox 95 06/25/18 05:59 - Labs Result Diagrams: 06/24/18 09:45 06/24/18 10:28 Labs: Laboratory Results - last 24 hr 06/24/18 13:54 Urine Color Yellow Urine Appearance Clear Urine pH 5.5 Ur Specific [place] >= 1.030 Urine Protein Negative Urine Glucose (UA) 250 H Urine Ketones Negative Urine Blood Moderate H Urine Nitrate Negative Urine Bilirubin Negative Urine Urobilinogen 0.2 Ur Leukocyte Esterase Trace H Urine RBC 2 - 5 Urine WBC 1 - 3 Ur Epithelial Cells 1 - 3 Urine Bacteria Few Assessment & Plan - Assessment and Plan (Free Text) Plan: Mr Caal, 77M, former smoker with extensive smoking history, 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 A: COPD exacerbation Pulmonary scarring, focal scarring in RLL (CT scan 04/2018) Hypercalcemia at 10.6, mild Dizziness with Brief loss of vision, bilateral, likely from vagal stimulation due to coughing, doubt temporal arteritis hyperglycemia, likely from steroid, A1c____? non-obstructing CAD Hyperlipidemia BPH R hard of hearing AAA, infrarenal, 4.3cm P: For COPD exacerbation, Duoneb EFFIE and PRN. Budesonide. Solumedrol 40Q12. Levaquin IV ___day 1___. HOB > 45. 3L NC as needed 6-minute walk test to see if need home o2. For hypercalcemia, maintain adequate hydration For Pulm scarring, follow up with Dr. Bradford outpatient. For hyperglycemia, accu check. follow a1c For CAD/HLD, will follow on A1C and lipid tomorrow for cardiovascular risk stratification, to see if ASA or statin indicated For AAA, follow up with cardiology outpatient for monitoring. BP controlled For BPH, continue home s/r/d/w Dr Machuca <Gary Machuca S - Last Filed: 06/25/18 21:33> Results - Vital Signs Recent Vital Signs: Last Vital Signs Temp 98.1 F 06/25/18 14:00 Pulse 83 06/25/18 14:00 Resp 18 06/25/18 14:00 BP 135/79 06/25/18 14:00 Pulse Ox 96 06/25/18 14:00 - Labs Result Diagrams: 06/24/18 09:45 06/24/18 10:28 Assessment & Plan - Assessment and Plan (Free Text) Plan: Pt seen and examined. I have reviewed the note of the medical illustrator and agree with it. I have discussed the assessment and plan with the resident. I have reviewed the patient's labs and medications. Pt with acute COPD. On Solumedrol, Faustino Delgado. Spoke to Pulmonary. D/C tele.
[2018-06-25] MEDS: Budesonide 0.5 mg/2 ml Inhal Susp UD IH SCH (20:19)
[2018-06-26] MEDS: Albuterol-Ipratrop 3 mg / 0.5 (3 ml) UD IH SCH ×4 (01:12→20:39)
[2018-06-26 06:54] LABS: GRAN # 8.6 (1.4-6.5); GRAN % 79.7 % (50.0-68.0); HEMOGLOBIN 13.9 g/dL (14.0-18.0); LYMPH # 1.6 (1.2-3.4); LYMPH % 14.7 % (22.0-35.0); MEAN CELL VOLUME 87.1 fl (80.0-105.0); MEAN CORPUSCULAR HGB CONC 33.3 g/dl (31.0-37.0); MEAN PLATELET VOLUME 10.5 fl (7.0-11.0); MONO # 0.6 (0.1-0.6); MONO % 5.6 % (1.0-6.0); RBC 4.8 10^6/uL (3.5-6.1); RED CELL DISTRIBUTION WIDTH 14.6 % (11.5-14.5); WHITE BLOOD COUNT 10.8 10^3/ul (4.5-11.0)
[2018-06-26 07:00] LABS: ALB/GLOB RATIO 1.6 (1.1-1.8); ALBUMIN 4.1 g/dL (3.0-4.8); ALT/SGPT 23 U/L (7-56); AST/SGOT 18 U/L (17-59); BLOOD UREA NITROGEN 20 mg/dL (7-21); CALCIUM 10.6 mg/dL (8.4-10.5); GFR AFRICAN-AMERICAN > 60; GFR NON-AFRICAN AMERICAN > 60; HDL CHOLESTEROL 60 mg/dL (29-60)
[2018-06-26] MEDS: Budesonide 0.5 mg/2 ml Inhal Susp UD IH SCH ×2 (07:11→20:38)
[2018-06-26 07:12] LABS: LDL CHOLESTEROL 89 mg/dL (0-129)
--- NOTE | 2018-06-26 07:29 | CP.PCM.PN ---
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 He did not woke up gasping for air last night. He said SOB not improved Objective - Vital Signs/Intake and Output Vital Signs (last 24 hours): Temp Pulse Resp BP Pulse Ox 98 F 98 H 20 149/72 94 L 06/25/18 21:54 06/25/18 21:54 06/25/18 21:54 06/25/18 21:54 06/25/18 21:54 Intake and Output: 06/26/18 06/26/18 06:59 18:59 Intake Total 180 Balance 180 - Medications Medications: Current Medications Albuterol/Ipratropium (Duoneb 3 Mg/0.5 Mg (3 Ml) Ud) 3 ml IH [id number] [facility] Last Admin: 06/26/18 07:11 Dose: 3 ml Albuterol/Ipratropium (Duoneb 3 Mg/0.5 Mg (3 Ml) Ud) 3 ml IH Q2H PRN PRN Reason: Shortness of Breath Budesonide (Pulmicort Respules) 0.5 mg IH [id number] [facility] Last Admin: 06/26/18 07:11 Dose: 0.5 mg Insulin Human Regular (Humulin R Low) 0 units SC ACHS [facility] PRN Reason: Protocol Levofloxacin (Levaquin) 500 mg PO DAILY [facility] PRN Reason: Protocol Last Admin: 06/25/18 10:19 Dose: 500 mg Methylprednisolone (Solu-Medrol) 30 mg IVP Q12 [facility] Tamsulosin HCl (Flomax) 0.4 mg PO DAILY [facility] Last Admin: 06/25/18 10:19 Dose: 0.4 mg - Labs Labs: 06/26/18 06:10 06/26/18 06:10 PT 10.9 SECONDS (9.4-12.5) 06/24/18 11:00 INR 0.95 06/24/18 11:00 APTT 31.3 Seconds (25.1-36.5) 06/24/18 11:00 - Constitutional Appears: No Acute Distress (able to finish one sentences w/o pause) - Head Exam Head Exam: ATRAUMATIC, NORMAL INSPECTION, NORMOCEPHALIC - Eye Exam Eye Exam: EOMI, Normal appearance, PERRL. absent: Scleral icterus Pupil Exam: NORMAL ACCOMODATION - ENT Exam ENT Exam: Mucous Membranes Moist - Neck Exam Additional comments: supple - Respiratory Exam Respiratory Exam: Clear to Ausculation Bilateral, Rhonchi, Wheezes Additional comments: shallow breathing, but effort improved as compared to yesterday - Cardiovascular Exam Cardiovascular Exam: REGULAR RHYTHM, +S1, +S2 - GI/Abdominal Exam GI & Abdominal Exam: Soft, Normal Bowel Sounds. 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 He requires continuous 2L oxygen so far A: COPD exacerbation ? 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 Budesonide. Solumedrol 40Q12. Levaquin IV ___day 3___. HOB > 45. 3L NC as needed. Mucinex DM BID for cough 6-minute walk test to see if need home o2. Sleep study outpatient to r/o SILVA For Pulm scarring, follow up with Dr. Bradford outpatient. For new onset diabetes, diabetic education. will decide hypoglycemia PO. For hyperglycemia, increase ISSS to medium scale For hypercalcemia, maintain adequate hydration. Follow on pth and Vit D For CAD, with diabetes and HLD, recommend to start statin and ASA. For AAA, follow up with cardiology outpatient for monitoring. BP controlled For BPH, continue home med s/r/d/w Dr Machuca <Gary Machuca S - Last Filed: 06/26/18 20:58> Objective - Vital Signs/Intake and Output Vital Signs (last 24 hours): Temp Pulse Resp BP Pulse Ox 97.9 F 100 H 22 122/63 94 L 06/26/18 14:00 06/26/18 14:00 06/26/18 14:00 06/26/18 14:00 06/26/18 14:00 - Medications Medications: Current Medications Albuterol/Ipratropium (Duoneb 3 Mg/0.5 Mg (3 Ml) Ud) 3 ml IH [id number] [facility] Last Admin: 06/26/18 20:39 Dose: 3 ml Albuterol/Ipratropium (Duoneb 3 Mg/0.5 Mg (3 Ml) Ud) 3 ml IH Q2H PRN PRN Reason: Shortness of Breath Aspirin (Aspirin Chewable) 81 mg PO DAILY [facility] Atorvastatin Calcium (Lipitor) 20 mg PO DIN [facility] Last Admin: 06/26/18 17:46 Dose: 20 mg Budesonide (Pulmicort Respules) 0.5 mg IH [id number] [facility] Last Admin: 06/26/18 20:38 Dose: 0.5 mg Guaifenesin/Dextromethorphan (Mucinex-Dm 600-30 Mg) 1 tab PO BID [facility] Last Admin: 06/26/18 17:46 Dose: 1 tab Insulin Human Lispro (Humalog Med) 0 units SC ACHS [facility] PRN Reason: Protocol Last Admin: 06/26/18 17:46 Dose: 5 units Levofloxacin (Levaquin) 500 mg PO DAILY [facility] PRN Reason: Protocol Last Admin: 06/26/18 09:55 Dose: 500 mg Methylprednisolone (Solu-Medrol) 30 mg IVP Q12 [facility] Last Admin: 06/26/18 09:55 Dose: 30 mg Tamsulosin HCl (Flomax) 0.4 mg PO DAILY [facility] Last Admin: 06/26/18 09:56 Dose: 0.4 mg - Labs Labs: 06/26/18 06:10 06/26/18 06:10 PT 10.9 SECONDS (9.4-12.5) 06/24/18 11:00 INR 0.95 06/24/18 11:00 APTT 31.3 Seconds (25.1-36.5) 06/24/18 11:00 Assessment and Plan - Assessment and Plan (Free Text) Plan: Pt seen and examined. I have reviewed the note of the medical assistant dermatology and agree with it. I have discussed the assessment and plan with the resident. I have reviewed the patient's labs and medications. Pt with acute COPD. He is on IV Steriods, Duoneb and Levaquin. Pt has hypercalcemia, PTH has been ordered. He is still wheezing.
--- NOTE | 2018-06-26 07:40 | PN ---
Copied To: Ronan Bradfrod MD Attending MD: Ronan Bradford MD DATE: 06/26/2018 PULMONARY NOTE SUBJECTIVE: The patient appears comfortable this morning. He is not short of breath at rest. PHYSICAL EXAMINATION: VITAL SIGNS: (Last noted in the computer): Temperature is 98, pulse 98, respirations 18/20, blood pressure 149/72. Oxygen saturation on nasal cannula is 94-96%. HEENT: Normocephalic, atraumatic. No JVD. CARDIOVASCULAR: Systolic ejection murmur at the lower left sternal border. No S3 gallop. LUNGS: Improved breath sounds at the bases. Less rhonchi. Less wheezing. EXTREMITIES: Mild edema. No cyanosis. No clubbing. Calves are nontender to palpation. GI: Abdomen is soft, nontender and nondistended. Bowel sounds are positive. SKIN: No acute rash. NEUROLOGIC: Limited at the present time. IMPRESSION: 1. Acute bronchitis. 2. Acute bronchospasm. 3. Chronic obstructive pulmonary disease. 4. Obesity. PLAN: The patient appears comfortable this morning. He is not short of breath at rest. He does state to feeling better overall. I did discuss the case with the night nurse at length. The night nurse stated that the patient had a good night, and did ambulate without problems. On physical exam, there is less bronchospasm noted. In addition, there is no significant alveolar-arterial gradient. I will continue with the current nebulizer treatments and decrease the intravenous steroids this morning. The patient remains on oral antibiotic therapy. There are no temperatures noted. There is no leukocytosis. Clinical status of the patient is definitely improved - compared to his initial presentation. His overall status/prognosis does remain guarded. I will discuss the above with Dr. Machuca. Ronan Bradford MD MTDBobby
[2018-06-26] MEDS: MethylPREDNISolone 40 mg Vial IVP SCH ×2 (09:55→21:15)
[2018-06-26] MEDS: levoFLOXacin 500 MG TAB PO SCH (09:55)
[2018-06-26] MEDS: Insulin Reg-LOW-Coverage SC SCH ×2 (09:56→11:46)
[2018-06-26] MEDS: guaiFENesin-DM 600-30 mg ER Tab PO SCH ×2 (12:13→17:46)
[2018-06-26] MEDS: Insulin Lispro (humaLOG) MEDIUM Coverage SC SCH ×2 (17:46→21:16)
[2018-06-27] MEDS: Albuterol-Ipratrop 3 mg / 0.5 (3 ml) UD IH SCH ×4 (01:51→20:43)
[2018-06-27 07:04] LABS: GRAN # 8.96 (1.4-6.5); GRAN % 76.5 % (50.0-68.0); HEMOGLOBIN 14.1 g/dL (14.0-18.0); LYMPH # 1.9 (1.2-3.4); LYMPH % 16.5 % (22.0-35.0); MEAN CELL VOLUME 87.1 fl (80.0-105.0); MEAN CORPUSCULAR HEMOGLOBIN 28.9 pg (25.0-35.0); MEAN CORPUSCULAR HGB CONC 33.2 g/dl (31.0-37.0); MEAN PLATELET VOLUME 10.8 fl (7.0-11.0); MONO # 0.8 (0.1-0.6); RBC 4.88 10^6/uL (3.5-6.1); RED CELL DISTRIBUTION WIDTH 14.7 % (11.5-14.5); WHITE BLOOD COUNT 11.7 10^3/ul (4.5-11.0)
[2018-06-27] MEDS: Budesonide 0.5 mg/2 ml Inhal Susp UD IH SCH ×2 (07:21→20:43)
[2018-06-27 07:24] LABS: ALB/GLOB RATIO 1.7 (1.1-1.8); ALT/SGPT 31 U/L (7-56); AST/SGOT 19 U/L (17-59); BLOOD UREA NITROGEN 21 mg/dL (7-21); CALCIUM 10.4 mg/dL (8.4-10.5); GFR AFRICAN-AMERICAN > 60; GFR NON-AFRICAN AMERICAN > 60
--- NOTE | 2018-06-27 08:11 | PN ---
Copied To: Ronan Bradford MD Attending MD: Ronan Bradford MD DATE: 06/27/2018 PULMONARY NOTE SUBJECTIVE: The patient appears comfortable this morning. He is not short of breath at rest. PHYSICAL EXAMINATION: VITAL SIGNS: Temperature is 98.2, pulse 80, respirations 18/20, blood pressure 150/77. Oxygen saturation on room air is 99%. HEENT: Normocephalic, atraumatic. No JVD. CARDIOVASCULAR: Systolic ejection murmur at the lower left sternal border. No S3 gallop. LUNGS: Much less/minimal rhonchi. Much less/minimal wheezing. EXTREMITIES: Mild edema. No cyanosis. No clubbing. Calves are nontender to palpation. GI: Abdomen is soft, nontender and nondistended. Bowel sounds are positive. SKIN: No acute rash. NEUROLOGIC: Limited at the present time. IMPRESSION: 1. Acute bronchitis. 2. Acute bronchospasm. 3. Chronic obstructive pulmonary disease. 4. Obesity. 5. Anxiety. PLAN: The patient appears comfortable this morning. He is not short of breath at rest. He is coughing less. I did discuss the case with the night nurse at length. The night nurse stated that the patient gets extremely anxious at times. On physical exam, there is definitely less bronchospasm noted. In addition, the oxygen saturation on room air is now 99%. I will continue with the current nebulizer treatments and decrease the intravenous steroids this morning. The patient remains on oral antibiotic therapy. There are no temperatures noted. There is no significant leukocytosis. Clinical status of the patient is certainly improved - compared to the initial presentation. Perhaps, a psychiatric evaluation would help us with this patient. I will discuss the above with Dr. Machuca. Ronan Bradford MD MTDBobby
[2018-06-27] MEDS: Insulin Lispro (humaLOG) MEDIUM Coverage SC SCH ×3 (08:31→16:27)
--- NOTE | 2018-06-27 09:44 | CP.PCM.CON ---
<Roberto Quevedo - Last Filed: 06/27/18 12:45> History of Present Illness - History of Present Illness History of Present Illness: General Surgery Consult Note for Dr. 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 Reason for surgical consult was due to RN report that pt had 50-100 cc of BRBPR yesterday, suspect for possible hemorrhoids. Patient states that he has had a chronic 40+ year history of hemorrhoids and bleeding in stool, worsened with straining, that waxes and wanes. Pt reports the bleeding started yesterday and this am admits to no blood observed with recent BM. Patient does not admit to having a recent colonoscopy. Denies headache, dizziness, fever, chills, SOB, chest pain, abdominal pain, N/V, urinary complaints, or bowel/bladder incontinence. 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 Medina), recent cardiac catheterization in May 2018 that demonstrated non-obstructing CAD Fam Hx: non-contributory ALL: NKDA Soc H: Former smoker, quit 1 year ago. Denies ETOH or illicit drug use. 12-point ROS negative, otherwise as per HPI. Review of Systems - Constitutional Constitutional: absent: As Per HPI, Anorexia, Chills, Daytime Sleepiness, Excessive Sweating, Fatigue, Fever, Frequent Falls, Headache, Increased Appetite , Lethargy, Malaise, Night Sweats, Snoring, Sleep Apnea, Weight Gain, Weight Loss, Weakness, Other - EENT Nose/Mouth/Throat: absent: Epistaxis - Cardiovascular Cardiovascular: absent: Chest Pain, Claudication, Diaphoresis, Dyspnea, Dyspnea on Exertion, Edema - Gastrointestinal Gastrointestinal: Change in Stool Character (Bleeding per rectum), Hematochezia. absent: Abdominal Pain, Belching, Change in Bowel Habits, Constipation, Cramping, Diarrhea, Nausea, Vomiting - Genitourinary Genitourinary: absent: Change in Urinary Stream Past Patient History - Infectious Disease Hx of Infectious Diseases: None - Tetanus Immunizations Tetanus Immunization: Unknown - Past Social History Smoking Status: Former Smoker - CARDIAC Hx Cardiac Disorders: Yes (cad,aaa, cp) Hx Angina: Yes Hx Hypercholesterolemia: Yes Hx Pacemaker: No Hx Peripheral Edema: Yes (ble +1) Other/Comment: abnormal stress test, pt and family deny hx of blood clot - PULMONARY Hx Respiratory Disorders: Yes Hx Asthma: Yes Hx Bronchitis: Yes Hx Chronic Obstructive Pulmonary Disease (COPD): Yes (has home nebulizer machine ) - NEUROLOGICAL Hx Neurological Disorder: No - HEENT Hx HEENT Problems: Yes ([place], does not use hearing aid) Hx Deafness: Yes (rt ear) - RENAL Hx Chronic Kidney Disease: No - ENDOCRINE/METABOLIC Hx Endocrine Disorders: No - HEMATOLOGICAL/ONCOLOGICAL Hx Blood Disorders: No - INTEGUMENTARY Hx Dermatological Problems: Yes Other/Comment: healed surgical scar and small wounds to abd, hard thick toenails - MUSCULOSKELETAL/RHEUMATOLOGICAL Hx Falls: No - GASTROINTESTINAL Hx Gastrointestinal Disorders: Yes (CHOLILITHIASIS, obese) Hx Gall Bladder Disease: Yes Other/Comment: biliary colic,pascale lap 02/10 18, fluid collection in gallbladder fossa tx with [place] [facility] [place] colic - GENITOURINARY/GYNECOLOGICAL Hx Genitourinary Disorders: Yes Hx Prostate Problems: Yes (frequency on flomax, bph) - PSYCHIATRIC Hx Substance Use: No - SURGICAL HISTORY Hx Cardiac Catheterization: Yes (06/05/18 dr steen) Hx Cholecystectomy: Yes (lap pascale 02/10/18) Other/Comment: gall stone - ANESTHESIA Hx Anesthesia Reactions: No Hx Malignant Hyperthermia: No Meds Allergies/Adverse Reactions: Allergies Allergy/AdvReac Type Severity Reaction Status Date / Time No Known Allergies Allergy Verified 06/24/18 09:58 - Medications Medications: Current Medications Albuterol/Ipratropium (Duoneb 3 Mg/0.5 Mg (3 Ml) Ud) 3 ml IH [id number] Last Admin: 06/27/18 07:21 Dose: 3 ml Albuterol/Ipratropium (Duoneb 3 Mg/0.5 Mg (3 Ml) Ud) 3 ml IH Q2H PRN PRN Reason: Shortness of Breath Aspirin (Aspirin Chewable) 81 mg PO DAILY [facility] Atorvastatin Calcium (Lipitor) 20 mg PO DIN [facility] Last Admin: 06/26/18 17:46 Dose: 20 mg Budesonide (Pulmicort Respules) 0.5 mg IH [id number] [facility] Last Admin: 06/27/18 07:21 Dose: 0.5 mg Guaifenesin/Dextromethorphan (Mucinex-Dm 600-30 Mg) 1 tab PO BID [facility] Last Admin: 06/26/18 17:46 Dose: 1 tab Insulin Human Lispro (Humalog Med) 0 units SC ACHS [facility] PRN Reason: Protocol Last Admin: 06/27/18 08:31 Dose: 3 units Levofloxacin (Levaquin) 500 mg PO DAILY [facility] PRN Reason: Protocol Last Admin: 06/26/18 09:55 Dose: 500 mg Methylprednisolone (Solu-Medrol) 20 mg IVP Q12 [facility] Pantoprazole Sodium (Protonix Inj) 40 mg IVP DAILY [facility] Tamsulosin HCl (Flomax) 0.4 mg PO DAILY [facility] Last Admin: 06/26/18 09:56 Dose: 0.4 mg Physical Exam - Constitutional Appears: Well, Non-toxic, No Acute Distress - Head Exam Head Exam: ATRAUMATIC, NORMAL INSPECTION, NORMOCEPHALIC - Eye Exam Eye Exam: EOMI, Normal appearance, PERRL. absent: Conjunctival injection - ENT Exam ENT Exam: Mucous Membranes Moist - Neck Exam Neck exam: Positive for: Full Rom, Normal Inspection - Respiratory Exam Respiratory Exam: Clear to Auscultation Bilateral, NORMAL BREATHING PATTERN - Cardiovascular Exam Cardiovascular Exam: REGULAR RHYTHM, +S1, +S2 - GI/Abdominal Exam GI & Abdominal Exam: Normal Bowel Sounds, Soft. absent: Diminished Bowel Sounds , Distended, Firm, Guarding, Tenderness Additional comments: No masses appreciated, no hepatosplenomegaly - Rectal Exam Rectal Exam: NORMAL INSPECTION Additional comments: No external hemorrhoids appreciated, no blood appreciated, no tenderness on exam - Exam Additional comments: No masses or nodules palpated on JACK of prostate, no tenderness to palpation - Extremities Exam Extremities exam: Positive for: normal capillary refill, normal inspection, pedal pulses present - Neurological Exam Neurological exam: Alert, CN II-XII Intact, Oriented x3 - Skin Skin Exam: Dry, Intact, Normal Color, Warm Results - Vital Signs Recent Vital Signs: Last Vital Signs Temp 98.2 F 06/27/18 06:00 Pulse 80 06/27/18 06:00 Resp 20 06/27/18 06:00 BP 150/77 06/27/18 06:00 Pulse Ox 99 06/27/18 06:00 - Labs Result Diagrams: 06/27/18 06:20 06/27/18 06:20 Labs: Laboratory Results - last 24 hr 06/26/18 06/26/18 06/26/18 05:00 06:10 11:13 WBC RBC Hgb Hct MCV MCH MCHC RDW Plt Count MPV Gran % Lymph % (Auto) [place] % (Auto) Eos % (Auto) Baso % (Auto) Gran # Lymph # (Auto) [place] # (Auto) Eos # (Auto) Baso # (Auto) Sodium Potassium Chloride Carbon Dioxide Anion Gap BUN Creatinine Est GFR ( Amer) Est GFR (Non-Af Amer) POC Glucose (mg/dL) 313 H Random Glucose Hemoglobin A1c 7.0 H Calcium Total Bilirubin AST ALT Alkaline Phosphatase Total Protein Albumin Globulin Albumin/Globulin Ratio 25-OH Vitamin D Total 17.8 L 06/26/18 06/26/18 06/27/18 16:00 21:08 06:20 WBC 11.7 H RBC 4.88 Hgb 14.1 Hct 42.5 MCV 87.1 MCH 28.9 MCHC 33.2 RDW 14.7 H Plt Count 244 MPV 10.8 Gran % 76.5 H Lymph % (Auto) 16.5 L [place] % (Auto) 7.0 H Eos % (Auto) 0.0 L Baso % (Auto) 0.0 Gran # 8.96 H Lymph # (Auto) 1.9 [place] # (Auto) 0.8 H Eos # (Auto) 0.0 Baso # (Auto) 0.00 Sodium Potassium Chloride Carbon Dioxide Anion Gap BUN Creatinine Est GFR ( Amer) Est GFR (Non-Af Amer) POC Glucose (mg/dL) 296 H 207 H Random Glucose Hemoglobin A1c Calcium Total Bilirubin AST ALT Alkaline Phosphatase Total Protein Albumin Globulin Albumin/Globulin Ratio 25-OH Vitamin D Total 06/27/18 06:20 WBC RBC Hgb Hct MCV MCH MCHC RDW Plt Count MPV Gran % Lymph % (Auto) [place] % (Auto) Eos % (Auto) Baso % (Auto) Gran # Lymph # (Auto) [place] # (Auto) Eos # (Auto) Baso # (Auto) Sodium 137 Potassium 4.7 Chloride 101 Carbon Dioxide 29 Anion Gap 12 BUN 21 Creatinine 0.8 Est GFR ( Amer) > 60 Est GFR (Non-Af Amer) > 60 POC Glucose (mg/dL) Random Glucose 202 H Hemoglobin A1c Calcium 10.4 Total Bilirubin 0.4 AST 19 ALT 31 Alkaline Phosphatase 60 Total Protein 6.3 Albumin 4.0 Globulin 2.4 Albumin/Globulin Ratio 1.7 25-OH Vitamin D Total Assessment & Plan - Assessment and Plan (Free Text) Assessment: 77 yo M with PMhx former smoker with extensive smoking history (quit 1 y ago), 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 Reason for surgical consult was due to RN report that pt had 50-100 cc of BRBPR yesterday, suspect for possible hemorrhoids. Pt not actively bleeding at this time. No observed BRBPR. Plan: -No acute surgical intervention needed at this time -Pt hemodynamically stable, afebrile -H/H stable, coags normal, no active bleeding at this time, pt states BM this am had no blood, continue to monitor -No observed BRBPR on JACK, no nodules or masses appreciated on prostate exam -Recommend GI eval for possible colonoscopy, daily Miralax, CEA not indicated at this time -Further recommendations per Dr. Adam Quevedo, DO PGY-1 <Ross Medina - Last Filed: 06/28/18 09:50> Meds - Medications Medications: Current Medications Albuterol/Ipratropium (Duoneb 3 Mg/0.5 Mg (3 Ml) Ud) 3 ml IH [id number] [facility] Last Admin: 06/28/18 07:16 Dose: 3 ml Albuterol/Ipratropium (Duoneb 3 Mg/0.5 Mg (3 Ml) Ud) 3 ml IH Q2H PRN PRN Reason: Shortness of Breath Aspirin (Aspirin Chewable) 81 mg PO DAILY [facility] Last Admin: 06/27/18 11:04 Dose: 81 mg Atorvastatin Calcium (Lipitor) 20 mg PO DIN [facility] Last Admin: 06/27/18 17:25 Dose: 20 mg Budesonide (Pulmicort Respules) 0.5 mg IH [id number] [facility] Last Admin: 06/28/18 07:16 Dose: 0.5 mg Docusate Sodium (Colace) 100 mg PO BID [facility] Last Admin: 06/28/18 09:17 Dose: 100 mg Guaifenesin/Dextromethorphan (Mucinex-Dm 600-30 Mg) 1 tab PO BID [facility] Last Admin: 06/28/18 09:16 Dose: 1 tab Insulin Human Lispro (Humalog Med) 0 units SC ACHS [facility] PRN Reason: Protocol Last Admin: 06/28/18 08:04 Dose: 1 units Levofloxacin (Levaquin) 500 mg PO DAILY [facility] PRN Reason: Protocol Last Admin: 06/28/18 09:16 Dose: 500 mg Methylprednisolone (Solu-Medrol) 20 mg IVP Q12 [facility] Last Admin: 06/28/18 09:17 Dose: 20 mg Pantoprazole Sodium (Protonix Ec Tab) 40 mg PO ACB [facility] Last Admin: 06/28/18 08:05 Dose: 40 mg Polyethylene Glycol (Miralax) 17 gm PO DAILY [facility] Last Admin: 06/28/18 09:15 Dose: 17 gm Tamsulosin HCl (Flomax) 0.4 mg PO DAILY [facility] Last Admin: 06/28/18 09:17 Dose: 0.4 mg Zolpidem Tartrate (Ambien) 5 mg PO HS PRN; Protocol PRN Reason: Insomnia Stop: 06/28/18 23:59 Results - Vital Signs Recent Vital Signs: Last Vital Signs Temp 97.3 F L 06/28/18 07:47 Pulse 79 06/28/18 07:47 Resp 20 06/28/18 07:47 BP 148/94 H 06/28/18 07:47 Pulse Ox 93 L 06/28/18 07:47 - Labs Result Diagrams: 06/28/18 06:00 06/28/18 06:00 Labs: Laboratory Results - last 24 hr 06/26/18 06/27/18 06/27/18 05:00 06:46 11:21 WBC RBC Hgb Hct MCV MCH MCHC RDW Plt Count MPV Gran % Lymph % (Auto) [place] % (Auto) Eos % (Auto) Baso % (Auto) Gran # Lymph # (Auto) [place] # (Auto) Eos # (Auto) Baso # (Auto) Sodium Potassium Chloride Carbon Dioxide Anion Gap BUN Creatinine Est GFR ( Amer) Est GFR (Non-Af Amer) POC Glucose (mg/dL) 208 H 115 H Random Glucose Calcium Total Bilirubin AST ALT Alkaline Phosphatase Total Protein Albumin Globulin Albumin/Globulin Ratio Calcium (PTH Intact) 10.6 H PTH w/Ion &Tot Calcium 51 06/27/18 06/28/18 06/28/18 15:57 06:00 06:00 WBC 10.0 RBC 5.11 Hgb 15.1 Hct 44.3 MCV 86.7 MCH 29.5 MCHC 34.1 RDW 14.4 Plt Count 248 MPV 10.5 Gran % 71.8 H Lymph % (Auto) 21.0 L O'Brien % (Auto) 7.1 H Eos % (Auto) 0.0 L Baso % (Auto) 0.1 Gran # 7.19 H Lymph # (Auto) 2.1 [place]'Brien # (Auto) 0.7 H Eos # (Auto) 0.0 Baso # (Auto) 0.01 Sodium 138 Potassium 4.5 Chloride 99 Carbon Dioxide 30 Anion Gap 13 BUN 28 H Creatinine 0.8 Est GFR ( Amer) > 60 Est GFR (Non-Af Amer) > 60 POC Glucose (mg/dL) 207 H Random Glucose 171 H Calcium 10.6 H Total Bilirubin 0.4 AST 23 ALT 27 Alkaline Phosphatase 65 Total Protein 7.0 Albumin 4.1 Globulin 2.9 Albumin/Globulin Ratio 1.4 Calcium (PTH Intact) PTH w/Ion &Tot Calcium Assessment & Plan - Assessment and Plan (Free Text) Assessment: Dx Exacerbated COBPD/GERD/Rectal Bleeding Chronic constipation with mild [id number] w Miralax/PPI Apprent CA19-9 Trend was read Backwards by Med Resident(Trending Downward Not Up ) and presumably due to recent Biliary Infection(MRCP NEG for tumor) Sid Miralax/PPI/GI Consult for EGD-Colonoscopy No surgeryneeded This consult done under my direct supervision Tremaine Medina MD FACS
[2018-06-27] MEDS: levoFLOXacin 500 MG TAB PO SCH (10:54)
[2018-06-27] MEDS: MethylPREDNISolone 40 mg Vial IVP SCH ×2 (10:54→22:04)
[2018-06-27] MEDS: POLYETHYLENE GLYCOL 3350 17 GM/Dose PACKET PO SCH (10:54)
[2018-06-27] MEDS: guaiFENesin-DM 600-30 mg ER Tab PO SCH ×2 (10:54→17:24)
--- NOTE | 2018-06-27 12:43 | CP.PCM.CON ---
History of Present Illness - History of Present Illness History of Present Illness: Mariela Rodriguez DO, PGY-2: GI Consult Note 77 year old male with a past medical history of COPD, non-obstructive CAD, HLD , BPH, arthritis, AAA, who was admitted for COPD exacerbation on 06/24/18. He is very hard of hearing and his girlfriend at bedside acts as liason in communicating with him. GI was consulted for bright red blood per rectum noted by nursing staff in the setting of having an elevated CA 19-9 in the past. This patient is known to our service, consulted for a similar reason in January of this year. Chart review indicates that the patient did have an elevated CEA 19- 9 but a normal CEA in January of this year. The patient denies ever having a colonoscopy in the past. The patient reports having blood per rectum periodically any time he strains or has constipation. He is constipated based on rectal exam with stool impaction on rectal exam noted. We advised the patient to have an outpatient colonoscopy. 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 Medina), recent cardiac catheterization in May 2018 that demonstrated non-obstructing CAD Fam Hx: non-contributory ALL: NKDA Soc H: Former smoker, quit 1 year ago. Denies ETOH or illicit drug use. 12-point ROS negative, otherwise as per HPI. Review of Systems - Review of Systems All systems: reviewed and no additional remarkable complaints except (as per HPI ) Past Patient History - Infectious Disease Hx of Infectious Diseases: None - Tetanus Immunizations Tetanus Immunization: Unknown - Past Social History Smoking Status: Former Smoker - CARDIAC Hx Cardiac Disorders: Yes (cad,aaa, cp) Hx Angina: Yes Hx Hypercholesterolemia: Yes Hx Pacemaker: No Hx Peripheral Edema: Yes (ble +1) Other/Comment: abnormal stress test, pt and family deny hx of blood clot - PULMONARY Hx Respiratory Disorders: Yes Hx Asthma: Yes Hx Bronchitis: Yes Hx Chronic Obstructive Pulmonary Disease (COPD): Yes (has home nebulizer machine ) - NEUROLOGICAL Hx Neurological Disorder: No - HEENT Hx HEENT Problems: Yes ([place], does not use hearing aid) Hx Deafness: Yes (rt ear) - RENAL Hx Chronic Kidney Disease: No - ENDOCRINE/METABOLIC Hx Endocrine Disorders: No - HEMATOLOGICAL/ONCOLOGICAL Hx Blood Disorders: No - INTEGUMENTARY Hx Dermatological Problems: Yes Other/Comment: healed surgical scar and small wounds to abd, hard thick toenails - MUSCULOSKELETAL/RHEUMATOLOGICAL Hx Falls: No - GASTROINTESTINAL Hx Gastrointestinal Disorders: Yes (CHOLILITHIASIS, obese) Hx Gall Bladder Disease: Yes Other/Comment: biliary colic,pascale lap 02/10 18, fluid collection in gallbladder fossa tx with abx and [place] [facility] [place] [facility] [place], biliary colic - GENITOURINARY/GYNECOLOGICAL Hx Genitourinary Disorders: Yes Hx Prostate Problems: Yes (frequency on flomax, bph) - PSYCHIATRIC Hx Substance Use: No - SURGICAL HISTORY Hx Cardiac Catheterization: Yes (06/05/18 dr steen) Hx Cholecystectomy: Yes (lap pascale 02/10/18) Other/Comment: gall stone - ANESTHESIA Hx Anesthesia Reactions: No Hx Malignant Hyperthermia: No Meds Allergies/Adverse Reactions: Allergies Allergy/AdvReac Type Severity Reaction Status Date / Time No Known Allergies Allergy Verified 06/24/18 09:58 - Medications Medications: Current Medications Albuterol/Ipratropium (Duoneb 3 Mg/0.5 Mg (3 Ml) Ud) 3 ml IH [id number] [facility] Last Admin: 06/27/18 07:21 Dose: 3 ml Albuterol/Ipratropium (Duoneb 3 Mg/0.5 Mg (3 Ml) Ud) 3 ml IH Q2H PRN PRN Reason: Shortness of Breath Aspirin (Aspirin Chewable) 81 mg PO DAILY [facility] Last Admin: 06/27/18 11:04 Dose: 81 mg Atorvastatin Calcium (Lipitor) 20 mg PO DIN [facility] Last Admin: 06/26/18 17:46 Dose: 20 mg Budesonide (Pulmicort Respules) 0.5 mg IH [id number] [facility] Last Admin: 06/27/18 07:21 Dose: 0.5 mg Guaifenesin/Dextromethorphan (Mucinex-Dm 600-30 Mg) 1 tab PO BID [facility] Last Admin: 06/27/18 10:54 Dose: 1 tab Insulin Human Lispro (Humalog Med) 0 units SC ACHS [facility] PRN Reason: Protocol Last Admin: 06/27/18 08:31 Dose: 3 units Levofloxacin (Levaquin) 500 mg PO DAILY [facility] PRN Reason: Protocol Last Admin: 06/27/18 10:54 Dose: 500 mg Methylprednisolone (Solu-Medrol) 20 mg IVP Q12 [facility] Last Admin: 06/27/18 10:54 Dose: 20 mg Pantoprazole Sodium (Protonix Ec Tab) 40 mg PO ACB [facility] Polyethylene Glycol (Miralax) 17 gm PO DAILY [facility] Last Admin: 06/27/18 10:54 Dose: 17 gm Tamsulosin HCl (Flomax) 0.4 mg PO DAILY [facility] Last Admin: 06/27/18 10:54 Dose: 0.4 mg Physical Exam - Constitutional Appears: Well, Non-toxic - Head Exam Head Exam: ATRAUMATIC, NORMOCEPHALIC - Eye Exam Eye Exam: EOMI Additional comments: strabismus noted - ENT Exam ENT Exam: Mucous Membranes Moist - Neck Exam Neck exam: Positive for: Normal Inspection - Respiratory Exam Respiratory Exam: Wheezes, NORMAL BREATHING PATTERN. absent: Accessory Muscle Use - Cardiovascular Exam Cardiovascular Exam: RRR, +S1, +S2 - GI/Abdominal Exam GI & Abdominal Exam: Normal Bowel Sounds, Soft. absent: Guarding, Rebound - Rectal Exam Additional comments: 2 external hemmorhoids noted in 3 and 9 o'clock position, stool present in rectal vault - Extremities Exam Extremities exam: Positive for: normal inspection - Neurological Exam Neurological exam: Alert, Oriented x3 - Psychiatric Exam Psychiatric exam: Agitated, Normal Affect - Skin Skin Exam: Dry, Intact, Normal Color, Warm Results - Vital Signs Recent Vital Signs: Last Vital Signs Temp 98.2 F 06/27/18 06:00 Pulse 80 06/27/18 06:00 Resp 20 06/27/18 06:00 BP 150/77 06/27/18 06:00 Pulse Ox 99 06/27/18 06:00 - Labs Result Diagrams: 06/27/18 06:20 06/27/18 06:20 Labs: Laboratory Results - last 24 hr 06/26/18 06/26/18 06/27/18 16:00 21:08 06:20 WBC 11.7 H RBC 4.88 Hgb 14.1 Hct 42.5 MCV 87.1 MCH 28.9 MCHC 33.2 RDW 14.7 H Plt Count 244 MPV 10.8 Gran % 76.5 H Lymph % (Auto) 16.5 L [place] % (Auto) 7.0 H Eos % (Auto) 0.0 L Baso % (Auto) 0.0 Gran # 8.96 H Lymph # (Auto) 1.9 [place] # (Auto) 0.8 H Eos # (Auto) 0.0 Baso # (Auto) 0.00 Sodium Potassium Chloride Carbon Dioxide Anion Gap BUN Creatinine Est GFR ( Amer) Est GFR (Non-Af Amer) POC Glucose (mg/dL) 296 H 207 H Random Glucose Calcium Total Bilirubin AST ALT Alkaline Phosphatase Total Protein Albumin Globulin Albumin/Globulin Ratio 06/27/18 06/27/18 06/27/18 06:20 06:46 11:21 WBC RBC Hgb Hct MCV MCH MCHC RDW Plt Count MPV Gran % Lymph % (Auto) [place] % (Auto) Eos % (Auto) Baso % (Auto) Gran # Lymph # (Auto) [place] # (Auto) Eos # (Auto) Baso # (Auto) Sodium 137 Potassium 4.7 Chloride 101 Carbon Dioxide 29 Anion Gap 12 BUN 21 Creatinine 0.8 Est GFR ( Amer) > 60 Est GFR (Non-Af Amer) > 60 POC Glucose (mg/dL) 208 H 115 H Random Glucose 202 H Calcium 10.4 Total Bilirubin 0.4 AST 19 ALT 31 Alkaline Phosphatase 60 Total Protein 6.3 Albumin 4.0 Globulin 2.4 Albumin/Globulin Ratio 1.7 Assessment & Plan - Assessment and Plan (Free Text) Assessment: 77 year old male admitted for COPD who had an episode of bright red blood per rectum in the setting of having an elevated CEA 19-9 in the past though a normal CEA. Patient has never had a colonoscopy. Patient did have stool palpated in rectal vault suggestive of stool impaction. We ordered for one dose of a mineral-oil enema and Colace 100 mg BID. We recommend an outpatient screening colonoscopy. The patient outright refused colonoscopy at the time of my encounter. Upon discharge the patient should continue Miralax 17 gm daily. We will continue to follow the patient while in house. Case was reviewed and discussed with attending physician, Dr. Yao - Date & Time Date: 06/27/18 Time: 11:00
[2018-06-27] MEDS ORDERED: Mineral Oil Enema 135 ml RC ONE (12:52)
--- NOTE | 2018-06-27 14:31 | CP.PCM.PN ---
<Noy Kent - Last Filed: 06/27/18 14:27> Subjective - Date & Time of Evaluation Date of Evaluation: 06/27/18 Time of Evaluation: 07:28 - Subjective Subjective: PGY-[address] Machuca Pt complained of heart burn and 3 episodes of GI bleed about 50-100cc bright red blood, painless. Denies dizziness, CP Neb treatment helped pt at night. Objective - Vital Signs/Intake and Output Vital Signs (last 24 hours): Temp Pulse Resp BP Pulse Ox 98.1 F 90 20 116/78 92 L 06/27/18 14:00 06/27/18 14:00 06/27/18 14:00 06/27/18 14:00 06/27/18 14:00 Intake and Output: 06/27/18 06/27/18 06:59 18:59 Intake Total 120 Balance 120 - Medications Medications: Current Medications Albuterol/Ipratropium (Duoneb 3 Mg/0.5 Mg (3 Ml) Ud) 3 ml IH [id number] [facility] Last Admin: 06/27/18 13:32 Dose: 3 ml Albuterol/Ipratropium (Duoneb 3 Mg/0.5 Mg (3 Ml) Ud) 3 ml IH Q2H PRN PRN Reason: Shortness of Breath Aspirin (Aspirin Chewable) 81 mg PO DAILY [facility] Last Admin: 06/27/18 11:04 Dose: 81 mg Atorvastatin Calcium (Lipitor) 20 mg PO DIN [facility] Last Admin: 06/26/18 17:46 Dose: 20 mg Budesonide (Pulmicort Respules) 0.5 mg IH [id number] [facility] Last Admin: 06/27/18 07:21 Dose: 0.5 mg Docusate Sodium (Colace) 100 mg PO BID [facility] Guaifenesin/Dextromethorphan (Mucinex-Dm 600-30 Mg) 1 tab PO BID [facility] Last Admin: 06/27/18 10:54 Dose: 1 tab Insulin Human Lispro (Humalog Med) 0 units SC ACHS [facility] PRN Reason: Protocol Last Admin: 06/27/18 13:37 Dose: Not Given Levofloxacin (Levaquin) 500 mg PO DAILY [facility] PRN Reason: Protocol Last Admin: 06/27/18 10:54 Dose: 500 mg Methylprednisolone (Solu-Medrol) 20 mg IVP Q12 [facility] Last Admin: 06/27/18 10:54 Dose: 20 mg Pantoprazole Sodium (Protonix Ec Tab) 40 mg PO ACB [facility] Polyethylene Glycol (Miralax) 17 gm PO DAILY [facility] Last Admin: 06/27/18 10:54 Dose: 17 gm Tamsulosin HCl (Flomax) 0.4 mg PO DAILY [facility] Last Admin: 06/27/18 10:54 Dose: 0.4 mg - Labs Labs: 06/27/18 06:20 06/27/18 06:20 PT 10.9 SECONDS (9.4-12.5) 06/24/18 11:00 INR 0.95 06/24/18 11:00 APTT 31.3 Seconds (25.1-36.5) 06/24/18 11:00 - Constitutional Appears: No Acute Distress - Head Exam Head Exam: ATRAUMATIC, NORMAL INSPECTION, NORMOCEPHALIC - Eye Exam Eye Exam: EOMI, Normal appearance, PERRL. absent: Scleral icterus Pupil Exam: NORMAL ACCOMODATION - ENT Exam ENT Exam: Mucous Membranes Moist - Neck Exam Additional comments: supple - Respiratory Exam Respiratory Exam: Decreased Breath Sounds, Rhonchi, Wheezes - Cardiovascular Exam Cardiovascular Exam: REGULAR RHYTHM, +S1, +S2 - GI/Abdominal Exam GI & Abdominal Exam: Soft, Normal Bowel Sounds. absent: Guarding, Rigid, Tenderness - Extremities Exam Extremities Exam: Normal Capillary Refill. absent: Calf Tenderness, Pedal Edema , Tenderness - Back Exam Back Exam: absent: CVA tenderness (L), CVA tenderness (R) - Neurological Exam Neurological Exam: Alert, Awake, Normal Gait, Oriented x3 - Psychiatric Exam Psychiatric exam: Agitated, Anxious - Skin Skin Exam: Dry, Warm Assessment and Plan - Assessment and Plan (Free Text) Plan: Mr Caal, 77M, former smoker with extensive smoking history, COPD with focal scarring in RLL (CT scan 04/2018) complained of difficulty breathing for the past 2 nights, waking up gasping for air and came to the emergency room. A: COPD exacerbation ? Sleep apnea causing dyspnea GI bleed, bright red blood per rectum, likely lower GI. Fecal impaction. GERD New onset diabetes, A1C 7 Pulmonary scarring, focal scarring in RLL (CT scan 04/2018) Hypercalcemia at 10.6, mild Dizziness with Brief loss of vision, bilateral, likely from vagal stimulation due to coughing, doubt temporal arteritis non-obstructing CAD Hyperlipidemia BPH R hard of hearing AAA, infrarenal, 4.3cm P: For COPD exacerbation, Duoneb EFFIE and PRN. Budesonide. Solumedrol 20Q12. Levaquin IV ___day 4___. HOB > 45. 3L NC as needed. Mucinex DM BID for cough. Passed 6-minute walk test, no need for home O2. Sleep study outpatient to r/o SILVA For Pulm scarring, follow up with can tender outpatient For new onset diabetes, diabetic education. Pt wants to try diet and exercise before starting hypoglycemia PO. Agrees to follow up with primary care doctor outpatient to recheck A1C. Continue ISSS - medium scale. For GI bleed, Hb stable, not anemic. Follow up with GI doctor outpatient for colonoscopy For GERD, continue protonix. Sit upright at 90 degrees 2 hours after meal. For fecal impaction, s/p fleet enema x 1. Continue stool softener as needed For hypercalcemia, maintain adequate hydration. Follow on PTH, Vit D, PSA. For CAD, with diabetes and HLD, recommend to start statin and ASA. However in light of GI bleed, hold ASA for now For AAA, follow up with cardiology outpatient for monitoring. BP controlled For BPH, continue home med Prophylaxis: SCD, protonix s/r/d/w Dr Machuca <Gary Machuca S - Last Filed: 07/01/18 18:51> Objective - Vital Signs/Intake and Output Vital Signs (last 24 hours): Temp Pulse Resp BP Pulse Ox 97.5 F L 90 20 127/80 97 06/28/18 14:12 06/28/18 14:12 06/28/18 14:12 06/28/18 14:12 06/28/18 14:12 - Labs Labs: 06/28/18 06:00 06/28/18 06:00 PT 10.9 SECONDS (9.4-12.5) 06/24/18 11:00 INR 0.95 06/24/18 11:00 APTT 31.3 Seconds (25.1-36.5) 06/24/18 11:00 Assessment and Plan - Assessment and Plan (Free Text) Plan: Keep a notebook with you all day. Jot down things to do in your office after the last child has left the building or tomorrow -- but don't plan or arrange to be in your office. Pt with acute COPD and improving symptoms. He is on Levaquin, Duoneb and Solumedrol. Pulm following. Constipation improved.
[2018-06-28] MEDS: Albuterol-Ipratrop 3 mg / 0.5 (3 ml) UD IH SCH ×3 (02:50→13:25)
[2018-06-28 06:20] LABS: BASO # 0.01 K/mm3 (0.0-2.0); BASO % 0.1 % (0.0-3.0); GRAN # 7.19 (1.4-6.5); GRAN % 71.8 % (50.0-68.0); HEMOGLOBIN 15.1 g/dL (14.0-18.0); LYMPH # 2.1 (1.2-3.4); MEAN CELL VOLUME 86.7 fl (80.0-105.0); MEAN CORPUSCULAR HEMOGLOBIN 29.5 pg (25.0-35.0); MEAN CORPUSCULAR HGB CONC 34.1 g/dl (31.0-37.0); MEAN PLATELET VOLUME 10.5 fl (7.0-11.0); MONO # 0.7 (0.1-0.6); MONO % 7.1 % (1.0-6.0); RBC 5.11 10^6/uL (3.5-6.1); RED CELL DISTRIBUTION WIDTH 14.4 % (11.5-14.5)
[2018-06-28 06:44] LABS: ALB/GLOB RATIO 1.4 (1.1-1.8); ALBUMIN 4.1 g/dL (3.0-4.8); ALT/SGPT 27 U/L (7-56); AST/SGOT 23 U/L (17-59); BLOOD UREA NITROGEN 28 mg/dL (7-21); CALCIUM 10.6 mg/dL (8.4-10.5); GFR AFRICAN-AMERICAN > 60; GFR NON-AFRICAN AMERICAN > 60
[2018-06-28] MEDS: Budesonide 0.5 mg/2 ml Inhal Susp UD IH SCH (07:16)
[2018-06-28] MEDS ORDERED: Pantoprazole 40 mg EC Tab PO SCH (07:30)
[2018-06-28 07:48] VITALS: RESP 20
[2018-06-28] MEDS: Insulin Lispro (humaLOG) MEDIUM Coverage SC SCH ×2 (08:04→12:09)
[2018-06-28] MEDS: POLYETHYLENE GLYCOL 3350 17 GM/Dose PACKET PO SCH (09:15)
[2018-06-28] MEDS: guaiFENesin-DM 600-30 mg ER Tab PO SCH ×2 (09:16→17:39)
[2018-06-28] MEDS: levoFLOXacin 500 MG TAB PO SCH (09:16)
[2018-06-28] MEDS: MethylPREDNISolone 40 mg Vial IVP SCH (09:17)
[2018-06-28 10:11] LABS: TOTAL PSA 5.1 ng/mL (< or = 4.0)
[2018-06-28 14:13] VITALS: BP 127/80; PULSE 90; TEMP 97.5; O2SAT 97
--- NOTE | 2018-06-28 21:39 | DS ---
Copied To: Radha Mejias MD Attending MD: Radha Mejias MD DATE OF DISCHARGE: 06/28/2018 DISCHARGE DIAGNOSES 1. Chronic obstructive pulmonary disease exacerbation. 2. Gastrointestinal bleed. 3. Fecal impaction. 4. Leukocytosis, anemia. HOSPITAL COURSE: The patient was admitted with COPD exacerbation. Pulmonary consultation with Dr. Bradford requested. He was treated with bronchodilators, IV antibiotics. He also had GI bleed, evaluated by JOSH Horner, was found to have fecal impaction. That was thought to be likely cause of GI bleeding. He was advised colonoscopy that he refused. CEA was normal. Hemoglobin remained stable during hospitalization. He also had leukocytosis on admission. White count resolved. White count improved to 10,000, it was 12,000 initially. He is being discharged home in stable condition. PHYSICAL EXAMINATION ON DISCHARGE: GENERAL: Comfortable in bed, in no acute distress. VITAL SIGNS: Temperature 97.3, heart rate 79 per minute, blood pressure 148/94, oxygen saturation 93% on room air. HEENT: Pallor positive. NECK: No lymphadenopathy. CHEST: Air entry present equal bilaterally. No added sound. CARDIOVASCULAR: S1, S2 normal. No murmur. No gallop. ABDOMEN: Soft, nontender. No hepatosplenomegaly. EXTREMITIES: No edema. 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 No focal, sensory, motor deficit. CONDITION ON DISCHARGE: Stable. DISPOSITION: Discharge home. DISCHARGE MEDICATIONS: DuoNeb every 6 hours p.r.n., aspirin 81 mg daily, Lipitor 20 mg daily, Colace 100 mg p.o. b.i.d., Levaquin of 500 mg p.o. daily for 5 days. FOLLOWUP: With Dr. Machuca in 1 week. All prescriptions given to the patient. TIME SPENT IN PREPARING DISCHARGE AND COORDINATING CARE: 55 minutes. Radha Mejias MD
--- NOTE | 2018-06-28 22:19 | PN ---
Copied To: Angi Mejias MD Attending MD: Angi Mejias MD DATE: 06/28/2018 PULMONARY PROGRESS NOTE REFERRING PHYSICIAN: Gary Machuca MD SUBJECTIVE: He is ambulating in the [place]. Night was remarkable. Could not tolerate BiPap with high pressures, took off the BiPap, but overall feels better. Decreased cough, decreased shortness of breath. No nausea, no vomiting, no diarrhea, leg pain or leg swelling. OBJECTIVE: GENERAL: No acute distress. VITAL SIGNS: Temperature is 98, heart rate is 90, respiratory rate is 20, blood pressure 127/80, pulse ox 97% on room air. HEENT: Moist mucous membrane. Crowded airway. Mallampati score is 4. NECK: Supple. No JVD. LUNGS: Have few scattered rhonchi. Fair airflow. HEART: S1 and S2. ABDOMEN: Soft, nontender, no organomegaly. EXTREMITIES: No edema. NEUROLOGIC: Awake, alert, follows simple command. MEDICATIONS: He is on Ambien 5 mg at bedtime p.r.n., aspirin 81 mg daily, Colace 100 mg twice a day, DuoNeb every 6 hours [id number], Flomax 0.4 mg daily, insulin coverage, Levaquin 500 mg daily, Lipitor 20 mg daily, MiraLax 17 g daily, Mucinex DM 1 tablet twice a day, Protonix 40 mg daily, Pulmicort inhaled twice a day, Solu-Medrol 20 mg every 12 hours. LABORATORY DATA: Shows hemoglobin of 15.1, hematocrit 44.3, WBC 10, platelet is 248. Sodium 138, potassium 4.5, chloride 99, bicarbonate 30, BUN 28, creatinine 0.8, glucose 171, calcium 10.6, AST 23, ALT 27, alk phos is 65. Albumin is 4.1. Microbiology, blood culture, urine culture, there is no growth. IMPRESSION AND PLAN: Chronic obstructive lung disease, obesity, very high risk for sleep apnea syndrome, rule out cor pulmonale. Clinically he is doing well. Spoke to the patient and family at bedside. All the questions answered. Spoke to nursing staff. May go home on tapered dose of steroids. Need to follow up blood sugar check as outpatient and hemoglobin A1c, need pulmonary function tests as outpatient. We will schedule him for sleep study in [facility]. Need attended study, has multiple night awakening with choking sensation. Thank you and we will follow with you. Angi Mejias MD
--- NOTE | 2018-06-30 08:41 | CON ---
Copied To: Angi Mejias MD Attending MD: Angi Mejias MD DATE: 06/27/2018 PULMONARY/SLEEP CONSULTATION REFERRING PHYSICIAN: Gary Machuca MD REASON FOR CONSULTATION: Cough, shortness of breath, chronic lung disease, suspected sleep apnea syndrome. HISTORY OF PRESENT ILLNESS: This is a 77-year-old gentleman with known history of chronic obstructive lung disease, aortic aneurysm, history of cholecystectomy last year, stopped smoking about a year ago, brought in to emergency room with cough and shortness of breath. According to the patient, he has multiple night awakenings, he gets up in the middle of the night with a choking, hard to breathe, ended up standing next to the air-condition to get some air. He gained about 25 pounds since his [facility] about a year ago. He gets short of breath with minimal exertion. No chest pain. No nausea, no vomiting, no diarrhea. No leg pain or leg swelling. PAST MEDICAL HISTORY: As per history of present illness. ALLERGIES: NONE KNOWN. SOCIAL HISTORY: Stopped smoking about a year ago. Denies any alcohol use. FAMILY HISTORY: No significant cardiopulmonary disease reported. MEDICATIONS: He is on aspirin 81 mg daily, Colace 100 mg twice a day, DuoNeb every 2 hours p.r.n. and every 6 hours [id number], Flomax 0.4 mg daily, Levaquin 500 mg daily, Lipitor 20 mg daily, MiraLax 17 g daily, Mucinex DM 600/30 1 tablet twice a day, Protonix 40 mg daily, Pulmicort inhaled twice a day, Solu-Medrol 20 mg every 12 hours. REVIEW OF SYSTEMS: No headache, no rhinitis. Has cough, clear sputum, short of breath, multiple night awakenings, loud snoring, daytime sleepy and tired. No nausea, no vomiting, no diarrhea. No dysuria, leg pain or leg swelling. PHYSICAL EXAMINATION: GENERAL: Standing up, no acute distress. VITAL SIGNS: Temperature is 98, heart rate is 90, respiratory rate is 20, blood pressure 116/78, pulse ox 92% on room air. HEENT: Moist mucous membrane. Crowded airway. Mallampati score is 4. Short thick neck. No maxillary area tenderness. LUNGS: Scattered few rhonchi. HEART: S1 and S2. ABDOMEN: Soft, nontender, no organomegaly. EXTREMITIES: No edema. NEUROLOGIC: Awake and alert, follows simple commands. LABORATORY DATA: Shows hemoglobin 14.1, hematocrit 42.5, WBC 11.7, platelet is 244. INR 0.95. PTT 31. ABG on admission showed pH 7.38, pCO2 36, O2 140, this is on nasal cannula. Sodium 137, potassium 4.7, chloride 101, bicarbonate 29, BUN 21, creatinine 0.8, glucose 202, calcium 10.4, AST 19, ALT 31, alk phos is 60, albumin is 4. Influenza A and B antibodies are negative. Microbiology, blood culture and urine culture is unremarkable. IMPRESSION AND PLAN: Chronic obstructive lung disease, obesity, high risk for sleep apnea syndrome and may be component of gastroesophageal reflux disease. Case discussed with the patient and the patient's family at bedside. All the questions answered. Spoke about sleep apnea and its consequences and relation to night choking. The patient expressed understanding. We will start him on BiPAP 12/8 with 30% oxygen while sleeping. Keep head elevated 45 degrees. May give him Ambien 10 mg at bedtime while the patient on BiPAP. We will need full pulmonary function tests as outpatient. We will also need attended sleep study as outpatient. He does have an echocardiogram early this month which shows right ventricle systolic pressure is 21 and left ventricular ejection fraction was 55% to 60%. CAT scan of the chest was done about 2 months ago in the last admission which was unremarkable, which was noncontrast CT of the chest. Thank you and we will follow with you. Angi Mejias MD
== END 2018-06-28 18:53 | disposition home or self-care (01) | DRG 191 ==
LOC: ED 09:19 → ERH 11:39 → 2RSO 16:03 → 5RNO 06-25 12:53
PROVIDERS: ADMIT Internal Medicine Nephrology; ATTEND Internal Medicine Nephrology
PROC: 5A09357 Assistance with Respiratory Ventilation, Less than 24 Consecutive Hours, Continuous Positive Airway Pressure (ICD-10-PCS; principal; 2018-06-27)
DX: J44.1 Chronic obstructive pulmonary disease with (acute) exacerbation (principal); K62.5 Hemorrhage of anus and rectum; K56.41 Fecal impaction; D64.9 Anemia, unspecified; N40.0 Benign prostatic hyperplasia without lower urinary tract symptoms; I25.10 Atherosclerotic heart disease of native coronary artery without angina pectoris; E11.65 Type 2 diabetes mellitus with hyperglycemia; J44.0 Chronic obstructive pulmonary disease with (acute) lower respiratory infection; J20.9 Acute bronchitis, unspecified; H91.8X1 Other specified hearing loss, right ear; E78.00 Pure hypercholesterolemia, unspecified; E78.5 Hyperlipidemia, unspecified; M19.90 Unspecified osteoarthritis, unspecified site; F41.9 Anxiety disorder, unspecified; G47.30 Sleep apnea, unspecified; I71.4 Abdominal aortic aneurysm, without rupture; E83.52 Hypercalcemia; K21.9 Gastro-esophageal reflux disease without esophagitis; E66.9 Obesity, unspecified; Z87.891 Personal history of nicotine dependence; Z68.35 Body mass index [BMI] 35.0-35.9, adult